=== PATIENT | female | born 1970 | race Caucasian/White ===

== ENCOUNTER 2019-09-09 09:57 | Outpatient (CLI) | payer OTHER, SELFPAY ==
--- NOTE | 2019-09-09 10:08 | MM_ITS ---
WS: [id number] Bilateral screening digital mammogram, 09/09/2019 Clinical Data: SCREENING Comparison: None. Findings: The breast parenchymal pattern shows fibroglandular tissue No spiculated masses or clustered calcific ations are seen. There are no secondary signs of carcinoma. MM/[id number] Impression: 1. Negative bilateral mammogram with no prior exam for review. 2. Recommend annual screening mammograms. BIRADS: 1-Negative FOLLOW UP: 1 Year Follow-up The CAD film tests checker was used.
== END 2019-09-09 09:58 | disposition home or self-care (01) ==
LOC: RADSHAW 10:06
PROVIDERS: Visit Provider Nurse Practitioner Family
DX: Z12.31 Encounter for screening mammogram for malignant neoplasm of breast (principal)
CPT/HCPCS: 77067

== ENCOUNTER 2020-10-02 08:54 | Emergency (ER) | payer MEDICAID, SELFPAY ==
[2020-10-02 09:00] VITALS: BP 153/94; PULSE 93; RESP 20; TEMP 37.2; O2SAT 91; BMI 36.0
--- NOTE | 2020-10-02 09:09 | W.ED.COVID ---
HPI - COVID General: Chief Complaint: COVID symptoms Stated Complaint: COVID +/SOB/BACK PAIN/HEADACHES Source: patient, family (son) and color paste mixer (son) Mode of arrival: ambulatory Limitations: language barrier Triage information: Has fever, cough or shortness of breath. Exposure to COVID + person last 14 days History of Present Illness: HPI Narrative: Patient is a 50-year-old female who presents to ED today along with her who is also being seen and her son who is providing color paste mixer services here for complaints of positive COVID exposure and symptoms. Patient states her tested positive for COVID at [facility] last week. She states shortly after she became symptomatic complaining of a cough, shortness of breath, fatigue, and a headache. Son states they did a home rapid antigen test that came back positive. Son states she has a history of HTN and diabetes. MD complaint: reported COVID exposure and has COVID symptoms Prior covid testing: no COVID 19 common symptoms: positive non-productive cough, dyspnea, fatigue, body aches and headache(s); negative fever(s), chills, throat pain, nasal congestion, nausea, vomiting or diarrhea COVID 19 other sytmptoms: negative chest pain Onset (ago): day(s) Severity: moderate Treatment prior to arrival: none COVID Results: SARS-CoV-2 Antigen (Rapid) Positive (Negative) H 10/02/20 09:37 10/02/20 Review of Systems Const: Reports: body aches, fatigue and malaise; Denies: fever(s) or chills Eyes: Denies: change in vision ENMT: Denies: throat pain, odynophagia, nasal discharge or nasal congestion Card: Reports: dyspnea on exertion; Denies: chest pain, palpitations, irregular heart rhythm, edema, lightheadedness, syncope or pre-syncope Resp: Reports: dyspnea and non-productive cough; Denies: wheezing or hemoptysis GI: Denies: abdominal pain, nausea, vomiting or diarrhea Musc: Denies: neck pain or back pain Skin/Breast: Denies: rash Neuro: Reports: headache(s); Denies: numbness in extremities, weakness in extremities, sensory changes, difficulty walking, frequent falls or dizziness Physical Exam Const: COMMON NORMALS: no acute distress, patient oriented x3, no limitations and alert GENERAL APPEARANCE: cooperative NUTRITIONAL APPEARANCE: overweight ORIENTATION/CONSCIOUSNESS: Yes awake, Yes oriented to person, Yes oriented to place and Yes oriented to time HENMT: COMMON NORMALS: normocephalic and atraumatic HEAD & SCALP: normal to inspection, normocephalic and atraumatic Resp: COMMON NORMALS: normal respiratory effort and clear to auscultation bilaterally AUSCULTATION: clear to auscultation bilaterally Cardio: COMMON NORMALS: regular rate and regular rhythm RATE: regular rate RHYTHM: regular rhythm Extremity: COMMON NORMALS: no calf tenderness and no pedal edema Neuro: SHERINE COMA SCALE: document GCS findings [place] coma scale eye opening: Spontaneous [place] coma scale verbal response: Orientated Sherine coma scale motor response: Obey commands [place] coma scale total score: 15 COMMON NORMALS: patient oriented x3 SENSORIUM/ORIENTATION: Yes alert, Yes oriented to person, Yes oriented to place and Yes oriented to time Skin: COMMON NORMALS: no rashes or lesions noted GENERAL SKIN EXAM: no rashes or lesions noted Course Vital Signs: Vital signs: Vital Signs Temperature 99.0 F 10/02/20 11:19 Pulse Rate 93 10/02/20 09:00 Respiratory Rate 20 H 10/02/20 11:19 Blood Pressure 153/94 10/02/20 09:00 Pulse Oximetry 95 10/02/20 11:19 MDM - COVID MDM Narrative: Medical decision making narrative: Patient is a very nice woman here with COVID-19 symptoms and positive exposure. Her rapid is positive today. Patient upon arrival is in no acute distress. She is not tachycardic or febrile. Patient is satting at 92% at rest on RA. During her home O2 evaluation by RT she did drop to 88% which qualifies her for home O2. CXR does show bilateral pneumonia. She certainly has risk factors for disease progression but does not qualify for [facility] based on oxygen requirement. At this time patient does not warrant emergent hospitalization. She was given strict instructions to return to ED if symptoms worsen. We will have set her up with a telehealth COVID re-check visit so someone can re-assess in 24-48 hours. Lab Data: Labs: Lab Results 10/02/20 Range/Units 09:37 SARS-CoV-2 Ag (Rap id) Positive H (Negative) Imaging Data: CXR: Radiologist's impression: [address] [place] [address] XRay Report Signed Patient: Opal Rain Unit #: [id number] : 1970 Age/Sex: 50 / F ADM Date: 10/02/20 Loc: ER Room/Bed: Attending Dr: Ordering Provider/Ordering MD: Pam Osuna Date of Service: 10/02/20 Procedure(s): XR chest 1V portable [id number] Accession Number(s): [id number] Report Number: [id number] PROCEDURE INFORMATION: Exam: XR Chest Exam date and time: 10/02/2020 9:09 AM Age: 50 years old Clinical indication: Shortness of breath; Additional info: Covid exposure, symptomatic, SOB TECHNIQUE: Imaging protocol: XR of the chest. Views: 1 view. COMPARISON: No relevant prior studies available. FINDINGS: Lungs: Bilateral ground-glass and airspace opacities are noted in the lungs especially in the periphery of the left lower lobe compatible with pneumonic infiltrates including COVID-19 pneumonia. The pulmonary vascularity is within normal limits. Pleural spaces: Unremarkable. No pleural effusion. No pneumothorax. Heart/Mediastinum: There is borderline cardiomegaly. Bones/joints: No acute abnormality. XR/XR chest 1V portable [id number] IMPRESSION: Bilateral ground-glass and airspace opacities are noted in the lungs especially in the periphery of the left lower lobe compatible with pneumonic infiltrates including COVID-19 pneumonia. Dictated By: Shannan Haddad Signed By: Shannan Haddad Signed Date/Time: 10/02/20 1208 DD/ 1206 COVID Results: SARS-CoV-2 Antigen (Rapid) Positive (Negative) H 10/02/20 09:37 10/02/20 Monoclonal Antibody - ED Inclusion/Exclusion Criteria age >/= 12 years, weight >/= 40kg /88lbs, symptom onset less than 10 days ago and + direct Sars-Cov-2 test less than 7-10 days ago obesity (BMI >25 or 85%til for age) not requiring hospitalization and no increase oxygen requirement (if chronically on oxygen) Plan for treatment Does not meet criteria (DO NOT GIVE) Discharge Plan Discharge Patient Disposition: Home Clinical Impression: Pneumonia due to COVID-19 virus Condition: Stable Prescriptions: New dexamethasone 6 mg tablet 6 mg PO DAILY Qty: 6 RF: 0 Zofran 4 mg tablet 4 mg PO Q6H PRN (Reason: nausea and vomiting) Qty: 14 RF: 0 Discharge Orders: Discharge ED (Routine); Ordered 10/02/20 Ordered By: Pam Osuna Other Ambulatory Orders: DME: Oxygen (Order) Location: None Selected Ordered By: Pam Osuna Activity Restrictions/Additional Instructions: As we discussed you did not qualify for the monoclonal antibody infusion given the fact that you were requiring oxygen. Your vital signs are stable at this time-oxygen increased to appropriate levels with 2L home O2. Your chest x-ray does show pneumonia. This is secondary to the COVID-19 virus. Antibiotics are not indicated at this time. You need to continue to watch symptoms closely and return to the emergency department for severe shortness of breath or difficulty breathing. I will try to have case management set you up with a telehealth visit in the next 1 to 2 days so somebody can reevaluate you. Coding Level of Care Code ED Speech Language Pathologist Assistant for Sal Lozano Exam Detailed
[2020-10-02 09:41] VITALS: RESP 20; TEMP 37.2; O2SAT 95
[2020-10-02 09:46] VITALS: O2SAT 88; O2SAT 92; O2SAT 95
[2020-10-02 10:16] LABS: SARS Covid-2 Antigen Positive (Negative)
[2020-10-02 11:19] VITALS: RESP 20; TEMP 37.2; O2SAT 95
[2020-10-02] MEDS: ondansetron 4 MG Tablet PO (11:19)
--- NOTE | 2020-10-03 14:26 | DCPLANNER ---
assessment services manager had message to schedule a tele health visit with primary care physician. assessment services manager called [facility], gave clinic patients information. A follow up appointment was scheduled for Sunday, October 04, 2020 at 1:[address] Hrading. assessment services manager called patients daughter, and gave her the appointment information.
--- NOTE | 2020-10-14 14:46 | DCPLANNER ---
Patient had a follow up appointment scheduled for 10.04.20 with primary care, patient did attend.
== END 2020-10-02 11:20 | disposition home or self-care (01) ==
PROVIDERS: Emergency Provider Physician Assistant
DX: U07.1 COVID-19 (principal); J12.82 Pneumonia due to coronavirus disease 2019
CPT/HCPCS: 71045; 87426; 99283; Q0162

== ENCOUNTER 2020-10-05 11:56 | Inpatient (IN) | payer MEDICAID, SELFPAY ==
[2020-10-05] VITALS (9 sets, daily range): BP systolic 134–161; BP diastolic 78–93; PULSE 75–82; RESP 16–29; TEMP 36.7–37.1; O2SAT 89–96; BMI 34.9; BMI 35.7
--- NOTE | 2020-10-05 13:20 | XR_ITS ---
WS: [id number] Portable AP upright chest, 10/05/2020 Clinical Data: dyspnea Comparison: Portable chest, 10/02/2020. Findings: Patchy bilateral pulmonary opacities are seen throughout the lungs with slight improvement. No nodules or masses are seen. The heart is normal. The aortic arch is tortuous. XR/XR chest 1V portable [id number] Impression: Slight improvement in patchy bilateral pulmonary opacities consistent with pneu monia.
[2020-10-05 13:44] LABS: ABG PCO2 33.4 mmHg (35-45); ABG PH Result 7.46 (7.35-7.45); Arterial Blood Gas Hematocrit 37.8 % (37-47); Base Excess ABG 0.3 mmol/L (-2.0-2.0); Blood Gas Sample Type Arterial; Carboxyhemoglobin 1.3 %THgb (0.4-20.1); HCO3 ABG 23.7 mmol/L (22-26); HGB O2 Sat 90.6 % (95-100); Ionized Calcium Level - ABG 1.2 mmol/L (1.1-1.4); Methemoglobin 0.7 % (0.4-1.5); Oxygen Saturation ABG 92.5; Potassium Level - ABG 4.3 mmol/L (3.5-5.0); Total Hemoglobin 12.3 g/dL (12-16)
[2020-10-05 13:45] LABS: Alveolar-Arterial Oxygen Gradi 27.8 mmHg (5-10); Blood Gas Operator Identificat ED; Blood Gas Sample Site Radial, left; Oxygen Device NC
[2020-10-05 14:00] LABS: Basophils % 0.1 %; Hematocrit 35.4 % (37.0-47.0); Hemoglobin 11.8 g/dL (11.5-15.3); Lymphocytes # 0.6 10^3/uL (0.8-4.8); Lymphocytes % 6.8 %; Mean Corpuscular HGB Conc 33.3 g/dL (30.0-36.0); Mean Corpuscular Hemoglobin 26.6 pg (28.0-34.0); Mean Corpuscular Volume 79.7 fL (81-99); Mean Platelet Volume 8.5 fL (7.4-10.4); Monocytes # 0.6 10^3/uL (0.2-0.9); Monocytes % 7.9 %; Neutrophils # 6.85 10^3/uL (1.8-7.7); Neutrophils % 84.6 %; Nucleated Red Blood Cells % 0 %; Platelet Count 322 10^3/cmm (130-400); Red Blood Count 4.44 10^6/uL (4.1-5.3); Red Cell Distribution Width 13.4 % (12.1-15.1); White Blood Count 8.1 10^3/uL (4.0-10.0)
[2020-10-05 14:15] LABS: D Dimer 0.87 ug/mIFEU (0-0.59)
[2020-10-05 14:17] LABS: Alanine Aminotransferase 12 U/L (0-33); Albumin Level 3.5 g/dL (3.5-5.2); Alkaline Phosphatase 125 IU/L (35-105); Anion Gap 16.4 (5-19); Aspartate Amino Transferase 14 U/L (0-32); Blood Urea Nitrogen 17 mg/dL (6-20); C Reactive Protein 97.2 mg/L (0.0-4.9); Carbon Dioxide 23 mmol/L (22-29); Chloride 95 mmol/L (98-107); Creatinine Clr Calc Pharmacy 143.3668; Globulin 2.9 g/dL (1.3-4.6); Glomerular Filtration Rate 106.3 mL/min (90-130); Glucose 380 mg/dL (65-115); Osmolality Calculated 287 mOsm/kg (285-295); Potassium 4.4 mmol/L (3.5-5.1); Sodium 130 mmol/L (136-145); Total Bilirubin 0.6 mg/dL (0.15-1.2); Total Protein 6.4 g/dL (6.6-8.7)
[2020-10-05 14:18] LABS: Lactic Sepsis W/Reflex 1.7 mmol/L (0.5-2.2)
--- NOTE | 2020-10-05 14:44 | W.ED.COVID ---
HPI - COVID General: Chief Complaint: COVID symptoms Stated Complaint: Low O2, covid + Time Seen by Provider: 10/05/20 13:20 Triage information: Exposure to COVID + person last 14 days History of Present Illness: HPI Narrative: 50-year-old female who presents to the emergency room with complaints of shortness of breath. Patient is diabetic moderately obese. She tested positive for Covid on 10/02 she had symptoms since 09/28. She was on oxygen at home at 5 L/min and was getting increasingly short of breath on arrival here she is 86% on 5 L at rest on 6 L she will maintain in the mid to low 90s. She continues to have myalgias low-grade fever. MD complaint: known COVID positive Prior covid testing: yes, results known Prior testing date: 10/02/20 COVID 19 common symptoms: positive fever(s), chills, cough, non-productive cough, dyspnea, fatigue, body aches, headache(s), nasal congestion and nausea; negative vomiting or diarrhea COVID 19 other sytmptoms: positive requiring oxygen, requiring more oxygen and respiratory distress; negative chest pain Onset (ago): week(s) (1) Severity: severe Pertinent comorbid conditions: diabetes, hypertension and obesity Treatment prior to arrival: steroids and oxygen COVID Results: SARS-CoV-2 Antigen (Rapid) Positive (Negative) H 10/02/20 09:37 10/02/20 Review of Systems Const: Reports: fever(s), chills, body aches and fatigue ENMT: Reports: nasal congestion Card: Reports: dyspnea on exertion; Denies: chest pain, edema or orthopnea Resp: Reports: dyspnea and non-productive cough GI: Reports: nausea; Denies: abdominal pain, vomiting or diarrhea : Denies: flank pain, difficulty voiding, dysuria, urinary frequency or urinary urgency Skin/Breast: Denies: rash or pruritus Neuro: Reports: headache(s) Physical Exam Const: GENERAL APPEARANCE: cooperative ORIENTATION/CONSCIOUSNESS: Yes awake HENMT: COMMON NORMALS: normocephalic, atraumatic and hearing grossly normal bilaterally HEAD & SCALP: normocephalic and atraumatic Eye: COMMON NORMALS: Equal, round and reactive pupils present, EOMs intact bilaterally, conjunctivae normal and no scleral icterus CONJUNCTIVA: Yes conjunctivae normal PUPIL: Yes Equal, round and reactive pupils present Neck/C-Spine: COMMON NORMALS: full ROM, no lymphadenopathy, supple and no JVD Lymph: LYMPHATIC: no lymphadenopathy noted and no lymphedema noted Resp: AUSCULTATION: crackles, wheezes and diminished lung sounds Cardio: COMMON NORMALS: no JVD, regular rate, regular rhythm and No murmurs present (Cardio) RATE: regular rate RHYTHM: regular rhythm GI: COMMON NORMALS: Soft to palpation and No hepatosplenomegaly present AUSCULTATION: Yes normoactive bowel sounds PALPATION: Yes Soft to palpation, No Tenderness to palpation present (GI), No Guarding due to palpation present (GI) and Yes No hepatosplenomegaly present Extremity: COMMON NORMALS: normal to inspection, capillary refill normal, no clubbing, cyanosis or edema, no calf tenderness and no pedal edema Skin: COMMON NORMALS: no rashes or lesions noted GENERAL SKIN EXAM: no rashes or lesions noted Course Vital Signs: Vital signs: Vital Signs Temperature 98.0 F 10/05/20 12:52 Pulse Rate 75 10/05/20 16:38 Respiratory Rate 20 H 10/05/20 16:38 Blood Pressure 161/89 10/05/20 16:38 Pulse Oximetry 96 10/05/20 16:38 MDM - COVID MDM Narrative: Medical decision making narrative: Covid pneumonitis with failure of outpatient therapy. Will start on remdesivir dexamethasone. Discussed Dr. Vieira she concurs patient is a candidate for Actemra her procalcitonin is low normal. That was ordered as well. Discussed Dr. Gonzalez orders are written patient to be admitted to the to a unit. Lab Data: Labs: Lab Results 10/05/20 10/05/20 10/05/20 Range/Units 13:35 13:45 13:45 WBC 8.1 (4.0-10.0) 10^3/ uL RBC 4.44 (4.1-5.3) 10^6/u L Hgb 11.8 (11.5-15.3) g/dL Hct 35.4 L (37.0-47.0) % MCV 79.7 L (81-99) fL MCH 26.6 L (28.0-34.0) pg MCHC 33.3 (30.0-36.0) g/dL RDW 13.4 (12.1-15.1) % Plt Count 322 (130-400) 10^3/c mm MPV 8.5 (7.4-10.4) fL Neut % (Auto) 84.6 % Lymph % (Auto) 6.8 % [place] % (Auto) 7.9 % Eos % (Auto) 0.0 % Baso % (Auto) 0.1 % Neut # (Auto) 6.85 (1.8-7.7) 10^3/u L Lymph # (Auto) 0.6 L (0.8-4.8) 10^3/u L [place] # (Auto) 0.6 (0.2-0.9) 10^3/u L Eos # (Auto) 0.0 (0.0-0.8) 10^3/u L Baso # (Auto) 0.0 (0.0-0.1) 10^3/u L Nucleated RBC % (a uto) 0 % Nucleated RBCs # 0.0 /100WBC D-Dimer 0.87 H (0-0.59) ug/mIFE U Specimen Type Arterial Sample Site Radial, left ABG pH 7.46 H (7.35-7.45) ABG pCO2 33.4 L (35-45) mmHg ABG pO2 58.0 L (80.0-100.0) mmH g ABG HCO3 23.7 (22-26) mmol/L ABG O2 Saturation 92.5 ABG Base Excess 0.3 (-2.0-2.0) mmol/ L Ben Test N/a A-a O2 Gradient 27.8 H (5-10) mmHg Hematocrit 37.8 (37-47) % Hgb O2 Saturation 90.6 L (95-100) % Carboxyhemoglobin 1.3 (0.4-20.1) %THgb Methemoglobin 0.7 (0.4-1.5) % Total Hemoglobin 12.3 (12-16) g/dL Sodium 131.0 (131-143) mmol/L Potassium 4.3 (3.5-5.0) mmol/L Glucose 386.0 H (70-115) mg/dL Ionized Calcium 1.2 (1.1-1.4) mmol/L O2 Delivery Device Nc O2 Liters/Min 6.0 % FiO2 44.0 % Cloth Weigher ID Ed Chloride (98-107) mmol/L Carbon Dioxide (22-29) mmol/L Anion Gap (5-19) BUN (6-20) mg/dL Creatinine (0.5-0.9) mg/dL GFR Calculation (90-130) mL/min Calculated Osmolal ity (285-295) mOsm/k g Lactic Acid (0.5-2.2) mmol/L Calcium (8.5-10.5) mg/dL Total Bilirubin (0.15-1.2) mg/dL AST (0-32) U/L ALT (0-33) U/L Alkaline Phosphata se (35-105) IU/L C-Reactive Protein (0.0-4.9) mg/L Total Protein (6.6-8.7) g/dL Albumin (3.5-5.2) g/dL Globulin (1.3-4.6) g/dL Procalcitonin (0-0.5) ng/mL 10/05/20 10/05/20 10/05/20 Range/Units 13:45 13:45 13:45 WBC (4.0-10.0) 10^3/ uL RBC (4.1-5.3) 10^6/u L Hgb (11.5-15.3) g/dL Hct (37.0-47.0) % MCV (81-99) fL MCH (28.0-34.0) pg MCHC (30.0-36.0) g/dL RDW (12.1-15.1) % Plt Count (130-400) 10^3/c mm MPV (7.4-10.4) fL Neut % (Auto) % Lymph % (Auto) % [place] % (Auto) % Eos % (Auto) % Baso % (Auto) % Neut # (Auto) (1.8-7.7) 10^3/u L Lymph # (Auto) (0.8-4.8) 10^3/u L [place] # (Auto) (0.2-0.9) 10^3/u L Eos # (Auto) (0.0-0.8) 10^3/u L Baso # (Auto) (0.0-0.1) 10^3/u L Nucleated RBC % (a uto) % Nucleated RBCs # /100WBC D-Dimer (0-0.59) ug/mIFE U Specimen Type Sample Site ABG pH (7.35-7.45) ABG pCO2 (35-45) mmHg ABG pO2 (80.0-100.0) mmH g ABG HCO3 (22-26) mmol/L ABG O2 Saturation ABG Base Excess (-2.0-2.0) mmol/ L Ben Test A-a O2 Gradient (5-10) mmHg Hematocrit (37-47) % Hgb O2 Saturation (95-100) % Carboxyhemoglobin (0.4-20.1) %THgb Methemoglobin (0.4-1.5) % Total Hemoglobin (12-16) g/dL Sodium 130 L (131-143) mmol/L Potassium 4.4 (3.5-5.0) mmol/L Glucose 380 H (70-115) mg/dL Ionized Calcium (1.1-1.4) mmol/L O2 Delivery Device O2 Liters/Min % FiO2 % Cloth Weigher ID Chloride 95 L (98-107) mmol/L Carbon Dioxide 23 (22-29) mmol/L Anion Gap 16.4 (5-19) BUN 17 (6-20) mg/dL Creatinine 0.6 (0.5-0.9) mg/dL GFR Calculation 106.3 (90-130) mL/min Calculated Osmolal ity 287 (285-295) mOsm/k g Lactic Acid 1.7 (0.5-2.2) mmol/L Calcium 8.0 L (8.5-10.5) mg/dL Total Bilirubin 0.6 (0.15-1.2) mg/dL AST 14 (0-32) U/L ALT 12 (0-33) U/L Alkaline Phosphata se 125 H (35-105) IU/L C-Reactive Protein 97.2 H (0.0-4.9) mg/L Total Protein 6.4 L (6.6-8.7) g/dL Albumin 3.5 (3.5-5.2) g/dL Globulin 2.9 (1.3-4.6) g/dL Procalcitonin 0.28 (0-0.5) ng/mL COVID Results: SARS-CoV-2 Antigen (Rapid) Positive (Negative) H 10/02/20 09:37 10/02/20 Discharge Plan Discharge Patient Disposition: Admitted As Inpatient Admit Provider: Norman Castro Clinical Impression: Pneumonia due to COVID-19 virus, Acute exacerbation of chronic obstructive pulmonary disease Condition: Stable Coding Level of Care Code ED Server Systems Administrator for [facility] Fwd Exam Comprehensive
[2020-10-05] MEDS: dexamethasone 10 mg/mL INJ 6 MG IVP ×2 (15:04→19:26)
[2020-10-05] MEDS: remdesivir 200 MG in sodium chloride 0.9% (100 ml) 100 ML 100 MG IV (15:04)
[2020-10-05 17:06] LABS: Procalcitonin 0.28 ng/mL (0-0.5)
--- NOTE | 2020-10-05 17:23 | P.HP_ITS ---
Providers/Chief Complaint Admitting Physician: Norman Castro MD Primary Care Provider: Marcel Gardiner MD Chief Complaint: Low O2, covid + History of Present Illness Opal Rain is a 50 year old female with past medical history of morbid obesity,hypertension presented to the ER today because of worsening shortness of breath. She tested positive for Covid on 10/02 she had symptoms since 09/28. She was on oxygen at home at 5 L/min and was getting increasingly short of breath on arrival here she is 86% on 5 L at rest on 6 L she will maintain in the mid to low 90s. Patient continued to have myalgias, low-grade fever and cough with expectoration for last 2 days. As her shortness of breath was worsening she presented to the ER via EMS. Patient was placed on high flow and then to heated high flow to maintain his saturations over 88% in the ER. Patient denies any vaccination and states her and son are also sick though son is not having any symptoms. Patient takes lisinopril for blood pressure. Review of Systems General: Reports: 10 or more systems reviewed and unremarkable except in HPI and below Const: Denies: fever(s), chills, body aches, change in appetite, change in weight, malaise, night sweats, diaphoresis, change in sleep pattern, daytime sleepiness or snoring Eyes: Denies: change in vision, blurry vision, photophobia, eye discomfort or eye discharge ENMT: Denies: throat pain, enlarged tonsils, hoarseness, mouth pain, oral sores, dry mouth, tinnitus, nasal congestion or post nasal drip Card: Denies: chest pain, palpitations, irregular heart rhythm, edema, swelling of feet/ankles, lightheadedness, syncope, pre-syncope, dyspnea on exertion, orthopnea, leg pain with exertion or acrocyanosis Resp: Denies: dyspnea, productive cough, non-productive cough, wheezing, stridor, pain on inspiration, change in phlegm color, hemoptysis or chest congestion GI: Denies: abdominal pain, nausea, vomiting, hematemesis, coffee ground emesis, dysphagia, heartburn, diarrhea, constipation, bloating, GI cramping, change in bowel habits, pain on defecation, hematochezia or melena : Denies: flank pain, dysuria, urinary frequency, urinary urgency, urinary hesitancy, nocturia or hematuria Musc: Denies: neck pain, back pain, extremity pain, joint pain, joint swelling, joint redness, joint stiffness or limited range of motion Neuro: Denies: headache(s), numbness in extremities, weakness in extremities, sensory changes, lack of coordination, difficulty walking, frequent falls, dizziness, vertigo, confusion, Slurred speech present, difficulty communicating thoughts or seizure-like activity Psych: Denies: anxiety, depression, mood swings, panic attacks, hopelessness or irritability Endo: Denies: polyuria, polydipsia, tired all the time, cold intolerance, excessive sweating, flushing or heat intolerance Juma/Lymph: Denies: easy bruising or easy bleeding All/Imm: Denies: tongue swelling, facial swelling or acute wheezing Medications/Allergies Home Medications Medication Instructions Recorded Confirmed Last Taken Type dexamethasone 6 mg PO DAILY #6 tab 10/02/20 10/05/20 10/05/20 Rx ondansetron HCl [Zofran] 4 mg PO Q6H PRN #14 tab 10/02/20 10/05/20 Unknown Rx Allergies Allergy/AdvReac Type Severity Reaction Status Date / Time No Known Allergies Allergy Verified 10/05/20 12:57 PFSH Acute PFSH: Medical History (Updated 10/06/20 @ 17:09 by Norman Castro MD) Diabetes mellitus HTN (hypertension) Family History (Updated 10/06/20 @ 17:11 by Norman Castro MD) Denies family history of CAD (coronary artery disease) Cancer Social History (Updated 10/06/20 @ 17:12 by Norman Castro MD) Smoking and tobacco status: never smoked Alcohol intake: never Substance/Drug Use: never Adopted: No Caregiver/support person: Yes Lives independently: Yes Household members: family Housing: House Vitals/I&O/Wt Last Vital Signs Temp 98.0 F 10/05/20 12:52 Pulse 75 10/05/20 16:38 Resp 20 H 10/05/20 16:38 BP 161/89 10/05/20 16:38 Pulse Ox 96 10/05/20 16:38 Weight last 48 hrs Weight 104.326 kg Physical Exam Narrative: EXAM NARRATIVE: General: No acute distress, AO x3 HEENT: PERRLA, pupils bilaterally equal and reactive Chest: Bilateral bronchial breath sounds all over lung hinson, rhonchi present all over lung hinson, equal good air entry bilaterally CVS: S1-S2 regular, no murmurs, no tachycardia, no gallops, no rubs Abdomen: Soft, nontender, no organomegaly, bowel sounds present Neuro: No focal deficits, no facial deformity, AO x3, power 5/5 in all limbs Data : 10/06/20 06:03 10/06/20 06:03 A&P Assessment and plan (1) ARDS (adult respiratory distress syndrome): Status: Acute (2) Pneumonia due to COVID-19 virus: Status: Acute (3) COVID-19 vaccine dose declined: Status: Acute (4) Diabetes mellitus: Status: Acute (5) HTN (hypertension): Status: Acute Additional A&P Information ARDS secondary to COVID-19 pneumonia: Severe disease Oxygen supplementation keeping saturation over 88%. PF ratio less than 100. Dexamethasone 6 mg daily. Remdesivir to finish a 5-day course. Vitamin C, zinc. Advair, Spiriva. Pulmonary toilet with incentive spirometry flutter valve. We will monitor inflammatory markers including ferritin, ESR, CRP, D-dimer, fibrinogen. As patient has been on oral steroids and oxygen supplementation for last 4 days but has been worsening we will go ahead and give Actemra. D-dimer elevated. Check CTA. For now we will start patient on full dose anticoagulation as patient requiring high oxygen supplementation. Will monitor for anemia or blood loss. Check sputum culture, procalcitonin, urine Legionella, bacterial antigen, blood culture. Procalcitonin negative. Low suspicion of bacterial infection for now. For now hold off on antibiotics. Given hypoxia will try to keep patient as negative as possible. Patient clinically dehydrated for now. For now continue with gentle hydration. Monitor for fluid overload. Strict input output charting, daily weights. We will change treatment as per indications. Check HbA1c, lipid panel. Hypertension: Goal blood pressure less than 140/90 mmHg. Full code. Full dose Lovenox will help with DVT prophylaxis. Mechanical soft diet. Famotidine for PUD prophylaxis. Attestations Medical Necessity Statement*: Admission for more than 2 midnights for ARDS secondary to COVID-19 pneumonia Time Spent in Patient Care: Greater than 35 minutes (>than 50% of time spent in counselling and/or direct pt care on unit) . Coding Level of Care Code Acute Safety Deposit Boxes Custodian for Chg Fwd Diagnoses ARDS (adult respiratory distress syndrome) J80 Pneumonia due to COVID-19 virus U07.1; J12.82 COVID-19 vaccine dose declined Z28.21 Diabetes mellitus E11.9 HTN (hypertension) I10
[2020-10-05 18:13] LABS: Creatine Phosphokinase 28 U/L (26-192); Thyroid Stimulating Hormone 1.29 uIU/mL (0.27-4.20)
--- NOTE | 2020-10-05 18:14 | CTR_ITS ---
PROCEDURE INFORMATION: Exam: CTA Chest With Contrast Exam date and time: 10/05/2020 6:14 PM Age: 50 years old Clinical indication: Shortness of breath; Patient HX: Hypoxia/elevated ddimer. Covid +. Unable to obtain further history due to language barrier. Non spinner frame present. ; Additional info: High d-dimer, covid TECHNIQUE: Imaging protocol: Computed tomographic angiography of the chest with contrast. 3D rendering (Not supervised by radiologist): MIP and/or 3D reconstructed images were created by the technologist. Radiation optimization: All CT scans at this facility use at least one of these dose optimization techniques: automated exposure control; mA and/or kV adjustment per patient size (includes targeted exams where dose is matched to clinical indication); or iterative reconstruction. Contrast material: OMNI 350; Contrast volume: 70 ml; Contrast route: INTRAVENOUS (IV); COMPARISON: CR XR chest 1V portable [id number] 10/05/2020 1:28 PM RADIATION DOSE METRICS: Total DLP (mGy-cm): 529.23 FINDINGS: Pulmonary arteries: No pulmonary emboli identified (sensitivity is lower than typical due to breathing motion artifact). Aorta: No thoracic aortic aneurysm identified. Lungs: Extensive groundglass opacification throughout all lobes of both lungs. Mild patchy alveolar opacities in the right lower lobe and left lower lobe. In the provided clinical context, these findings likely represent multifocal pneumonia. Pulmonary edema and hypersensitivity pneumonitis are alternate possibilities. Pleural spaces: No pneumothorax or pleural effusion. Heart: Heart size within normal limits. Lymph nodes: No enlarged or abnormal appearing mediastinal/hilar lymph nodes identified. Bones/joints: Unremarkable. No acute fracture. Soft tissues: Unremarkable. Other findings: Images of the upper abdomen were reviewed. Status post cholecystectomy. A few small calcified granulomata are noted in the spleen. CT/CT angio chest PE protcl [id number] IMPRESSION: 1. No pulmonary emboli identified (sensitivity is lower than typical due to breathing motion artifact). 2. Extensive groundglass opacification throughout all lobes of both lungs. Mild patchy alveolar opacities in the right lower lobe and left lower lobe. In the provided clinical context, these findings likely represent multifocal pneumonia. Pulmonary edema and hypersensitivity pneumonitis are alternate possibilities. Radiation Dose CTDIVOL = (mGy): DLP = 529.23 (mGy-cm)
[2020-10-05] MEDS: sodium chloride 0.9% 1,000 ML 50 ML IV (19:24)
[2020-10-05] MEDS: famotidine 20 mg/2 mL INJ IVP (19:26)
[2020-10-05] MEDS: ferrous gluconate 324 mg Tablet PO (19:27)
[2020-10-05] MEDS: ascorbic acid 500 mg Tablet 1000 MG PO (19:27)
[2020-10-05] MEDS: tocilizumab 800 MG in sodium chloride 0.9% (100 ml) 100 ML 100 MG IV (20:31)
[2020-10-05] MEDS: benzonatate 100 mg Capsule PO (21:19)
[2020-10-05] MEDS: apixaban 5 mg Tablet PO (21:19)
[2020-10-05] MEDS: iohexol 350 mg/mL 100 mL Btl IV (21:27)
[2020-10-05 21:29] LABS: Iron 12 ug/dL (37-145); Total Iron Binding Capacity 297 mcg/dl; Unsaturated Iron Binding 285 ug/dL (112-347)
[2020-10-06] VITALS (18 sets, daily range): BP systolic 127–157; BP diastolic 80–102; PULSE 67–87; RESP 17–30; TEMP 36.7–36.9; O2SAT 89–94
[2020-10-06] MEDS: ipratropium-albuterol 3 mL Neb INHALATION ×4 (03:30→20:45)
[2020-10-06] MEDS: famotidine 20 mg/2 mL INJ IVP ×2 (05:33→17:56)
--- NOTE | 2020-10-06 06:00 | XR_ITS ---
WS: [id number] Portable AP upright chest, 10/06/2020 Clinical Data: covid Comparison: Portable chest, 10/05/2020 Findings: The bilateral pulmonary opacities have not changed. The heart remains normal. The aortic ar ch is minimally tortuous. Monitor leads are on the chest wall. XR/XR chest 1V portable [id number] Impression: No change in bilateral pulmonary opacities consistent with pneumonia.
[2020-10-06 07:15] LABS: Basophils % 0.2 %; Hematocrit 36.3 % (37.0-47.0); Hemoglobin 11.8 g/dL (11.5-15.3); Lymphocytes # 0.6 10^3/uL (0.8-4.8); Lymphocytes % 13.4 %; Mean Corpuscular HGB Conc 32.5 g/dL (30.0-36.0); Mean Corpuscular Hemoglobin 26.6 pg (28.0-34.0); Mean Corpuscular Volume 81.8 fL (81-99); Mean Platelet Volume 8.6 fL (7.4-10.4); Monocytes # 0.5 10^3/uL (0.2-0.9); Monocytes % 10.3 %; Neutrophils # 3.41 10^3/uL (1.8-7.7); Nucleated Red Blood Cells % 0 %; Platelet Count 335 10^3/cmm (130-400); Red Blood Count 4.44 10^6/uL (4.1-5.3); Red Cell Distribution Width 13.7 % (12.1-15.1); White Blood Count 4.6 10^3/uL (4.0-10.0)
[2020-10-06 07:17] LABS: D Dimer 1.24 ug/mIFEU (0-0.59)
[2020-10-06 07:24] LABS: Alanine Aminotransferase 9 U/L (0-33); Albumin Level 3.3 g/dL (3.5-5.2); Alkaline Phosphatase 123 IU/L (35-105); Anion Gap 18.4 (5-19); Aspartate Amino Transferase 8 U/L (0-32); Blood Urea Nitrogen 20 mg/dL (6-20); Calcium 8.3 mg/dL (8.5-10.5); Carbon Dioxide 21 mmol/L (22-29); Chloride 100 mmol/L (98-107); Globulin 3.4 g/dL (1.3-4.6); Glomerular Filtration Rate 106.3 mL/min (90-130); Glucose 337 mg/dL (65-115); Magnesium 2.8 mg/dL (1.7-2.3); Osmolality Calculated 296 mOsm/kg (285-295); Phosphorus 3.6 mg/dL (2.5-4.5); Potassium 4.4 mmol/L (3.5-5.1); Sodium 135 mmol/L (136-145); Total Bilirubin 0.5 mg/dL (0.15-1.2); Total Protein 6.7 g/dL (6.6-8.7)
[2020-10-06 07:27] LABS: C Reactive Protein 151.1 mg/L (0.0-4.9); Chol HDL Ratio 4.37 mg/dL (0.0-4.40); Cholesterol 179 mg/dL (0-200); Creatine Phosphokinase 19 U/L (26-192); Ferritin 297 ng/mL (15-150); HDL Cholesterol 41 mg/dL (60-100); LDL Cholesterol Calculated 111 mg/dL (50-129); Triglycerides 133 mg/dL (0-150); VLDL Cholestrol Calculation 27 mg/dL (0-30)
[2020-10-06 07:29] LABS: Estmated Average Glucose 171; Hemoglobin A1C 7.6 % (4.0-6.0)
[2020-10-06 07:48] LABS: NT Pro B Type Natriuretic Pept 359 pg/mL (0-125)
[2020-10-06] MEDS: ferrous gluconate 324 mg Tablet PO ×2 (08:52→17:55)
[2020-10-06] MEDS: zinc gluconate 50 mg Tablet PO (08:52)
[2020-10-06] MEDS: benzonatate 100 mg Capsule PO ×3 (08:52→21:17)
[2020-10-06] MEDS: ascorbic acid 500 mg Tablet 1000 MG PO ×2 (08:52→17:56)
[2020-10-06] MEDS: apixaban 5 mg Tablet PO (08:52)
[2020-10-06 08:59] LABS: Erythrocyte Sedimentation Rate 94 mm/hr (0-15)
[2020-10-06] MEDS: budesonide 0.5 mg/2 mL Neb INHALATION ×2 (09:31→20:45)
[2020-10-06] MEDS: amlodipine 5 mg Tablet PO (09:39)
--- NOTE | 2020-10-06 10:44 | PC.NUTR ---
Nutrition note: Nurse requesting Glucerna be added with meals. Have entered in diet information. Further RD assessment pending.
[2020-10-06 11:36] LABS: Glucose Point of Care 404 mg/dL (70-110)
[2020-10-06 17:06] LABS: Glucose Point of Care 387 mg/dL (70-110)
--- NOTE | 2020-10-06 17:13 | PM.PN ---
Subjective Subjective: Interval history: On examination patient lying comfortably in bed on 45 L 60% saturating 94. Today morning she states she is feeling little better. Spoke with her through school resource officer over the phone. Her daughter is translating for her. Patient states she is not aware of her being diabetic but does take lisinopril for blood pressures. Asking when can she go home. We did discuss for need to be in hospital right now and as she continues to remain on heated high flow. Discussed the need for incentive spirometer and flutter valve. Also discussed the need for semiproning when possible. All the questions were answered. During examination oxygen supplementation was turned down to 35 L 40 % while she continued to saturate overnight 2%. Vitals/I&O/Wt Last Vital Signs Temp 98.4 F 10/06/20 16:00 Pulse 85 10/06/20 16:00 Resp 30 H 10/06/20 16:00 BP 148/80 10/06/20 16:00 Pulse Ox 90 10/06/20 16:00 10/06/20 10/06/20 10/06/20 06:59 14:59 22:59 Intake Total 140 / 240 440 / 440 Output Total 1150 / 1150 Balance -1010 / -910 440 / 440 Weight last 48 hrs Weight 105.914 kg Weight 106.594 kg Weight 104.326 kg Physical Exam Narrative: EXAM NARRATIVE: General: No acute distress, AO x3 HEENT: PERRLA, pupils bilaterally equal and reactive Chest: Bilateral bronchial breath sounds all over lung hinson, rhonchi present all over lung hinson, equal good air entry bilaterally CVS: S1-S2 regular, no murmurs, no tachycardia, no gallops, no rubs Abdomen: Soft, nontender, no organomegaly, bowel sounds present Neuro: No focal deficits, no facial deformity, AO x3, power 5/5 in all limbs Urinary Catheter Management^: Sahu: Cath Placed During This Visit: yes Urinary Catheter Date of Insertion: 10/05/20 Urinary Catheter Time of Insertion: 20:00 Data : 10/06/20 06:03 10/06/20 06:03 Micro: Microbiology 10/05/20 20:50 MRSA Culture - Final Nose 10/05/20 20:50 Bacterial Antigens - Final Urine Kidney 10/05/20 20:50 Legionella Urinary Antigen - Final Urine Catheterized 10/05/20 19:40 Blood Culture - Preliminary Blood SPECIMEN COLLECTED 10/05/20 19:40 Blood Culture - Preliminary Blood SPECIMEN COLLECTED A&P Assessment and plan (1) ARDS (adult respiratory distress syndrome): Status: Acute (2) Pneumonia due to COVID-19 virus: Status: Acute (3) COVID-19 vaccine dose declined: Status: Acute (4) Diabetes mellitus: Status: Acute (5) HTN (hypertension): Status: Acute Additional A&P Information ARDS secondary to COVID-19 pneumonia: Severe disease Oxygen supplementation keeping saturation over 88%. PF ratio less than 100. Post Actemra on October 05, 2020. Dexamethasone 6 mg daily. Remdesivir to finish a 5-day course. Vitamin C, zinc. DuoNebs every 4 hour, budesonide twice daily. Pulmonary toilet with incentive spirometry flutter valve. We will try to prone versus semiprone when possible. We will monitor inflammatory markers including ferritin, ESR, CRP, D-dimer, fibrinogen. As patient has been on oral steroids and oxygen supplementation for last 4 days but has been worsening we will go ahead and give Actemra. D-dimer elevated. CTA negative for PE though it is not a good study given breathing motion artifact. For now we will start patient on full dose anticoagulation as patient requiring high oxygen supplementation. We will switch from Eliquis to full dose Lovenox for now. Will monitor for anemia or blood loss. Sputum culture pending, blood culture preliminary negative. Urine Legionella, bacterial antigen, MRSA swab negative. Low suspicion of bacterial infection for now. For now hold off on antibiotics. Given hypoxia will try to keep patient as negative as possible. Patient appears euvolemic. We will continue to monitor fluid status. Strict input output charting, daily weights. Type 2 diabetes mellitus: No past history. HbA1c 7.6. Insulin sliding scale at mild dose protocol. Hypertension: Goal blood pressure less than 140/90 mmHg. Start patient on amlodipine 5 mg daily. If creatinine remains stable for next 24 hours switch on to home dose of lisinopril. Full code. Full dose Lovenox will help with DVT prophylaxis. Mechanical soft diet. Famotidine for PUD prophylaxis. Attestations Medical Necessity Statement*: Requires further hospitalization for management of ARDS secondary to COVID-19 pneumonia. Time Spent in Patient Care: Greater than 35 minutes (>than 50% of time spent in counselling and/or direct pt care on unit). Coding Level of Care Code Acute Explosive Ordnance Technician for Chg Fwd Diagnoses ARDS (adult respiratory distress syndrome) J80 Pneumonia due to COVID-19 virus U07.1; J12.82 COVID-19 vaccine dose declined Z28.21 Diabetes mellitus E11.9 HTN (hypertension) I10
[2020-10-06] MEDS: remdesivir 100 MG in sodium chloride 0.9% (100 ml) 100 ML IV (17:55)
[2020-10-06] MEDS: dexamethasone 10 mg/mL INJ 6 MG IVP (17:56)
[2020-10-06] MEDS: acetaminophen 325 mg Tablet 650 MG PO (20:11)
[2020-10-06] MEDS: enoxaparin 100 mg/mL Syringe SUBCUT (21:17)
[2020-10-06 21:25] LABS: Glucose Point of Care 413 mg/dL (70-110)
[2020-10-06 21:25] LABS: Glucose Point of Care 431 mg/dL (70-110)
[2020-10-07] VITALS (17 sets, daily range): BP systolic 114–160; BP diastolic 68–96; PULSE 67–88; RESP 18–30; TEMP 36.6–36.8; O2SAT 91–97
[2020-10-07] MEDS: ipratropium-albuterol 3 mL Neb INHALATION ×5 (04:30→23:29)
--- NOTE | 2020-10-07 04:35 | PC.PHAR ---
Pharmacokinetic dosing service Date: 10/07/20 Time: 429 Objective: Patient: Opal Rain Floor: 205-2 Age: 50 yo Serum creatinine: 0.6 mg/dL Height: 68.0 Inches Weight (kg): 105.914 Diagnosis: Relevant medical/social history: Cultures and sensitivities: Other labs: Assessment: IBW (kg): 63.90 Dosing wt(kg): 105.914 Estimated Creatinine clearance (ml/min): 114.4 CRCL method: Cockcroft and Gault using ibw(default). Drug selected: Vancomycin Loading dose (mg): 0 Vd (liters): 95.3 (factor used: 0.9 L/kg) [place] (hr-1): 0.099 Half life (hrs): 7.00 Recommended dose: 1500 mg Interval: 8 hrs Infusion time (hrs): 1.5 Predicted peak (mcg/mL): 26.7 Predicted trough (mcg/mL): 14.03 Total body weight is being used for vancomycin dosing. Renal function is stable [ ] /unstable [ ] Recommendations: Give Vancomycin 1500 mg q 8 hrs with an expected Cpeak of 26.7 mcg/ml and an expected Ctrough of 14.03 mcg/ml Renal dosing of other antibiotics (review renal dosing of other medications and list guidelines here): Thank you for the consult, will continue to follow. Signature: Dia Cortez [facility]
[2020-10-07] MEDS: vancomycin 1,500 MG/300 ML PIGGYBACK 200 MG IV ×3 (04:44→22:03)
[2020-10-07] MEDS: famotidine 20 mg/2 mL INJ IVP ×2 (05:24→18:31)
[2020-10-07 06:39] LABS: Glucose Point of Care 391 mg/dL (70-110)
[2020-10-07 06:48] LABS: D Dimer 0.95 ug/mIFEU (0-0.59)
[2020-10-07 07:14] LABS: C Reactive Protein 68.6 mg/L (0.0-4.9); Creatine Phosphokinase 150 U/L (26-192); Ferritin 270 ng/mL (15-150); NT Pro B Type Natriuretic Pept 172 pg/mL (0-125)
[2020-10-07] MEDS: budesonide 0.5 mg/2 mL Neb INHALATION ×2 (08:43→19:42)
[2020-10-07] MEDS: ferrous gluconate 324 mg Tablet PO ×2 (09:03→18:00)
[2020-10-07] MEDS: benzonatate 100 mg Capsule PO ×3 (09:03→21:00)
[2020-10-07] MEDS: ascorbic acid 500 mg Tablet 1000 MG PO ×2 (09:03→18:00)
[2020-10-07] MEDS: zinc gluconate 50 mg Tablet PO (09:03)
[2020-10-07] MEDS: enoxaparin 100 mg/mL Syringe SUBCUT ×2 (09:03→20:59)
[2020-10-07] MEDS: lisinopril 10 mg Tablet PO (09:04)
--- NOTE | 2020-10-07 09:26 | ECG_ITS ---
[facility] Test Date: 2020-10-07 Pat Name: Opal Rain Department: Room: 205 Gender: Female Covered Button Maker: : 1970 Requested By: Norman Castro Order Number: [id number] Reading MD: DAMASO TURNER Measurements Intervals Bim Rate: 91 P: 44 NJ: 149 QRS: 3 QRSD: 97 T: 10 QT: 366 QTc: 452 Interpretive Statements SINUS RHYTHM No previous ECG available for comparison Electronically Signed On 10-07-2020 19:27:09 CDT by DAMASO TURNER [email or web address]
[2020-10-07] MEDS: ALPRAZolam 0.5 mg Tablet PO (09:59)
[2020-10-07 10:13] LABS: Basophils % 0.2 %; Hematocrit 34.3 % (37.0-47.0); Hemoglobin 11.4 g/dL (11.5-15.3); Lymphocytes # 0.7 10^3/uL (0.8-4.8); Lymphocytes % 11.5 %; Mean Corpuscular HGB Conc 33.2 g/dL (30.0-36.0); Mean Corpuscular Hemoglobin 26.7 pg (28.0-34.0); Mean Corpuscular Volume 80.3 fl (81-99); Mean Platelet Volume 8.4 fL (7.4-10.4); Monocytes # 0.4 10^3/uL (0.2-0.9); Monocytes % 7.4 %; Neutrophils # 4.49 10^3/uL (1.8-7.7); Neutrophils % 79.5 %; Nucleated Red Blood Cells % 0 %; Platelet Count 349 10^3/cmm (130-400); Red Blood Count 4.27 10^6/uL (4.1-5.3); Red Cell Distribution Width 13.9 % (12.1-15.1); White Blood Count 5.7 10^3/uL (4.0-10.0)
[2020-10-07 11:15] LABS: Glucose Point of Care 394 mg/dL (70-110)
--- NOTE | 2020-10-07 15:43 | PM.PN ---
Subjective Subjective: Interval history: No current overnight. Patient has remained hemodynamically stable, afebrile. Requiring 45 L 53% oxygen supplementation with heated high flow to maintain saturation over 90%. We discussed in detail regarding need to do incentive spirometry and flutter valve. Also discussed to see if she can do proning versus semiproning. For now she would want to try proning. Patient is a little anxious today as her is also admitted to the hospital as per the daughter. We did discuss need for patient to consider her health for now so that she can become stronger. Vitals/I&O/Wt Last Vital Signs Temp 98.1 F 10/07/20 12:00 Pulse 70 10/07/20 15:10 Resp 24 H 10/07/20 15:10 BP 136/68 10/07/20 12:00 Pulse Ox 95 10/07/20 15:10 10/07/20 10/07/20 10/07/20 06:59 14:59 22:59 Intake Total 500 / 1640 540.000 / 540.000 Output Total 700 / 1850 600 / 600 Balance -200 / -210 -60.000 / -60.000 Weight last 48 hrs Weight 106.685 kg Weight 105.914 kg Weight 106.594 kg Physical Exam Narrative: EXAM NARRATIVE: General: No acute distress, AO x3 HEENT: PERRLA, pupils bilaterally equal and reactive Chest: Bilateral bronchial breath sounds all over lung hinson, rhonchi present all over lung hinson, equal good air entry bilaterally CVS: S1-S2 regular, no murmurs, no tachycardia, no gallops, no rubs Abdomen: Soft, nontender, no organomegaly, bowel sounds present Neuro: No focal deficits, no facial deformity, AO x3, power 5/5 in all limbs Urinary Catheter Management^: Sahu: Cath Placed During This Visit: yes Reason for Continuing Indwelling Catheter: Acute Urinary Retention or Obstruction Urinary Catheter Date of Insertion: 10/05/20 Urinary Catheter Time of Insertion: 20:00 Data : 10/07/20 09:58 10/06/20 06:03 Micro: Microbiology 10/07/20 10:04 Blood Culture - Preliminary Blood SPECIMEN COLLECTED 10/07/20 09:58 Blood Culture - Preliminary Blood SPECIMEN COLLECTED 10/05/20 19:40 Blood Culture - Preliminary Blood 10/05/20 19:40 Blood Culture - Preliminary Blood NEGATIVE TO DATE 10/05/20 20:50 MRSA Culture - Final Nose A&P Assessment and plan (1) ARDS (adult respiratory distress syndrome): Status: Acute (2) Pneumonia due to COVID-19 virus: Status: Acute (3) COVID-19 vaccine dose declined: Status: Acute (4) Diabetes mellitus: Status: Acute (5) HTN (hypertension): Status: Acute Additional A&P Information ARDS secondary to COVID-19 pneumonia: Severe disease Oxygen supplementation keeping saturation over 88%. PF ratio less than 100. Post Actemra on October 05, 2020. Dexamethasone 6 mg daily. Remdesivir to finish a 5-day course. Vitamin C, zinc. DuoNebs every 4 hour, budesonide twice daily. Pulmonary toilet with incentive spirometry flutter valve. We will try to prone versus semiprone when possible. We will monitor inflammatory markers including ferritin, ESR, CRP, D-dimer, fibrinogen. Inflammatory markers for now trending down. CRP 151>>97. For now we will continue to monitor and if needed can dose 1 more Actemra. D-dimer elevated. CTA negative for PE though it is not a good study given breathing motion artifact. Continue with full dose of anticoagulation with Lovenox 1 mg/kg body weight every 12 hourly. Will monitor for blood loss anemia. Sputum culture preliminary negative. Urine Legionella, bacterial antigen, MRSA swab negative. Overnight blood cultures from admission 1 out of 4 bottles positive for GPC. For now start patient on vancomycin. Repeat blood cultures. Given hypoxia will try to keep patient as negative as possible. Patient appears euvolemic. We will continue to monitor fluid status. Net 1 L negative since admission. Strict input output charting, daily weights. Type 2 diabetes mellitus: No past history. HbA1c 7.6. Blood sugars elevated. Increase insulin sliding scale to high-dose protocol. Start on Lantus 10 units twice daily. Hypertension: Goal blood pressure less than 140/90 mmHg. Continue lisinopril 10 mg daily. Full code. Full dose Lovenox will help with DVT prophylaxis. Mechanical soft diet. Famotidine for PUD prophylaxis. Attestations Medical Necessity Statement*: Patient requires further hospitalization for management of ARDS secondary to COVID-19 pneumonia requiring heated high flow oxygen supplementation. Time Spent in Patient Care: Greater than 35 minutes (>than 50% of time spent in counselling and/or direct pt care on unit). Coding Level of Care Code Acute Financial Adviser for Chg Fwd Diagnoses ARDS (adult respiratory distress syndrome) J80 Pneumonia due to COVID-19 virus U07.1; J12.82 COVID-19 vaccine dose declined Z28.21 Diabetes mellitus E11.9 HTN (hypertension) I10
[2020-10-07 17:07] LABS: Glucose Point of Care 339 mg/dL (70-110)
[2020-10-07] MEDS: insulin glargine 100 units/1 mL 10 UNIT SUBCUT (18:00)
[2020-10-07] MEDS: remdesivir 100 MG in sodium chloride 0.9% (100 ml) 100 ML IV (18:01)
[2020-10-07] MEDS: acetaminophen 325 mg Tablet 650 MG PO (18:27)
[2020-10-07] MEDS: dexamethasone 10 mg/mL INJ 6 MG IVP (18:31)
[2020-10-07 21:05] LABS: Vancomycin Trough 17.3 ug/mL (10-15)
[2020-10-07 21:07] LABS: Blood Urine 2+ (Negative); Glucose Urine UA 2+ (Normal); Ketones Urine 1+ (Negative); Protein Urine 1+ (Negative); Urine Color Yellow (Yellow); pH Urine 5 (5-7)
[2020-10-07 21:08] LABS: Add Urine Microscopic? YES; Bilirubin Urine Neg (Negative); Leukocyte Esterase Urine 2+ (Negative); Nitrate Urine Positive (Negative); Urobilinogen Urine Norm (Negative)
[2020-10-07 21:15] LABS: Add Urine Culture? Yes; Bacteria Urine 2+ /hpf; WBC Urine >100 /hpf (0-5)
[2020-10-07 21:31] LABS: Glucose Point of Care 389 mg/dL (70-110)
--- NOTE | 2020-10-07 21:58 | PC.NURSE ---
pharmacy notified that vanc through was 17.3, instruction received to give vanc as previously ordered. no change in dose
[2020-10-08] VITALS (16 sets, daily range): BP systolic 111–134; BP diastolic 66–89; PULSE 66–115; RESP 17–32; TEMP 36.6–36.9; O2SAT 88–96
[2020-10-08] MEDS: ipratropium-albuterol 3 mL Neb INHALATION ×6 (03:56→23:18)
[2020-10-08] MEDS: vancomycin 1,500 MG/300 ML PIGGYBACK 200 MG IV ×2 (04:49→14:42)
[2020-10-08] MEDS: famotidine 20 mg/2 mL INJ IVP ×2 (04:57→19:17)
[2020-10-08 05:54] LABS: ABG PCO2 32.4 mmHg (35-45); ABG PH Result 7.41 (7.35-7.45); Alveolar-Arterial Oxygen Gradi 30.5 mmHg (5-10); Arterial Blood Gas Hematocrit 32.6 % (37-47); Base Excess ABG -3.2 mmol/L (-2.0-2.0); Blood Gas Allen Test Pos; Blood Gas Operator Identificat HARKR; Blood Gas Sample Site Radial, right; Blood Gas Sample Type Arterial; Carboxyhemoglobin 0.8 %THgb (0.4-20.1); HCO3 ABG 20.7 mmol/L (22-26); HGB O2 Sat 95.9 % (95-100); Ionized Calcium Level - ABG 1.2 mmol/L (1.1-1.4); Methemoglobin 0.3 % (0.4-1.5); Oxygen Device HAG; Oxygen Saturation ABG 96.8; Potassium Level - ABG 4.6 mmol/L (3.5-5.0); Total Hemoglobin 10.6 g/dL (12-16)
--- NOTE | 2020-10-08 06:00 | XRR_ITS ---
PROCEDURE INFORMATION: Exam: XR Chest Exam date and time: 10/08/2020 6:00 AM Age: 50 years old Clinical indication: Shortness of breath; Additional info: Covid TECHNIQUE: Imaging protocol: XR of the chest. Views: 1 view. Total images: 1 COMPARISON: CR XR chest 1V portable [id number] 10/06/2020 6:57 AM FINDINGS: Lungs: Bilateral pulmonary opacities are again noted with the left-sided opacities showing interval worsening. Pleural spaces: Unremarkable. No pleural effusion. No pneumothorax. Heart/Mediastinum: Heart size is stable when compared to the prior exam. Bones/joints: Osseous structures are unchanged from the prior exam. XR/XR chest 1V portable [id number] IMPRESSION: Bilateral pulmonary opacities are again noted with the left-sided opacities showing interval worsening.
[2020-10-08 06:19] LABS: D Dimer 0.65 ug/mIFEU (0-0.59)
[2020-10-08 06:22] LABS: Alanine Aminotransferase 8 U/L (0-33); Albumin Level 3.3 g/dL (3.5-5.2); Alkaline Phosphatase 101 IU/L (35-105); Anion Gap 15.8 (5-19); Aspartate Amino Transferase 10 U/L (0-32); Blood Urea Nitrogen 29 mg/dL (6-20); Calcium 8.4 mg/dL (8.5-10.5); Carbon Dioxide 21 mmol/L (22-29); Chloride 102 mmol/L (98-107); Globulin 2.9 g/dL (1.3-4.6); Glomerular Filtration Rate 106.3 mL/min (90-130); Glucose 355 mg/dL (65-115); Osmolality Calculated 298 mOsm/kg (285-295); Potassium 4.8 mmol/L (3.5-5.1); Sodium 134 mmol/L (136-145); Total Bilirubin 0.4 mg/dL (0.15-1.2); Total Protein 6.2 g/dL (6.6-8.7)
[2020-10-08 06:30] LABS: Basophils % 0.1 %; Hematocrit 35.3 % (37.0-47.0); Hemoglobin 11.5 g/dL (11.5-15.3); Lymphocytes # 0.5 10^3/uL (0.8-4.8); Lymphocytes % 7.2 %; Mean Corpuscular HGB Conc 32.6 g/dL (30.0-36.0); Mean Corpuscular Hemoglobin 26.4 pg (28.0-34.0); Mean Platelet Volume 8.7 fL (7.4-10.4); Monocytes # 0.3 10^3/uL (0.2-0.9); Monocytes % 4.5 %; Neutrophils # 6.43 10^3/uL (1.8-7.7); Neutrophils % 86.8 %; Nucleated Red Blood Cells % 0 %; Platelet Count 387 10^3/cmm (130-400); Red Blood Count 4.36 10^6/uL (4.1-5.3); Red Cell Distribution Width 13.8 % (12.1-15.1); White Blood Count 7.4 10^3/uL (4.0-10.0)
[2020-10-08 06:56] LABS: Glucose Point of Care 358 mg/dL (70-110)
[2020-10-08 07:08] LABS: C Reactive Protein 33.2 mg/L (0.0-4.9); Creatine Phosphokinase 232 U/L (26-192); Ferritin 223 ng/mL (15-150); NT Pro B Type Natriuretic Pept 48 pg/mL (0-125)
[2020-10-08] MEDS: budesonide 0.5 mg/2 mL Neb INHALATION ×2 (07:50→20:20)
[2020-10-08 08:16] LABS: Erythrocyte Sedimentation Rate 56 mm/hr (0-15)
[2020-10-08] MEDS: lisinopril 10 mg Tablet PO (10:15)
[2020-10-08] MEDS: zinc gluconate 50 mg Tablet PO (10:15)
[2020-10-08] MEDS: ferrous gluconate 324 mg Tablet PO ×2 (10:15→19:17)
[2020-10-08] MEDS: benzonatate 100 mg Capsule PO ×3 (10:16→21:09)
[2020-10-08] MEDS: enoxaparin 100 mg/mL Syringe SUBCUT ×2 (10:16→21:08)
[2020-10-08] MEDS: ascorbic acid 500 mg Tablet 1000 MG PO ×2 (10:16→19:17)
[2020-10-08] MEDS: insulin glargine 100 units/1 mL 10 UNIT SUBCUT (10:19)
[2020-10-08 11:32] LABS: Glucose Point of Care 405 mg/dL (70-110)
[2020-10-08 12:44] LABS: Procalcitonin 0.16 ng/mL (0-0.5)
--- NOTE | 2020-10-08 12:50 | PM.PN ---
Subjective Subjective: Interval history: No acute events overnight. She has remained hemodynamically stable and afebrile. Currently on examination she is on 45 L 50% and came down to 45 L 40% during my examination. She maintained saturation 90%. She is working well with incentive spirometry but not able to Acapella for now. Plan for today will be to start doing incentive spirometer Acapella every 2 hours, sit in the chair for as long as possible. Patient verbalized understanding. Documented urine output last 24 hours 1800 cc. Vitals/I&O/Wt Last Vital Signs Temp 98 F 10/08/20 08:00 Pulse 67 10/08/20 11:34 Resp 22 H 10/08/20 11:34 BP 124/73 10/08/20 08:00 Pulse Ox 90 10/08/20 11:34 10/07/20 10/08/20 10/08/20 22:59 06:59 14:59 Intake Total 340 / 880.000 720 / 1600.000 400 / 400 Output Total 1200 / 1800 Balance 340 / 280.000 -480 / -200.000 400 / 400 Weight last 48 hrs Weight 107.728 kg Weight 106.685 kg Physical Exam Narrative: EXAM NARRATIVE: General: No acute distress, AO x3 HEENT: PERRLA, pupils bilaterally equal and reactive Chest: Bilateral bronchial breath sounds all over lung hinson, rhonchi present all over lung hinson, equal good air entry bilaterally CVS: S1-S2 regular, no murmurs, no tachycardia, no gallops, no rubs Abdomen: Soft, nontender, no organomegaly, bowel sounds present Neuro: No focal deficits, no facial deformity, AO x3, power 5/5 in all limbs Urinary Catheter Management^: Sahu: Cath Placed During This Visit: yes Reason for Continuing Indwelling Catheter: Acute Urinary Retention or Obstruction Urinary Catheter Date of Insertion: 10/05/20 Urinary Catheter Time of Insertion: 20:00 Data : 10/08/20 04:45 10/08/20 04:45 Micro: Microbiology 10/07/20 09:58 Blood Culture - Preliminary Blood NEGATIVE TO DATE 10/07/20 10:04 Blood Culture - Preliminary Blood NEGATIVE TO DATE 10/05/20 20:05 Urine Culture - Preliminary Urine Catheterized A&P Assessment and plan (1) ARDS (adult respiratory distress syndrome): Status: Acute (2) Pneumonia due to COVID-19 virus: Status: Acute (3) COVID-19 vaccine dose declined: Status: Acute (4) Diabetes mellitus: Status: Acute (5) HTN (hypertension): Status: Acute Additional A&P Information ARDS secondary to COVID-19 pneumonia: Severe disease Wean oxygen supplementation keeping saturation over 88%. PF ratio less than 100. Post Actemra on October 05, 2020. Dexamethasone 6 mg daily. Remdesivir to finish a 5-day course. Vitamin C, zinc. DuoNebs every 4 hour, budesonide twice daily. Pulmonary toilet with incentive spirometry flutter valve. We will try to prone versus semiprone when possible. We will monitor inflammatory markers including ferritin, ESR, CRP, D-dimer, fibrinogen. Inflammatory markers for now trending down. CRP 151>>97. For now we will continue to monitor and if needed can dose 1 more Actemra. D-dimer elevated. CTA negative for PE though it is not a good study given breathing motion artifact. Continue with full dose of anticoagulation with Lovenox 1 mg/kg body weight every 12 hourly. Will monitor for blood loss anemia. Sputum culture preliminary negative. Urine Legionella, bacterial antigen, MRSA swab negative. Overnight blood cultures from admission 1 out of 4 bottles positive for GPC. For now start patient on vancomycin. Repeat blood cultures be negative for now. Given hypoxia will try to keep patient as negative as possible. Patient appears euvolemic. We will continue to monitor fluid status. Net 1 L negative since admission. Strict input output charting, daily weights. Type 2 diabetes mellitus: No past history. HbA1c 7.6. Blood sugars elevated. Continue with insulin sliding scale to high-dose protocol. Start on Lantus 15 units twice daily. Hypertension: Goal blood pressure less than 140/90 mmHg. Continue lisinopril 10 mg daily. Full code. Full dose Lovenox will help with DVT prophylaxis. Mechanical soft diet. Famotidine for PUD prophylaxis. Attestations Medical Necessity Statement*: Requires further hospitalization for management of severe hypoxic respiratory failure/ARDS secondary to COVID-19 pneumonia still requiring heated high flow oxygen supplementation. Time Spent in Patient Care: Greater than 35 minutes (>than 50% of time spent in counselling and/or direct pt care on unit). Coding Level of Care Code Acute Maintenance Foreman for [facility] Fwd Diagnoses ARDS (adult respiratory distress syndrome) J80 Pneumonia due to COVID-19 virus U07.1; J12.82 COVID-19 vaccine dose declined Z28.21 Diabetes mellitus E11.9 HTN (hypertension) I10
[2020-10-08 17:41] LABS: Glucose Point of Care 290 mg/dL (70-110)
[2020-10-08] MEDS: remdesivir 100 MG in sodium chloride 0.9% (100 ml) 100 ML IV (19:15)
[2020-10-08] MEDS: dexamethasone 10 mg/mL INJ 6 MG IVP (19:17)
[2020-10-08 20:36] LABS: Vancomycin Trough 26.5 ug/mL (10-15)
[2020-10-08 23:19] LABS: Glucose Point of Care 344 mg/dL (70-110)
[2020-10-08 23:19] LABS: Glucose Point of Care 303 mg/dL (70-110)
[2020-10-08] MEDS: insulin glargine 100 units/1 mL 20 UNIT SUBCUT (23:27)
[2020-10-09] VITALS (18 sets, daily range): BP systolic 103–141; BP diastolic 66–91; PULSE 74–101; RESP 17–25; TEMP 36.6–37.2; O2SAT 89–94
[2020-10-09] MEDS: vancomycin 1,500 MG/300 ML PIGGYBACK 200 MG IV (00:58)
[2020-10-09] MEDS: ipratropium-albuterol 3 mL Neb INHALATION ×6 (03:44→23:41)
[2020-10-09] MEDS: famotidine 20 mg/2 mL INJ IVP ×2 (05:19→17:56)
[2020-10-09 06:29] LABS: Basophils % 0.2 %; Eosinophils % 0.2 %; Hematocrit 36.8 % (37.0-47.0); Hemoglobin 11.7 g/dL (11.5-15.3); Lymphocytes # 0.7 10^3/uL (0.8-4.8); Lymphocytes % 8.2 %; Mean Corpuscular HGB Conc 31.8 g/dL (30.0-36.0); Mean Corpuscular Hemoglobin 26.5 pg (28.0-34.0); Mean Corpuscular Volume 83.3 fl (81-99); Mean Platelet Volume 8.8 fL (7.4-10.4); Monocytes # 0.5 10^3/uL (0.2-0.9); Monocytes % 6.7 %; Neutrophils # 6.66 10^3/uL (1.8-7.7); Neutrophils % 82.5 %; Nucleated Red Blood Cells % 0 %; Platelet Count 366 10^3/cmm (130-400); Red Blood Count 4.42 10^6/uL (4.1-5.3); Red Cell Distribution Width 13.9 % (12.1-15.1); White Blood Count 8.1 10^3/uL (4.0-10.0)
[2020-10-09 06:46] LABS: Glucose Point of Care 284 mg/dL (70-110)
[2020-10-09 07:17] LABS: Alanine Aminotransferase 9 U/L (0-33); Albumin Level 3.3 g/dL (3.5-5.2); Alkaline Phosphatase 111 IU/L (35-105); Anion Gap 14.6 (5-19); Aspartate Amino Transferase 8 U/L (0-32); Blood Urea Nitrogen 24 mg/dL (6-20); Calcium 8.4 mg/dL (8.5-10.5); Carbon Dioxide 21 mmol/L (22-29); Chloride 101 mmol/L (98-107); Globulin 2.9 g/dL (1.3-4.6); Glomerular Filtration Rate 131.1 mL/min (90-130); Glucose 287 mg/dL (65-115); Osmolality Calculated 289 mOsm/kg (285-295); Potassium 4.6 mmol/L (3.5-5.1); Sodium 132 mmol/L (136-145); Total Bilirubin 0.6 mg/dL (0.15-1.2); Total Protein 6.2 g/dL (6.6-8.7)
[2020-10-09 08:16] LABS: C Reactive Protein 14.7 mg/L (0.0-4.9); NT Pro B Type Natriuretic Pept 32 pg/mL (0-125)
[2020-10-09 08:27] LABS: Erythrocyte Sedimentation Rate 41 mm/hr (0-15)
[2020-10-09] MEDS: budesonide 0.5 mg/2 mL Neb INHALATION ×2 (08:47→19:41)
--- NOTE | 2020-10-09 09:05 | P.PN_ITS ---
Subjective Subjective: Interval history: No acute events overnight. Examination today patient sitting in chair. Working well with incentive spirometer Acapella. Still requiring 45 L 45% to maintain saturations in the low 90s. Denies any nausea, vomiting, headache. States she is finally difficult to breathe today. Eating well. Discussed that her blood sugars running on the higher side. P atyonatan's daughter and now updated over the phone. Have permitted daughter to visit today when possible. Vitals/I&O/Wt Last Vital Signs Temp 97.9 F 10/09/20 03:31 Pulse 88 10/09/20 08:50 Resp 24 H 10/09/20 08:50 BP 136/74 10/09/20 03:31 Pulse Ox 90 10/09/20 08:50 10/08/20 10/09/20 10/09/20 22:59 06:59 14:59 Intake Total 300 / 700 300 / 1000 100 / 100 Output Total 500 / 1200 450 / 1650 Balance -200 / -500 -150 / -650 100 / 100 Weight last 48 hrs Weight 103.192 kg Weight 107.728 kg Physical Exam Narrative: EXAM NARRATIVE: General: No acute distress, AO x3 HEENT: PERRLA, pupils bilaterally equal and reactive Chest: Bilateral bronchial breath sounds all over lung hinson, rhonchi present all over lung hinson, equal good air entry bilaterally CVS: S1-S2 regular, no murmurs, no tachycardia, no gallops, no rubs Abdomen: Soft, nontender, no organomegaly, bowel sounds present Neuro: No focal deficits, no facial deformity, AO x3, power 5/5 in all limbs Urinary Catheter Management^: Sahu: Cath Placed During This Visit: yes Reason for Continuing Indwelling Catheter: Other Urinary Catheter Date of Insertion: 10/05/20 Urinary Catheter Time of Insertion: 20:00 Data : 10/09/20 05:34 10/09/20 05:34 Micro: Microbiology 10/05/20 20:05 Urine Culture - Preliminary Urine Catheterized Gram Negative Rods 10/05/20 19:40 Blood Culture - Preliminary Blood Staphylococcus sp coag neg 10/07/20 09:58 Blood Culture - Preliminary Blood NEGATIVE TO DATE 10/07/20 10:04 Blood Culture - Preliminary Blood NEGATIVE TO DATE A&P Assessment and plan (1) ARDS (adult respiratory distress syndrome): Status: Acute (2) Pneumonia due to COVID-19 virus: Status: Acute (3) COVID-19 vaccine dose declined: Status: Acute (4) Diabetes mellitus: Status: Acute (5) HTN (hypertension): Status: Acute (6) UTI (urinary tract infection): Status: Acute Additional A&P Information ARDS secondary to COVID-19 pneumonia: Severe disease Wean oxygen supplementation keeping saturation over 88%. PF ratio less than 100. Post Actemra on October 05, 2020. Dexamethasone 6 mg daily. Remdesivir to finish a 5-day course. Vitamin C, zinc. DuoNebs every 4 hour, budesonide twice daily. Pulmonary toilet with incentive spirometry flutter valve. We will try to prone versus semiprone when possible. We will monitor inflammatory markers including ferritin, ESR, CRP, D-dimer, fibrinogen. Inflammatory markers for now trending down. CRP 151>>97. For now we will continue to monitor and if needed can dose 1 more Actemra. D-dimer elevated. CTA negative for PE though it is not a good study given breathing motion artifact. Continue with full dose of anticoagulation with L ovenox 1 mg/kg body weight every 12 hourly. Will monitor for blood loss anemia. Sputum culture preliminary negative. Urine Legionella, bacterial antigen, MRSA swab negative. Overnight blood cultures from admission 1 out of 4 bottles positive for GPC. Most likely contaminant. Repeat blood cultures have so far been negative. Urine cultures growing gram-negative rods. Switch vancomycin to ceftriaxone. Given hypoxia will try to keep patient as negative as possible. Patient appears euvolemic. We will continue to monitor fluid status. Net 1 L negative since admission. Lasix 40 mg oral once. Check echocardiogram. Strict input output charting, daily weights. UTI: Urine culture growing gram-negative rods. Will await culture results. Switch to ceftriaxone. Type 2 diabetes mellitus: No past history. HbA1c 7.6. Blood sugars elevated. Continue with insulin sliding scale to high-dose protocol. Start on Lantus 15 units twice daily. Hypertension: Goal blood pressure less than 140/90 mmHg. Continue lisinopril 10 mg daily. Full code. Full dose Lovenox will help with DVT prophylaxis. Mechanical soft diet. Famotidine for PUD prophylaxis. Attestations Medical Necessity Statement*: Patient for management of severe ARDS secondary COVID-19 pneumonia while patient is still on heated high flow, UTI Coding Level of Care Code Acute Career Coach for [facility] Fwd Diagnoses ARDS (adult respiratory distress syndrome) J80 Pneumonia due to COVID-19 virus U07.1; J12.82 COVID-19 vaccine dose declined Z28.21 Diabetes mellitus E11.9 HTN (hypertension) I10 UTI (urinary tract infection) N39.0
[2020-10-09] MEDS: enoxaparin 100 mg/mL Syringe SUBCUT ×2 (11:16→21:02)
[2020-10-09] MEDS: cefTRIAXone 1,000 MG in sodium chloride 0.9% (plus) 50 ML 100 MG IV (11:17)
[2020-10-09] MEDS: ferrous gluconate 324 mg Tablet PO ×2 (11:17→17:56)
[2020-10-09] MEDS: ascorbic acid 500 mg Tablet PO ×2 (11:17→17:56)
[2020-10-09] MEDS: benzonatate 100 mg Capsule PO ×3 (11:18→21:02)
[2020-10-09] MEDS: lisinopril 10 mg Tablet PO (11:18)
[2020-10-09] MEDS: insulin glargine 100 units/1 mL 30 UNIT SUBCUT ×2 (11:18→22:58)
[2020-10-09] MEDS: zinc gluconate 50 mg Tablet PO (11:18)
[2020-10-09 13:17] LABS: Glucose Point of Care 319 mg/dL (70-110)
[2020-10-09] MEDS: FUROsemide 40 mg Tablet PO (14:02)
[2020-10-09 17:31] LABS: Glucose Point of Care 210 mg/dL (70-110)
[2020-10-09] MEDS: remdesivir 100 MG in sodium chloride 0.9% (100 ml) 100 ML IV (17:57)
[2020-10-09] MEDS: dexamethasone 10 mg/mL INJ 6 MG IVP (17:57)
--- NOTE | 2020-10-09 19:22 | PC.NURSE ---
While in room pt's daughter asked if we could give pt a small piece of tape to help pt to remember not to breath out of mouth. Pts's daughter said it would be like a physiological reminder to not breath through her mouth but through her nose instead. Informed pt's daughter that I would let her nurse know of the request.
[2020-10-09 20:16] LABS: Glucose Point of Care 196 mg/dL (70-110)
[2020-10-10] VITALS (15 sets, daily range): BP systolic 98–142; BP diastolic 56–88; PULSE 78–111; RESP 16–26; TEMP 36.4–36.9; O2SAT 88–95
[2020-10-10] MEDS: ipratropium-albuterol 3 mL Neb INHALATION ×4 (03:16→20:00)
[2020-10-10] MEDS: famotidine 20 mg/2 mL INJ IVP ×2 (05:32→18:54)
--- NOTE | 2020-10-10 06:00 | USCV_ITS ---
Opal Rain Age: 50 Gender: F : 1970 Exam Date: 10/10/2020 06:20 Ordering Phys: Norman Castro MD Technologist: MICHAEL Exam Location: [facility] – [place] Indication: LO 02 COVID BP: 142 / 80 HR: 89 Rhythm: Sinus Technical Quality: Good MEASUREMENTS (Male / Female) Normal Values 2D ECHO LV Diastolic Diameter PLAX 4.8 cm 4.2 - 5.9 / 3.9 - 5.3 cm LV Systolic Diameter PLAX 3.4 cm IVS Diastolic Thickness 1.2 cm 0.6 - 1.0 / 0.6 - 0.9 cm IVS Systolic Thickness 1.6 cm LVPW Diastolic Thickness 1.1 cm 0.6 - 1.0 / 0.6 - 0.9 cm LVPW Systolic Thickness 1.5 cm LVOT Diameter 2.4 cm LV Ejection Fraction 2D Teich 41.2 % LV Ejection Fraction MOD 2C 68.7 % LV Ejection Fraction 2C AL 70.6 % LA Diameter 2.5 cm LA Width 3.9 cm LA Height 4.5 cm RA Width 3.2 cm RA Height 4.8 cm Aorta at Sinotubular Diameter 2.6 cm DOPPLER AV Peak Velocity 136.0 cm/s LVOT Peak Velocity 101.0 cm/s AV Area Cont Eq vti 4.1 cm squared AV Area Cont Eq pk 3.4 cm squared MV Area PHT 5.0 cm squared Mitral E to A Ratio 0.8 MV E' Velocity 40.0 cm/s Mitral E to MV E' Ratio 11.5 Mitral E to LV E' Lateral Ratio 10.1 Mitral E to LV E' Septal Ratio 13.4 TR Peak Velocity 105.0 cm/s TR Peak Gradient 4.4 mmHg TV Peak E Velocity 99.0 cm/s Right Atrial Pressure 3.0 mmHg Pulmonary Artery Systolic Pressu 7.4 mmHg PV Peak Velocity 115.0 cm/s FINDINGS Left Ventricle Normal left ventricular cavity size and systolic function. Upper normal left ventricle wall thickness. Left ventricular ejection fraction is estimated at 65 %. No regional wall motion abnormalities. Normal diastolic function. Right Ventricle Normal right ventricular size and systolic function. Right ventricular systolic pressure 7.4 mmHg. Right Atrium Normal right atrial size. Left Atrium Normal left atrial size. Mitral Valve Structurally normal mitral valve. No mitral valve stenosis. No mitral valve regurgitation. Aortic Valve Structurally normal trileaflet aortic valve. No aortic valve stenosis. No aortic valve regurgitation. Tricuspid Valve Structurally normal tricuspid valve. Trace tricuspid valve regurgitation. Pulmonic Valve Structurally normal pulmonic valve. No pulmonary valve stenosis. Trace pulmonary valve regurgitation. Pericardium No pericardial effusion. Aorta Normal size aortic root and proximal ascending aorta. CONCLUSIONS 1. Normal left ventricular cavity size and systolic function. Upper normal left ventricle wall thickness. Left ventricular ejection fraction is estimated at 65 %. No regional wall motion abnormalities. Normal diastolic function. 2. Normal right ventricular size and systolic function. 3. No significant valvular abnormality. 4. No prior similar studies to compare. Norma Treviño MD (Electronically Signed) Final Date: 10 October 2020 12:33 S
--- NOTE | 2020-10-10 06:00 | XRR_ITS ---
PROCEDURE INFORMATION: Exam: XR Chest Exam date and time: 10/10/2020 6:00 AM Age: 50 years old Clinical indication: Condition or disease; Other: Covid TECHNIQUE: Imaging protocol: XR of the chest. Views: 1 view. COMPARISON: CR (CHEST, ) 10/08/2020 7:39 AM FINDINGS: Lungs: Low lung volumes. Persistent bilateral airspace opacities. No large pleural effusion or pneumothorax. Pleural spaces: See Lungs finding. Heart/Mediastinum: Stable cardiomediastinal silhouette. Bones/joints: No acute osseous injury identified. XR/XR chest 1V portable [id number] IMPRESSION: Persistent bilateral airspace opacities.
[2020-10-10 07:03] LABS: Basophils % 0.2 %; Eosinophils # 0.1 10^3/uL (0.0-0.8); Eosinophils % 0.8 %; Hematocrit 38.7 % (37.0-47.0); Hemoglobin 12.4 g/dL (11.5-15.3); Lymphocytes # 0.7 10^3/uL (0.8-4.8); Lymphocytes % 7.9 %; Mean Corpuscular Hemoglobin 26.2 pg (28.0-34.0); Mean Corpuscular Volume 81.8 fl (81-99); Mean Platelet Volume 8.9 fL (7.4-10.4); Monocytes # 0.5 10^3/uL (0.2-0.9); Monocytes % 5.2 %; Neutrophils # 7.14 10^3/uL (1.8-7.7); Neutrophils % 81.8 %; Nucleated Red Blood Cells % 0 %; Platelet Count 354 10^3/cmm (130-400); Red Blood Count 4.73 10^6/uL (4.1-5.3); Red Cell Distribution Width 13.9 % (12.1-15.1); White Blood Count 8.7 10^3/uL (4.0-10.0)
[2020-10-10 07:15] LABS: Glucose Point of Care 291 mg/dL (70-110)
[2020-10-10] MEDS: budesonide 0.5 mg/2 mL Neb INHALATION ×2 (07:26→20:00)
[2020-10-10 07:39] LABS: Alanine Aminotransferase 9 U/L (0-33); Albumin Level 3.2 g/dL (3.5-5.2); Alkaline Phosphatase 100 IU/L (35-105); Anion Gap 14.2 (5-19); Aspartate Amino Transferase 10 U/L (0-32); Blood Urea Nitrogen 21 mg/dL (6-20); C Reactive Protein 8.6 mg/L (0.0-4.9); Calcium 8.3 mg/dL (8.5-10.5); Carbon Dioxide 21 mmol/L (22-29); Chloride 103 mmol/L (98-107); Glomerular Filtration Rate 106.3 mL/min (90-130); Glucose 288 mg/dL (65-115); Osmolality Calculated 292 mOsm/kg (285-295); Potassium 4.2 mmol/L (3.5-5.1); Sodium 134 mmol/L (136-145); Total Bilirubin 0.5 mg/dL (0.15-1.2); Total Protein 6.2 g/dL (6.6-8.7)
--- NOTE | 2020-10-10 09:02 | PC.CHAP ---
Pastoral Care Encounter/Spiritual Assessment Type of Contact [] Declined poem writer visit [] Patient/Family/Request visit [] Outpatient visit [] Follow-up visit [] Physician referral [] Code/Alert [x] Routine visit [] Staff referral [] Actively dying [x] Patient sleeping [] Family support [] [] Out of room [] Palliative care [] [] Receiving care in room [] Pre-surgical visit [] Trauma [] Long length of stay [] ICU visit [x] Other: 2a Relational/Emotional Strength [] Patient feels connected with others/family/visitors/staff [] Distress [] Loneliness/isolation [] Abandonment Spirituality of Patient [] Person of Mallory [] Attends Judaism of their Mallory [] Believes in Prayer [] Reads Bible or Gnosticist materials [] There are Spiritual issues to be addressed [place] Interventions [x] Prayer [] Active listening [] Non-anxious presence [] Spiritual/emotional support [] Crisis/trauma care [] Spiritual counseling [] Bereavement support [] Provided bereavement packet [] Provided Bible/devotional materials [] Provided toy/stuffed animal, coloring book to patient or family member [] Provided Communion [] Anointing/[place] [] Salvation [x] Completed spiritual assessment [] Other: Impact on Illness or Injury [] Angry [] Fearful [] Anxious [] Often cries [] Exhaustion [] Unable to work [] Unable to attend mormonism [] Unable to walk/stand [] Unable to read [] Unable to drive [] Unable to eat/drink [] Unable to sleep [] Unable to be with family [] Patient intubated [] Other: Summary Time spent with patient
[2020-10-10] MEDS: insulin glargine 100 units/1 mL 30 UNIT SUBCUT ×2 (09:25→22:10)
[2020-10-10] MEDS: zinc gluconate 50 mg Tablet PO (09:26)
[2020-10-10] MEDS: benzonatate 100 mg Capsule PO ×3 (09:26→22:09)
[2020-10-10] MEDS: lisinopril 10 mg Tablet PO (09:26)
[2020-10-10] MEDS: ascorbic acid 500 mg Tablet PO ×2 (09:26→18:35)
[2020-10-10] MEDS: ferrous gluconate 324 mg Tablet PO ×2 (09:26→18:35)
[2020-10-10] MEDS: enoxaparin 100 mg/mL Syringe SUBCUT ×2 (09:26→22:08)
[2020-10-10] MEDS: cefTRIAXone 1,000 MG in sodium chloride 0.9% (plus) 50 ML 100 MG IV (09:27)
[2020-10-10] MEDS: acetaminophen 325 mg Tablet 650 MG PO (10:42)
[2020-10-10 11:44] LABS: Glucose Point of Care 217 mg/dL (70-110)
--- NOTE | 2020-10-10 11:58 | PM.PN ---
Subjective Subjective: Interval history: She is having a headache. She is coughing up some phlegm, but mostly swallows it. Encouraged her to provide a sample for microbiology testing. She otherwise denies chest pain or pressure. No longer having any nausea or vomiting. No diarrhea. No abdominal discomfort. No chest pain. I noticed that she breathes through her mouth intermittently, encouraged her to breathe through the nose while the nasal cannula is in place since that is where the oxygen is flowing through. She verbalized understanding. Her nose does get congested, and she does have appointment ordered. Discussed we will add some saline spray as well as needed. Discussed with her regarding somewhat worsening oxygenation today, requiring increase in FiO2. Discussed also with her daughter. Discussed with her regarding suspected atelectasis at bilateral lower lungs on exam. Encouraged her to use incentive spirometer. Discussed flutter valve use. Discussed extending remdesivir course, continuation of Decadron and other current treatments. Vitals/I&O/Wt Last Vital Signs Temp 97.6 F 10/10/20 11:50 Pulse 85 10/10/20 11:50 Resp 23 H 10/10/20 11:50 BP 127/81 10/10/20 11:50 Pulse Ox 95 10/10/20 11:50 10/09/20 10/10/20 10/10/20 22:59 06:59 14:59 Intake Total 700 / 850 410 / 410 Output Total 825 / 825 975 / 1800 200 / 200 Balance -125 / 25 -975 / -950 210 / 210 Weight last 48 hrs Weight 104.734 kg Weight 103.192 kg Physical Exam Const: COMMON NORMALS: no acute distress and patient oriented x3 GENERAL APPEARANCE: ill appearing HENMT: COMMON NORMALS: oropharynx normal Neck/C-Spine: COMMON NORMALS: no JVD Resp: COMMON NORMALS: normal respiratory effort and clear to auscultation bilaterally AUSCULTATION: clear to auscultation bilaterally and crackles Laterality: bilateral (Bases) Cardio: COMMON NORMALS: no JVD, regular rhythm, S1 normal heart sound present, S2 normal heart sound present and No murmurs present (Cardio) RHYTHM: regular rhythm HEART SOUNDS: S1 normal heart sound present and S2 normal heart sound present GI: COMMON NORMALS: Normal to inspection, nondistended, normoactive bowel sounds present, Soft to palpation and non-tender PALPATION: Yes Soft to palpation Extremity: COMMON NORMALS: no joint enlargement and no pedal edema Neuro: COMMON NORMALS: patient oriented x3 and moves all extremities Skin: COMMON NORMALS: no rashes or lesions noted GENERAL SKIN EXAM: no rashes or lesions noted Urinary Catheter Management^: Sahu: Cath Placed During This Visit: yes Reason for Continuing Indwelling Catheter: Acute Urinary Retention or Obstruction Urinary Catheter Date of Insertion: 10/05/20 Urinary Catheter Time of Insertion: 20:00 Data : 10/10/20 06:28 10/10/20 06:28 Micro: Microbiology 10/05/20 19:40 Blood Culture - Final Blood Staphylococcus sp coag neg 10/05/20 20:05 Urine Culture - Preliminary Urine Catheterized Gram Negative Rods A&P Assessment and plan (1) ARDS (adult respiratory distress syndrome): Hypoxic respiratory failure secondary to severe COVID-19. As per discussion we will extend remdesivir course. Continue Decadron. She is on therapeutic Lovenox it appears currently. Will recheck D-dimer, if without significant elevation decrease to prophylactic dosing unless we see evidence of VTE. Continue budesonide, DuoNeb. Is also on ceftriaxone for urinary tract infection. Terrence Sapp. Discussed with her a little bit regarding goals of care and in case of progressive worsening of oxygenation regarding consideration of intubation and mechanical ventilatory support. She states she has not yet considered any advanced goals of care. Status: Acute (2) Pneumonia due to COVID-19 virus: Status: Acute (3) COVID-19 vaccine dose declined: Status: Acute (4) Diabetes mellitus: Continue SSI. Monitor glucose. Consistent carb diet. Status: Acute (5) HTN (hypertension): Continue lisinopril. Status: Acute (6) UTI (urinary tract infection): Gram-negative rods. Follow-up culture results. Continue ceftriaxone. Status: Acute Attestations Medical Necessity Statement*: Continue admission for hypoxic respiratory failure with severe COVID-19. 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
[2020-10-10] MEDS: ondansetron 2 mg/ML SDV 2 mL 4 MG IVP (12:09)
[2020-10-10 17:24] LABS: Glucose Point of Care 134 mg/dL (70-110)
--- NOTE | 2020-10-10 18:11 | PC.RESP ---
RT Shift Note Frequent safety and respiratory rounds continue. Orders completed as indicated. Patient monitored pre and post treatments throughout shift. Patient tolerated treatments appropriately. Condition did not change. Patient and/or payable representative educated on respiratory treatment and medications. Patient and/or payable representative verbalized understanding. Will continue to monitor patient progress.
[2020-10-10] MEDS: remdesivir 100 MG in sodium chloride 0.9% (100 ml) 100 ML IV (18:35)
[2020-10-10] MEDS: dexamethasone 10 mg/mL INJ 6 MG IVP (18:54)
[2020-10-10 21:17] LABS: Glucose Point of Care 245 mg/dL (70-110)
--- NOTE | 2020-10-10 22:45 | PC.RESP ---
RT Shift Note Frequent safety and respiratory rounds continue. Orders completed as indicated. Patient monitored pre and post treatments throughout shift. Patient [Did.] tolerate treatments appropriately. Condition .DidNotChange]. Patient and/or care support representative educated on respiratory treatment and medications. Patient and/or care support representative [ResponseToTeaching]. Will continue to monitor patient progress.
[2020-10-11] VITALS (16 sets, daily range): BP systolic 102–130; BP diastolic 56–70; PULSE 81–119; RESP 18–24; TEMP 36.6–37; O2SAT 88–97
[2020-10-11] MEDS: ipratropium-albuterol 3 mL Neb INHALATION ×7 (00:45→20:30)
[2020-10-11] MEDS: famotidine 20 mg/2 mL INJ IVP ×2 (04:48→17:38)
[2020-10-11 06:02] LABS: Basophils % 0.2 %; Eosinophils # 0.1 10^3/uL (0.0-0.8); Eosinophils % 1.4 %; Hematocrit 35.9 % (37.0-47.0); Hemoglobin 11.9 g/dL (11.5-15.3); Lymphocytes # 0.6 10^3/uL (0.8-4.8); Lymphocytes % 6.2 %; Mean Corpuscular HGB Conc 33.1 g/dL (30.0-36.0); Mean Corpuscular Hemoglobin 26.9 pg (28.0-34.0); Mean Platelet Volume 9.3 fL (7.4-10.4); Monocytes # 0.4 10^3/uL (0.2-0.9); Neutrophils # 7.83 10^3/uL (1.8-7.7); Neutrophils % 85.4 %; Nucleated Red Blood Cells % 0 %; Platelet Count 310 10^3/cmm (130-400); Red Blood Count 4.43 10^6/uL (4.1-5.3); Red Cell Distribution Width 13.9 % (12.1-15.1); White Blood Count 9.2 10^3/uL (4.0-10.0)
[2020-10-11 06:24] LABS: D Dimer 0.65 ug/mIFEU (0-0.59)
[2020-10-11 06:30] LABS: Alanine Aminotransferase 14 U/L (0-33); Albumin Level 3.2 g/dL (3.5-5.2); Alkaline Phosphatase 92 IU/L (35-105); Anion Gap 17.8 (5-19); Aspartate Amino Transferase 16 U/L (0-32); Blood Urea Nitrogen 21 mg/dL (6-20); Calcium 8.2 mg/dL (8.5-10.5); Carbon Dioxide 19 mmol/L (22-29); Chloride 103 mmol/L (98-107); Globulin 2.5 g/dL (1.3-4.6); Glomerular Filtration Rate 131.1 mL/min (90-130); Glucose 268 mg/dL (65-115); Osmolality Calculated 294 mOsm/kg (285-295); Potassium 3.8 mmol/L (3.5-5.1); Sodium 136 mmol/L (136-145); Total Bilirubin 0.5 mg/dL (0.15-1.2); Total Protein 5.7 g/dL (6.6-8.7)
[2020-10-11 06:42] LABS: C Reactive Protein 5.5 mg/L (0.0-4.9); NT Pro B Type Natriuretic Pept 17 pg/mL (0-125)
[2020-10-11 06:50] LABS: Erythrocyte Sedimentation Rate 33 mm/hr (0-15)
[2020-10-11 07:52] LABS: Glucose Point of Care 220 mg/dL (70-110)
[2020-10-11] MEDS: budesonide 0.5 mg/2 mL Neb INHALATION ×2 (08:26→20:30)
[2020-10-11] MEDS: ferrous gluconate 324 mg Tablet PO ×2 (08:42→17:53)
[2020-10-11] MEDS: zinc gluconate 50 mg Tablet PO (08:42)
[2020-10-11] MEDS: benzonatate 100 mg Capsule PO ×3 (08:42→20:30)
[2020-10-11] MEDS: enoxaparin 100 mg/mL Syringe SUBCUT (08:42)
[2020-10-11] MEDS: lisinopril 10 mg Tablet PO (08:42)
[2020-10-11] MEDS: ascorbic acid 500 mg Tablet PO ×2 (08:42→17:53)
[2020-10-11] MEDS: cefTRIAXone 1,000 MG in sodium chloride 0.9% (plus) 50 ML 100 MG IV (08:43)
[2020-10-11] MEDS: insulin glargine 100 units/1 mL 30 UNIT SUBCUT ×2 (08:43→21:11)
--- NOTE | 2020-10-11 09:24 | PC.CHAP ---
Pastoral Care Encounter/Spiritual Assessment Type of Contact [] Declined complementary health therapists visit [] Patient/Family/Request visit [] Outpatient visit [] Follow-up visit [] Physician referral [] Code/Alert [x] Routine visit [] Staff referral [] Actively dying [] Patient sleeping [] Family support [] [] Out of room [] Palliative care [] [] Receiving care in room [] Pre-surgical visit [] Trauma [] Long length of stay [] ICU visit [x] Other: 2a Relational/Emotional Strength [] Patient feels connected with others/family/visitors/staff [] Distress [] Loneliness/isolation [] Abandonment Spirituality of Patient [] Person of Mallory [] Attends Holiness of their [place]ory [] Believes in Prayer [] Reads Bible or Buddhism materials [] There are Spiritual issues to be addressed Director Of Rehabilitation And Wellness Interventions [x] Prayer [] Active listening [] Non-anxious presence [] Spiritual/emotional support [] Crisis/trauma care [] Spiritual counseling [] Bereavement support [] Provided bereavement packet [] Provided Bible/devotional materials [] Provided toy/stuffed animal, coloring book to patient or family member [] Provided Communion [] Anointing/[place] [] Salvation [x] Completed spiritual assessment [] Other: Impact on Illness or Injury [] Angry [] Fearful [] Anxious [] Often cries [] Exhaustion [] Unable to work [] Unable to attend rastafarian [] Unable to walk/stand [] Unable to read [] Unable to drive [] Unable to eat/drink [] Unable to sleep [] Unable to be with family [] Patient intubated [] Other: Summary Time spent with patient
[2020-10-11 10:58] LABS: Glucose Point of Care 237 mg/dL (70-110)
--- NOTE | 2020-10-11 15:07 | PM.PN ---
Subjective Subjective: Interval history: She is feeling slightly better today. Headache is better. Still coughing. No nausea vomiting or diarrhea. Denies chest pain. She would like to try an alternative modality due to nasal soreness, even despite lanolin cream. Discussed with her we will also order some nasal saline spray. She is asking about possibly trying a mask. Discussed with her that with trying to switch to her breather the flow that can be chewed by high flow cannula could not be maintained, and FiO2 had to be likely increased which may increase risk of oxygen toxicity as well. Will discuss with therapy guarding possibility perhaps of loosening CPAP with full facemask to change up to high flow cannula. If not alternatively possibly temporary Venturi or NRB. Vitals/I&O/Wt Last Vital Signs Temp 98.2 F 10/11/20 12:00 Pulse 119 H 10/11/20 12:00 Resp 23 H 10/11/20 12:00 BP 130/69 10/11/20 12:00 Pulse Ox 88 L 10/11/20 12:00 10/11/20 10/11/20 10/11/20 06:59 14:59 22:59 Intake Total 410 / 410 Output Total 750 / 950 Balance -750 / 40 410 / 410 Weight last 48 hrs Weight 100.652 kg Weight 104.734 kg Physical Exam Const: COMMON NORMALS: no acute distress and patient oriented x3 GENERAL APPEARANCE: ill appearing HENMT: COMMON NORMALS: oropharynx normal Neck/C-Spine: COMMON NORMALS: no JVD Resp: COMMON NORMALS: normal respiratory effort and clear to auscultation bilaterally AUSCULTATION: clear to auscultation bilaterally and crackles Laterality: bilateral (Bases. Milder.) Cardio: COMMON NORMALS: no JVD, regular rhythm, S1 normal heart sound present, S2 normal heart sound present and No murmurs present (Cardio) RHYTHM: regular rhythm HEART SOUNDS: S1 normal heart sound present and S2 normal heart sound present GI: COMMON NORMALS: Normal to inspection, nondistended, normoactive bowel sounds present, Soft to palpation and non-tender PALPATION: Yes Soft to palpation Extremity: COMMON NORMALS: no joint enlargement and no pedal edema Neuro: COMMON NORMALS: patient oriented x3 and moves all extremities Skin: COMMON NORMALS: no rashes or lesions noted GENERAL SKIN EXAM: no rashes or lesions noted Urinary Catheter Management^: Sahu: Cath Placed During This Visit: yes Reason for Continuing Indwelling Catheter: Acute Urinary Retention or Obstruction Urinary Catheter Date of Insertion: 10/05/20 Urinary Catheter Time of Insertion: 20:00 Data : 10/11/20 05:30 10/11/20 05:30 Micro: Microbiology 10/05/20 19:40 Blood Culture - Final Blood Staphylococcus sp coag neg 10/05/20 19:40 Blood Culture - Final Blood NO GROWTH AFTER 5 DAYS 10/05/20 20:05 Urine Culture - Final Urine Catheterized Escherichia coli A&P Assessment and plan (1) ARDS (adult respiratory distress syndrome): FiO2 transiently worsened overnight, up to 70%, but now little bit better with requirement of 45 L, 65% on heated high flow cannula. States she is being somewhat bothered by the HHF cannula. Discussing with the respiratory therapy possible temporary alternative options. Continue Decadron, continue extended remdesivir course. Continue Lovenox, D-dimer continues to decrease. Decrease to prophylactic dosing. Hypoxic respiratory failure secondary to severe COVID-19. Continue budesonide, DuoNeb. Is also on ceftriaxone for urinary tract infection. Terrence Sapp. Status: Acute (2) Pneumonia due to COVID-19 virus: Status: Acute (3) COVID-19 vaccine dose declined: Status: Acute (4) Diabetes mellitus: Continue SSI. Monitor glucose. Consistent carb diet. Status: Acute (5) HTN (hypertension): Continue lisinopril. Status: Acute (6) UTI (urinary tract infection): Pansensitive E. coli. Continue ceftriaxone. Status: Acute Attestations Medical Necessity Statement*: Continue admission for assessment management of hypoxic respiratory failure with severe COVID-19. 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
--- NOTE | 2020-10-11 16:57 | PC.NURSE ---
Shift Note Frequent safety and comfort rounds continue. Orders and/or nursing care completed as indicated. Patient monitored for response to intervention and treatment(s). Education provided includes medications and treatment plan. Patient and/or hardware supplies sales representative verbalizes understanding but may need reinforcement due to language barrier. Will continue to monitor.
[2020-10-11 16:59] LABS: Glucose Point of Care 141 mg/dL (70-110)
[2020-10-11] MEDS: dexamethasone 10 mg/mL INJ 6 MG IVP (17:39)
--- NOTE | 2020-10-11 17:51 | PC.RESP ---
RT Shift Note Frequent safety and respiratory rounds continue. Orders completed as indicated. Patient monitored pre and post treatments throughout shift. Patient tolerated treatments appropriately. Condition did not change. Patient and/or employer relations representative educated on respiratory treatment and medications. Patient and/or employer relations representative verbalized understanding. Will continue to monitor patient progress.
[2020-10-11] MEDS: remdesivir 100 MG in sodium chloride 0.9% (100 ml) 100 ML IV (17:53)
[2020-10-11 20:57] LABS: Glucose Point of Care 170 mg/dL (70-110)
[2020-10-11] MEDS: acetaminophen 325 mg Tablet 650 MG PO (21:15)
--- NOTE | 2020-10-11 23:17 | PC.RESP ---
RT Shift Note Frequent safety and respiratory rounds continue. Orders completed as indicated. Patient monitored pre and post treatments throughout shift. Patient [Did.] tolerate treatments appropriately. Condition [.DidNotChange]. Patient and/or retention representative educated on respiratory treatment and medications. Patient and/or retention representative [ResponseToTeaching]. Will continue to monitor patient progress.
[2020-10-12] VITALS (18 sets, daily range): BP systolic 104–114; BP diastolic 57–65; PULSE 73–102; RESP 16–26; TEMP 36.4–36.9; O2SAT 88–96
[2020-10-12] MEDS: ipratropium-albuterol 3 mL Neb INHALATION ×6 (00:45→19:41)
[2020-10-12 05:14] LABS: Basophils % 0.3 %; Eosinophils # 0.2 10^3/uL (0.0-0.8); Hematocrit 36.8 % (37.0-47.0); Hemoglobin 11.8 g/dL (11.5-15.3); Lymphocytes # 0.7 10^3/uL (0.8-4.8); Lymphocytes % 6.4 %; Mean Corpuscular HGB Conc 32.1 g/dL (30.0-36.0); Mean Corpuscular Hemoglobin 26.6 pg (28.0-34.0); Mean Corpuscular Volume 82.9 fl (81-99); Mean Platelet Volume 9.2 fL (7.4-10.4); Monocytes # 0.5 10^3/uL (0.2-0.9); Monocytes % 4.5 %; Neutrophils # 8.39 10^3/uL (1.8-7.7); Neutrophils % 82.5 %; Nucleated Red Blood Cells % 0 %; Platelet Count 302 10^3/cmm (130-400); Red Blood Count 4.44 10^6/uL (4.1-5.3); Red Cell Distribution Width 14.2 % (12.1-15.1); White Blood Count 10.2 10^3/uL (4.0-10.0)
[2020-10-12 05:30] LABS: Alanine Aminotransferase 28 U/L (0-33); Albumin Level 3.1 g/dL (3.5-5.2); Alkaline Phosphatase 92 IU/L (35-105); Aspartate Amino Transferase 27 U/L (0-32); Blood Urea Nitrogen 20 mg/dL (6-20); Calcium 8.4 mg/dL (8.5-10.5); Carbon Dioxide 21 mmol/L (22-29); Chloride 106 mmol/L (98-107); Globulin 2.1 g/dL (1.3-4.6); Glomerular Filtration Rate 106.3 mL/min (90-130); Glucose 171 mg/dL (65-115); Osmolality Calculated 291 mOsm/kg (285-295); Sodium 137 mmol/L (136-145); Total Bilirubin 0.5 mg/dL (0.15-1.2); Total Protein 5.2 g/dL (6.6-8.7)
[2020-10-12 05:31] LABS: Anion Gap 14.4 (5-19); Potassium 4.4 mmol/L (3.5-5.1)
[2020-10-12 05:36] LABS: Glucose Point of Care 175 mg/dL (70-110)
[2020-10-12] MEDS: budesonide 0.5 mg/2 mL Neb INHALATION ×2 (08:00→19:41)
[2020-10-12 08:08] LABS: Glucose Point of Care 163 mg/dL (70-110)
[2020-10-12] MEDS: ferrous gluconate 324 mg Tablet PO ×2 (09:49→17:57)
[2020-10-12] MEDS: benzonatate 100 mg Capsule PO ×3 (09:49→21:48)
[2020-10-12] MEDS: ascorbic acid 500 mg Tablet PO ×2 (09:49→17:57)
[2020-10-12] MEDS: lisinopril 10 mg Tablet PO (09:49)
[2020-10-12] MEDS: zinc gluconate 50 mg Tablet PO (09:49)
[2020-10-12] MEDS: enoxaparin 40 mg/0.4 mL Syringe SUBCUT (09:50)
[2020-10-12] MEDS: cefTRIAXone 1,000 MG in sodium chloride 0.9% (plus) 50 ML 100 MG IV (09:50)
[2020-10-12] MEDS: insulin glargine 100 units/1 mL 30 UNIT SUBCUT ×2 (09:51→21:52)
[2020-10-12] MEDS: lanolin oint 7 gm 1 APPLIC TOPICAL (10:28)
[2020-10-12] MEDS: saline nasal spray 44mL Btl 1 SPRAY NASAL (10:28)
[2020-10-12 11:44] LABS: Glucose Point of Care 143 mg/dL (70-110)
--- NOTE | 2020-10-12 14:53 | PM.PN ---
Subjective Subjective: Interval history: Currently doing perhaps slightly better, earlier got very fatigued try to transfer to sit up in the chair. Became very weak. Became easily hypoxic. Saturation did decrease down to 80%, slowly trended up. FiO2 had to be increased to 70%. Vitals/I&O/Wt Last Vital Signs Temp 97.7 F 10/12/20 11:53 Pulse 84 10/12/20 12:00 Resp 18 10/12/20 12:00 BP 114/65 10/12/20 11:53 Pulse Ox 90 10/12/20 12:00 10/11/20 10/12/20 10/12/20 22:59 06:59 14:59 Intake Total 400 / 810 60 / 870 290 / 290 Output Total 200 / 200 Balance 400 / 810 -140 / 670 290 / 290 Weight last 48 hrs Weight 104.071 kg Weight 100.652 kg Physical Exam Const: COMMON NORMALS: no acute distress and patient oriented x3 GENERAL APPEARANCE: ill appearing HENMT: COMMON NORMALS: oropharynx normal Neck/C-Spine: COMMON NORMALS: no JVD Resp: COMMON NORMALS: normal respiratory effort and clear to auscultation bilaterally AUSCULTATION: clear to auscultation bilaterally and crackles (Mild persistent.) Laterality: bilateral (Bases. ) Cardio: COMMON NORMALS: no JVD, regular rhythm, S1 normal heart sound present, S2 normal heart sound present and No murmurs present (Cardio) RHYTHM: regular rhythm HEART SOUNDS: S1 normal heart sound present and S2 normal heart sound present GI: COMMON NORMALS: Normal to inspection, nondistended, normoactive bowel sounds present, Soft to palpation and non-tender PALPATION: Yes Soft to palpation Extremity: COMMON NORMALS: no joint enlargement and no pedal edema Neuro: COMMON NORMALS: patient oriented x3 and moves all extremities Skin: COMMON NORMALS: no rashes or lesions noted GENERAL SKIN EXAM: no rashes or lesions noted Urinary Catheter Management^: Sahu: Cath Placed During This Visit: yes Reason for Continuing Indwelling Catheter: Other Urinary Catheter Date of Insertion: 10/05/20 Urinary Catheter Time of Insertion: 20:00 Data : 10/12/20 04:24 10/12/20 04:24 Micro: Microbiology 10/07/20 09:58 Blood Culture - Final Blood NO GROWTH AFTER 5 DAYS 10/07/20 10:04 Blood Culture - Final Blood NO GROWTH AFTER 5 DAYS 10/05/20 19:40 Blood Culture - Final Blood Staphylococcus sp coag neg A&P Assessment and plan (1) ARDS (adult respiratory distress syndrome): Overall foot was doing a bit better today. However, became very easily hypoxic with exertion. Continue NG tube support. Wean down as tolerating. Continue Decadron, continue extended remdesivir course. Check D-dimer. Hypoxic respiratory failure secondary to severe COVID-19. Continue budesonide, DuoNeb. Is also on ceftriaxone for urinary tract infection. Terrence Sapp. Status: Acute (2) Pneumonia due to COVID-19 virus: Status: Acute (3) COVID-19 vaccine dose declined: Status: Acute (4) Diabetes mellitus: Continue SSI. Monitor glucose. Consistent carb diet. Status: Acute (5) HTN (hypertension): Continue lisinopril. Status: Acute (6) UTI (urinary tract infection): Pansensitive E. coli. Continue ceftriaxone. Status: Acute Attestations Medical Necessity Statement*: Continue admission for assessment management of hypoxic respiratory failure with severe COVID-19 infection. 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
[2020-10-12 16:32] LABS: Glucose Point of Care 85 mg/dL (70-110)
--- NOTE | 2020-10-12 17:50 | PC.RESP ---
RT Shift Note Frequent safety and respiratory rounds continue. Orders completed as indicated. Patient monitored pre and post treatments throughout shift. Patient tolerated treatments appropriately. Condition did not change. Patient and/or patient access representative educated on respiratory treatment and medications. Patient and/or patient access representative verbalized understanding. Will continue to monitor patient progress.
[2020-10-12] MEDS: famotidine 20 mg/2 mL INJ IVP (17:54)
[2020-10-12] MEDS: dexamethasone 10 mg/mL INJ 6 MG IVP (17:54)
[2020-10-12] MEDS: remdesivir 100 MG in sodium chloride 0.9% (100 ml) 100 ML IV (17:58)
[2020-10-12 20:24] LABS: Glucose Point of Care 220 mg/dL (70-110)
[2020-10-13] VITALS (17 sets, daily range): BP systolic 118–140; BP diastolic 73–92; PULSE 72–104; RESP 16–28; TEMP 36.6–36.8; O2SAT 87–100
[2020-10-13] MEDS: ipratropium-albuterol 3 mL Neb INHALATION ×5 (03:01→20:27)
[2020-10-13 05:14] LABS: Basophils % 0.3 %; Eosinophils # 0.1 10^3/uL (0.0-0.8); Eosinophils % 0.9 %; Hematocrit 36.4 % (37.0-47.0); Hemoglobin 11.9 g/dL (11.5-15.3); Lymphocytes # 0.5 10^3/uL (0.8-4.8); Lymphocytes % 4.9 %; Mean Corpuscular HGB Conc 32.7 g/dL (30.0-36.0); Mean Corpuscular Volume 82.5 fl (81-99); Mean Platelet Volume 9.6 fL (7.4-10.4); Monocytes # 0.3 10^3/uL (0.2-0.9); Monocytes % 3.2 %; Nucleated Red Blood Cells % 0 %; Platelet Count 313 10^3/cmm (130-400); Red Blood Count 4.41 10^6/uL (4.1-5.3); Red Cell Distribution Width 14.1 % (12.1-15.1); White Blood Count 10.7 10^3/uL (4.0-10.0)
[2020-10-13 05:35] LABS: Alanine Aminotransferase 44 U/L (0-33); Albumin Level 3.1 g/dL (3.5-5.2); Alkaline Phosphatase 116 IU/L (35-105); Anion Gap 15.6 (5-19); Aspartate Amino Transferase 27 U/L (0-32); Blood Urea Nitrogen 20 mg/dL (6-20); Calcium 8.9 mg/dL (8.5-10.5); Carbon Dioxide 21 mmol/L (22-29); Chloride 101 mmol/L (98-107); D Dimer 1.69 ug/mIFEU (0-0.59); Globulin 2.8 g/dL (1.3-4.6); Glomerular Filtration Rate 131.1 mL/min (90-130); Glucose 306 mg/dL (65-115); Osmolality Calculated 290 mOsm/kg (285-295); Potassium 4.6 mmol/L (3.5-5.1); Sodium 133 mmol/L (136-145); Total Bilirubin 0.5 mg/dL (0.15-1.2); Total Protein 5.9 g/dL (6.6-8.7)
[2020-10-13] MEDS: famotidine 20 mg/2 mL INJ IVP ×2 (06:17→17:37)
[2020-10-13 07:08] LABS: Glucose Point of Care 291 mg/dL (70-110)
[2020-10-13] MEDS: budesonide 0.5 mg/2 mL Neb INHALATION ×2 (08:41→20:27)
[2020-10-13] MEDS: ascorbic acid 500 mg Tablet PO ×2 (08:59→17:37)
[2020-10-13] MEDS: zinc gluconate 50 mg Tablet PO (08:59)
[2020-10-13] MEDS: benzonatate 100 mg Capsule PO ×3 (08:59→21:25)
[2020-10-13] MEDS: acetaminophen 325 mg Tablet 650 MG PO ×2 (08:59→17:50)
[2020-10-13] MEDS: lisinopril 10 mg Tablet PO (08:59)
[2020-10-13] MEDS: ferrous gluconate 324 mg Tablet PO ×2 (08:59→17:37)
[2020-10-13] MEDS: enoxaparin 40 mg/0.4 mL Syringe SUBCUT (08:59)
[2020-10-13] MEDS: cefTRIAXone 1,000 MG in sodium chloride 0.9% (plus) 50 ML 100 MG IV (09:00)
[2020-10-13] MEDS: insulin glargine 100 units/1 mL 30 UNIT SUBCUT (09:00)
[2020-10-13 11:02] LABS: Glucose Point of Care 252 mg/dL (70-110)
--- NOTE | 2020-10-13 14:46 | P.PN_ITS ---
Subjective Subjective: Interval history: This morning she was having quite a bit of a headache. Last night her cannula was changed, and she was having some nasal congestion. Overnight oxygen flow was increased. This morning still having a headache at the back of her head. Received a Tylenol. At the same time we have been coming down on her oxygen flow and FiO2, with improvement in headache as soon as this was decreased. Saturations this morning very good, 96-97%. Was able to come down from 70% FiO2 down to 45% and possibly may wean further. Less cough. Vitals/I&O/Wt Last Vital Signs Temp 98.3 F 10/13/20 12:00 Pulse 96 10/13/20 14:00 Resp 17 10/13/20 12:00 BP 140/92 10/13/20 12:00 Pulse Ox 96 10/13/20 12:00 10/12/20 10/13/20 10/13/20 22:59 06:59 14:59 Intake Total 460 / 750 290 / 290 Output Total 650 / 650 500 / 1150 600 / 600 Balance -190 / 100 -500 / -400 -310 / -310 Weight last 48 hrs Weight 104.462 kg Weight 104.071 kg Physical Exam Const: COMMON NORMALS: no acute distress and patient oriented x3 GENERAL APPEARANCE: ill appearing HENMT: COMMON NORMALS: oropharynx normal Neck/C-Spine: COMMON NORMALS: no JVD Resp: COMMON NORMALS: normal respiratory effort and clear to auscultation bilaterally AUSCULTATION: clear to auscultation bilaterally and crackles (Mild persistent.) Laterality: bilateral (Bases. ) Cardio: COMMON NORMALS: no JVD, regular rhythm, S1 normal heart sound present, S2 normal heart sound present and No murmurs present (Cardio) RHYTHM: regular rhythm HEART SOUNDS: S1 normal heart sound present and S2 normal heart sound present GI: COMMON NORMALS: Normal to inspection, nondistended, normoactive bowel sounds present, Soft to palpation and non-tender PALPATION: Yes Soft to palpation Extremity: COMMON NORMALS: no joint enlargement and no pedal edema Neuro: COMMON NORMALS: patient oriented x3 and moves all extremities Skin: COMMON NORMALS: no rashes or lesions noted GENERAL SKIN EXAM: no rashes or lesions noted Urinary Catheter Management^: Sahu: Cath Placed During This Visit: yes Reason for Continuing Indwelling Catheter: Accurate Measurement of Urinary O utput in Critically Ill Patients Urinary Catheter Date of Insertion: 10/05/20 Urinary Catheter Time of Insertion: 20:00 Data : 10/13/20 04:13 10/13/20 04:13 Micro: Microbiology 10/07/20 09:58 Blood Culture - Final Blood NO GROWTH AFTER 5 DAYS 10/07/20 10:04 Blood Culture - Final Blood NO GROWTH AFTER 5 DAYS A&P Assessment and plan (1) ARDS (adult respiratory distress syndrome): This morning with improvement in FiO2 requirement. So far been able to wean down from 70% to 45%, down from 60 L to 45. May be able to wean further. Continue to wean as tolerated. Continue Decadron, continue extended remdesivir course. Prophylactic Lovenox. Hypoxic respiratory failure secondary to severe COVID-19. Continue budesonide, DuoNeb. Completed course of ceftriaxone for urinary tract infection. Terrence aleman. Status: Acute (2) Pneumonia due to COVID-19 virus: Status: Acute (3) COVID-19 vaccine dose declined: Status: Acute (4) Diabetes mellitus: Continue SSI. Increase Lantus dose to 33 units. Monitor glucose. Consistent carb diet. Status: Acute (5) HTN (hypertension): Continue lisinopril. Status: Acute (6) UTI (urinary tract infection): Pansensitive E. coli. Completed course of ceftriaxone. Status: Acute Attestations Medical Necessity Statement*: Continue admission for assessment management of hypoxic respite failure with severe COVID-19. 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
[2020-10-13 16:52] LABS: Glucose Point of Care 95 mg/dL (70-110)
[2020-10-13] MEDS: remdesivir 100 MG in sodium chloride 0.9% (100 ml) 100 ML IV (17:36)
[2020-10-13] MEDS: dexamethasone 10 mg/mL INJ 6 MG IVP (17:37)
[2020-10-13 20:41] LABS: Glucose Point of Care 228 mg/dL (70-110)
[2020-10-13] MEDS: insulin glargine 100 units/1 mL 33 UNIT SUBCUT (21:25)
[2020-10-14] VITALS (17 sets, daily range): BP systolic 104–137; BP diastolic 64–87; PULSE 85–109; RESP 16–28; TEMP 36.5–36.8; O2SAT 90–93
[2020-10-14] MEDS: ipratropium-albuterol 3 mL Neb INHALATION ×4 (01:13→11:26)
[2020-10-14 06:02] LABS: Alanine Aminotransferase 40 U/L (0-33); Alkaline Phosphatase 113 IU/L (35-105); Anion Gap 14.3 (5-19); Aspartate Amino Transferase 19 U/L (0-32); Blood Urea Nitrogen 16 mg/dL (6-20); Calcium 8.8 mg/dL (8.5-10.5); Carbon Dioxide 23 mmol/L (22-29); Chloride 104 mmol/L (98-107); Globulin 2.8 g/dL (1.3-4.6); Glomerular Filtration Rate 131.1 mL/min (90-130); Glucose 171 mg/dL (65-115); Osmolality Calculated 289 mOsm/kg (285-295); Potassium 4.3 mmol/L (3.5-5.1); Sodium 137 mmol/L (136-145); Total Bilirubin 0.5 mg/dL (0.15-1.2); Total Protein 5.8 g/dL (6.6-8.7)
[2020-10-14] MEDS: famotidine 20 mg/2 mL INJ IVP ×2 (06:15→17:44)
[2020-10-14 06:52] LABS: Glucose Point of Care 161 mg/dL (70-110)
[2020-10-14] MEDS: ferrous gluconate 324 mg Tablet PO ×2 (08:02→17:44)
[2020-10-14] MEDS: ascorbic acid 500 mg Tablet PO ×2 (08:02→17:44)
[2020-10-14] MEDS: insulin glargine 100 units/1 mL 33 UNIT SUBCUT ×2 (08:02→21:29)
[2020-10-14] MEDS: lisinopril 10 mg Tablet PO (08:02)
[2020-10-14] MEDS: zinc gluconate 50 mg Tablet PO (08:02)
[2020-10-14] MEDS: benzonatate 100 mg Capsule PO ×3 (08:02→20:30)
[2020-10-14] MEDS: enoxaparin 40 mg/0.4 mL Syringe SUBCUT (08:03)
[2020-10-14] MEDS: budesonide 0.5 mg/2 mL Neb INHALATION (08:20)
[2020-10-14 11:14] LABS: Glucose Point of Care 130 mg/dL (70-110)
[2020-10-14] MEDS: acetaminophen 325 mg Tablet 650 MG PO ×2 (15:30→20:28)
[2020-10-14 17:07] LABS: Glucose Point of Care 176 mg/dL (70-110)
--- NOTE | 2020-10-14 17:42 | P.PN_ITS ---
Subjective Subjective: Interval history: She is gradually feeling better. Had a headache overnight, but currently resolved. Coughing much less. Feels much better on high flow cannula. Vitals/I&O/Wt Last Vital Signs Temp 98.0 F 10/14/20 16:00 Pulse 101 H 10/14/20 17:24 Resp 20 H 10/14/20 17:24 BP 115/73 10/14/20 16:00 Pulse Ox 93 10/14/20 17:24 10/14/20 10/14/20 10/14/20 06:59 14:59 22:59 Intake Total 120 / 750 180 / 180 Output Total 999 Balance -880 / -1275 180 / 180 Weight last 48 hrs Weight 103.011 kg Weight 104.462 kg Physical Exam Const: COMMON NORMALS: no acute distress and patient oriented x3 GENERAL APPEARANCE: ill appearing HENMT: COMMON NORMALS: oropharynx normal Neck/C-Spine: COMMON NORMALS: no JVD Resp: COMMON NORMALS: normal respiratory effort and clear to auscultation bilaterally AUSCULTATION: clear to auscultation bilaterally and crackles (Improving) Laterality: bilateral (Bases. ) Cardio: COMMON NORMALS: no JVD, regular rhythm, S1 normal heart sound present, S2 normal heart sound present and No murmurs present (Cardio) RHYTHM: regular rhythm HEART SOUNDS: S1 normal heart sound present and S2 normal heart sound present GI: COMMON NORMALS: Normal to inspection, nondistended, normoactive bowel sounds present, Soft to palpation and non-tender PALPATION: Yes Soft to palpation Extremity: COMMON NORMALS: no joint enlargement and no pedal edema Neuro: COMMON NORMALS: patient oriented x3 and moves all extremities Skin: COMMON NORMALS: no rashes or lesions noted GENERAL SKIN EXAM: no rashes or lesions noted Urinary Catheter Management^: Sahu: Cath Placed During This Visit: yes Reason for Continuing Indwelling Catheter: Acute Urinary Retention or Obstruction Urinary Catheter Date of Insertion: 10/05/20 Urinary Catheter Time of Insertion: 20:00 Data : 10/13/20 04:13 10/14/20 04:15 A&P Assessment and plan (1) ARDS (adult respiratory distress syndrome): She is now showing good progress. Weaning of oxygen support. Down to 40% FiO2, down to 12 L on high flow cannula. Maintaining saturations in the low 90s. Feels much better. Continue to wean off as tolerated. Today completes extended course of remdesivir. Continue Decadron. Prophylactic Lovenox. Hypoxic respiratory failure secondary to severe COVID-19. Continue budesonide, DuoNeb. Completed course of ceftriaxone for urinary tract infection. Terrence aleman. Status: Acute (2) Pneumonia due to COVID-19 virus: Status: Acute (3) COVID-19 vaccine dose declined: Status: Acute (4) Diabetes mellitus: Continue SSI. Continue Lantus dose to 33 units. Monitor glucose. Consistent carb diet. Status: Acute (5) HTN (hypertension): Continue lisinopril. Status: Acute (6) UTI (urinary tract infection): Pansensitive E. coli. Completed course of ceftriaxone. Status: Acute Attestations Medical Necessity Statement*: Continue admission for hypoxic respite failure secondary to severe COVID-19, disposition planning. 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
[2020-10-14] MEDS: dexamethasone 10 mg/mL INJ 6 MG IVP (17:44)
[2020-10-14] MEDS: remdesivir 100 MG in sodium chloride 0.9% (100 ml) 100 ML IV (17:45)
--- NOTE | 2020-10-14 19:15 | PC.NURSE ---
pt remdesivir complete at this time. flushed line with 30cc normal saline. no other needs at this time.
[2020-10-14 21:57] LABS: Glucose Point of Care 201 mg/dL (70-110)
[2020-10-15] VITALS (13 sets, daily range): BP systolic 122–143; BP diastolic 72–82; PULSE 72–111; RESP 18–30; TEMP 36.4–36.7; O2SAT 86–94
[2020-10-15] MEDS: famotidine 20 mg/2 mL INJ IVP ×2 (05:48→17:19)
[2020-10-15 06:54] LABS: Glucose Point of Care 148 mg/dL (70-110)
[2020-10-15] MEDS: acetaminophen 325 mg Tablet 650 MG PO (10:22)
[2020-10-15] MEDS: lisinopril 10 mg Tablet PO (10:23)
[2020-10-15] MEDS: benzonatate 100 mg Capsule PO ×2 (10:23→14:41)
[2020-10-15] MEDS: zinc gluconate 50 mg Tablet PO (10:23)
[2020-10-15] MEDS: ascorbic acid 500 mg Tablet PO ×2 (10:23→17:19)
[2020-10-15] MEDS: ferrous gluconate 324 mg Tablet PO ×2 (10:23→17:20)
[2020-10-15] MEDS: enoxaparin 40 mg/0.4 mL Syringe SUBCUT (10:23)
[2020-10-15 11:36] LABS: Glucose Point of Care 205 mg/dL (70-110)
--- NOTE | 2020-10-15 15:23 | P.PN_ITS ---
Subjective Subjective: Interval history: Got quite fatigued and became hypoxic after having a bowel movement. States has not had 1 in several days, transferred to the commode, came back, saturation was in the low 80s. Came up with initially high flow cannula and oxygen mask on top, subsequently oxygen was discontinued, continues on high flow cannula 15 L. Vitals/I&O/Wt Last Vital Signs Temp 97.8 F 10/15/20 04:00 Pulse 103 H 10/15/20 14:50 Resp 20 H 10/15/20 14:50 BP 124/77 10/15/20 12:16 Pulse Ox 90 10/15/20 14:50 10/15/20 10/15/20 10/15/20 06:59 14:59 22:59 Intake Total 480 / 480 Output Total 1100 / 1100 Balance -1100 / -580 480 / 480 Weight last 48 hrs Weight 104.009 kg Weight 103.011 kg Physical Exam Const: COMMON NORMALS: no acute distress and patient oriented x3 GENERAL APPEARANCE: ill appearing HENMT: COMMON NORMALS: oropharynx normal Neck/C-Spine: COMMON NORMALS: no JVD Resp: COMMON NORMALS: normal respiratory effort and clear to auscultation bilaterally AUSCULTATION: clear to auscultation bilaterally and crackles (Resolving) Laterality: bilateral (Bases. ) Cardio: COMMON NORMALS: no JVD, regular rhythm, S1 normal heart sound present, S2 normal heart sound present and No murmurs present (Cardio) RHYTHM: regular rhythm HEART SOUNDS: S1 normal heart sound present and S2 normal heart sound present GI: COMMON NORMALS: Normal to inspection, nondistended, normoactive bowel sounds present, Soft to palpation and non-tender PALPATION: Yes Soft to palpation Extremity: COMMON NORMALS: no joint enlargement and no pedal edema Neuro: COMMON NORMALS: patient oriented x3 and moves all extremities Skin: COMMON NORMALS: no rashes or lesions noted GENERAL SKIN EXAM: no r ashes or lesions noted Urinary Catheter Management^: Sahu: Cath Placed During This Visit: yes Reason for Continuing Indwelling Catheter: Accurate Measurement of Urinary Output in Critically Ill Patients Urinary Catheter Date of Insertion: 10/05/20 Urinary Catheter Time of Insertion: 20:00 Data : 10/13/20 04:13 10/14/20 04:15 A&P Assessment and plan (1) ARDS (adult respiratory distress syndrome): Became quite hypoxic with short exertion. Discussed with her in case needing to move even short distances would need to increase oxygen temporarily until she is back at rest. Continue weaning off oxygen as tolerating. Continue Decadron. Completed remdesivir. Prophylactic Lovenox. Hypoxic respiratory failure secondary to severe COVID-19. Continue budesonide, DuoNeb. Completed course of ceftriaxone for urinary tract infection. Cough has improved. As needed Tessalon pearls. Status: Acute (2) Pneumonia due to COVID-19 virus: Status: Acute (3) COVID-19 vaccine dose declined: Status: Acute (4) Diabetes mellitus: Continue SSI. Continue Lantus dose to 33 units. Monitor glucose. Consistent carb diet. Status: Acute (5) HTN (hypertension): Continue lisinopril. Status: Acute (6) UTI (urinary tract infection): Pansensitive E. coli. Completed course of ceftriaxone. Status: Acute Attestations Medical Necessity Statement*: Continue admission for hypoxic respite failure with severe COVID-19. 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
[2020-10-15 17:10] LABS: Glucose Point of Care 182 mg/dL (70-110)
[2020-10-15] MEDS: dexamethasone 10 mg/mL INJ 6 MG IVP (17:19)
[2020-10-15 21:23] LABS: Glucose Point of Care 266 mg/dL (70-110)
--- NOTE | 2020-10-15 21:29 | PC.RESP ---
RT Shift Note Frequent safety and respiratory rounds continue. Orders completed as indicated. Patient monitored pre and post treatments throughout shift. Patient [Did] tolerate treatments appropriately. Condition DidNotChange]. Patient and/or route service representative educated on respiratory treatment and medications. Patient and/or route service representative [ResponseToTeaching]. Will continue to monitor patient progress.
[2020-10-15] MEDS: insulin glargine 100 units/1 mL 33 UNIT SUBCUT (21:57)
[2020-10-16] VITALS (13 sets, daily range): BP systolic 101–164; BP diastolic 66–103; PULSE 71–117; RESP 13–24; TEMP 36.4–36.8; O2SAT 88–96
[2020-10-16] MEDS: famotidine 20 mg/2 mL INJ IVP ×2 (05:52→17:37)
[2020-10-16 06:54] LABS: Glucose Point of Care 226 mg/dL (70-110)
[2020-10-16] MEDS: lisinopril 10 mg Tablet PO (09:53)
[2020-10-16] MEDS: zinc gluconate 50 mg Tablet PO (09:53)
[2020-10-16] MEDS: ascorbic acid 500 mg Tablet PO ×2 (09:53→17:35)
[2020-10-16] MEDS: insulin glargine 100 units/1 mL 33 UNIT SUBCUT ×2 (09:53→21:34)
[2020-10-16] MEDS: enoxaparin 40 mg/0.4 mL Syringe SUBCUT (09:53)
[2020-10-16] MEDS: ferrous gluconate 324 mg Tablet PO ×2 (09:53→17:35)
--- NOTE | 2020-10-16 10:01 | P.PN_ITS ---
Subjective Subjective: Interval history: She is very sad today as she got the news that her is not doing well. She has been speaking with her children, and got to see her by FaceTime. She has been having on and off mild headache. She otherwise denies any chest pain or pressure. No nausea vomiting or diarrhea. Vitals/I&O/Wt Last Vital Signs Temp 97.7 F 10/16/20 07:55 Pulse 103 H 10/16/20 08:59 Resp 24 H 10/16/20 08:59 BP 164/94 10/16/20 07:55 Pulse Ox 93 10/16/20 08:59 10/15/20 10/16/20 10/16/20 22:59 06:59 14:59 Output Total 1350 / 1350 1250 / 2600 Balance -1350 / -870 -1250 / -2120 Weight last 48 hrs Weight 100.062 kg Weight 104.009 kg Physical Exam Const: COMMON NORMALS: no acute distress and patient oriented x3 HENMT: COMMON NORMALS: oropharynx normal Neck/C-Spine: COMMON NORMALS: no JVD Resp: COMMON NORMALS: normal respiratory effort AUSCULTATION: crackles (mild) Laterality: bilateral (Bases. ) Cardio: COMMON NORMALS: no JVD, regular rhythm, S1 normal heart sound present, S2 normal heart sound present and No murmurs present (Cardio) RHYTHM: regular rhythm HEART SOUNDS: S1 normal heart sound present and S2 normal heart sound present GI: COMMON NORMALS: Normal to inspection, nondistended, normoactive bowel sounds present, Soft to palpation and non-tender PALPATION: Yes Soft to palpation Extremity: COMMON NORMALS: no joint enlargement and no pedal edema Neuro: COMMON NORMALS: patient oriented x3 and moves all extremities Skin: COMMON NORMALS: no rashes or lesions noted GENERAL SKIN EXAM: no rashes or lesions noted Urinary Catheter Management^: Sahu: Cath Placed During This Visit: yes Reason for Continuing Indwelling Catheter: Other Urinary Catheter Date of Insertion: 10/05/20 Urinary Catheter Time of Insertion: 20:00 Data : 10/13/20 04:13 10/14/20 04:15 A&P Assessment and plan (1) ARDS (adult respiratory distress syndrome): Today progress seems to be somewhat hindered by emotional distress of recent news of worsening condition of her . Continuing to require 15 L on high flow cannula. Seems to have done better on heated high flow. Discussed with RT will switch her over back to HHF. Symptomatically otherwise do not appear changed. Will repeat labs in the morning including D-dimer. Continue Decadron. Continue prophylactic Lovenox. Completed extended course of remdesivir. Supportive care. Hypoxic respiratory failure secondary to severe COVID-19. Completed course of ceftriaxone for urinary tract infection. Status: Acute (2) Pneumonia due to COVID-19 virus: Status: Acute (3) COVID-19 vaccine dose declined: Status: Acute (4) Diabetes mellitus: Continue SSI. Continue Lantus dose to 33 units. Monitor glucose. Consistent carb diet. Status: Acute (5) HTN (hypertension): Continue lisinopril. Status: Acute (6) UTI (urinary tract infection): Pansensitive E. coli. Completed course of ceftriaxone. Status: Acute Attestations Medical Necessity Statement*: Continue admission for hypoxic respiratory failure secondary to severe COVID-19. Coding Level of Care Code Acute Animal Daycare Provider for [facility] Fwd Diagnoses ARDS (adult respiratory distress syndrome) J80 Pneumonia due to COVID-19 virus U07.1; J12.82 COVID-19 vaccine dose declined Z28.21 Diabetes mellitus E11.9 HTN (hypertension) I10 UTI (urinary tract infection) N39.0
[2020-10-16 11:55] LABS: Glucose Point of Care 244 mg/dL (70-110)
[2020-10-16 17:16] LABS: Glucose Point of Care 159 mg/dL (70-110)
[2020-10-16] MEDS: benzonatate 100 mg Capsule PO (17:35)
[2020-10-16] MEDS: dexamethasone 10 mg/mL INJ 6 MG IVP (17:37)
[2020-10-16] MEDS: acetaminophen 325 mg Tablet 650 MG PO (18:18)
[2020-10-16 21:03] LABS: Glucose Point of Care 216 mg/dL (70-110)
[2020-10-16] MEDS: nystatin 100,000 unit/mL UDC 5 mL 400000 UNIT PO (21:34)
[2020-10-17] VITALS (19 sets, daily range): BP systolic 97–132; BP diastolic 55–84; PULSE 82–119; RESP 16–24; TEMP 36.5–36.7; O2SAT 87–95
[2020-10-17] MEDS: famotidine 20 mg/2 mL INJ IVP ×2 (06:14→17:41)
[2020-10-17 06:16] LABS: Basophils % 0.2 %; Eosinophils % 0.1 %; Hematocrit 38.9 % (37.0-47.0); Hemoglobin 12.7 g/dL (11.5-15.3); Lymphocytes # 0.9 10^3/uL (0.8-4.8); Lymphocytes % 7.2 %; Mean Corpuscular HGB Conc 32.6 g/dL (30.0-36.0); Mean Corpuscular Hemoglobin 26.9 pg (28.0-34.0); Mean Corpuscular Volume 82.4 fl (81-99); Mean Platelet Volume 9.9 fL (7.4-10.4); Monocytes # 0.6 10^3/uL (0.2-0.9); Monocytes % 4.6 %; Neutrophils # 10.73 10^3/uL (1.8-7.7); Neutrophils % 86.8 %; Nucleated Red Blood Cells % 0 %; Platelet Count 249 10^3/cmm (130-400); Red Blood Count 4.72 10^6/uL (4.1-5.3); White Blood Count 12.4 10^3/uL (4.0-10.0)
[2020-10-17 06:38] LABS: D Dimer 6.67 ug/mIFEU (0-0.59)
[2020-10-17 06:40] LABS: Alanine Aminotransferase 26 U/L (0-33); Albumin Level 3.1 g/dL (3.5-5.2); Alkaline Phosphatase 102 IU/L (35-105); Anion Gap 14.7 (5-19); Aspartate Amino Transferase 12 U/L (0-32); Blood Urea Nitrogen 19 mg/dL (6-20); Calcium 9.1 mg/dL (8.5-10.5); Carbon Dioxide 25 mmol/L (22-29); Chloride 102 mmol/L (98-107); Globulin 2.7 g/dL (1.3-4.6); Glomerular Filtration Rate 169.7 mL/min (90-130); Glucose 163 mg/dL (65-115); Osmolality Calculated 290 mOsm/kg (285-295); Potassium 4.7 mmol/L (3.5-5.1); Sodium 137 mmol/L (136-145); Total Bilirubin 0.6 mg/dL (0.15-1.2); Total Protein 5.8 g/dL (6.6-8.7)
[2020-10-17 06:47] LABS: Glucose Point of Care 159 mg/dL (70-110)
--- NOTE | 2020-10-17 08:45 | PC.CHAP ---
Pastoral Care Encounter/Spiritual Assessment Type of Contact [] Declined preflight inspector visit [] Patient/Family/Request visit [] Outpatient visit [] Follow-up visit [] Physician referral [] Code/Alert [x] Routine visit [] Staff referral [] Actively dying [] Patient sleeping [] Family support [] [] Out of room [] Palliative care [] [] Receiving care in room [] Pre-surgical visit [] Trauma [] Long length of stay [] ICU visit [x] Other: 2a Relational/Emotional Strength [] Patient feels connected with others/family/visitors/staff [] Distress [] Loneliness/isolation [] Abandonment Spirituality of Patient [] Person of Mallory [] Attends Roman Catholic of their Mallory [] Believes in Prayer [] Reads Bible or Adventism materials [] There are Spiritual issues to be addressed Conditioner Tender Interventions [x] Prayer [] Active listening [] Non-anxious presence [] Spiritual/emotional support [] Crisis/trauma care [] Spiritual counseling [] Bereavement support [] Provided bereavement packet [] Provided Bible/devotional materials [] Provided toy/stuffed animal, coloring book to patient or family member [] Provided Communion [] Anointing/[place] [] Salvation [x] Completed spiritual assessment [] Other: Impact on Illness or Injury [] Angry [] Fearful [] Anxious [] Often cries [] Exhaustion [] Unable to work [] Unable to attend orthodoxy [] Unable to walk/stand [] Unable to read [] Unable to drive [] Unable to eat/drink [] Unable to sleep [] Unable to be with family [] Patient intubated [] Other: Summary resting well. expressed our condolences regarding her .... served breakfast Time spent with patient 5 min
[2020-10-17] MEDS: acetaminophen 325 mg Tablet 650 MG PO (09:40)
[2020-10-17] MEDS: zinc gluconate 50 mg Tablet PO (09:40)
[2020-10-17] MEDS: ascorbic acid 500 mg Tablet PO ×2 (09:40→17:41)
[2020-10-17] MEDS: ferrous gluconate 324 mg Tablet PO ×2 (09:40→17:41)
[2020-10-17] MEDS: lisinopril 10 mg Tablet PO (09:40)
[2020-10-17] MEDS: nystatin 100,000 unit/mL UDC 5 mL 400000 UNIT PO ×4 (09:40→21:10)
[2020-10-17] MEDS: enoxaparin 40 mg/0.4 mL Syringe SUBCUT (09:41)
[2020-10-17] MEDS: insulin glargine 100 units/1 mL 33 UNIT SUBCUT (09:42)
[2020-10-17] MEDS: ipratropium-albuterol 3 mL Neb INHALATION ×2 (09:43→15:13)
[2020-10-17 12:04] LABS: Glucose Point of Care 257 mg/dL (70-110)
--- NOTE | 2020-10-17 13:59 | PM.PN ---
Subjective Subjective: Interval history: Patient was seen and examined, her daughter and I was on the phone during my encounter Patient is denying chest pain, shortness of breath No active diarrhea She was happy with the progress that she got out of bed and sit in a chair without worsening of her exhaustion She failed high flow nasal cannula and today she was on heated high flow 40 L 50% She is emotional because of an unfortunate event, her in the hospital is on hold for at least 1 week in anticipation of her faster recovery and discharge from the hospital, I have talked with the family and conveyed my clinical assessment today, their questions were answered, daughter was asking regarding monoclonal antibody CRP today is around 5 white count, 12 she has been afebrile Not a candidate of antibodies or interleukin-6 inhibitor Vitals/I&O/Wt Last Vital Signs Temp 98.0 F 10/17/20 04:00 Pulse 119 H 10/17/20 12:04 Resp 20 H 10/17/20 12:04 BP 97/59 10/17/20 12:00 Pulse Ox 91 10/17/20 12:04 10/16/20 10/17/20 10/17/20 22:59 06:59 14:59 Intake Total 240 / 240 480 / 480 Output Total 900 / 900 425 / 1325 225 / 225 Balance -900 / -900 -185 / -1085 255 / 255 Weight last 48 hrs Weight 102.875 kg Weight 100.062 kg Physical Exam Narrative: EXAM NARRATIVE: Patient was seen and examined she was in semi-Gillespie position saturating 89 to 90% on 40 L, 50% heated high flow S1, S2 no signs of heart failure Crepitation noted on inspiration Abdomen soft Lower extremity no edema Patient emotionally labile No neurological deficits Urinary Catheter Management^: Sahu: Cath Placed During This Visit: yes Reason for Continuing Indwelling Catheter: Other Urinary Catheter Date of Insertion: 10/05/20 Urinary Catheter Time of Insertion: 20:00 Data : 10/17/20 05:50 10/17/20 05:50 A&P Assessment and plan (1) UTI (urinary tract infection): Status: Acute (2) Diabetes mellitus: Status: Acute (3) HTN (hypertension): Status: Acute (4) COVID-19 vaccine dose declined: Status: Acute (5) ARDS (adult respiratory distress syndrome): Status: Acute (6) Pneumonia due to COVID-19 virus: Status: Acute (7) Acute exacerbation of chronic obstructive pulmonary disease: Status: Acute Additional A&P Information Acute hypoxia related to COVID-19 ARDS Status post remdesivir Not a candidate of antibiotics or interleukin-6 inhibitor CRP less than 6 today Heated high flow 40 L 50% I would reduce Decadron to 3 mg from 6 mg this is her 12th day in the hospital She got out of bed and sat in a chair without worsening of her exhaustion Type 2 diabetes: Steroid-induced hyperglycemia I will increase her Lantus to 35 units Anticipating provement with decrease of steroids and increasing Lantus dose today She is on sliding scale as well Hypertension: Reduce lisinopril dose, hypotensive today UTI status post ceftriaxone course Full code Soft mechanical closure diet DVT prophylaxis Lovenox Attestations Medical Necessity Statement*: Continue clinical management for hypoxia related to COVID-19 Time Spent in Patient Care: 16 - 35 minutes Coding Level of Care Code 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
--- NOTE | 2020-10-17 14:06 | USCV_ITS ---
Opal Rain Age: 50 Gender: F : 1970 Exam Date: 10/17/2020 16:01 Ordering Phys: Brittany Frankel MD Technologist: Sophia Pickens [place] [facility] [place]O D[place] HISTORY: Lower extremity swelling. PROCEDURES: Venous duplex imaging was performed in bilateral lower extremities. The following venous structures were evaluated: common femoral vein, profunda vein, proximal portion of the greater saphenous vein, superficial femoral vein, and the popliteal vein. In addition, the posterior tibial and peroneal trunk were evaluated. FINDINGS: Normal 2-D Doppler and augmentation and compressibility throughout the lower extremity venous structures. Additional imaging through the proximal calf veins also reveals no thrombus. Limited evaluation of the greater saphenous vein is patent with no thrombus.. CONCLUSIONS No evidence of right lower extremity DVT. No evidence of left lower extremity DVT. Michael Acuna MD (Electronically Signed) Final Date: 17 October 2020 17:14 S
--- NOTE | 2020-10-17 15:16 | PC.RESP ---
RT Shift Note Frequent safety and respiratory rounds continue. Orders completed as indicated. Patient monitored pre and post treatments throughout shift. Patient [Did.] tolerate treatments appropriately. Condition [.DidNotChange]. Patient and/or communications representative educated on respiratory treatment and medications. Patient and/or communications representative [verbalized understanding]. Will continue to monitor patient progress.
[2020-10-17] MEDS: dexamethasone 10 mg/mL INJ 3 MG IVP (15:18)
[2020-10-17 16:46] LABS: Glucose Point of Care 210 mg/dL (70-110)
[2020-10-17 20:41] LABS: Glucose Point of Care 259 mg/dL (70-110)
[2020-10-17] MEDS: insulin glargine 100 units/1 mL 35 UNIT SUBCUT (21:13)
[2020-10-18] VITALS (17 sets, daily range): BP systolic 100–130; BP diastolic 63–81; PULSE 68–103; RESP 12–23; TEMP 36.3–37; O2SAT 88–96
[2020-10-18] MEDS: famotidine 20 mg/2 mL INJ IVP ×2 (05:21→18:03)
[2020-10-18 05:43] LABS: Basophils % 0.2 %; Eosinophils % 0.1 %; Hematocrit 39.7 % (37.0-47.0); Hemoglobin 12.8 g/dL (11.5-15.3); Lymphocytes % 8.5 %; Mean Corpuscular HGB Conc 32.2 g/dL (30.0-36.0); Mean Corpuscular Hemoglobin 26.9 pg (28.0-34.0); Mean Corpuscular Volume 83.4 fl (81-99); Mean Platelet Volume 9.6 fL (7.4-10.4); Monocytes # 0.8 10^3/uL (0.2-0.9); Monocytes % 6.6 %; Neutrophils # 9.49 10^3/uL (1.8-7.7); Neutrophils % 83.9 %; Nucleated Red Blood Cells % 0 %; Platelet Count 280 10^3/cmm (130-400); Red Blood Count 4.76 10^6/uL (4.1-5.3); Red Cell Distribution Width 14.2 % (12.1-15.1); White Blood Count 11.3 10^3/uL (4.0-10.0)
[2020-10-18 06:06] LABS: Anion Gap 15.4 (5-19); Blood Urea Nitrogen 23 mg/dL (6-20); C Reactive Protein 6.5 mg/L (0.0-4.9); Calcium 9.4 mg/dL (8.5-10.5); Carbon Dioxide 24 mmol/L (22-29); Chloride 103 mmol/L (98-107); Glomerular Filtration Rate 169.7 mL/min (90-130); Glucose 170 mg/dL (65-115); Osmolality Calculated 294 mOsm/kg (285-295); Potassium 4.4 mmol/L (3.5-5.1); Sodium 138 mmol/L (136-145)
[2020-10-18 06:38] LABS: Glucose Point of Care 160 mg/dL (70-110)
[2020-10-18] MEDS: nystatin 100,000 unit/mL UDC 5 mL 400000 UNIT PO ×4 (08:21→21:03)
[2020-10-18] MEDS: insulin glargine 100 units/1 mL 35 UNIT SUBCUT (08:22)
[2020-10-18] MEDS: ascorbic acid 500 mg Tablet PO ×2 (08:22→17:30)
[2020-10-18] MEDS: lisinopril 10 mg Tablet PO (08:22)
[2020-10-18] MEDS: zinc gluconate 50 mg Tablet PO (08:22)
[2020-10-18] MEDS: ferrous gluconate 324 mg Tablet PO (08:22)
[2020-10-18] MEDS: enoxaparin 40 mg/0.4 mL Syringe SUBCUT (08:26)
[2020-10-18] MEDS: iohexol 350 mg/mL 100 mL Btl IV (08:37)
--- NOTE | 2020-10-18 08:39 | PC.CHAP ---
Pastoral Care Encounter/Spiritual Assessment Type of Contact [] Declined can sterilizer visit [] Patient/Family/Request visit [] Outpatient visit [] Follow-up visit [] Physician referral [] Code/Alert [x] Routine visit [] Staff referral [] Actively dying [] Patient sleeping [] Family support [] [] Out of room [] Palliative care [] [] Receiving care in room [] Pre-surgical visit [] Trauma [] Long length of stay [] ICU visit [x] Other:2a patient feeling much stronger.. setting up.. service breakfast Relational/Emotional Strength [] Patient feels connected with others/family/visitors/staff [] Distress [] Loneliness/isolation [] Abandonment Spirituality of Patient [] Person of Mallory [] Attends Holiness of their Mallory [] Believes in Prayer [] Reads Bible or Gnosticism materials [] There are Spiritual issues to be addressed Pocket Maker Interventions [x] Prayer [] Active listening [] Non-anxious presence [] Spiritual/emotional support [] Crisis/trauma care [] Spiritual counseling [] Bereavement support [] Provided bereavement packet [] Provided Bible/devotional materials [] Provided toy/stuffed animal, coloring book to patient or family member [] Provided Communion [] Anointing/[place] [] Salvation [x] Completed spiritual assessment [] Other: Impact on Illness or Injury [] Angry [] Fearful [] Anxious [] Often cries [] Exhaustion [] Unable to work [] Unable to attend yazidism [] Unable to walk/stand [] Unable to read [] Unable to drive [] Unable to eat/drink [] Unable to sleep [] Unable to be with family [] Patient intubated [] Other: Summary Time spent with patient
[2020-10-18 10:47] LABS: Glucose Point of Care 129 mg/dL (70-110)
[2020-10-18] MEDS: enoxaparin 60 mg/0.6 mL Syringe SUBCUT (11:51)
--- NOTE | 2020-10-18 13:18 | P.PN_ITS ---
Subjective Subjective: Interval history: Patient is stating that her energy is slightly better than yesterday, she had 1 bowel movement yesterday, she has been try to get out of bed and sit in a chair, her CTA today showed right-sided pulmonary embolism, started her on therapeutic dose of Lovenox, no lower extremity DVT Daughter, Nandini, updated Patient was complaining of nasal congestion and pain around her nares Asked respiratory therapist to switch her to facemask and see if she would tolerate and keep her O2 saturation above 89% CT does show slight worsening in bilateral lower lobes I have allowed family to bring chicken soup from home Family meeting done yesterday for about 30 to 40 minutes, we discussed current treatment plan, clinical status, what to expect in the next few days, prognosis, step up plan, cure of the disease and not been able to give ivermectin, family did have some question regarding animal fat which [facility] is currently try, we do not have any data would not use at this point Vitals/I&O/Wt Last Vital Signs Temp 97.8 F 10/18/20 11:38 Pulse 87 10/18/20 11:57 Resp 22 H 10/18/20 11:57 BP 103/70 10/18/20 11:38 Pulse Ox 88 L 10/18/20 11:57 10/17/20 10/18/20 10/18/20 22:59 06:59 14:59 Intake Total 360 / 360 Output Total 1000 / 1225 Balance -1000 / -745 360 / 360 Weight last 48 hrs Weight 106.277 kg Weight 102.875 kg Physical Exam Narrative: EXAM NARRATIVE: Patient was sitting in semi-Gillespie position O2 saturation 89 to 92% her heated high flow was turned down to 50 %, 35 L, reque sted nurse to try facemask S1, S2 sinus rhythm Clinically looks euvolemic Abdomen soft Inspiratory crackles noted on lung auscultation No neurological deficits No lower extremity edema Appropriate mood and affect Patient does seem to be in good spirits Urinary Catheter Management^: Sahu: Cath Placed During This Visit: yes Reason for Continuing Indwelling Catheter: Other Urinary Catheter Date of Insertion: 10/05/20 Urinary Catheter Time of Insertion: 20:00 Data : 10/18/20 04:28 10/18/20 04:28 A&P Assessment and plan (1) UTI (urinary tract infection): Status: Acute (2) Diabetes mellitus: Status: Acute (3) HTN (hypertension): Status: Acute (4) ARDS (adult respiratory distress syndrome): Status: Acute (5) Pneumonia due to COVID-19 virus: Status: Acute Additional A&P Information Acute hypoxic restaurant failure ARDS CT revealed PE No right heart strain Heated high flow O2 requirement 50%, patient to try facemask, out of bed to chair Encouraged proning, incentive spirometer Stop steroids she has received 13 days of steroids, getting nystatin for oral thrush as well Not a candidate of interleukin-6 inhibitor considering low CRP We will start therapeutic dose of Lovenox No signs of DVT Family updated regarding current PE and bilateral lower lobe worsening infiltrates Continue multivitamins UTI: Status post antibiotics, afebrile urine culture growing E. coli Type 2 diabetes: Fasting blood sugar within normal range with increase of Lantus to 35 units, twice daily She is getting moderate dose sliding scale as well Hypertension: Currently normotensive Iron deficiency anemia continue iron supplementation Full code Family updated DVT prophylaxis currently on therapeutic Lovenox Kosher soft mechanical diet, allowed family members to bring chicken broth Attestations Medical Necessity Statement*: Wean off oxygen continue Covid unit monitoring Time Spent in Patient Care: 16 - 35 minutes Coding Level of Care Code Acute Lokie Engineer for g Fwd Diagnoses UTI (urinary tract infection) N39.0 Diabetes mellitus E11.9 HTN (hypertension) I10 ARDS (adult respiratory distress syndrome) J80 Pneumonia due to COVID-19 virus U07.1; J12.82
--- NOTE | 2020-10-18 14:06 | CT_ITS ---
WS: [id number] CTA OF THE CHEST WITH PULMONARY EMBOLISM PROTOCOL TECHNIQUE: High-resolution contrast enhanced CTA of the chest with coronal and sagittal reformatted i mages with pulmonary embolism protocol. MIP images are also reviewed. CLINICAL INFORMATION: Hypoxia high D-dimer COMPARISON: CT October 05, 2020 DLP: 476.[address] scans at [facility] use at least one of these dose optimization techniques: automat ed exposure control; mA and/or kV adjustment per patient size (includes targeted exams where dose is matched to clinical indication); or iterative reconstruction. FINDINGS: Shallow inspiration. Breathing motion artifact. Proximal main pulmonary arteries are normal. Focal fi lling defects in the distal segmental pulmonary arteries more prominent right upper lobe and right mi ddle lobe extending into the subsegmental pulmonary arteries compatible with pulmonary embolus. Diffuse bilateral airspace infiltrates compatible with covid19 pneumonia. Compressive atelectasis wit h some airspace consolidation in the lung bases. This is new from previous. This is worse in the left lower lobe. No mediastinal or hilar lymphadenopathy. No axillary lymphadenopathy. Cholecystectomy clips. Normal l eft adrenal gland. Normal GE junction. CT/CT angio chest PE protcl [id number] IMPRESSION: 1. Small pulmonary emboli in the distal segmental extending to the subsegmenta l pulmonary arteries more prominent in the right upper lobe and right middle lo be with focal filling defects. 2. Diffuse bilateral pulmonary infiltrates compatible with COVID 19 Pneumonia. Some airspace consolidation has developed in the lower lobes since the prior e xamination. Groundglass infiltrates are otherwise not significantly changed fro m previous. 3. Low lung volumes bilaterally. 4. No mediastinal or hilar lymphadenopathy. 5. Prior cholecystectomy. Notified Brittany Frankel MD at 10/18/2020 8:47 AM.
[2020-10-18 16:49] LABS: Glucose Point of Care 196 mg/dL (70-110)
--- NOTE | 2020-10-18 19:30 | PC.NURSE ---
Shift Note Frequent safety and comfort rounds continue. Orders and/or nursing care completed as indicated. Patient monitored for response to intervention and treatment(s). Education provided includes treatment plan, oxygen safety, activity level. Patient and/or hospital insurance representative verbalizes and demonstrates understanding. Will continue to monitor.
[2020-10-18] MEDS: enoxaparin 100 mg/mL Syringe SUBCUT (23:17)
[2020-10-19] VITALS (15 sets, daily range): BP systolic 99–122; BP diastolic 63–75; PULSE 90–108; RESP 16–28; TEMP 36.8–37.2; O2SAT 81–96; BMI 35.6
[2020-10-19] MEDS: famotidine 20 mg/2 mL INJ IVP (05:42)
[2020-10-19 07:04] LABS: Basophils # 0.1 10^3/uL (0.0-0.1); Basophils % 0.5 %; Eosinophils # 0.3 10^3/uL (0.0-0.8); Eosinophils % 2.7 %; Hematocrit 37.9 % (37.0-47.0); Lymphocytes # 1.3 10^3/uL (0.8-4.8); Lymphocytes % 13.2 %; Mean Corpuscular HGB Conc 31.7 g/dL (30.0-36.0); Mean Corpuscular Hemoglobin 27.5 pg (28.0-34.0); Mean Corpuscular Volume 86.7 fl (81-99); Mean Platelet Volume 9.4 fL (7.4-10.4); Monocytes % 10.1 %; Neutrophils # 6.91 10^3/uL (1.8-7.7); Neutrophils % 72.7 %; Nucleated Red Blood Cells % 0 %; Platelet Count 226 10^3/cmm (130-400); Red Blood Count 4.37 10^6/uL (4.1-5.3); Red Cell Distribution Width 14.5 % (12.1-15.1); White Blood Count 9.5 10^3/uL (4.0-10.0)
[2020-10-19] MEDS: ipratropium-albuterol 3 mL Neb INHALATION ×2 (07:40→22:02)
[2020-10-19 07:46] LABS: Blood Urea Nitrogen 18 mg/dL (6-20); C Reactive Protein 25.5 mg/L (0.0-4.9); Calcium 8.6 mg/dL (8.5-10.5); Carbon Dioxide 23 mmol/L (22-29); Chloride 104 mmol/L (98-107); Glomerular Filtration Rate 169.7 mL/min (90-130); Glucose 70 mg/dL (65-115); Osmolality Calculated 284 mOsm/kg (285-295); Sodium 137 mmol/L (136-145)
[2020-10-19 07:52] LABS: Procalcitonin 0.08 ng/mL (0-0.5)
[2020-10-19] MEDS: insulin glargine 100 units/1 mL 35 UNIT SUBCUT (08:14)
[2020-10-19] MEDS: nystatin 100,000 unit/mL UDC 5 mL 400000 UNIT PO ×4 (08:14→21:11)
[2020-10-19] MEDS: ferrous gluconate 324 mg Tablet PO (08:14)
[2020-10-19] MEDS: zinc gluconate 50 mg Tablet PO (08:15)
[2020-10-19] MEDS: predniSONE 10 mg Tablet PO (08:15)
[2020-10-19] MEDS: ascorbic acid 500 mg Tablet PO ×2 (08:15→17:34)
[2020-10-19] MEDS: enoxaparin 100 mg/mL Syringe SUBCUT ×2 (10:37→21:09)
[2020-10-19] MEDS: fluconazole 100 mg Tablet PO (10:37)
[2020-10-19 11:23] LABS: Glucose Point of Care 84 mg/dL (70-110)
[2020-10-19 11:23] LABS: Glucose Point of Care 232 mg/dL (70-110)
[2020-10-19 11:49] LABS: Glucose Point of Care 88 mg/dL (70-110)
--- NOTE | 2020-10-19 12:41 | PM.PN ---
Subjective Subjective: Interval history: Patient was complaining of mouth sores, Cetacaine spray and Diflucan added She has been getting the statin She was complaining of constipation as well She stayed on 12 L facemask, at rest her O2 saturation stays between 88-90 however on ambulation she drops quickly in low 80s, today she was saturating well on 35 L 45% FiO2 heated high flow Daughter at the bedside We did discuss swelling in the suprasternal notch her TSH is normal no mass or pneumothorax seen Daughter was asking if a satellite installer would be allowed to come in, unfortunately I had to decline because if satellite installer gets exposure to Covid he might spread the infection in the whole community I have asked the family to bring in the oil and rub it or do massage if they want to Family also had a question regarding multivitamins she is already getting vitamin C zinc, added vitamin D Vitals/I&O/Wt Last Vital Signs Temp 98.4 F 10/19/20 04:00 Pulse 107 H 10/19/20 11:28 Resp 22 H 10/19/20 11:28 BP 100/63 10/19/20 04:00 Pulse Ox 95 10/19/20 11:28 10/18/20 10/19/20 10/19/20 22:59 06:59 14:59 Intake Total 360 / 1080 Output Total 1200 / 1200 600 / 600 Balance 360 / 1080 -1200 / -120 -600 / -600 Weight last 48 hrs Weight 106.277 kg Weight 106.277 kg Physical Exam Narrative: EXAM NARRATIVE: Patient desaturates quickly on ambulation currently on heated high flow Awake alert oriented x3 S1, S2 sinus rhythm Crepitation on inspiration noted bilaterally No acute respite distress Clinically does look slightly dehydrated Abdomen soft Awake alert oriented x3 GCS 15 no neurological deficits No lower extremity swelling Urinary Catheter Management^: Sahu: Cath Placed During This Visit: yes Reason for Continuing Indwelling Catheter: Acute Urinary Retention or Obstruction Urinary Catheter Date of Insertion: 10/05/20 Urinary Catheter Time of Insertion: 20:00 Data : 10/19/20 06:20 10/19/20 06:20 A&P Assessment and plan (1) ARDS (adult respiratory distress syndrome): Status: Acute (2) Pneumonia due to COVID-19 virus: Status: Acute (3) Diabetes mellitus: Status: Acute (4) UTI (urinary tract infection): Status: Acute (5) HTN (hypertension): Status: Acute (6) Acute exacerbation of chronic obstructive pulmonary disease: Status: Acute (7) Oral ulceration: Status: Acute (8) Constipation: Status: Acute Additional A&P Information Persistent hypoxia related to COVID-19 currently on heated high flow 35 L, 45%, she did well with 12 L facemask at rest however quickly desaturates on ambulation Currently her steroids have been de-escalating to prednisone 10 mg daily maintenance Status post remdesivir Not a candidate of interleukin-6 inhibitor Patient is very motivated to get her strength back, she has been able to eat most of her meals, complaining of constipation and mouth sores Krystin ulcer of mouth started fluconazole along nystatin and requested Cetacaine spray For constipation would add MiraLAX, she also had lactulose and Dulcolax as needed usage UTI: Resolved status post antibiotics Hypertension: Currently soft blood pressure, discontinue lisinopril Daughter at the bedside I have refused pastoral visit because of concern of spread of virus in the community, I did apologize to the family and offered filbert grower services [facility], family preferred to have Bahamian-speaking filbert grower I would discontinue iron supplementation for now because of worsening constipation Full code Currently on therapeutic Lovenox dose for her pulmonary embolism For her hyperglycemia will increase her Lantus dosage Attestations Medical Necessity Statement*: Continue medical management for persistent hypoxia Time Spent in Patient Care: 16 - 35 minutes Coding Level of Care Code Acute Tool Builder for g Fwd Diagnoses ARDS (adult respiratory distress syndrome) J80 Pneumonia due to COVID-19 virus U07.1; J12.82 Diabetes mellitus E11.9 UTI (urinary tract infection) N39.0 HTN (hypertension) I10 Acute exacerbation of chronic obstructive pulmonary disease J44.1 Oral ulceration K12.1 Constipation K59.00
[2020-10-19 17:14] LABS: Glucose Point of Care 135 mg/dL (70-110)
--- NOTE | 2020-10-19 18:35 | PC.NURSE ---
Physician allowed pt to have daughter and son come visit today at separate times. Patient has had an uneventful day and has been in good spirits. Pt was able to transition to oximask at 10L and has saturated well with that in the low 90's. Pt had minor episode of epistaxis but resolved quickly
--- NOTE | 2020-10-19 18:37 | PC.NURSE ---
Shift Note Frequent safety and comfort rounds continue. Orders and/or nursing care completed as indicated. Patient monitored for response to intervention and treatment(s). Education provided includes treatment plan, oxygen safety, activity level, IS and flutter valve use. Patient and/or player services representative verbalizes understanding. Will continue to monitor.
[2020-10-19 20:03] LABS: Glucose Point of Care 126 mg/dL (70-110)
[2020-10-19] MEDS: insulin glargine 100 units/1 mL 37 UNIT SUBCUT (21:10)
[2020-10-19] MEDS: acetaminophen 325 mg Tablet 650 MG PO (21:36)
[2020-10-20] VITALS (7 sets, daily range): BP systolic 106–134; BP diastolic 70–82; PULSE 90–103; RESP 18–23; TEMP 36.9; O2SAT 92–98
[2020-10-20 06:44] LABS: Basophils % 0.5 %; Eosinophils # 0.3 10^3/uL (0.0-0.8); Eosinophils % 3.2 %; Hematocrit 35.8 % (37.0-47.0); Hemoglobin 11.4 g/dL (11.5-15.3); Lymphocytes # 1.2 10^3/uL (0.8-4.8); Lymphocytes % 13.8 %; Mean Corpuscular HGB Conc 31.8 g/dL (30.0-36.0); Mean Corpuscular Hemoglobin 27.4 pg (28.0-34.0); Mean Corpuscular Volume 86.1 fl (81-99); Mean Platelet Volume 9.4 fL (7.4-10.4); Monocytes # 0.7 10^3/uL (0.2-0.9); Monocytes % 8.5 %; Neutrophils # 6.37 10^3/uL (1.8-7.7); Neutrophils % 73.3 %; Nucleated Red Blood Cells % 0 %; Platelet Count 228 10^3/cmm (130-400); Red Blood Count 4.16 10^6/uL (4.1-5.3); Red Cell Distribution Width 14.2 % (12.1-15.1); White Blood Count 8.7 10^3/uL (4.0-10.0)
[2020-10-20 07:07] LABS: Anion Gap 12.9 (5-19); Blood Urea Nitrogen 11 mg/dL (6-20); Calcium 8.5 mg/dL (8.5-10.5); Carbon Dioxide 24 mmol/L (22-29); Chloride 103 mmol/L (98-107); Glomerular Filtration Rate 169.7 mL/min (90-130); Glucose 73 mg/dL (65-115); Osmolality Calculated 280 mOsm/kg (285-295); Potassium 3.9 mmol/L (3.5-5.1); Sodium 136 mmol/L (136-145)
[2020-10-20] MEDS: acetaminophen 325 mg Tablet 650 MG PO (07:16)
[2020-10-20 07:26] LABS: Glucose Point of Care 83 mg/dL (70-110)
[2020-10-20] MEDS: ipratropium-albuterol 3 mL Neb INHALATION (08:47)
[2020-10-20] MEDS: ondansetron 2 mg/ML SDV 2 mL 4 MG IVP (09:16)
[2020-10-20] MEDS: nystatin 100,000 unit/mL UDC 5 mL 400000 UNIT PO ×4 (09:17→20:38)
[2020-10-20] MEDS: predniSONE 10 mg Tablet PO (09:17)
[2020-10-20] MEDS: ascorbic acid 500 mg Tablet PO ×2 (09:17→17:25)
[2020-10-20] MEDS: fluconazole 100 mg Tablet PO (09:17)
[2020-10-20] MEDS: cholecalciferol (vitamin D3) 1,000 unit Tablet 1000 UNIT PO (09:17)
[2020-10-20] MEDS: zinc gluconate 50 mg Tablet PO (09:17)
[2020-10-20] MEDS: polyethylene glycol 3350 Pkt 17 gm PO (09:17)
--- NOTE | 2020-10-20 09:23 | PM.PN ---
Subjective Subjective: Interval history: Patient was seen and examined this morning, she was on 6 L oxygen mask, this was switched to nasal cannula to help her to eat breakfast, her constipation has improved, she is still complaining of headache, she is still complaining of burning sensation around her oral ulcers Updated daughter Nandini, respiratory therapist was in the room I have asked her to gauge her O2 saturation on ambulation Vitals/I&O/Wt Last Vital Signs Temp 98.4 F 10/20/20 00:00 Pulse 103 H 10/20/20 08:56 Resp 20 H 10/20/20 08:49 BP 106/70 10/20/20 00:00 Pulse Ox 92 10/20/20 08:49 10/19/20 10/20/20 10/20/20 22:59 06:59 14:59 Intake Total 480 / 480 Output Total 750 / 1350 Balance -270 / -870 Weight last 48 hrs Weight 106.277 kg Physical Exam Narrative: EXAM NARRATIVE: Patient in good spirits Awake alert No neurological deficit Multiple white mucosal ulcers No dental or dysphagia S1, S2 sinus rhythm Clinically looks euvolemic Soft abdomen Lower extremity no edema Currently saturating well on 6 L oxygen mask Urinary Catheter Management^: Sahu: Cath Placed During This Visit: yes Reason for Continuing Indwelling Catheter: Other Urinary Catheter Date of Insertion: 10/05/20 Urinary Catheter Time of Insertion: 20:00 Data : 10/20/20 06:18 10/20/20 06:18 A&P Assessment and plan (1) Constipation: Status: Acute (2) Oral ulceration: Status: Acute (3) UTI (urinary tract infection): Status: Acute (4) Diabetes mellitus: Status: Acute (5) HTN (hypertension): Status: Acute (6) ARDS (adult respiratory distress syndrome): Status: Acute (7) Pneumonia due to COVID-19 virus: Status: Acute Additional A&P Information Persistent hypoxia related to COVID-19 We were able to wean her oxygen down to 6 L oxygen mask today, will check her O2 saturation on ambulation She has stayed afebrile Able to get out of bed stay in the chair In good spirits and hopeful to return home Continue multivitamins, wean off steroids, Krystin mucosal ulcers Continue nystatin and fluconazole cetacaine oral spray as needed use Acute pulmonary embolism during hospitalization secondary to COVID-19 hypercoagulable state Currently on therapeutic Lovenox UTI: Resolved Diabetes: Related to steroids Weaning steroids, continue sliding scale with Lantus Constipation: Resolved Full code Consistent carb diet Kosher DVT prophylaxis lovenox therapeutic regimen [facility] high flow if she declines Attestations Medical Necessity Statement*: Continue management for management of persistent hypoxia, Time Spent in Patient Care: less than 15 minutes Coding Level of Care Code Acute 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
[2020-10-20] MEDS: insulin glargine 100 units/1 mL 37 UNIT SUBCUT (10:54)
[2020-10-20] MEDS: enoxaparin 100 mg/mL Syringe SUBCUT ×2 (11:28→20:39)
[2020-10-20 11:59] LABS: Glucose Point of Care 218 mg/dL (70-110)
--- NOTE | 2020-10-20 13:10 | PC.NURSE ---
Spoke with Dr banks he okayed more than one visitor at this time and stop isolation precautions
[2020-10-20 16:40] LABS: Glucose Point of Care 204 mg/dL (70-110)
[2020-10-20 16:40] LABS: Glucose Point of Care 201 mg/dL (70-110)
[2020-10-20 20:25] LABS: Glucose Point of Care 83 mg/dL (70-110)
[2020-10-20] MEDS: insulin glargine 100 units/1 mL 35 UNIT SUBCUT (20:39)
[2020-10-21] VITALS (10 sets, daily range): BP systolic 102–126; BP diastolic 62–93; PULSE 76–100; RESP 16–21; TEMP 36.8; O2SAT 91–97
[2020-10-21 05:24] LABS: C Reactive Protein 72.6 mg/L (0.0-4.9)
[2020-10-21 06:54] LABS: Glucose Point of Care 88 mg/dL (70-110)
--- NOTE | 2020-10-21 09:45 | P.PN_ITS ---
Subjective Subjective: Interval history: Patient was seen and examined this morning, patient is stating that she has not received Cetacaine spray in her mouth ulcer burning sensation has not improved which is hindering her p.o. intake Otherwise no other complaints she is doing well on 6 L nasal cannula she was able to work with respiratory test yesterday and her O2 saturation dropped to 83% on 6 L, which improved on resting Patient is complaining of reproducible chest pain on the right side Vitals/I&O/Wt Last Vital Signs Temp 98.2 F 10/21/20 07:58 Pulse 98 10/21/20 08:44 Resp 18 10/21/20 08:44 BP 119/93 10/21/20 07:58 Pulse Ox 95 10/21/20 08:44 10/20/20 10/21/20 10/21/20 22:59 06:59 14:59 Output Total 1300 / 1600 875 / 2475 Balance -1300 / -1600 -875 / -2475 Weight last 48 hrs Weight 104.825 kg Weight 106.05 kg Physical Exam Narrative: EXAM NARRATIVE: Patient in semi-Gillespie position doing well on 6 L nasal cannula EMR, PERRLA Reproducible chest pain S1, S2 no signs of heart failure Inspiratory crepitation noted bilaterally Abdomen soft Lower extremity no edema EOMI, PERRLA Urinary Catheter Management^: Sahu: Cath Placed During This Visit: yes Reason for Continuing Indwelling Catheter: Other Urinary Catheter Date of Insertion: 10/05/20 Urinary Catheter Time of Insertion: 20:00 Data : 10/20/20 06:18 10/20/20 06:18 A&P Assessment and plan (1) Constipation: Status: Acute (2) Oral ulceration: Status: Acute (3) UTI (urinary tract infection): Status: Acute (4) Diabetes mellitus: Status: Acute (5) HTN (hypertension): Status: Acute (6) COVID-19 vaccine dose declined: Status: Acute (7) ARDS (adult respiratory distress syndrome): Status: Acute (8) Pneumonia due to COVID-19 virus: Status: Acute (9) Pulmonary embolism: Status: Acute Additional A&P Information Persistent hypoxia 2/2to COVID-19 Currently on 6 L nasal cannula Develop PE during hospitalization Currently on therapeutic dose of Lovenox I have asked respiratory therapist to continue efforts to wean her oxygen down and monitor her O2 saturation on ambulation I am tapering her prednisone down, plan to discontinue in next 3 days Mouth sores continue voriconazole and fluconazole, I have followed up with the romaine louise to give her Cetacaine spray and reinforced the importance as well UTI: Status post antibiotics no active symptoms Type 2 diabetes: Currently euglycemic Full code Consistent carb diet DVT prophylaxis she is currently on therapeutic dose of Lovenox for PE We will plan to discharge her home with 4 to 6 L nasal cannula oxygen tank once her O2 saturation stays above 89% on ambulation Continue PT Attestations Medical Necessity Statement*: Continue medical management for hypoxia Time Spent in Patient Care: less than 15 minutes Coding Level of Care Code Acute Soft Water Mechanic for Chg Fwd Diagnoses Constipation K59.00 Oral ulceration K12.1 UTI (urinary tract infection) N39.0 Diabetes mellitus E11.9 HTN (hypertension) I10 COVID-19 vaccine dose declined Z28.21 ARDS (adult respiratory distress syndrome) J80 Pneumonia due to COVID-19 virus U07.1; J12.82 Pulmonary embolism I26.99
[2020-10-21] MEDS: zinc gluconate 50 mg Tablet PO (09:51)
[2020-10-21] MEDS: cholecalciferol (vitamin D3) 1,000 unit Tablet 1000 UNIT PO (09:51)
[2020-10-21] MEDS: sennosides-docusate Tablet 1 TAB PO (09:51)
[2020-10-21] MEDS: cetylpyridinium Lozenge 1 EACH MUCOUS MEM (09:51)
[2020-10-21] MEDS: predniSONE 10 mg Tablet PO (09:52)
[2020-10-21] MEDS: polyethylene glycol 3350 Pkt 17 gm PO (09:53)
[2020-10-21] MEDS: ascorbic acid 500 mg Tablet PO ×2 (09:53→18:31)
[2020-10-21] MEDS: insulin glargine 100 units/1 mL 35 UNIT SUBCUT ×2 (09:53→20:41)
[2020-10-21] MEDS: fluconazole 100 mg Tablet PO (09:53)
[2020-10-21] MEDS: nystatin 100,000 unit/mL UDC 5 mL 400000 UNIT PO ×4 (09:54→20:05)
[2020-10-21] MEDS: enoxaparin 100 mg/mL Syringe SUBCUT ×2 (13:13→20:42)
--- NOTE | 2020-10-21 13:37 | PC.CHAP ---
Pastoral Care Encounter/Spiritual Assessment Type of Contact [] Declined retail coordinator visit [] Patient/Family/Request visit [] Outpatient visit [] Follow-up visit [] Physician referral [] Code/Alert [] Routine visit [] Staff referral [] Actively dying [] Patient sleeping [] Family support [] [] Out of room [] Palliative care [] [] Receiving care in room [] Pre-surgical visit [] Trauma [] Long length of stay [] ICU visit [xx] Other: Patient in isolation Relational/Emotional Strength [] Patient feels connected with others/family/visitors/staff [] Distress [] Loneliness/isolation [] Abandonment Spirituality of Patient [] Person of Mallory [] Attends Jain of their [place] [] Believes in Prayer [] Reads Bible or Orthodox materials [] There are Spiritual issues to be addressed Ctc Operator Interventions [] Prayer [] Active listening [] Non-anxious presence [] Spiritual/emotional support [] Crisis/trauma care [] Spiritual counseling [] Bereavement support [] Provided bereavement packet [] Provided Bible/devotional materials [] Provided toy/stuffed animal, coloring book to patient or family member [] Provided Communion [] Anointing/[place] [] Salvation [] Completed spiritual assessment [] Other: Impact on Illness or Injury [] Angry [] Fearful [] Anxious [] Often cries [] Exhaustion [] Unable to work [] Unable to attend islam [] Unable to walk/stand [] Unable to read [] Unable to drive [] Unable to eat/drink [] Unable to sleep [] Unable to be with family [] Patient intubated [] Other: Summary Time spent with patient
[2020-10-21 17:35] LABS: Glucose Point of Care 284 mg/dL (70-110)
[2020-10-21] MEDS: benzonatate 100 mg Capsule PO (20:06)
[2020-10-21] MEDS: acetaminophen 325 mg Tablet 650 MG PO (20:10)
--- NOTE | 2020-10-21 20:19 | PC.NURSE ---
Stage two decube noticed to coccyx/sacrum 4 small dime sized areas two on either side. skin cream applied at this time was able to stand patient two times and get her to the chair to do bed change patient tolerated very well.
[2020-10-21 20:35] LABS: Glucose Point of Care 184 mg/dL (70-110)
[2020-10-22] VITALS (12 sets, daily range): BP systolic 129–154; BP diastolic 81–97; PULSE 69–105; RESP 16–26; TEMP 36.4–36.7; O2SAT 84–99
--- NOTE | 2020-10-22 05:18 | PC.NURSE ---
patient up to chair for bed change, patient tolerated activity well.
[2020-10-22 07:07] LABS: Glucose Point of Care 95 mg/dL (70-110)
--- NOTE | 2020-10-22 07:37 | PC.NURSE ---
Report received from Zenaida MARIN. Patient is resting in bed, A & O, has no C/O of pain or other needs at this time.
[2020-10-22] MEDS: acetaminophen 325 mg Tablet 650 MG PO (09:28)
[2020-10-22] MEDS: zinc gluconate 50 mg Tablet PO (09:29)
[2020-10-22] MEDS: predniSONE 10 mg Tablet PO (09:29)
[2020-10-22] MEDS: nystatin 100,000 unit/mL UDC 5 mL 400000 UNIT PO ×4 (09:29→20:05)
[2020-10-22] MEDS: cholecalciferol (vitamin D3) 1,000 unit Tablet 1000 UNIT PO (09:29)
[2020-10-22] MEDS: ascorbic acid 500 mg Tablet PO ×2 (09:29→17:42)
[2020-10-22] MEDS: fluconazole 100 mg Tablet PO (09:29)
[2020-10-22] MEDS: insulin glargine 100 units/1 mL 35 UNIT SUBCUT ×2 (09:30→20:45)
--- NOTE | 2020-10-22 10:17 | P.PN_ITS ---
Subjective Subjective: Interval history: Patient is doing well with 4 to 6 L nasal cannula, still endorsing exhaustion on exertion, she is happy with her Cetacaine spray that has improved her p.o. intake, requested nurse to have her walk down the gutierrez and check her O2 sats Vitals/I&O/Wt Last Vital Signs Temp 98 F 10/22/20 07:17 Pulse 88 10/22/20 08:30 Resp 18 10/22/20 08:30 BP 129/83 10/22/20 07:17 Pulse Ox 96 10/22/20 08:30 10/21/20 10/22/20 10/22/20 22:59 06:59 14:59 Output Total 1250 / 1250 375 / 1625 Balance -1250 / -1250 -375 / -1625 Weight last 48 hrs Weight 104.825 kg Weight 106.05 kg Physical Exam Narrative: EXAM NARRATIVE: Patient lying comfortably in her bed Saturating well on 4 L nasal cannula Bilateral rhonchi with crepitation Abdomen soft Dose-limiting no edema eomi, PERRLA no neurological deficit Sahu catheter draining clear urine Urinary Catheter Management^: Sahu: Cath Placed During This Visit: yes Reason for Continuing Indwelling Catheter: Other Urinary Catheter Date of Insertion: 10/05/20 Urinary Catheter Time of Insertion: 20:00 Data : 10/20/20 06:18 10/20/20 06:18 A&P Assessment and plan (1) Pulmonary embolism: Status: Acute (2) Constipation: Status: Acute (3) Oral ulceration: Status: Acute (4) UTI (urinary tract infection): Status: Acute (5) Diabetes mellitus: Status: Acute (6) HTN (hypertension): Status: Acute (7) ARDS (adult respiratory distress syndrome): Status: Acute (8) Pneumonia due to COVID-19 virus: Status: Acute Additional A&P Information COVID-19 related persistent hypoxia Oxygen requirement has been weaned down to 4 to 6 L, it is a matter of maintaining O2 saturation on ambulation so we could plan to discharge home patient is still complaining of exhaustion on exertion I will have her walk down the gutierrez and check her O2 saturation on ambulation Remove Sahu catheter so she could use bedside commode Oral ulcers not getting worse continue fluconazole and nystatin and Cetacaine spray Constipation: Resolved UTI: Resolved Diabetes: Blood sugar under control with tapering down steroid regimen Hypertension: Normotensive PE currently on therapeutic Lovenox, will switch to Eliquis Att[place] Medical Necessity Statement*: Plan her discharge once she is able to maintain O2 saturation on ambulation Time Spent in Patient Care: less than 15 minutes Coding Level of Care Code Acute 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
[2020-10-22 11:08] LABS: Glucose Point of Care 311 mg/dL (70-110)
[2020-10-22 11:08] LABS: Glucose Point of Care 295 mg/dL (70-110)
[2020-10-22] MEDS: methylphenidate 10 mg Tablet 5 MG PO ×2 (11:26→17:41)
[2020-10-22 16:53] LABS: Glucose Point of Care 241 mg/dL (70-110)
--- NOTE | 2020-10-22 19:21 | PC.NURSE ---
RT Shift Note Frequent safety and respiratory rounds continue. Orders completed as indicated. Patient monitored pre and post treatments throughout shift. Patient did not tolerate treatments appropriately. O2 dropped in the 80's on RA, Condition [DidNotChange]. Patient and/or renewals representative educated on respiratory treatment and medications. Patient and/or renewals representative verbalize understanding. Will continue to monitor patient progress.
[2020-10-22] MEDS: apixaban 5 mg Tablet PO (20:04)
[2020-10-22 20:58] LABS: Glucose Point of Care 274 mg/dL (70-110)
[2020-10-23] VITALS (11 sets, daily range): BP systolic 108–131; BP diastolic 72–82; PULSE 85–104; RESP 16–20; TEMP 36.6–36.8; O2SAT 88–97
[2020-10-23] MEDS: acetaminophen 325 mg Tablet 650 MG PO (01:49)
[2020-10-23 02:01] LABS: Glucose Point of Care 108 mg/dL (70-110)
[2020-10-23 02:01] LABS: Glucose Point of Care 50 mg/dL (70-110)
[2020-10-23 05:00] LABS: C Reactive Protein 35.6 mg/L (0.0-4.9)
[2020-10-23 06:47] LABS: Glucose Point of Care 84 mg/dL (70-110)
[2020-10-23] MEDS: zinc gluconate 50 mg Tablet PO (08:56)
[2020-10-23] MEDS: nystatin 100,000 unit/mL UDC 5 mL 400000 UNIT PO ×4 (08:56→20:08)
[2020-10-23] MEDS: cholecalciferol (vitamin D3) 1,000 unit Tablet 1000 UNIT PO (08:56)
[2020-10-23] MEDS: fluconazole 100 mg Tablet PO (08:56)
[2020-10-23] MEDS: insulin glargine 100 units/1 mL 35 UNIT SUBCUT (08:57)
[2020-10-23] MEDS: methylphenidate 10 mg Tablet 5 MG PO (08:57)
[2020-10-23] MEDS: ascorbic acid 500 mg Tablet PO ×2 (08:57→17:59)
--- NOTE | 2020-10-23 11:01 | P.PN_ITS ---
Subjective Subjective: Interval history: Patient was seen and examined this morning, patient is stating that she is doing better since removal of her Sahu catheter, she is motivated to go home, she did well with ambulation on 6 L, her O2 saturation dropped to 88%, she is hopeful that at home she will be able to use oxygen with concentrator Has stayed afebrile Was started on Eliquis yesterday Able to eat better with Cetacaine spray Ritalin added yesterday Vitals/I&O/Wt Last Vital Signs Temp 97.9 F 10/23/20 08:00 Pulse 100 10/23/20 08:00 Resp 18 10/23/20 08:00 BP 115/76 10/23/20 08:00 Pulse Ox 90 10/23/20 08:00 10/22/20 10/23/20 10/23/20 22:59 06:59 14:59 Intake Total 240 / 480 Output Total 710 / 710 750 / 1460 Balance -470 / -230 -750 / -980 Physical Exam Narrative: EXAM NARRATIVE: Patient in semi-Gillespie position saturating well on 65 L saturating 94% S1, S2 Clinically euvolemic EOMI, PERRLA Bilateral breath sounds however today crepitation intensity seems to be reduced however noted bilaterally No acute respiratory distress Lower extremity no edema Urinary Catheter Management^: Sahu: Cath Placed During This Visit: yes Reason for Continuing Indwelling Catheter: Accurate Measurement of Urinary Output in Critically Ill Patients Urinary Catheter Date of Insertion: 10/05/20 Urinary Catheter Time of Insertion: 20:00 Data : 10/20/20 06:18 10/20/20 06:18 A&P Assessment and plan (1) Pulmonary embolism: Status: Acute (2) Constipation: Status: Acute (3) Oral ulceration: Status: Acute (4) UTI (urinary tract infection): Status: Acute (5) Diabetes mellitus: Status: Acute (6) HTN (hypertension): Status: Acute (7) ARDS (adult respiratory distress syndrome): Status: Acute (8) Pneumonia due to COVID-19 virus: Status: Acute Additional A&P Information Hypoxia related to COVID-19 Doing well on this 5 to 6 L nasal cannula Able to maintain her O2 saturation around 88 to 89% on 6 L Steroids discontinued, Acute pulmonary embolism currently on Eliquis covid related weakness I have started her on Ritalin which seems to be impro ving her energy to some extent Diarrhea: Improved UTI: Treated Oral ulcers continue fluconazole and nystatin with Cetacaine spray I am planning to discharge her on Saturday Daughter is a bit concerned about her weakness and persistent hypoxia, she is self-pay and home health services will be [id number], I have asked watch case polisher to touch base with her daughter and go from there Attestations Medical Necessity Statement*: Continue management for hypoxia related to COVID-19 Time Spent in Patient Care: less than 15 minutes Coding Level of Care Code Acute Library Clerk Talking Books for g Fwd Diagnoses Pulmonary embolism I26.99 Constipation K59.00 Oral ulceration K12.1 UTI (urinary tract infection) N39.0 Diabetes mellitus E11.9 HTN (hypertension) I10 ARDS (adult respiratory distress syndrome) J80 Pneumonia due to COVID-19 virus U07.1; J12.82
[2020-10-23] MEDS: apixaban 5 mg Tablet PO ×2 (11:06→20:08)
[2020-10-23 11:58] LABS: Glucose Point of Care 154 mg/dL (70-110)
[2020-10-23 17:02] LABS: Glucose Point of Care 140 mg/dL (70-110)
[2020-10-23 19:47] LABS: Glucose Point of Care 193 mg/dL (70-110)
[2020-10-23] MEDS: saline nasal spray 44mL Btl 1 SPRAY NASAL (20:08)
[2020-10-23] MEDS: insulin glargine 100 units/1 mL 10 UNIT SUBCUT (20:09)
[2020-10-24] VITALS (7 sets, daily range): BP systolic 104–114; BP diastolic 72–81; PULSE 90–109; RESP 17–18; TEMP 36.4–36.8; O2SAT 90–97; BMI 35.1
[2020-10-24 04:58] LABS: Basophils # 0.1 10^3/uL (0.0-0.1); Basophils % 0.6 %; Eosinophils # 0.7 10^3/uL (0.0-0.8); Eosinophils % 8.9 %; Hematocrit 35.1 % (37.0-47.0); Hemoglobin 11.6 g/dL (11.5-15.3); Lymphocytes # 1.7 10^3/uL (0.8-4.8); Lymphocytes % 20.9 %; Mean Corpuscular Volume 81.8 fl (81-99); Mean Platelet Volume 9.1 fL (7.4-10.4); Monocytes # 0.8 10^3/uL (0.2-0.9); Monocytes % 10.1 %; Neutrophils # 4.84 10^3/uL (1.8-7.7); Neutrophils % 59.1 %; Nucleated Red Blood Cells % 0 %; Platelet Count 264 10^3/cmm (130-400); Red Blood Count 4.29 10^6/uL (4.1-5.3); Red Cell Distribution Width 13.7 % (12.1-15.1); White Blood Count 8.2 10^3/uL (4.0-10.0)
[2020-10-24 05:29] LABS: Anion Gap 13.7 (5-19); Blood Urea Nitrogen 10 mg/dL (6-20); C Reactive Protein 34.1 mg/L (0.0-4.9); Calcium 8.6 mg/dL (8.5-10.5); Carbon Dioxide 26 mmol/L (22-29); Chloride 99 mmol/L (98-107); Glomerular Filtration Rate 169.7 mL/min (90-130); Glucose 65 mg/dL (65-115); Osmolality Calculated 277 mOsm/kg (285-295); Potassium 3.7 mmol/L (3.5-5.1); Sodium 135 mmol/L (136-145)
[2020-10-24 06:30] LABS: Glucose Point of Care 68 mg/dL (70-110)
[2020-10-24] MEDS: sennosides-docusate Tablet 1 TAB PO (08:40)
[2020-10-24] MEDS: ascorbic acid 500 mg Tablet PO (08:40)
[2020-10-24] MEDS: fluconazole 100 mg Tablet PO (08:40)
[2020-10-24] MEDS: cholecalciferol (vitamin D3) 1,000 unit Tablet 1000 UNIT PO (08:40)
[2020-10-24] MEDS: zinc gluconate 50 mg Tablet PO (08:40)
[2020-10-24] MEDS: nystatin 100,000 unit/mL UDC 5 mL 400000 UNIT PO ×2 (08:41→12:33)
[2020-10-24] MEDS: methylphenidate 10 mg Tablet 5 MG PO (08:41)
[2020-10-24] MEDS: apixaban 5 mg Tablet PO (08:45)
[2020-10-24 11:11] LABS: Glucose Point of Care 284 mg/dL (70-110)
[2020-10-24] MEDS: acetaminophen 325 mg Tablet 650 MG PO (11:42)
--- NOTE | 2020-10-24 14:47 | PC.NURSE ---
PT HAS DONE WELL FOR ME TODAY. PT HAS MINIMAL COMPLAINTS OF HEADACHE BUT IS TREATED WITH ORDERED PO TYLENOL. PT IS DOING DECENT GETTING UP AND GETTING TO BSC. PT WILL DISCHARGE TODAY. PT HAS OXYGEN AND UNDERSTANDS HOW TO USE IT. DISCHARGE PAPERWORK GONE OVER WITH PT. SON WAS IN THE ROOM AND HELPED WITH TRANSLATION. ALL QUESTIONS ANSWERED. IV REMOVED. PT SAFELY WHEELED OUT BY THIS NURSE.
--- NOTE | 2020-10-24 15:33 | PM.DCS ---
Discharge Providers Date of Admission: 10/05/20 16:31 Date of Discharge: October 24, 2020 Attending Provider at Admission: Norman Castro MD Attending Provider at Discharge: Brittany Frankel MD Primary Care Provider: Marcel Gardiner MD Diagnoses at Discharge Discharge Diagnosis (1) Pulmonary embolism: Status: Acute (2) Constipation: Status: Acute (3) Oral ulceration: Status: Acute (4) UTI (urinary tract infection): Status: Acute (5) Diabetes mellitus: Status: Acute (6) HTN (hypertension): Status: Acute (7) ARDS (adult respiratory distress syndrome): Status: Acute (8) Pneumonia due to COVID-19 virus: Status: Acute Reason for Visit Reason for Visit: Low O2, covid + Hospital Course Hospital Course HPI done by Dr. Ann Memoclaudinemiguel angel is a 50 year old female with past medical history of morbid obesity,hypertension presented to the ER today because of worsening shortness of breath. She tested positive for Covid on 10/02 she had symptoms since 09/28. She was on oxygen at home at 5 L/min and was getting increasingly short of breath on arrival here she is 86% on 5 L at rest on 6 L she will maintain in the mid to low 90s. Patient continued to have myalgias, low-grade fever and cough with expectoration for last 2 days. As her shortness of breath was worsening she presented to the ER via EMS. Patient was placed on high flow and then to heated high flow to maintain his saturations over 88% in the ER. Patient denies any vaccination and states her and son are also sick though son is not having any symptoms. Patient takes lisinopril for blood pressure. Hospital course Patient was admitted for management of hypoxia related to COVID-19. She is being discharged today after spending 19 days in the hospital. She was requiring heated high flow for about 2 weeks and then gradually her oxygen requirement was weaned down to nasal cannula and on discharge she was requiring 6 L on ambulation. Her hospitalization was notable for development of acute pulmonary embolism for which she was started on Lovenox and at the time of discharge it was transitioned to Eliquis. She finished remdesivir and Decadron and developed candidal rash around buccal mucosa for which she required nystatin and fluconazole. She was also put on antibiotics empirically which were discontinued. Her cultures remain negative. Urine cultures are positive for E. coli. She did well with physical therapy, she was put on Ritalin in last 72 hours which improved her energy to some extent. It was not continued at the time of discharge. Family was updated on daily basis and I was in touch with her daughter Nandini. Patient was very thankful, family questions were answered to their satisfaction, they were happy with the progress. Physical Exam Narrative: EXAM NARRATIVE: Patient in semi-Gillespie position saturating well on 6 L saturating 94% S1, S2 Clinically euvolemic EOMI, PERRLA Bilateral breath sounds however today crepitation intensity seems to be reduced however noted bilaterally No acute respiratory distress Lower extremity no edema Oral candidal ulcers Urinary Catheter Management^: Sahu: Cath Placed During This Visit: yes Reason for Continuing Indwelling Catheter: Accurate Measurement of Urinary Output in Critically Ill Patients Urinary Catheter Date of Insertion: 10/05/20 Urinary Catheter Time of Insertion: 20:00 Discharge Data Data Completed and Pending: Completed Studies During Hospitalization Category Date Time Status CT angio chest PE protcl [id number] Rout ine Cat Scan 10/05/20 18:[address] angio chest PE protcl [id number] Rout ine Cat Scan 10/18/20 14:06 Completed XR chest 1V lacho ble [id number] Q48H Exams 10/06/20 06:00 Completed XR chest 1V lacho ble [id number] Q48H Exams 10/08/20 06:00 Completed XR chest 1V lacho ble [id number] Q48H Exams 10/10/20 06:00 Completed XR chest 1V lacho ble [id number] Stat Exams 10/05/20 13:20 [place] [id number] Routin e Ultrasound 10/17/20 14:06 Completed CV. echo complete * [id number] Routine Ultrasound 10/10/20 06:00 Completed Labs from last 24 hours 10/24/20 10/24/20 10/24/20 10:53 06:17 04:38 WBC RBC Hgb Hct MCV MCH MCHC RDW Plt Count MPV Neut % (Auto) Lymph % (Auto) [place] % (Auto) Eos % (Auto) Baso % (Auto) Neut # (Auto) Lymph # (Auto) [place] # (Auto) Eos # (Auto) Baso # (Auto) Nucleated RBC % (a uto) Nucleated RBCs # Sodium 135 L Potassium 3.7 Chloride 99 Carbon Dioxide 26 Anion Gap 13.7 BUN 10 Creatinine 0.4 L GFR Calculation 169.7 H Glucose 65 POC Glucose 284 H 68 L Calculated Osmolal ity 277 L Calcium 8.6 C-Reactive Protein 34.1 H 10/24/20 10/23/20 10/23/20 04:38 19:08 16:58 WBC 8.2 RBC 4.29 Hgb 11.6 Hct 35.1 L MCV 81.8 MCH 27.0 L MCHC 33.0 RDW 13.7 Plt Count 264 MPV 9.1 Neut % (Auto) 59.1 Lymph % (Auto) 20.9 [place] % (Auto) 10.1 Eos % (Auto) 8.9 Baso % (Auto) 0.6 Neut # (Auto) 4.84 Lymph # (Auto) 1.7 [place] # (Auto) 0.8 Eos # (Auto) 0.7 Baso # (Auto) 0.1 Nucleated RBC % (a uto) 0 Nucleated RBCs # 0.0 Sodium Potassium Chloride Carbon Dioxide Anion Gap BUN Creatinine GFR Calculation Glucose POC Glucose 193 H 140 H Calculated Osmolal ity Calcium C-Reactive Protein Vitals: Last Vital Signs Temp 97.6 F 10/24/20 14:53 Pulse 100 10/24/20 14:53 Resp 17 10/24/20 14:53 BP 104/72 10/24/20 14:53 Pulse Ox 96 10/24/20 14:53 Discharge Plan Discharge Patient Disposition: Home Condition: Stable Prescriptions: New fluconazole 100 mg Tablet 100 mg PO DAILY 7 Days Qty: 7 RF: 0 nystatin 100,000 unit/mL Suspension 400,000 unit PO QID 5 Days Qty: 80 RF: 0 Stool Softener-Laxative 8.6-50 mg Tablet 1 tab PO DAILY 5 Days Qty: 5 RF: 0 Cetacaine 2 %-2 %-14 % (200 mg/sec) Aerosol,Ames 1 spray topical Q4H PRN (Reason: mouth sores) 30 Days Qty: 2 RF: 0 Vitamin C 500 mg Tablet 500 mg PO BID 30 Days Qty: 60 RF: 1 benzonatate 100 mg Capsule 100 mg PO TID PRN (Reason: Cough) 30 Days Qty: 60 RF: 0 zinc gluconate 50 mg Tablet 50 mg PO DAILY 30 Days Qty: 30 RF: 0 Eliquis 5 mg Tablet 5 mg PO BID@0900,2100 30 Days Qty: 60 RF: 3 metformin 500 mg tablet 500 mg PO BID 30 Days Qty: 60 RF: 2 Lantus Solostar U-100 Insulin 100 unit/mL (3 mL) insulin pen 10 unit SUBCUT DAILY Qty: 15 RF: 3 (DME) Accu-Chek Angy Plus Meter Misc See Rx Instructions .Route Qty: 1 RF: 0 (DME) lancets-blood glucose strips 30 gauge combo pack See Rx Instructions .Route Qty: 200 RF: 0 (DME) Accu-Chek Angy Plus test strp Strip See Rx Instructions .Route Qty: 100 RF: 0 Continued Zofran 4 mg tablet 4 mg PO Q6H PRN (Reason: nausea and vomiting) 1 Days Qty: 14 RF: 0 Discontinued dexamethasone 6 mg tablet 6 mg PO DAILY Qty: 6 RF: 0 Discharge Orders: Discharge Order (Routine); Ordered 10/24/20 Ordered By: Brittany Frankel Other Ambulatory Orders: DME: Oxygen (Order) Location: None Selected Ordered By: Brittany Frankel DME: Walker (Order) Location: None Selected Ordered By: Brittany Frankel Referrals: Marcel Gardiner MD [Primary Care Provider] - 11/08/20 1:30 pm (Post discharge follow-up) Discharge Diet: Diabetic Discharge Activity: Increase activity as tolerated, Use walker/crutches as instructed and As per PT/OT instructions Patient Instructions: Type 2 Diabetes, Diabetes and Diet, Benzonatate (By mouth), Nystatin (By mouth), Zinc Sulfate (By mouth), Fluconazole (By mouth), Laxative, Stool Softeners (By mouth), Ascorbic Acid (Vitamin C) (By mouth), Metformin (By mouth), Apixaban (By mouth), Viral Pneumonia (DC), How to Check Your Blood Sugar (GEN), Opioid Safety, Pneumonia Stoplight, Using Oxygen at Home Activity Restrictions/Additional Instructions: You will use 6 to 8 L of oxygen as needed If you want to get vaccinated do it after 90 days of your day of symptoms You can use antifungal for next 1 week You have been given Cetacaine spray to keep your oral ulcers numb while you are eating Take Lantus 10 units a day and check your sugar fasting state in the morning Please start taking Metformin your hemoglobin A1c level7.6 Keep yourself active to avoid further progression of clots, for your lung clot you will be getting Eliquis 5 mg twice a day You can take multivitamins Take diabetic diet Discharge Attestations Time Spent in Discharge Care*: less than 30 min Quality Metrics Clinical Quality Measures During this hospital stay, did patient experience: None Coding Level of Care Code Acute Chg FW DC note Diagnoses Pulmonary embolism I26.99 Constipation K59.00 Oral ulceration K12.1 UTI (urinary tract infection) N39.0 Diabetes mellitus E11.9 HTN (hypertension) I10 ARDS (adult respiratory distress syndrome) J80 Pneumonia due to COVID-19 virus U07.1; J12.82
--- NOTE | 2020-10-26 09:56 | PC.SOCIAL ---
discharge follow up call made to patient. spoke to patients son due to language barrier. patient is feeling better but still very weak. continues to use home o2 at 6l using walker for ambulation. patient picked up all new medications from pharmacy and she is taking as prescribed. has follow up appointment scheduled with dr. clemens.
== END 2020-10-24 14:54 | disposition home or self-care (01) | DRG 177 ==
LOC: ER 13:20 → MS 2A 16:51 → CSU 10-20 06:45 → MEDSURG 10-24 00:15
PROVIDERS: Internal Medicine; Student in an Organized Health Care Education/Training Program; Admitting Provider Student in an Organized Health Care Education/Training Program; Emergency Provider Family Medicine; PCP Family Medicine; Visit Provider Internal Medicine
DX: U07.1 COVID-19 (principal); J12.82 Pneumonia due to coronavirus disease 2019; J80 Acute respiratory distress syndrome; I26.99 Other pulmonary embolism without acute cor pulmonale; J44.1 Chronic obstructive pulmonary disease with (acute) exacerbation; N39.0 Urinary tract infection, site not specified; E66.9 Obesity, unspecified; Z68.35 Body mass index [BMI] 35.0-35.9, adult; I10 Essential (primary) hypertension; E86.0 Dehydration; E11.9 Type 2 diabetes mellitus without complications; B96.20 Unspecified Escherichia coli [E. coli] as the cause of diseases classified elsewhere; K59.00 Constipation, unspecified; K12.1 Other forms of stomatitis; R19.7 Diarrhea, unspecified; Z79.4 Long term (current) use of insulin; Z79.01 Long term (current) use of anticoagulants
CPT/HCPCS: 36415; 36416; 36600; 51702; 71045; 71275; 80048; 80051; 80053; 80061; 80202; 81001; 82330; 82550; 82728; 82805; 82962; 83036; 83540; 83550; 83605; 83735; 83880; 84100; 84145; 84443; 85025; 85378; 85651; 86140; 86403; 87040; 87077; 87086; 87186; 87449; 87641; 93005; 93306; 93970; 94640; 96365; 96372; 96375; 97110; 97161; 97530; 99285; J0696; J1100; J1650; J1815 ×2; J2405; J3262; J3370; J3490; J7030; J7512; J7626; Q9967

== ENCOUNTER 2020-10-29 13:17 | Inpatient (IN) | payer MEDICAID, SELFPAY ==
[2020-10-29] VITALS (11 sets, daily range): BP systolic 114–155; BP diastolic 80–97; PULSE 94–111; RESP 18–38; TEMP 36.8–37.6; O2SAT 90–100; BMI 33.4
--- NOTE | 2020-10-29 03:22 | XRR_ITS ---
PROCEDURE INFORMATION: Exam: XR Chest Exam date and time: 10/29/2020 3:22 AM Age: 50 years old Clinical indication: Shortness of breath; Additional info: SOB TECHNIQUE: Imaging protocol: XR of the chest. Views: 1 view. COMPARISON: CT angio chest PE prot [id number] 10/29/2020 2:44 PM FINDINGS: Lungs: Redemonstrated patulous opacities throughout both lungs. Pleural spaces: Unremarkable. No pleural effusion. No pneumothorax. Heart/Mediastinum: Unremarkable. No cardiomegaly. Bones/joints: Unremarkable. XR/XR chest 1V portable [id number] IMPRESSION: Redemonstrated patulous opacities throughout both lungs consistent with multifocal pneumonia.
--- NOTE | 2020-10-29 14:06 | CTR_ITS ---
PROCEDURE INFORMATION: Exam: CTA Chest With Contrast Exam date and time: 10/29/2020 2:06 PM Age: 50 years old Clinical indication: Cough and shortness of breath; Additional info: Hypoxia TECHNIQUE: Imaging protocol: Computed tomographic angiography of the chest with contrast. 3D rendering (Not supervised by radiologist): MIP and/or 3D reconstructed images were created by the technologist. Radiation optimization: All CT scans at this facility use at least one of these dose optimization techniques: automated exposure control; mA and/or kV adjustment per patient size (includes targeted exams where dose is matched to clinical indication); or iterative reconstruction. Contrast material: OMNI 350; Contrast volume: 65 ml; Contrast route: INTRAVENOUS (IV); COMPARISON: CT angio chest PE protcl [id number] 10/18/2020 8:02 AM RADIATION DOSE METRICS: Total DLP (mGy-cm): 469.46 FINDINGS: Pulmonary arteries: No pulmonary emboli. Aorta: Unremarkable. No aortic aneurysm. No aortic dissection. Lungs: Unremarkable. No consolidation. No masses. Pleural spaces: Unremarkable. No pneumothorax. No pleural effusion. Heart: Unremarkable. No cardiomegaly. No pericardial effusion. Lymph nodes: Prominent mediastinal and hilar lymph nodes are likely reactive. Bones/joints: No acute fracture. Soft tissues: Unremarkable. CT/CT angio chest PE protcl [id number] IMPRESSION: 1. Negative for pulmonary embolism. 2. Similar diffuse patulous consolidations throughout both lungs consist with COVID pneumonia. Radiation Dose CTDIVOL = (mGy): DLP = 469.46 (mGy-cm)
--- NOTE | 2020-10-29 14:06 | XRR_ITS ---
PROCEDURE INFORMATION: Exam: XR Chest Exam date and time: 10/29/2020 2:06 PM Age: 50 years old Clinical indication: Cough and dyspnea; Additional info: Dyspnea/cough TECHNIQUE: Imaging protocol: XR of the chest. Views: 1 view. COMPARISON: CT angio chest PE protcl [id number] 10/29/2020 2:44 PM, chest radiograph 10/10/2020. FINDINGS: Lungs: Diffuse patulous opacities throughout both lungs. Pleural spaces: Unremarkable. No pleural effusion. No pneumothorax. Heart/Mediastinum: Unremarkable. No cardiomegaly. Bones/joints: Unremarkable. XR/XR chest 1V portable [id number] IMPRESSION: Diffuse patulous opacities throughout both lungs, worsening compared to most recent radiographic comparison 10/10/2020.
--- NOTE | 2020-10-29 14:07 | ECG_ITS ---
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
[2020-10-29 14:31] LABS: Basophils # 0.1 10^3/uL (0.0-0.1); Basophils % 0.6 %; Eosinophils # 0.8 10^3/uL (0.0-0.8); Eosinophils % 9.5 %; Hematocrit 31.8 % (37.0-47.0); Hemoglobin 10.5 g/dL (11.5-15.3); Lymphocytes # 1.5 10^3/uL (0.8-4.8); Lymphocytes % 18.9 %; Mean Corpuscular Hemoglobin 27.1 pg (28.0-34.0); Monocytes # 0.8 10^3/uL (0.2-0.9); Monocytes % 9.2 %; Neutrophils # 4.98 10^3/uL (1.8-7.7); Neutrophils % 61.4 %; Nucleated Red Blood Cells % 0 %; Platelet Count 314 10^3/cmm (130-400); Red Blood Count 3.88 10^6/uL (4.1-5.3); Red Cell Distribution Width 14.2 % (12.1-15.1); White Blood Count 8.1 10^3/uL (4.0-10.0)
--- NOTE | 2020-10-29 14:34 | CTR_ITS ---
PROCEDURE INFORMATION: Exam: CT Head Without Contrast Exam date and time: 10/29/2020 2:34 PM Age: 50 years old Clinical indication: Pain; Headache not specified; Patient HX: Headache - on eliquis TECHNIQUE: Imaging protocol: Computed tomography of the head without contrast. Radiation optimization: All CT scans at this facility use at least one of these dose optimization techniques: automated exposure control; mA and/or kV adjustment per patient size (includes targeted exams where dose is matched to clinical indication); or iterative reconstruction. COMPARISON: No relevant prior studies available. RADIATION DOSE METRICS: Total DLP (mGy-cm): 823.85 FINDINGS: Brain: Normal. No hemorrhage. Unremarkable white matter. No mass effect. Cerebral ventricles: No ventriculomegaly. Paranasal sinuses: Mucosal thickening of the left ethmoid air cells and partially visualized maxillary sinus. No fluid levels. Mastoid air cells: Visualized mastoid air cells are well aerated. Bones/joints: Unremarkable. No acute fracture. Soft tissues: Unremarkable. CT/CT head wo con* [id number] IMPRESSION: 1. No acute intracranial abnormality. 2. Left ethmoid/maxillary sinusitis. Radiation Dose CTDIVOL = (mGy): DLP = 823.85 (mGy-cm)
--- NOTE | 2020-10-29 14:37 | W.ED.FEVER ---
HPI - Fever General: Chief Complaint: ER Hold Stated Complaint: SOB; COVID+ 5 weeks ago/recent admit Time Seen by Provider: 10/29/20 14:06 History of Present Illness: HPI Narrative: 50-year-old female presents to the emergency room complaining of shortness of breath. 5 weeks ago. Patient tested positive for Covid she had a prolonged hospital stay and was actually just discharged about 5 days ago. She comes in today complaining of shortness of breath and headache. She did have some PEs while she is in the hospital and discharged home on low-dose Eliquis. She is also had a little bit of a fever she denies any vomiting or diarrhea. She has had some mild chest discomfort in addition to the headache. MD elicited complaint: fever Onset (ago): hour(s) Context: sick contacts Exacerbating factors: exertion Relieving factors: nothing Associated symptoms: Reports chills, chest pain, cough and nasal congestion; Deny abdominal pain, flank pain, confusion, diarrhea, dysuria, extremity pain, headache(s), myalgias, nausea, night sweats, rash, rhinorrhea, short of breath, sinus pain, stiffness, sore throat, vaginal discharge, vomiting or weight loss Treatments prior to arrival fever: none Review of Systems Const: Reports: chills; Denies: night sweats ENMT: Reports: nasal congestion; Denies: sinus pain Card: Reports: chest pain Resp: Denies: dyspnea, productive cough or non-productive cough GI: Denies: abdominal pain, nausea, vomiting or diarrhea : Denies: flank pain, dysuria or vaginal discharge Musc: Denies: extremity pain Skin/Breast: Denies: rash or pruritus Neuro: Denies: headache(s) or confusion PFSH ED PFSH: Medical History Acute exacerbation of chronic obstructive pulmonary disease ARDS (adult respiratory distress syndrome) Constipation COVID-19 vaccine dose declined Diabetes mellitus HTN (hypertension) Oral ulceration Pneumonia due to COVID-19 virus Pulmonary embolism UTI (urinary tract infection) Family History Denies family history of CAD (coronary artery disease) Cancer Social History Smoking and tobacco status: never smoked Alcohol intake: never Adopted: No Caregiver/support person: Yes Lives independently: Yes Household members: family Housing: House Physical Exam Const: COMMON NORMALS: no acute distress GENERAL APPEARANCE: cooperative and comfortable ORIENTATION/CONSCIOUSNESS: Yes oriented to person, Yes oriented to place and Yes oriented to time HENMT: COMMON NORMALS: normocephalic, atraumatic and hearing grossly normal bilaterally HEAD & SCALP: normocephalic and atraumatic Neck/C-Spine: COMMON NORMALS: no JVD Resp: AUSCULTATION: rhonchi and wheezes Cardio: COMMON NORMALS: no JVD, regular rate, regular rhythm and No murmurs present (Cardio) RATE: regular rate RHYTHM: regular rhythm GI: COMMON NORMALS: Soft to palpation and No hepatosplenomegaly present AUSCULTATION: Yes normoactive bowel sounds PALPATION: Yes Soft to palpation, No Tenderness to palpation present (GI), No Guarding due to palpation present (GI) and Yes No hepatosplenomegaly present Extremity: COMMON NORMALS: normal to inspection, capillary refill normal, no clubbing, cyanosis or edema, no calf tenderness and no pedal edema Neuro: SENSORIUM/ORIENTATION: Yes oriented to person, Yes oriented to place and Yes oriented to time Skin: COMMON NORMALS: no rashes or lesions noted GENERAL SKIN EXAM: no rashes or lesions noted Course Vital Signs: Vital signs: Vital Signs Temperature 98.0 F 11/05/20 04:00 Pulse Rate 88 11/05/20 04:00 Respiratory Rate 17 11/05/20 04:00 Blood Pressure 123/90 11/05/20 04:00 Pulse Oximetry 98 11/05/20 04:00 MDM - Fever MDM Narrative: Medical decision making narrative: Patient presents with pneumonia he recently was hospitalized for COVID-19 and was known to have a PE. She is having increased oxygen requirements. She was going to be admitted for bacterial pneumonia and was started on antibiotics Dr. Dave had arrived in the department to see the patient and patient had a sudden change in status became profoundly more tachycardic and hypoxic. CTA of the chest to be repeated to reevaluate her PE. Discussed with Dr. Dave at the bedside he is assuming care. Lab Data: Labs: Lab Results 10/29/20 10/29/20 10/29/20 Range/Units 14:20 14:20 14:20 WBC 8.1 (4.0-10.0) 10^3/ uL RBC 3.88 L (4.1-5.3) 10^6/u L Hgb 10.5 L (11.5-15.3) g/dL Hct 31.8 L (37.0-47.0) % MCV 82.0 (81-99) fl MCH 27.1 L (28.0-34.0) pg MCHC 33.0 (30.0-36.0) g/dL RDW 14.2 (12.1-15.1) % Plt Count 314 (130-400) 10^3/c mm MPV 9.0 (7.4-10.4) fL Neut % (Auto) 61.4 % Lymph % (Auto) 18.9 % [place] % (Auto) 9.2 % Eos % (Auto) 9.5 % Baso % (Auto) 0.6 % Neut # (Auto) 4.98 (1.8-7.7) 10^3/u L Lymph # (Auto) 1.5 (0.8-4.8) 10^3/u L [place] # (Auto) 0.8 (0.2-0.9) 10^3/u L Eos # (Auto) 0.8 (0.0-0.8) 10^3/u L Baso # (Auto) 0.1 (0.0-0.1) 10^3/u L Nucleated RBC % (a uto) 0 % Nucleated RBCs # 0.0 /100WBC Sodium 136 (136-145) mmol/L Potassium 4.1 (3.5-5.1) mmol/L Chloride 98 (98-107) mmol/L Carbon Dioxide 25 (22-29) mmol/L Anion Gap 17.1 (5-19) BUN 4 L (6-20) mg/dL Creatinine 0.4 L (0.5-0.9) mg/dL GFR Calculation 169.7 H (90-130) mL/min Glucose 227 H (65-115) mg/dL Calculated Osmolal ity 286 (285-295) mOsm/k g Calcium 8.6 (8.5-10.5) mg/dL Total Bilirubin 0.5 (0.15-1.2) mg/dL AST 12 (0-32) U/L ALT 18 (0-33) U/L Alkaline Phosphata se 161 H (35-105) IU/L Creatine Kinase 23 L (26-192) U/L Troponin T Baselin e 11 H (0-10) ng/L Troponin T 120 Min case (0-10) ng/L Delta Troponin T (0-10) ABS# Total Protein 6.4 L (6.6-8.7) g/dL Albumin 3.4 L (3.5-5.2) g/dL Globulin 3.0 (1.3-4.6) g/dL 10/29/20 Range/Units 16:27 WBC (4.0-10.0) 10^3/ uL RBC (4.1-5.3) 10^6/u L Hgb (11.5-15.3) g/dL Hct (37.0-47.0) % MCV (81-99) fl MCH (28.0-34.0) pg MCHC (30.0-36.0) g/dL RDW (12.1-15.1) % Plt Count (130-400) 10^3/c mm MPV (7.4-10.4) fL Neut % (Auto) % Lymph % (Auto) % [place] % (Auto) % Eos % (Auto) % Baso % (Auto) % Neut # (Auto) (1.8-7.7) 10^3/u L Lymph # (Auto) (0.8-4.8) 10^3/u L [place] # (Auto) (0.2-0.9) 10^3/u L Eos # (Auto) (0.0-0.8) 10^3/u L Baso # (Auto) (0.0-0.1) 10^3/u L Nucleated RBC % (a uto) % Nucleated RBCs # /100WBC Sodium (136-145) mmol/L Potassium (3.5-5.1) mmol/L Chloride (98-107) mmol/L Carbon Dioxide (22-29) mmol/L Anion Gap (5-19) BUN (6-20) mg/dL Creatinine (0.5-0.9) mg/dL GFR Calculation (90-130) mL/min Glucose (65-115) mg/dL Calculated Osmolal ity (285-295) mOsm/k g Calcium (8.5-10.5) mg/dL Total Bilirubin (0.15-1.2) mg/dL AST (0-32) U/L ALT (0-33) U/L Alkaline Phosphata se (35-105) IU/L Creatine Kinase (26-192) U/L Troponin T Baselin e (0-10) ng/L Troponin T 120 Min case 9.03 (0-10) ng/L Delta Troponin T -1.97 L (0-10) ABS# Total Protein (6.6-8.7) g/dL Albumin (3.5-5.2) g/dL Globulin (1.3-4.6) g/dL Discharge Plan Discharge Patient Disposition: Admitted As Inpatient Admit Provider: Elias Dave Clinical Impression: Pneumonia, Pulmonary embolism, COPD (chronic obstructive pulmonary disease), Hypoxia Condition: Stable Coding Level of Care Code ED Air Route Traffic Controller for Sal Lozano
[2020-10-29] MEDS: iohexol 350 mg/mL 100 mL Btl IV (14:49)
[2020-10-29 15:09] LABS: Troponin(5th) Baseline 11 ng/L (0-10)
[2020-10-29 15:13] LABS: Alanine Aminotransferase 18 U/L (0-33); Albumin Level 3.4 g/dL (3.5-5.2); Alkaline Phosphatase 161 IU/L (35-105); Blood Urea Nitrogen 4 mg/dL (6-20); Calcium 8.6 mg/dL (8.5-10.5); Carbon Dioxide 25 mmol/L (22-29); Chloride 98 mmol/L (98-107); Creatine Phosphokinase 23 U/L (26-192); Glomerular Filtration Rate 169.7 mL/min (90-130); Glucose 227 mg/dL (65-115); Osmolality Calculated 286 mOsm/kg (285-295); Sodium 136 mmol/L (136-145); Total Bilirubin 0.5 mg/dL (0.15-1.2); Total Protein 6.4 g/dL (6.6-8.7)
[2020-10-29 15:25] LABS: Anion Gap 17.1 (5-19); Aspartate Amino Transferase 12 U/L (0-32); Potassium 4.1 mmol/L (3.5-5.1)
--- NOTE | 2020-10-29 16:07 | ECG_ITS ---
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
[2020-10-29] MEDS: morphine 4 mg/mL SDV 1 mL IVP (16:27)
[2020-10-29 17:07] LABS: Troponin 5 2HR 9.03 ng/L (0-10)
[2020-10-29 17:17] LABS: Troponin 5 2HR Delta -1.97 ABS# (0-10)
[2020-10-29] MEDS: levofloxacin-dextrose 5 % 750 MG/150 ML PREMIX 100 MG IV (17:24)
[2020-10-29] MEDS: piperacillin-tazobactam 3.375 GM in sodium chloride 0.9% (plus) 50 ML IV (17:24)
--- NOTE | 2020-10-29 18:26 | PC.NURSE ---
pt began to have a decrease in oxygenation while hospitalist in room. pt gave positional change. pt changed to NRB at 15 L. pt placed on bipap.
--- NOTE | 2020-10-29 18:37 | P.HP_ITS ---
Providers/Chief Complaint Admitting Physician: Elias Dave MD Primary Care Provider: Marcel Gardiner MD Chief Complaint: SOB; COVID+ 5 weeks ago/recent admit History of Present Illness Opal Rain is a 50 year old female with past medical history of hypertension diabetes COPD, recent pulmonary embolism and Covid pneumonia, she was recently admitted in the hospital for management of severe Covid pneumonia, she had a complicated hospital course, diagnosed with acute PE during the last admission, completed Covid protocol (remdesivir dexamethasone broad-spectrum antibiotic) she was discharged on 6 L oxygen on 10/24, came today with chief complaint of worsening shortness of breath, worsening cough, desaturation on minimal exertion at home, fever. Upon arrival in the ER she was worked up for above-mentioned complaint. Imaging studies: CTA chest: Severe diffuse bilateral extensive pulmonary infiltrates, no pulmonary embolism. xRay chest : Diffuse patulous opacities throughout both lungs. EKG : NSR CT head wo con: No acute intracranial abnormality Labs: WBC:8.1, H&H;10.5/31.8 PLT : 314 Serum sodium:136, serum potassium:4.1, BUN serum creatinine: 4/0.4 , troponin T baseline;11, 2-hour troponin:9, 2-hour delta:- 1.97 Review of Systems Card: Denies: palpitations, edema, swelling of feet/ankles or orthopnea Resp: Denies: wheezing or pain on inspiration GI: Denies: abdominal pain, nausea, vomiting, diarrhea or constipation : Denies: flank pain Musc: Denies: back pain, extremity pain or extremity swelling Neuro: Denies: headache(s), difficulty walking or confusion Medications/Allergies Home Medications Medication Instructions Recorded Confirmed Last Taken Type apixaban [Eliquis] 5 mg PO BID@0900,2100 30 Days #60 10/24/20 10/29/20 10/29/20 Rx tab ascorbic acid (vitamin C) [Vitamin 500 mg PO BID 30 Days #60 tab 10/24/20 10/29/20 10/29/20 Rx C] benzonatate 100 mg PO TID PRN 30 Days #60 cap 10/24/20 10/29/20 Unknown Rx blood sugar diagnostic [Accu-Chek #100 ea 10/24/20 10/29/20 Unknown Rx Angy Plus test strp] blood-glucose meter [Accu-Chek #1 ea 10/24/20 10/29/20 Unknown Rx Angy Plus Meter] prwzphgl-ddvfdybccg-yjfyiboptn 1 spray TOPICAL Q4H PRN 30 Days #2 10/24/20 0 10/29/20 Unknown Rx [Cetacaine] device fluconazole 100 mg PO DAILY 7 Days #7 tab 10/24/20 10/29/20 10/29/20 Rx insulin glargine [Lantus Solostar 10 unit SUBCUT DAILY #15 ml 10/24/20 10/29/20 10/29/20 Rx U-100 Insulin] lancets-blood glucose strips #200 ea 10/24/20 10/29/20 Unknown Rx metformin 500 mg PO BID 30 Days #60 tab 10/24/20 10/29/20 10/29/20 Rx ondansetron HCl [Zofran] 4 mg PO Q6H PRN 1 Days #14 tab 10/24/20 10/29/20 Unknown Rx zinc gluconate 50 mg PO DAILY 30 Days #30 tab 10/24/20 10/29/20 10/29/20 Rx Allergies Allergy/AdvReac Type Severity Reaction Status Date / Time No Known Allergies Allergy Verified 10/29/20 13:36 PFSH Acute PFSH: Medical History (Updated 10/29/20 @ 20:16 by Elias Dave MD) Acute exacerbation of chronic obstructive pulmonary disease ARDS (adult respiratory distress syndrome) Constipation COVID-19 vaccine dose declined Diabetes mellitus HTN (hypertension) Oral ulceration Pneumonia due to COVID-19 virus Pulmonary embolism UTI (urinary tract infection) Family History (Updated 10/06/20 @ 17:11 by Norman Castro MD) Denies family history of CAD (coronary artery disease) Cancer Social History (Updated 10/06/20 @ 17:12 by Norman Castro MD) Smoking and tobacco status: never smoked Alcohol intake: never Adopted: No Caregiver/support person: Yes Lives independently: Yes Household members: family Housing: House Vitals/I&O/Wt Last Vital Signs Temp 98.3 F 10/29/20 13:31 Pulse 102 H 10/29/20 18:35 Resp 25 H 10/29/20 14:25 BP 114/85 10/29/20 17:30 Pulse Ox 100 10/29/20 18:35 Weight last 48 hrs Weight 99.79 kg Physical Exam Const: COMMON NORMALS: patient oriented x3 HENMT: COMMON NORMALS: normocephalic and atraumatic HEAD & SCALP: normocephalic and atraumatic Resp: OTHER: Diminished air entry bilaterally Cardio: COMMON NORMALS: regular rate, regular rhythm, S1 normal heart sound present, S2 normal heart sound present, No gallops present (Cardio), No murmurs present (Cardio), No rub (Cardio) and Peripheral pulses 2+ throughout RATE: regular rate RHYTHM: regular rhythm HEART SOUNDS: S1 normal heart sound present and S2 normal heart sound present PERIPHERAL PULSES: Peripheral pulses 2+ throughout GI: COMMON NORMALS: Normal to inspection, nondistended, normoactive bowel sounds present, Soft to palpation, non-tender, No hepatosplenomegaly present and no masses AUSCULTATION: Yes normoactive bowel sounds PALPATION: Yes Soft to palpation and Yes No hepatosplenomegaly present RECTAL EXAM: deferred Extremity: COMMON NORMALS: no clubbing, cyanosis or edema and no pedal edema Neuro: COMMON NORMALS: patient oriented x3 Data : 10/29/20 14:20 10/29/20 14:20 A&P Assessment and plan (1) Pneumonia: HCAP: Patient presented with worsening shortness of breath cough fever. Imaging studies is consistent with: Pneumonia Blood culture: Sputum culture: ABG: Monitor x-ray chest MRSA PCR: Vancomycin Zosyn Status: Acute (2) COPD (chronic obstructive pulmonary disease): Duo nebs: Advair inhaler Supplemental oxygen Currently on BiPAP Status: Acute (3) Diabetes mellitus: LDSSI Monitor FSG Carbohydrate consistent diet Status: Acute (4) Pulmonary embolism: Continue Eliquis 5 mg every 12 hours daily Status: Acute (5) HTN (hypertension): Status: Acute Attestations Medical Necessity Statement*: Patient needs to be in hospital for management of pneumonia. Anticipated length of stay greater than 2 midnights. Coding Level of Care Code Acute Quahogger for [facility] Fwd Exam Detailed Diagnoses Pneumonia J18.9 COPD (chronic obstructive pulmonary disease) J44.9 Diabetes mellitus E11.9 Pulmonary embolism I26.99 HTN (hypertension) I10
[2020-10-29 20:00] LABS: Add Urine Microscopic? NO; Charge for UA Resulting for Rev
[2020-10-29 20:05] LABS: Bilirubin Urine Neg (Negative); Blood Urine Neg (Negative); Glucose Urine UA Norm (Normal); Ketones Urine Negative (Negative); Leukocyte Esterase Urine Negative (Negative); Nitrate Urine Negative (Negative); Protein Urine Neg (Negative); Urine Appearance Clear (CLEAR); Urine Color Yellow (Yellow); Urobilinogen Urine Norm (Negative); pH Urine 7 (5-7)
--- NOTE | 2020-10-29 20:07 | ECG_ITS ---
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
[2020-10-29 20:37] LABS: Troponin 5 6HR 11.61 ng/L (0-10); Troponin 5 6HR Delta 0.61 ng/L (0-12)
--- NOTE | 2020-10-29 20:47 | PC.PHAR ---
Vancomycin is dosed at 1500mg IVPB every 8 hours to produce a predicted trough level of 15.66 (population based pharmacokinetic analysis). A trough level has been ordered from the lab to be obtained before the fourth dose to confirm and adjust if needed.
[2020-10-29] MEDS: vancomycin 1,500 MG/300 ML PIGGYBACK 150 MG IV (22:10)
[2020-10-29] MEDS: benzonatate 100 mg Capsule PO (23:14)
[2020-10-29] MEDS: apixaban 5 mg Tablet PO (23:14)
[2020-10-29] MEDS: guaiFENesin-dextromethorphan UDC 10 mL PO (23:14)
[2020-10-30] VITALS (9 sets, daily range): BP systolic 101–136; BP diastolic 75–95; PULSE 97–108; RESP 16–30; TEMP 36.9–37.1; O2SAT 85–97
[2020-10-30] MEDS: piperacillin-tazobactam 3.375 GM in sodium chloride 0.9% (plus) 50 ML IV ×3 (04:03→17:21)
[2020-10-30] MEDS: guaiFENesin-dextromethorphan UDC 10 mL PO ×5 (05:12→20:48)
[2020-10-30 05:58] LABS: Basophils % 0.4 %; Eosinophils # 0.9 10^3/uL (0.0-0.8); Eosinophils % 11.8 %; Hematocrit 27.4 % (37.0-47.0); Hemoglobin 8.8 g/dL (11.5-15.3); Lymphocytes # 0.7 10^3/uL (0.8-4.8); Lymphocytes % 8.7 %; Mean Corpuscular HGB Conc 32.1 g/dL (30.0-36.0); Mean Corpuscular Hemoglobin 26.7 pg (28.0-34.0); Mean Platelet Volume 8.9 fL (7.4-10.4); Monocytes # 0.7 10^3/uL (0.2-0.9); Monocytes % 9.2 %; Neutrophils # 5.37 10^3/uL (1.8-7.7); Neutrophils % 69.4 %; Nucleated Red Blood Cells % 0 %; Platelet Count 287 10^3/cmm (130-400); Red Cell Distribution Width 14.3 % (12.1-15.1); White Blood Count 7.7 10^3/uL (4.0-10.0)
[2020-10-30 06:43] LABS: Alanine Aminotransferase 26 U/L (0-33); Albumin Level 2.7 g/dL (3.5-5.2); Alkaline Phosphatase 199 IU/L (35-105); Anion Gap 13.8 (5-19); Aspartate Amino Transferase 24 U/L (0-32); Blood Urea Nitrogen 5 mg/dL (6-20); Calcium 8.2 mg/dL (8.5-10.5); Carbon Dioxide 23 mmol/L (22-29); Chloride 98 mmol/L (98-107); Globulin 3.3 g/dL (1.3-4.6); Glomerular Filtration Rate 169.7 mL/min (90-130); Glucose 196 mg/dL (65-115); Osmolality Calculated 275 mOsm/kg (285-295); Potassium 3.8 mmol/L (3.5-5.1); Sodium 131 mmol/L (136-145); Total Bilirubin 0.6 mg/dL (0.15-1.2)
[2020-10-30] MEDS: vancomycin 1,500 MG/300 ML PIGGYBACK 150 MG IV ×2 (07:35→13:22)
[2020-10-30 08:23] LABS: Glucose Point of Care 242 mg/dL (70-110)
[2020-10-30 08:23] LABS: Glucose Point of Care 253 mg/dL (70-110)
[2020-10-30 08:23] LABS: Glucose Point of Care 210 mg/dL (70-110)
[2020-10-30] MEDS: benzonatate 100 mg Capsule PO ×3 (09:03→20:48)
[2020-10-30] MEDS: ascorbic acid 500 mg Tablet PO ×2 (09:04→17:22)
[2020-10-30] MEDS: apixaban 5 mg Tablet PO ×2 (09:04→20:48)
[2020-10-30 09:47] LABS: NT Pro B Type Natriuretic Pept 255 pg/mL (0-125)
--- NOTE | 2020-10-30 11:41 | PM.PN ---
Subjective Subjective: Interval history: Patient was seen and examined this morning, she was much comfortable today, shortness of breath has improved, coughing has improved, has remained afebrile. Medications: Reviewed: Yes Vitals/I&O/Wt Last Vital Signs Temp 98.3 F 10/29/20 21:44 Pulse 103 H 10/30/20 11:00 Resp 24 H 10/30/20 11:00 BP 101/75 10/30/20 07:36 Pulse Ox 97 10/30/20 11:00 10/29/20 10/30/20 10/30/20 22:59 06:59 14:59 Intake Total 680 / 680 300 / 980 350.000 / 350.000 Output Total 1600 / 1600 Balance -920 / -920 300 / -620 350.000 / 350.000 Weight last 48 hrs Weight 99.79 kg Physical Exam Const: COMMON NORMALS: patient oriented x3 HENMT: COMMON NORMALS: normocephalic and atraumatic HEAD & SCALP: normocephalic and atraumatic Resp: OTHER: Diminished air entry bilaterally Cardio: COMMON NORMALS: regular rate, regular rhythm, S1 normal heart sound present, S2 normal heart sound present, No gallops present (Cardio), No murmurs present (Cardio), No rub (Cardio) and Peripheral pulses 2+ throughout RATE: regular rate RHYTHM: regular rhythm HEART SOUNDS: S1 normal heart sound present and S2 normal heart sound present PERIPHERAL PULSES: Peripheral pulses 2+ throughout GI: COMMON NORMALS: Normal to inspection, nondistended, normoactive bowel sounds present, Soft to palpation, non-tender, No hepatosplenomegaly present and no masses AUSCULTATION: Yes normoactive bowel sounds PALPATION: Yes Soft to palpation and Yes No hepatosplenomegaly present RECTAL EXAM: deferred Extremity: COMMON NORMALS: no clubbing, cyanosis or edema and no pedal edema Neuro: COMMON NORMALS: patient oriented x3 Urinary Catheter Management^: Sahu: Cath Placed During This Visit: yes Reason for Continuing Indwelling Catheter: Other Urinary Catheter Date of Insertion: 10/29/20 Urinary Catheter Time of Insertion: 19:45 Data : 10/30/20 05:06 10/30/20 05:06 A&P Assessment and plan (1) Pneumonia: HCAP: Patient presented with worsening shortness of breath cough fever. Imaging studies is consistent with: Pneumonia Blood culture: Sputum culture: ABG: Monitor x-ray chest: Bilateral extensive infiltrates MRSA PCR: Negative Will discontinue vancomycin Continue Zosyn Status: Acute (2) COPD (chronic obstructive pulmonary disease): Duo nebs: Advair inhaler Supplemental oxygen Currently on 6 L oxygen. Status: Acute (3) Diabetes mellitus: LDSSI Monitor FSG Carbohydrate consistent diet Status: Acute (4) Pulmonary embolism: Continue Eliquis 5 mg every 12 hours daily. Bilateral lower extremity Doppler vein negative for PE Status: Acute (5) HTN (hypertension): Status: Acute Attestations Medical Necessity Statement*: Patient needs to be in hospital for management of pneumonia Coding Level of Care Code Acute Diamond Die Maker for [facility] Fw Diagnoses Pneumonia J18.9 COPD (chronic obstructive pulmonary disease) J44.9 Diabetes mellitus E11.9 Pulmonary embolism I26.99 HTN (hypertension) I10
[2020-10-30 12:24] LABS: Glucose Point of Care 210 mg/dL (70-110)
[2020-10-30] MEDS: acetaminophen 325 mg Tablet 650 MG PO (15:00)
[2020-10-30 16:56] LABS: Glucose Point of Care 270 mg/dL (70-110)
--- NOTE | 2020-10-30 17:11 | PC.CHAP ---
Pastoral Care Encounter/Spiritual Assessment Type of Contact [] Declined pet trainer visit [] Patient/Family/Request visit [] Outpatient visit [] Follow-up visit [] Physician referral [] Code/Alert [XX] Routine visit [] Staff referral [] Actively dying [] Patient sleeping [] Family support [] [] Out of room [] Palliative care [] [] Receiving care in room [] Pre-surgical visit [] Trauma [] Long length of stay [] ICU visit [XX] Other: Pt's son was present and interpreted for his mother. Relational/Emotional Strength [XX] Patient feels connected with others/family/visitors/staff [] Distress [] Loneliness/isolation [] Abandonment Spirituality of Patient [XX] Person of Mallory [] Attends Islam of their Mallory [XX] Believes in Prayer [] Reads Bible or Synagogue materials [] There are Spiritual issues to be addressed Rock Worker Interventions [XX] Prayer [XX] Active listening [XX] Non-anxious presence [] Spiritual/emotional support [] Crisis/trauma care [] Spiritual counseling [] Bereavement support [XX] Provided bereavement packet [] Provided Bible/devotional materials [] Provided toy/stuffed animal, coloring book to patient or family member [] Provided Communion [] Anointing/[place] [] Salvation [XX] Completed spiritual assessment [XX] Other: explored need for drug abuse social worker re: determining what services pt and children may be eligible for Impact on Illness or Injury [] Angry [] Fearful [] Anxious [] Often cries [] Exhaustion [] Unable to work [] Unable to attend oriental orthodox [] Unable to walk/stand [] Unable to read [] Unable to drive [] Unable to eat/drink [] Unable to sleep [] Unable to be with family [] Patient intubated [] Other: Summary: Pt was hospitalized for 3 weeks with COVID; discharged; home for a week; returned to hospital (current admission) due to pneumonia. Pt's from COVID a couple of weeks ago. Although family is receiving food and support with costs, this has been overwhelming. They are interested in receiving bereavement packet. Time spent with patient: 20 mins
--- NOTE | 2020-10-30 20:21 | USR_ITS ---
PROCEDURE INFORMATION: Exam: US Duplex Lower Extremity Veins, Bilateral Exam date and time: 10/30/2020 8:21 PM Age: 50 years old Clinical indication: Other: Shortness of breath, h/o pe, covid, ? dvt; Additional info: R/O dvt TECHNIQUE: Imaging protocol: Real-time duplex ultrasound of the extremities with 2-D molina scale, color Doppler flow and spectral waveform analysis with image documentation. Complete exam focused on the bilateral lower extremity veins. Total images: 62 COMPARISON: US BPP w/o NST [id number] 09/14/2015 3:40 PM FINDINGS: Right deep veins: Unremarkable. The common femoral, femoral, proximal profunda femoral and popliteal veins are patent without thrombus. Normal Doppler waveforms. Normal compressibility and/or augmentation response. Right superficial veins: Saphenofemoral junction is patent without thrombus. Left deep veins: Unremarkable. The common femoral, femoral, proximal profunda femoral and popliteal veins are patent without thrombus. Normal Doppler waveforms. Normal compressibility and/or augmentation response. Left superficial veins: Saphenofemoral junction is patent without thrombus. Soft tissues: Unremarkable. US/[place] [id number] IMPRESSION: No evidence of deep vein thrombosis.
[2020-10-30 20:57] LABS: Glucose Point of Care 243 mg/dL (70-110)
[2020-10-31] VITALS (14 sets, daily range): BP systolic 100–130; BP diastolic 64–81; PULSE 97–122; RESP 16–38; TEMP 36.3–38.2; O2SAT 86–99
[2020-10-31] MEDS: morphine 4 mg/mL SDV 1 mL 2 MG IVP ×3 (01:21→21:44)
[2020-10-31] MEDS: ondansetron 2 mg/ML SDV 2 mL 4 MG IVP ×4 (01:21→21:44)
[2020-10-31] MEDS: guaiFENesin-dextromethorphan UDC 10 mL PO ×6 (01:50→20:12)
[2020-10-31] MEDS: piperacillin-tazobactam 3.375 GM in sodium chloride 0.9% (plus) 50 ML IV ×3 (01:57→18:14)
[2020-10-31] MEDS: acetaminophen 325 mg Tablet 650 MG PO (04:51)
[2020-10-31 06:43] LABS: Glucose Point of Care 295 mg/dL (70-110)
[2020-10-31] MEDS: benzonatate 100 mg Capsule PO ×3 (07:59→20:12)
[2020-10-31] MEDS: apixaban 5 mg Tablet PO ×2 (07:59→20:12)
[2020-10-31] MEDS: ascorbic acid 500 mg Tablet PO ×2 (07:59→18:14)
[2020-10-31 08:10] LABS: Basophils % 0.3 %; Eosinophils # 0.8 10^3/uL (0.0-0.8); Hematocrit 26.5 % (37.0-47.0); Hemoglobin 8.6 g/dL (11.5-15.3); Lymphocytes # 0.9 10^3/uL (0.8-4.8); Lymphocytes % 12.7 %; Mean Corpuscular HGB Conc 32.5 g/dL (30.0-36.0); Mean Corpuscular Hemoglobin 27.2 pg (28.0-34.0); Mean Corpuscular Volume 83.9 fl (81-99); Mean Platelet Volume 9.1 fL (7.4-10.4); Monocytes # 0.8 10^3/uL (0.2-0.9); Neutrophils # 4.63 10^3/uL (1.8-7.7); Neutrophils % 64.4 %; Nucleated Red Blood Cells % 0 %; Platelet Count 278 10^3/cmm (130-400); Red Blood Count 3.16 10^6/uL (4.1-5.3); Red Cell Distribution Width 14.1 % (12.1-15.1); White Blood Count 7.2 10^3/uL (4.0-10.0)
[2020-10-31 08:22] LABS: Alanine Aminotransferase 31 U/L (0-33); Albumin Level 2.6 g/dL (3.5-5.2); Alkaline Phosphatase 247 IU/L (35-105); Anion Gap 13.9 (5-19); Aspartate Amino Transferase 28 U/L (0-32); Blood Urea Nitrogen 5 mg/dL (6-20); Calcium 8.2 mg/dL (8.5-10.5); Carbon Dioxide 24 mmol/L (22-29); Chloride 99 mmol/L (98-107); Globulin 3.4 g/dL (1.3-4.6); Glomerular Filtration Rate 169.7 mL/min (90-130); Glucose 265 mg/dL (65-115); Osmolality Calculated 283 mOsm/kg (285-295); Potassium 3.9 mmol/L (3.5-5.1); Sodium 133 mmol/L (136-145); Total Bilirubin 0.5 mg/dL (0.15-1.2)
--- NOTE | 2020-10-31 09:19 | ECG_ITS ---
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
[2020-10-31] MEDS: acetaminophen-codeine 300-30mg Tablet PO (09:44)
[2020-10-31 11:59] LABS: Glucose Point of Care 309 mg/dL (70-110)
--- NOTE | 2020-10-31 14:39 | PM.PN ---
Subjective Subjective: Interval history: Low-grade fever overnight patient was complaining of nausea and chest pain, EKG was requested which is showing sinus rhythm, son was at the bedside We did discuss prognosis, severe ARDS, fibrotic lung, guarded prognosis, risk of deterioration for prolonged hospitalization, all of the questions were answered to their satisfaction Vitals/I&O/Wt Last Vital Signs Temp 97.7 F 10/31/20 11:55 Pulse 106 H 10/31/20 11:55 Resp 20 H 10/31/20 11:55 BP 123/80 10/31/20 11:55 Pulse Ox 91 10/31/20 11:55 10/30/20 10/31/20 10/31/20 22:59 06:59 14:59 Intake Total 350 / 750.000 100 / 100 Output Total 550 / 2000 Balance -200 / -1250.000 100 / 100 Physical Exam Narrative: EXAM NARRATIVE: Patient was in semi-Gillespie position saturating well on oxygen mask 15 L Desaturates quickly on minimal exertion Crepitation with rhonchi bilaterally Abdomen soft Chest pain is not reproducible EKG is unremarkable sinus rhythm Awake alert oriented x3 GCS 15 EOMI, PERRLA Does not have conversational dyspnea Lower extremity no edema gangrene ulcer Urinary Catheter Management^: Sahu: Cath Placed During This Visit: yes Reason for Continuing Indwelling Catheter: Acute Urinary Retention or Obstruction Urinary Catheter Date of Insertion: 10/29/20 Urinary Catheter Time of Insertion: 19:45 Data : 10/31/20 07:11 10/31/20 07:11 Micro: Microbiology 10/29/20 17:23 Blood Culture - Preliminary Blood SPECIMEN COLLECTED 10/29/20 17:18 Blood Culture - Preliminary Blood SPECIMEN COLLECTED 10/30/20 07:34 MRSA Culture - Final Nose A&P Assessment and plan (1) Pneumonia due to COVID-19 virus: Status: Acute (2) COPD (chronic obstructive pulmonary disease): Status: Acute (3) Pulmonary embolism: Status: Acute (4) HTN (hypertension): Status: Acute (5) Diabetes mellitus: Status: Acute (6) Pneumonia: Status: Acute Additional A&P Information Persistent hypoxia related to COVID-19 ARDS Patient has been requiring oxygen for last 6 weeks Oxygen requirement increased to 15 L with oxygen mask, she becomes hypoxic quickly on minimal exertion Low-grade fever noted Chest CTA ruled out PE venous Doppler without any DVT however he was diagnosed with PE on last admission, I would continue her anticoagulation for now She has finished remdesivir and Decadron regimen during previous hospitalization when she was discharged after 19 days of hospitalization For now I would continue multivitamins along with antibiotics Will request nares MRSA Overall candidal ulcer improved she was discharged on nystatin and fluconazole Her oral ulcers have improved significantly as compared to previous exam Diabetes: I will keep her on consistent carb diet with moderate dose sliding scale and Lantus encounter regular diet Normocytic anemia hemoglobin 8.6 We will check fecal occult blood test and continue Eliquis for now Full code Consistent carb diet DVT prophylaxis Eliquis Attestations Medical Necessity Statement*: Continue medical management of persistent hypoxia Time Spent in Patient Care: 16 - 35 minutes Coding Level of Care Code Acute Industrial Energy Engineer for Sal Lozano Diagnoses Pneumonia due to COVID-19 virus U07.1; J12.82 COPD (chronic obstructive pulmonary disease) J44.9 Pulmonary embolism I26.99 HTN (hypertension) I10 Diabetes mellitus E11.9 Pneumonia J18.9
[2020-10-31] MEDS: FUROsemide 20 mg Tablet PO (15:38)
--- NOTE | 2020-10-31 16:19 | PC.RESP ---
RT Shift Note Frequent safety and respiratory rounds continue. Orders completed as indicated. Patient monitored pre and post treatments throughout shift. Patient did tolerate treatments appropriately. Condition did not change. Patient and two sons educated on respiratory treatment and medications. Patient and sons verbalized understanding. Will continue to monitor patient progress.
[2020-10-31 17:05] LABS: Glucose Point of Care 265 mg/dL (70-110)
[2020-10-31 20:31] LABS: Glucose Point of Care 241 mg/dL (70-110)
[2020-10-31] MEDS: insulin glargine 100 units/1 mL 10 UNIT SUBCUT (21:19)
[2020-11-01] VITALS (15 sets, daily range): BP systolic 102–131; BP diastolic 71–79; PULSE 88–127; RESP 18–40; TEMP 36.6–37.4; O2SAT 88–99
[2020-11-01] MEDS: piperacillin-tazobactam 3.375 GM in sodium chloride 0.9% (plus) 50 ML IV ×2 (01:43→08:54)
[2020-11-01 03:52] LABS: Basophils % 0.5 %; Eosinophils # 0.5 10^3/uL (0.0-0.8); Eosinophils % 5.4 %; Hematocrit 27.7 % (37.0-47.0); Lymphocytes # 1.3 10^3/uL (0.8-4.8); Lymphocytes % 14.8 %; Mean Corpuscular HGB Conc 32.5 g/dL (30.0-36.0); Mean Corpuscular Volume 83.2 fl (81-99); Mean Platelet Volume 8.9 fL (7.4-10.4); Monocytes # 0.9 10^3/uL (0.2-0.9); Monocytes % 10.2 %; Neutrophils # 5.96 10^3/uL (1.8-7.7); Neutrophils % 68.5 %; Nucleated Red Blood Cells % 0 %; Platelet Count 302 10^3/cmm (130-400); Red Blood Count 3.33 10^6/uL (4.1-5.3); White Blood Count 8.7 10^3/uL (4.0-10.0)
[2020-11-01 04:14] LABS: Alanine Aminotransferase 45 U/L (0-33); Albumin Level 2.5 g/dL (3.5-5.2); Alkaline Phosphatase 342 IU/L (35-105); Anion Gap 14.1 (5-19); Aspartate Amino Transferase 39 U/L (0-32); Blood Urea Nitrogen 5 mg/dL (6-20); C Reactive Protein 273.5 mg/L (0.0-4.9); Calcium 8.3 mg/dL (8.5-10.5); Carbon Dioxide 25 mmol/L (22-29); Chloride 97 mmol/L (98-107); Globulin 3.7 g/dL (1.3-4.6); Glomerular Filtration Rate 131.1 mL/min (90-130); Glucose 250 mg/dL (65-115); Osmolality Calculated 280 mOsm/kg (285-295); Potassium 4.1 mmol/L (3.5-5.1); Sodium 132 mmol/L (136-145); Total Bilirubin 0.5 mg/dL (0.15-1.2); Total Protein 6.2 g/dL (6.6-8.7)
[2020-11-01] MEDS: acetylcysteine 200 mg/mL SDV 4 mL 100 MG INHALATION ×2 (04:45→09:08)
[2020-11-01] MEDS: guaiFENesin-dextromethorphan UDC 10 mL PO ×6 (05:08→20:34)
[2020-11-01] MEDS: acetaminophen 325 mg Tablet 650 MG PO ×2 (05:17→21:38)
[2020-11-01 06:33] LABS: Glucose Point of Care 287 mg/dL (70-110)
[2020-11-01] MEDS: ascorbic acid 500 mg Tablet PO ×2 (08:54→17:45)
[2020-11-01] MEDS: benzonatate 100 mg Capsule PO ×3 (08:54→20:34)
[2020-11-01] MEDS: zinc gluconate 50 mg Tablet PO (08:54)
[2020-11-01] MEDS: apixaban 5 mg Tablet PO ×2 (08:54→20:34)
[2020-11-01] MEDS: predniSONE 5 mg Tablet PO (08:54)
[2020-11-01] MEDS: insulin glargine 100 units/1 mL 10 UNIT SUBCUT (08:58)
[2020-11-01] MEDS: ipratropium-albuterol 3 mL Neb INHALATION (09:08)
--- NOTE | 2020-11-01 10:19 | PC.CHAP ---
Pastoral Care Encounter/Spiritual Assessment Type of Contact [] Declined rolled gold plater visit [] Patient/Family/Request visit [] Outpatient visit [] Follow-up visit [] Physician referral [] Code/Alert [] Routine visit [] Staff referral [] Actively dying [] Patient sleeping [] Family support [] [] Out of room [] Palliative care [] [] Receiving care in room [] Pre-surgical visit [] Trauma [] Long length of stay [] ICU visit [x] Other: Relational/Emotional Strength [] Patient feels connected with others/family/visitors/staff [] Distress [] Loneliness/isolation [] Abandonment Spirituality of Patient [x] Person of Mallory [] Attends Yarsanism of their Mallory [] Believes in Prayer [] Reads Bible or Mu-Ism materials [] There are Spiritual issues to be addressed Strategic Marketing Associate Interventions [] Prayer [] Active listening [] Non-anxious presence [] Spiritual/emotional support [] Crisis/trauma care [] Spiritual counseling [] Bereavement support [] Provided bereavement packet [] Provided Bible/devotional materials [] Provided toy/stuffed animal, coloring book to patient or family member [] Provided Communion [] Anointing/[place] [] Salvation [] Completed spiritual assessment [] Other: Impact on Illness or Injury [] Angry [] Fearful [] Anxious [] Often cries [] Exhaustion [] Unable to work [] Unable to attend sabianist [] Unable to walk/stand [] Unable to read [] Unable to drive [] Unable to eat/drink [] Unable to sleep [] Unable to be with family [] Patient intubated [] Other: Summary Strategic Marketing Associate paged to admissions. Pt had a boat wrapper who had came to visit patient. Volunteer assisted him in locating Pt's room Time spent with patient
[2020-11-01 12:09] LABS: Glucose Point of Care 335 mg/dL (70-110)
[2020-11-01] MEDS: acetaminophen-codeine 300-30mg Tablet PO (12:55)
[2020-11-01] MEDS: ondansetron 2 mg/ML SDV 2 mL 4 MG IVP ×2 (12:57→20:41)
--- NOTE | 2020-11-01 14:52 | PM.PN ---
Subjective Subjective: Interval history: Patient was seen and examined this morning, she was on oxymask of 15 L Patient is endorsing feeling better, there was a dietetic assistant in the room when I entered Son at the bedside Patient endorsing that she is able to eat without any difficulty now however endorsing fatigue, lethargy and anorexia She did require BiPAP yesterday for increased work of breathing Vitals/I&O/Wt Last Vital Signs Temp 98.9 F 11/01/20 12:00 Pulse 127 H 11/01/20 12:00 Resp 18 11/01/20 12:00 BP 113/75 11/01/20 12:00 Pulse Ox 90 11/01/20 12:00 10/31/20 11/01/20 11/01/20 22:59 06:59 14:59 Intake Total 150 / 250 340 / 340 Output Total 2400 / 2400 Balance -2250 / -2150 340 / 340 Physical Exam Narrative: EXAM NARRATIVE: Patient is semi-Gillespie position saturating 86% on 15 L oxygen mask Awake alert Appropriate mood and affect Son and dietetic assistant at the bedside No murmur or signs of heart failure Abdomen soft Lower extremity no edema No neurological deficits Urinary Catheter Management^: Sahu: Cath Placed During This Visit: yes Reason for Continuing Indwelling Catheter: Acute Urinary Retention or Obstruction Urinary Catheter Date of Insertion: 10/29/20 Urinary Catheter Time of Insertion: 19:45 Data : 11/01/20 03:30 11/01/20 03:30 Micro: Microbiology 10/31/20 16:00 MRSA Culture - Final Nose 10/29/20 17:23 Blood Culture - Preliminary Blood NEGATIVE TO DATE 10/29/20 17:18 Blood Culture - Preliminary Blood NEGATIVE TO DATE A&P Assessment and plan (1) Pneumonia due to COVID-19 virus: Status: Acute (2) Diabetes mellitus: Status: Acute (3) Pneumonia: Status: Acute (4) Pulmonary embolism: Status: Acute (5) HTN (hypertension): Status: Acute Additional A&P Information Persistent hypoxia related to COVID-19 ARDS 86% saturation on 15 L oxygen mask Requires BiPAP on and off to decrease work of breathing Status post remdesivir and Decadron regimen Hesitant to add steroids at this point because of previous history of candidal fungal rash As rash has improved, patient endorsing anorexia fatigue and lethargy, I would add Reglan 5 mg to be taken in the morning History of pulmonary embolism continue Eliquis however recent DVT and CTA imaging ruled out clot Hypertension: Currently normotensive Type 2 diabetes with hyperglycemia, I will increase her Lantus to twice a day Will remove her Sahu catheter Full code Consistent carb diet Encourage proning incentive spirometry, added Mucomyst, continue multivitamin discontinue, she is on low-dose of prednisone 5 mg daily Patient does not want to go to any halfway, LTAC, Attestations Medical Necessity Statement*: Continue medical management for hypoxia Time Spent in Patient Care: 16 - 35 minutes Coding Level of Care Code Acute Cotton Seed Culler for g Fwd Diagnoses Pneumonia due to COVID-19 virus U07.1; J12.82 Diabetes mellitus E11.9 Pneumonia J18.9 Pulmonary embolism I26.99 HTN (hypertension) I10
[2020-11-01] MEDS: lanolin oint 7 gm 1 APPLIC TOPICAL (16:23)
[2020-11-01 17:08] LABS: Glucose Point of Care 396 mg/dL (70-110)
[2020-11-01 20:56] LABS: Glucose Point of Care 263 mg/dL (70-110)
[2020-11-01] MEDS: insulin glargine 100 units/1 mL 20 UNIT SUBCUT (21:28)
[2020-11-02] VITALS (15 sets, daily range): BP systolic 102–150; BP diastolic 69–103; PULSE 80–122; RESP 18–23; TEMP 36.3–37; O2SAT 89–115
[2020-11-02 01:53] LABS: Glucose Point of Care 239 mg/dL (70-110)
[2020-11-02] MEDS: guaiFENesin-dextromethorphan UDC 10 mL PO ×5 (05:59→19:28)
[2020-11-02 06:34] LABS: Glucose Point of Care 270 mg/dL (70-110)
[2020-11-02] MEDS: predniSONE 5 mg Tablet PO (09:18)
[2020-11-02] MEDS: ascorbic acid 500 mg Tablet PO ×2 (09:18→18:41)
[2020-11-02] MEDS: zinc gluconate 50 mg Tablet PO (09:18)
[2020-11-02] MEDS: benzonatate 100 mg Capsule PO ×3 (09:18→21:26)
[2020-11-02] MEDS: apixaban 5 mg Tablet PO ×2 (09:23→21:26)
[2020-11-02] MEDS: insulin glargine 100 units/1 mL 25 UNIT SUBCUT (09:40)
[2020-11-02] MEDS: ipratropium-albuterol 3 mL Neb INHALATION ×2 (10:02→13:30)
[2020-11-02] MEDS: acetylcysteine 200 mg/mL SDV 4 mL 100 MG INHALATION ×2 (10:03→13:31)
[2020-11-02 11:27] LABS: Glucose Point of Care 386 mg/dL (70-110)
--- NOTE | 2020-11-02 14:20 | PM.PN ---
Subjective Subjective: Interval history: Patient was seen this morning, son was at the bedside. I also called her daughter to update her about current clinical status and planning to her safest discharge from the hospital as last time she did not do well when she returned home. Did talk with cyanide case hardener to find if she would qualify for LTAC versus SNF if her oxygen requirement stays between 8 to 10 L, For her hyperglycemia will increase Lantus dose Discontinue steroids Continue multivitamin Encourage proning Out of bed to chair Patient is stating that as compared to yesterday her energy and fatigue is slightly better today 15 L oxygen mask, did require BiPAP overnight, then she will transition to nonrebreather mask with 15 L oxygen mask Vitals/I&O/Wt Last Vital Signs Temp 98.4 F 11/02/20 12:00 Pulse 120 H 11/02/20 13:39 Resp 22 H 11/02/20 13:31 BP 150/103 11/02/20 12:00 Pulse Ox 89 L 11/02/20 13:31 11/01/20 11/02/20 11/02/20 22:59 06:59 14:59 Intake Total 200 / 540 240 / 240 Output Total 200 / 200 150 / 350 Balance 0 / 340 -150 / 190 240 / 240 Physical Exam Narrative: EXAM NARRATIVE: Patient saturating 94% on 15 L oxygen mask S1, S2 variable No signs of heart failure Abdomen soft Bilateral crepitation noted biphasic EOMI, PERRLA No use of sensory muscles No neurological deficits Urinary Catheter Management^: Sahu: Cath Placed During This Visit: yes, but has since been removed by the nurse Reason for Continuing Indwelling Catheter: Decision to DC Catheter Urinary Catheter Date of Insertion: 10/29/20 Urinary Catheter Time of Insertion: 19:45 Date Urinary Catheter Removed: 11/01/20 Time Urinary Catheter Discontinued: 15:29 Data : 11/01/20 03:30 11/01/20 03:30 Micro: Microbiology 10/31/20 16:00 MRSA Culture - Final Nose A&P Assessment and plan (1) Pneumonia due to COVID-19 virus: Status: Acute (2) Diabetes mellitus: Status: Acute (3) Pneumonia: Status: Acute Additional A&P Information Persistent hypoxia related to COVID-19 Antibiotics which were started for pneumonia has been discontinued I will discontinue steroids today She has finished remdesivir, Decadron regimen I would not add any other antimicrobial at this time Her mouth sores have improved Started discharge planning involved in cyanide case hardener and the family, LTAC versus SNF Patient carries a guarded prognosis, she has crepitations bilateral diffuse in nature which tell me about the fibrotic stage of ARDS, she will require lifelong oxygen and at high risk of deterioration if she gets superimposed infections this was discussed with the family son and the daughter, their questions were answered to the satisfaction, brand development manager to talk with the family For hyperglycemia I will increase her Lantus dose to 30 units twice a day along sliding scale she is on consistent carb diet, she does get some juices and meals from home as well Full code Consistent carb diet DVT prophylaxis currently on therapeutic dose of Eliquis for PE Attestations Medical Necessity Statement*: Start discharge planning Time Spent in Patient Care: 16 - 35 minutes Coding Level of Care Code Acute Carcass Splitter for Sal Lozano Diagnoses Pneumonia due to COVID-19 virus U07.1; J12.82 Diabetes mellitus E11.9 Pneumonia J18.9
[2020-11-02 18:28] LABS: Glucose Point of Care 294 mg/dL (70-110)
[2020-11-02] MEDS: acetaminophen 325 mg Tablet 650 MG PO (18:41)
[2020-11-02] MEDS: ondansetron 2 mg/ML SDV 2 mL 4 MG IVP (19:27)
[2020-11-02] MEDS: morphine 4 mg/mL SDV 1 mL 2 MG IVP (19:27)
[2020-11-02 20:42] LABS: Glucose Point of Care 239 mg/dL (70-110)
[2020-11-02] MEDS: insulin glargine 100 units/1 mL 30 UNIT SUBCUT (21:27)
[2020-11-02] MEDS: lidocaine 5% Patch 1 PATCH TOPICAL (22:03)
[2020-11-03] VITALS (11 sets, daily range): BP systolic 102–126; BP diastolic 69–86; PULSE 67–118; RESP 19–28; TEMP 36.2–36.9; O2SAT 83–100
[2020-11-03 05:50] LABS: Basophils % 0.4 %; Eosinophils # 0.7 10^3/uL (0.0-0.8); Eosinophils % 7.3 %; Hematocrit 26.5 % (37.0-47.0); Lymphocytes # 1.3 10^3/uL (0.8-4.8); Lymphocytes % 13.5 %; Mean Corpuscular HGB Conc 30.2 g/dL (30.0-36.0); Mean Corpuscular Hemoglobin 26.5 pg (28.0-34.0); Mean Corpuscular Volume 87.7 fl (81-99); Mean Platelet Volume 9.2 fL (7.4-10.4); Monocytes # 0.8 10^3/uL (0.2-0.9); Monocytes % 8.6 %; Neutrophils # 6.44 10^3/uL (1.8-7.7); Neutrophils % 69.3 %; Nucleated Red Blood Cells % 0 %; Platelet Count 308 10^3/cmm (130-400); Red Blood Count 3.02 10^6/uL (4.1-5.3); Red Cell Distribution Width 13.9 % (12.1-15.1); White Blood Count 9.3 10^3/uL (4.0-10.0)
[2020-11-03 06:14] LABS: Anion Gap 15.1 (5-19); Blood Urea Nitrogen 9 mg/dL (6-20); C Reactive Protein 196.3 mg/L (0.0-4.9); Calcium 8.2 mg/dL (8.5-10.5); Carbon Dioxide 26 mmol/L (22-29); Chloride 96 mmol/L (98-107); Glomerular Filtration Rate 169.7 mL/min (90-130); Glucose 186 mg/dL (65-115); Osmolality Calculated 280 mOsm/kg (285-295); Potassium 4.1 mmol/L (3.5-5.1); Sodium 133 mmol/L (136-145)
[2020-11-03 06:27] LABS: Glucose Point of Care 248 mg/dL (70-110)
[2020-11-03] MEDS: ascorbic acid 500 mg Tablet PO ×2 (08:34→18:02)
[2020-11-03] MEDS: zinc gluconate 50 mg Tablet PO (08:34)
[2020-11-03] MEDS: guaiFENesin-dextromethorphan UDC 10 mL PO ×4 (08:34→19:57)
[2020-11-03] MEDS: apixaban 5 mg Tablet PO ×2 (08:34→22:21)
[2020-11-03] MEDS: insulin glargine 100 units/1 mL 30 UNIT SUBCUT ×2 (08:34→22:23)
[2020-11-03] MEDS: benzonatate 100 mg Capsule PO ×3 (08:34→22:21)
--- NOTE | 2020-11-03 08:44 | PC.NURSE ---
i reported low o2 to the nurse 83o2
[2020-11-03] MEDS: bisacodyl 5 mg Tablet 10 MG PO (11:09)
[2020-11-03 12:00] LABS: Glucose Point of Care 240 mg/dL (70-110)
--- NOTE | 2020-11-03 12:00 | PC.NURSE ---
Patient wears highflow cannula and non rebreather mask at times
--- NOTE | 2020-11-03 14:04 | P.PN_ITS ---
Subjective Subjective: Interval history: This morning patient was doing well on 15 L oxygen mask however in addition to that she was requiring nonrebreather mask to keep her O2 saturation above 90% with combination of both she would saturate 97% overnight she did use BiPAP no active worsening of chest pain or abdominal pain patient does try to get out of bed and sit in a chair son at the bedside we did discuss LTAC that would be the best option for her discharge this time, disease case manager rn updated, they will look into financial sales manager documentation that was done on previous visit Vitals/I&O/Wt Last Vital Signs Temp 98.4 F 11/03/20 11:57 Pulse 105 H 11/03/20 11:57 Resp 20 H 11/03/20 11:57 BP 102/69 11/03/20 11:57 Pulse Ox 94 11/03/20 11:57 11/02/20 11/03/20 11/03/20 22:59 06:59 14:59 Intake Total 360 / 360 Output Total 600 / 600 300 / 300 Balance -600 / -360 60 / 60 Physical Exam Narrative: EXAM NARRATIVE: Patient was sitting in a chair out of bed awake alert oriented x3 GCS 15 inspiratory and expiratory crepitation noted no encephalopathy EOMI, PERRLA clinically looks euvolemic she does have multiple fruit juices at the bedside no low extremity edema Urinary Catheter Management^: Sahu: Cath Placed During This Visit: yes, but has since been removed by the nurse Reason for Continuing Indwelling Catheter: Decision to DC Catheter Urinary Catheter Date of Insertion: 10/29/20 Urinary Catheter Time of Insertion: 19:45 Date Urinary Catheter Removed: 11/01/20 Time Urinary Catheter Discontinued: 15:29 Data : 11/03/20 05:25 11/03/20 05:25 A&P Assessment and plan (1) Pneumonia due to COVID-19 virus: Status: Acute (2) Hypoxia: Status: Acute (3) Hyperglycemia: Status: Acute (4) Hyponatremia: Status: Acute Additional A&P Information Persistent hypoxia related to COVID-19 currently on 15 L with oxygen mask does use BiPAP overnight not a suitable candidate for correction placement, I have started conversation regarding LTAC placement, family is reluctant to pursue that route however there are no other safe options for her to go home with such high oxygen requirement and use of BiPAP overnight she has finished her remdesivir and Decadron regimen I would not continue steroids at this time she is getting multivitamins and zinc encouraged proning ambulation out of bed to chair Hyponatremia related to hyperglycemia no work-up needed Type 2 diabetes with hyperglycemia I have increased her Lantus dose to 30 units twice a day asked her son to reduce the amount of fruit juices which I think is contributing to hyperglycemia steroids were discontinued, increase sliding scale to high intensity Full code consistent carb diet DVT prophylaxis currently on Eliquis for PE disposition to IF she gets accepted, we have started looking into financial assistance as patient has no insurance, disease case manager rn is working diligently on it Attestations Medical Necessity Statement*: Continue medical management Time Spent in Patient Care: less than 15 minutes Coding Level of Care Code Acute Cooler Operator for Sal Lozano Diagnoses Pneumonia due to COVID-19 virus U07.1; J12.82 Hypoxia R09.02 Hyperglycemia R73.9 Hyponatremia E87.1
[2020-11-03] MEDS: magnesium hydroxide 30 mL UDC 15 ML PO (15:36)
[2020-11-03 17:01] LABS: Glucose Point of Care 206 mg/dL (70-110)
[2020-11-03] MEDS: sennosides-docusate Tablet 1 TAB PO (18:02)
[2020-11-03] MEDS: acetaminophen 325 mg Tablet 650 MG PO (19:57)
[2020-11-03 20:24] LABS: Glucose Point of Care 256 mg/dL (70-110)
[2020-11-03] MEDS: acetylcysteine 200 mg/mL SDV 4 mL 100 MG INHALATION (23:48)
[2020-11-04] VITALS (13 sets, daily range): BP systolic 110–143; BP diastolic 74–102; PULSE 53–105; RESP 18–30; TEMP 36.2–36.7; O2SAT 91–99
[2020-11-04] MEDS: acetaminophen 325 mg Tablet 650 MG PO ×3 (01:45→23:35)
[2020-11-04] MEDS: ondansetron 2 mg/ML SDV 2 mL 4 MG IVP ×2 (02:18→15:47)
[2020-11-04] MEDS: guaiFENesin-dextromethorphan UDC 10 mL PO ×5 (02:19→23:36)
[2020-11-04] MEDS: acetylcysteine 200 mg/mL SDV 4 mL 100 MG INHALATION ×2 (04:15→08:50)
[2020-11-04 06:30] LABS: Glucose Point of Care 219 mg/dL (70-110)
[2020-11-04] MEDS: apixaban 5 mg Tablet PO ×2 (07:42→22:45)
[2020-11-04] MEDS: ascorbic acid 500 mg Tablet PO ×2 (07:43→15:42)
[2020-11-04] MEDS: zinc gluconate 50 mg Tablet PO (07:43)
[2020-11-04] MEDS: benzonatate 100 mg Capsule PO ×3 (07:44→22:45)
[2020-11-04] MEDS: sennosides-docusate Tablet 1 TAB PO ×2 (07:44→15:42)
[2020-11-04] MEDS: insulin glargine 100 units/1 mL 30 UNIT SUBCUT ×2 (09:00→22:46)
[2020-11-04] MEDS: ipratropium-albuterol 3 mL Neb INHALATION ×2 (09:06→16:25)
[2020-11-04] MEDS: ibuprofen 200 mg Tablet 400 MG PO (11:04)
--- NOTE | 2020-11-04 14:09 | XR_ITS ---
WS: [id number] Portable AP upright chest, 11/04/2020 Clinical Data: hypoxia worsening , crepitation on left shoulder Comparison: Portable chest, 10/29/2020. Findings: The bilateral diffuse pulmonary opacities have not changed. The heart is at the upper limit s of normal. No pneumothorax is seen. No subcutaneous emphysema is present. Monitor leads are on the chest wall. XR/XR chest 1V portable [id number] Impression: No change in diffuse bilateral pulmonary opacities consistent with pneumonia.
--- NOTE | 2020-11-04 14:09 | ECG_ITS ---
[facility] Test Date: 2020-11-04 Pat Name: Opal Rain Department: Room: 279 Gender: Female Cotton Ginner: : 1970 Requested By: Brittany Frankel Order Number: [id number] Rubi MD: Harpreet Solis M.D. Measurements Intervals [place] Rate: 103 P: 57 IN: 149 QRS: -3 QRSD: 101 T: -18 QT: 359 QTc: 471 Interpretive Statements SINUS TACHYCARDIA POSSIBLE INFERIOR MYOCARDIAL INFARCTION , OF INDETERMINATE AGE [30 ms Q WAVE IN II/aVF] MODERATE T-WAVE ABNORMALITY, CONSIDER ANTERIOR ISCHEMIA [-0.1+ mV T-WAVE IN V3/V4] Compared to ECG 10/31/2020 09:24:26 Myocardial infarct finding now present T-wave abnormality now present Possible ischemia now present Sinus rhythm no longer present Electronically Signed On 11-04-2020 20:32:55 CDT by Harpreet Solis M.D. [id number]
[2020-11-04 14:33] LABS: Glucose Point of Care 173 mg/dL (70-110)
[2020-11-04 14:34] LABS: ABG PCO2 43.3 mmHg (35-45); ABG PH Result 7.44 (7.35-7.45); Arterial Blood Gas Hematocrit 26.7 % (37-47); Base Excess ABG 4.4 mmol/L (-2.0-2.0); Blood Gas Operator Identificat AMH; Blood Gas Sample Site Brachial, left; Blood Gas Sample Type Arterial; HCO3 ABG 29.1 mmol/L (22-26); Oxygen Device BIPAP; PO2 ABG 72.8 mmHg (80.0-100.0)
[2020-11-04 15:18] LABS: Troponin T (5th) Once 20 ng/L (0-10)
[2020-11-04] MEDS: morphine 4 mg/mL SDV 1 mL IVP (15:42)
--- NOTE | 2020-11-04 15:55 | PM.PN ---
Subjective Subjective: Interval history: Patient has worsened today was complaining of left-sided shoulder pain, I requested an EKG, troponin chest x-ray She was transitioned from 50 L oxygen mask to BiPAP 65% ABG however has not worsened significantly PaO2 72 Assessment showing diffuse pattern COVID-19 which has worsened as compared to previous x-ray in my interpretation Vitals/I&O/Wt Last Vital Signs Temp 97.7 F 11/04/20 12:00 Pulse 102 H 11/04/20 13:34 Resp 20 H 11/04/20 12:00 BP 141/95 11/04/20 12:00 Pulse Ox 94 11/04/20 13:34 11/04/20 11/04/20 11/04/20 06:59 14:59 22:59 Output Total 200 / 500 Balance -200 / 100 Physical Exam Narrative: EXAM NARRATIVE: Patient is saturating 94% on BiPAP 65% She is tachypneic anxious complaining of left-sided shoulder pain does not complain of any chest pain S1, S2 sinus tachycardia Abdomen soft nontender Lower extremity no edema Awake alert oriented son at the bedside No joint swelling Urinary Catheter Management^: Sahu: Cath Placed During This Visit: yes, but has since been removed by the nurse Reason for Continuing Indwelling Catheter: Decision to DC Catheter Urinary Catheter Date of Insertion: 10/29/20 Urinary Catheter Time of Insertion: 19:45 Date Urinary Catheter Removed: 11/01/20 Time Urinary Catheter Discontinued: 15:29 Data : 11/03/20 05:25 11/03/20 05:25 A&P Assessment and plan (1) Hyperglycemia: Status: Acute (2) Hypoxia: Status: Acute (3) Pneumonia due to COVID-19 virus: Status: Acute (4) Pulmonary embolism: Status: Acute (5) Diabetes mellitus: Status: Acute Additional A&P Information Persistent hypoxia related to COVID-19 ARDS Currently on BiPAP 65% PaO2 72 In case of worsening on BiPAP neck step will be optimization on BiPAP FiO2 100% and if that fails will need intubation, risk of intubation and complications related to use of mechanical ventilator explained to the family who is in agreement Of steroids, status post remdesivir CRP trended down currently being managed with conservative approach and multivitamins Would use Lasix Son also had a meeting with help desk representative from [facility] PE: Currently on Eliquis Recent venous Doppler and CTA though unremarkable Hyperglycemia: Significant amount of Lantus which she is taking twice a day seems to be helping controlling her sugar to some extent Full code Consistent carb diet DVT prophylaxis Eliquis would suffice Attestations Medical Necessity Statement*: High risk for deterioration continue medical management Time Spent in Patient Care: 16 - 35 minutes Coding Level of Care Code Acute Wrecking Crane Engine Operator for Chg Fwd Diagnoses Hyperglycemia R73.9 Hypoxia R09.02 Pneumonia due to COVID-19 virus U07.1; J12.82 Pulmonary embolism I26.99 Diabetes mellitus E11.9
[2020-11-04] MEDS: FUROsemide 10 mg/mL SDV 2mL 20 MG IVP (16:23)
[2020-11-04 17:32] LABS: Glucose Point of Care 168 mg/dL (70-110)
[2020-11-04 21:03] LABS: Glucose Point of Care 310 mg/dL (70-110)
[2020-11-04 22:23] LABS: Troponin T (5th) Once 19 ng/L (0-10)
[2020-11-05] VITALS (14 sets, daily range): BP systolic 111–146; BP diastolic 75–90; PULSE 82–113; RESP 17–28; TEMP 36.4–37.1; O2SAT 74–98
[2020-11-05] MEDS: guaiFENesin-dextromethorphan UDC 10 mL PO ×5 (05:33→22:38)
[2020-11-05 06:08] LABS: Glucose Point of Care 155 mg/dL (70-110)
[2020-11-05 07:11] LABS: Basophils % 0.5 %; Eosinophils # 0.4 10^3/uL (0.0-0.8); Eosinophils % 5.3 %; Hematocrit 25.7 % (37.0-47.0); Hemoglobin 8.3 g/dL (11.5-15.3); Lymphocytes # 1.5 10^3/uL (0.8-4.8); Lymphocytes % 17.6 %; Mean Corpuscular HGB Conc 32.3 g/dL (30.0-36.0); Mean Corpuscular Hemoglobin 26.7 pg (28.0-34.0); Mean Corpuscular Volume 82.6 fl (81-99); Mean Platelet Volume 9.3 fL (7.4-10.4); Monocytes # 0.6 10^3/uL (0.2-0.9); Monocytes % 7.5 %; Neutrophils # 5.61 10^3/uL (1.8-7.7); Neutrophils % 67.5 %; Nucleated Red Blood Cells % 0 %; Platelet Count 325 10^3/cmm (130-400); Red Blood Count 3.11 10^6/uL (4.1-5.3); Red Cell Distribution Width 14.1 % (12.1-15.1); White Blood Count 8.3 10^3/uL (4.0-10.0)
[2020-11-05] MEDS: ipratropium-albuterol 3 mL Neb INHALATION ×2 (07:57→20:15)
[2020-11-05 08:00] LABS: Procalcitonin 0.52 ng/mL (0-0.5)
[2020-11-05 08:11] LABS: Blood Urea Nitrogen 10 mg/dL (6-20); C Reactive Protein 101.1 mg/L (0.0-4.9); Calcium 8.2 mg/dL (8.5-10.5); Carbon Dioxide 27 mmol/L (22-29); Chloride 91 mmol/L (98-107); Glomerular Filtration Rate 169.7 mL/min (90-130); Glucose 119 mg/dL (65-115); Osmolality Calculated 270 mOsm/kg (285-295); Sodium 130 mmol/L (136-145)
[2020-11-05] MEDS: ascorbic acid 500 mg Tablet PO ×2 (08:47→18:09)
[2020-11-05] MEDS: apixaban 5 mg Tablet PO ×2 (08:47→22:39)
[2020-11-05] MEDS: sennosides-docusate Tablet 1 TAB PO ×2 (08:47→18:09)
[2020-11-05] MEDS: zinc gluconate 50 mg Tablet PO (08:47)
[2020-11-05] MEDS: benzonatate 100 mg Capsule PO ×3 (08:47→22:39)
[2020-11-05] MEDS: lidocaine 5% Patch 1 PATCH TOPICAL ×2 (08:57→22:48)
[2020-11-05] MEDS: insulin glargine 100 units/1 mL 30 UNIT SUBCUT ×2 (08:58→22:41)
[2020-11-05 11:39] LABS: Glucose Point of Care 182 mg/dL (70-110)
[2020-11-05] MEDS: FUROsemide 10 mg/mL SDV 2mL 20 MG IVP (16:37)
[2020-11-05 17:03] LABS: Glucose Point of Care 159 mg/dL (70-110)
--- NOTE | 2020-11-05 17:34 | PM.PN ---
Subjective Subjective: Interval history: I did spend a great deal of time explaining chest x-ray findings, I did show chest x-ray to her son did talk with her daughter Nandini They are agreeable with LTAC if she gets accepted Overnight her oxygenation worsened and she required heated high flow currently on 60% 40 L No active diarrhea Complaining of left shoulder pain which improved with lidocaine patch Chest x-ray ABG, troponin unremarkable which was done yesterday when she complained for left shoulder pain Vitals/I&O/Wt Last Vital Signs Temp 98.8 F 11/05/20 16:00 Pulse 112 H 11/05/20 16:00 Resp 28 H 11/05/20 16:00 BP 118/78 11/05/20 16:00 Pulse Ox 91 11/05/20 16:00 11/05/20 11/05/20 11/05/20 06:59 14:59 22:59 Output Total 1000 / 1000 Balance -1000 / -1000 Physical Exam Narrative: EXAM NARRATIVE: Patient sitting in her bed Heated high flow 40 L 60% Son at the bedside WAYLON BRANNON No neurological deficit Left shoulder pain better with lidocaine patch Bilateral crepitations noted diffuse involving mid and lower zones Abdomen soft Lower symmetry no edema Urinary Catheter Management^: Sahu: Cath Placed During This Visit: yes, but has since been removed by the nurse Reason for Continuing Indwelling Catheter: Decision to DC Catheter Urinary Catheter Date of Insertion: 10/29/20 Urinary Catheter Time of Insertion: 19:45 Date Urinary Catheter Removed: 11/01/20 Time Urinary Catheter Discontinued: 15:29 Data : 11/05/20 07:00 11/05/20 07:00 Micro: Microbiology 10/29/20 17:18 Blood Culture - Final Blood NO GROWTH AFTER 5 DAYS 10/29/20 17:23 Blood Culture - Final Blood NO GROWTH AFTER 5 DAYS A&P Assessment and plan (1) Hyponatremia: Status: Acute (2) Hyperglycemia: Status: Acute (3) Hypoxia: Status: Acute (4) Pneumonia due to COVID-19 virus: Status: Acute (5) Pulmonary embolism: Status: Acute Additional A&P Information Persistent hypoxia related to COVID-19 Chest x-ray shows worsening of diffuse bilateral pattern COVID-19 consolidation No superimposed infection procalcitonin slightly high She has been afebrile Continue multivitamins and zinc Avoid steroids because of her history of candidal infection Encouraged proning out of bed to chair Family agreeable with LTAC if she gets accepted financial application has been submitted Hyponatremia related to hyperglycemia Poor p.o. intake as well Blood sugar slightly better with increase of her Lantus and adjustment of sliding scale PE: Continue Eliquis Hemoglobin stable around 8 We will check FOBT Full code Consistent carb diet Attestations Medical Necessity Statement*: Continue medical management Time Spent in Patient Care: Greater than 35 minutes Coding Level of Care Code Acute Structural Iron Worker for Justineg Fwd Diagnoses Hyponatremia E87.1 Hyperglycemia R73.9 Hypoxia R09.02 Pneumonia due to COVID-19 virus U07.1; J12.82 Pulmonary embolism I26.99
--- NOTE | 2020-11-05 18:53 | PC.NURSE ---
Shift Note Frequent safety and comfort rounds continue. Patient has rested well throughout this shift. Patient complained of pain on left shoulder where lidocaine patch was placed; patient removed the lidocaine patch and stated pain decreased. PAtient is currently resting in bed with her son at bedside. Will continue to monitor.
[2020-11-05 20:58] LABS: Glucose Point of Care 151 mg/dL (70-110)
[2020-11-06] VITALS (14 sets, daily range): BP systolic 97–119; BP diastolic 64–85; PULSE 101–120; RESP 18–28; TEMP 36.6–37.1; O2SAT 86–96
[2020-11-06] MEDS: guaiFENesin-dextromethorphan UDC 10 mL PO ×5 (00:40→20:51)
[2020-11-06 05:32] LABS: ABG PCO2 42.5 mmHg (35-45); ABG PH Result 7.49 (7.35-7.45); Arterial Blood Gas Hematocrit 30.4 % (37-47); Blood Gas Sample Type Arterial; HCO3 ABG 32.1 mmol/L (22-26); PO2 ABG 61.8 mmHg (80.0-100.0)
[2020-11-06 05:33] LABS: Blood Gas Sample Site Brachial, left; Oxygen Device HAG
[2020-11-06 06:09] LABS: Glucose Point of Care 146 mg/dL (70-110)
[2020-11-06] MEDS: FUROsemide 20 mg Tablet PO (07:58)
[2020-11-06] MEDS: ascorbic acid 500 mg Tablet PO ×2 (09:14→17:47)
[2020-11-06] MEDS: benzonatate 100 mg Capsule PO ×3 (09:14→20:52)
[2020-11-06] MEDS: zinc gluconate 50 mg Tablet PO (09:15)
[2020-11-06] MEDS: apixaban 5 mg Tablet PO ×2 (09:15→20:52)
[2020-11-06] MEDS: sennosides-docusate Tablet 1 TAB PO ×2 (09:15→17:47)
[2020-11-06] MEDS: insulin glargine 100 units/1 mL 30 UNIT SUBCUT ×2 (09:17→20:57)
[2020-11-06 11:51] LABS: Glucose Point of Care 152 mg/dL (70-110)
--- NOTE | 2020-11-06 12:10 | PM.PN ---
Subjective Subjective: Interval history: Patient is requiring heated high flow, oxygen requirement has worsened, chest x-ray shows diffuse pattern of COVID-19 ARDS pattern manager of global working with the family to get her approved for LTAC Vitals/I&O/Wt Last Vital Signs Temp 98.1 F 11/06/20 11:50 Pulse 104 H 11/06/20 11:50 Resp 18 11/06/20 11:50 BP 107/75 11/06/20 11:50 Pulse Ox 90 11/06/20 11:50 11/05/20 11/06/20 11/06/20 22:59 06:59 14:59 Intake Total 240 / 240 Balance 240 / -760 Physical Exam Narrative: EXAM NARRATIVE: Patient was sitting in a chair EOMI, PERRLA No neurological deficit Bilateral breath sounds are crepitation Abdomen soft S1, S2 sinus tachycardia Clinically euvolemic Urinary Catheter Management^: Sahu: Cath Placed During This Visit: yes, but has since been removed by the nurse Reason for Continuing Indwelling Catheter: Decision to DC Catheter Urinary Catheter Date of Insertion: 10/29/20 Urinary Catheter Time of Insertion: 19:45 Date Urinary Catheter Removed: 11/01/20 Time Urinary Catheter Discontinued: 15:29 Data : 11/05/20 07:00 11/07/20 06:55 A&P Additional A&P Information COVID-19 related ARDS Persistent hypoxia Oxygen requirement worsening Currently on heated high flow Awaiting placement to LTAC Continue multivitamins, full dose anticoagulation, she is on Lasix 20 mg daily to keep her net negative balance check BMP tomorrow Attestations Medical Necessity Statement*: Continue medical management Time Spent in Patient Care: less than 15 minutes Coding Level of Care Code Acute Automotive Service Writer for Sal Lozano
[2020-11-06 16:06] LABS: C Reactive Protein 57.2 mg/L (0.0-4.9)
[2020-11-06 17:20] LABS: Glucose Point of Care 96 mg/dL (70-110)
--- NOTE | 2020-11-06 17:53 | PC.NURSE ---
Shift Note Frequent safety and comfort rounds continue. Patient's family at bedside. Patient rested well during this shift. Patient did not want the lidocaine patch on this morning. Patient complained of tingling in her toes; baldev hose were removed and patient states this helped a bit. This nurse educated patient and family on monitoring blood sugars and healthy eating habits. Patient and family verbalized understanding. Patient is currently resting well in bed with family member at bedside. Will continue to monitor.
[2020-11-06 20:35] LABS: Glucose Point of Care 182 mg/dL (70-110)
[2020-11-07] VITALS (10 sets, daily range): BP systolic 114–121; BP diastolic 80–84; PULSE 65–108; RESP 18–27; TEMP 36.6–36.9; O2SAT 85–98
[2020-11-07] MEDS: ondansetron 2 mg/ML SDV 2 mL 4 MG IVP (01:19)
[2020-11-07] MEDS: guaiFENesin-dextromethorphan UDC 10 mL PO ×3 (01:19→12:11)
[2020-11-07] MEDS: morphine 4 mg/mL SDV 1 mL IVP (01:19)
[2020-11-07] MEDS: acetaminophen 325 mg Tablet 650 MG PO (01:27)
[2020-11-07 06:36] LABS: Glucose Point of Care 129 mg/dL (70-110)
[2020-11-07] MEDS: apixaban 5 mg Tablet PO (08:37)
[2020-11-07] MEDS: zinc gluconate 50 mg Tablet PO (08:37)
[2020-11-07] MEDS: insulin glargine 100 units/1 mL 30 UNIT SUBCUT (08:37)
[2020-11-07] MEDS: benzonatate 100 mg Capsule PO (08:37)
[2020-11-07] MEDS: ascorbic acid 500 mg Tablet PO (08:37)
[2020-11-07] MEDS: sennosides-docusate Tablet 1 TAB PO (08:37)
[2020-11-07] MEDS: FUROsemide 20 mg Tablet PO (08:37)
[2020-11-07 10:01] LABS: Blood Urea Nitrogen 6 mg/dL (6-20); C Reactive Protein 62.7 mg/L (0.0-4.9); Calcium 8.4 mg/dL (8.5-10.5); Carbon Dioxide 30 mmol/L (22-29); Chloride 95 mmol/L (98-107); Glomerular Filtration Rate 169.7 mL/min (90-130); Glucose 112 mg/dL (65-115); Osmolality Calculated 274 mOsm/kg (285-295); Sodium 133 mmol/L (136-145)
[2020-11-07 10:02] LABS: Anion Gap 12.5 (5-19); Potassium 4.5 mmol/L (3.5-5.1)
[2020-11-07 11:34] LABS: Glucose Point of Care 182 mg/dL (70-110)
--- NOTE | 2020-11-07 14:20 | P.DS_ITS ---
Discharge Providers Date of Admission: 10/29/20 17:29 Date of Discharge: November 07, 2020 Attending Provider at Admission: Elias Dave MD Attending Provider at Discharge: Brittany Frankel MD Primary Care Provider: Marcel Gardiner MD Diagnoses at Discharge Discharge Diagnosis (1) Hyponatremia: Status: Acute (2) Hyperglycemia: Status: Acute (3) Hypoxia: Status: Acute (4) Pneumonia due to COVID-19 virus: Status: Acute (5) Pulmonary embolism: Status: Acute Reason for Visit Reason for Visit: SOB; COVID+ 5 weeks ago/recent admit Hospital Course Hospital Course 50-year-old Citizen Of [place]-speaking female who was discharged on 10/24 after 19 days of hospitalization, during that hospitalization she was diagnosed with PE, she was started on therapeutic dose of Eliquis, she was able to go home on 6 L however after 5 days she presented with worsening shortness of breath, required heated high flow and BiPAP spent another 9 days in the hospital, during this visit she required empirical antibiotics initially however cultures were negative antigens were negative , she did not spike any fever, no worsening of leukocytosis. She was kept on low-dose steroids which were discontinued. She was kept on multivitamins and Eliquis therapeutic dose. Her oxygen requirement was fluctuating between 15 L oxygen mask to nonrebreather for 5 to 7 days, however this changed and she required BiPAP alternating with heated high flow in last 72 hours. She has been participating with PT, has been try to get out of bed to chair. She was able to eat adequately, her appetite improved. She was kept on higher dose of Lantus twice a day regimen to keep her blood sugar within normal range. Her energy and lethargy did show mild improvement with Ritalin as well. Because of her high O2 requirement and her 2nd hospitalization decision was made to pursue long-term acute care placement. Family agreed with LTAC placement. She is being transferred today to [facility] on heated high flow 60%, 40 L. Son and the daughter in agreement. Dr. Julian was contacted. Dr. Julian stated that he was given adequate information and does not have any further questions. Physical Exam Narrative: EXAM NARRATIVE: Patient was sitting in a chair EOMI, PERRLA No neurological deficit Bilateral breath sounds are crepitation Abdomen soft S1, S2 sinus tachycardia Clinically euvolemic heated high flow 60% 40 L Urinary Catheter Management^: Sahu: Cath Placed During This Visit: yes, but has since been removed by the nurse Reason for Continuing Indwelling Catheter: Decision to DC Catheter Urinary Catheter Date of Insertion: 10/29/20 Urinary Catheter Time of Insertion: 19:45 Date Urinary Catheter Removed: 11/01/20 Time Urinary Catheter Discontinued: 15:29 Discharge Data Data Completed and Pending: Completed Studies During Hospitalization Category Date Time Status CT angio chest PE protcl [id number] Stat Cat Scan 10/29/20 14:[address] head wo con* 7 0450 Stat Cat Scan 10/29/20 14:34 Completed XR chest 1V lacho ble [id number] Stat Exams 10/29/20 03:22 Completed XR chest 1V lacho ble [id number] Stat Exams 10/29/20 14:06 Completed XR chest 1V lacho ble [id number] Stat Exams 11/04/20 14:09 [place] [id number] Routin e Ultrasound 10/30/20 20:21 Completed Pending at discharge Category Date Time Status Sputum Culture an d Gram Stain Stat Lab 10/29/20 16:56 Uncollected Labs from last 24 hours 11/07/20 11/07/20 11/07/20 10:48 06:55 06:32 Sodium 133 L Potassium 4.5 Chloride 95 L Carbon Dioxide 30 H Anion Gap 12.5 BUN 6 Creatinine 0.4 L GFR Calculation 169.7 H Glucose 112 POC Glucose 182 H 129 H Calculated Osmolal ity 274 L Calcium 8.4 L C-Reactive Protein 62.7 H 11/06/20 11/06/20 11/06/20 20:20 16:54 15:22 Sodium Potassium Chloride Carbon Dioxide Anion Gap BUN Creatinine GFR Calculation Glucose POC Glucose 182 H 96 Calculated Osmolal ity Calcium C-Reactive Protein 57.2 H Vitals: Last Vital Signs Temp 98.4 F 11/07/20 12:00 Pulse 108 H 11/07/20 12:00 Resp 18 11/07/20 12:00 BP 114/80 11/07/20 12:00 Pulse Ox 85 L 11/07/20 12:00 Discharge Plan Discharge Patient Disposition: Xfer [facility] Condition: Stable Prescriptions: Continued Cetacaine 2 %-2 %-14 % (200 mg/sec) Aerosol,[place] 1 spray topical Q4H PRN (Reason: mouth sores) 30 Days Qty: 2 RF: 0 ascorbic acid (vitamin C) [Vitamin C] 500 mg Tablet 500 mg PO BID 30 Days Qty: 60 RF: 1 benzonatate 100 mg Capsule 100 mg PO TID PRN (Reason: Cough) 30 Days Qty: 60 RF: 0 zinc gluconate 50 mg Tablet 50 mg PO DAILY 30 Days Qty: 30 RF: 0 Eliquis 5 mg Tablet 5 mg PO BID@0900,2100 30 Days Qty: 60 RF: 3 ondansetron HCl [Zofran] 4 mg tablet 4 mg PO Q6H PRN (Reason: nausea and vomiting) 1 Days Qty: 14 RF: 0 metformin 500 mg tablet 500 mg PO BID 30 Days Qty: 60 RF: 2 (DME) blood-glucose meter [Accu-Chek Angy Plus Meter] Misc See Rx Instructions .Route Qty: 1 RF: 0 (DME) lancets-blood glucose strips 30 gauge combo pack See Rx Instructions .Route Qty: 200 RF: 0 (DME) Accu-Chek Angy Plus test strp Strip See Rx Instructions .Route Qty: 100 RF: 0 Changed Lantus Solostar U-100 Insulin 100 unit/mL (3 mL) insulin pen 20 unit SUBCUT BID Qty: 15 RF: 3 Discontinued fluconazole 100 mg Tablet 100 mg PO DAILY 7 Days Qty: 7 RF: 0 Discharge Orders: Discharge Order (Routine); Ordered 11/07/20 Ordered By: Brittany Frankel Transfer Out of Facility (Order); Ordered 11/07/20 Ordered By: Brittany Frankel Discharge Diet: Diabetic Discharge Activity: Increase activity as tolerated Discharge Attestations Time Spent in Discharge Care*: less than 30 min Quality Metrics Clinical Quality Measures During this hospital stay, did patient experience: None Coding Level of Care Code Acute g DC note Diagnoses Hyponatremia E87.1 Hyperglycemia R73.9 Hypoxia R09.02 Pneumonia due to COVID-19 virus U07.1; J12.82 Pulmonary embolism I26.99
--- NOTE | 2020-11-07 15:43 | PC.NURSE ---
Tried to call report to [facility] [phone]. Kristi said the nurse will call back for report.
--- NOTE | 2020-11-07 16:44 | PC.NURSE ---
1555 report called to [facility] and given to Agata Brizuela RN.
--- NOTE | 2020-11-07 16:45 | PC.NURSE ---
patient transported to [facility]3] via [facility] by [facility].
--- NOTE | 2020-11-08 13:21 | PC.SOCIAL ---
discharge follow up call made. spoke with Shelbi, social organization professor, at [facility] in [place]. Patient is doing good, facility had all medications. No needs voiced at this time from [facility].
== END 2020-11-07 16:46 | DRG 177 ==
LOC: ER 14:54 → ER IP 22:23 → MEDSURG 10-30 11:23
PROVIDERS: Admitting Provider Internal Medicine; Emergency Provider Family Medicine; PCP Family Medicine; Visit Provider Internal Medicine
DX: U07.1 COVID-19 (principal); I26.99 Other pulmonary embolism without acute cor pulmonale; J12.82 Pneumonia due to coronavirus disease 2019; J80 Acute respiratory distress syndrome; E87.1 Hypo-osmolality and hyponatremia; J44.9 Chronic obstructive pulmonary disease, unspecified; E11.65 Type 2 diabetes mellitus with hyperglycemia; I10 Essential (primary) hypertension; R63.0 Anorexia; R53.83 Other fatigue; Z79.01 Long term (current) use of anticoagulants; Z79.4 Long term (current) use of insulin; Z87.440 Personal history of urinary (tract) infections
CPT/HCPCS: 36415; 36416; 36600; 51702; 70450; 71045; 71275; 80048; 80053; 80202; 81003; 82550; 82803; 82962; 83880; 84145; 84484; 85025; 86140; 87040; 87641; 93005; 93970; 94640; 94660; 96365; 96367; 96372; 96375; 97110; 97161; 99285; J1815 ×2; J1940; J1956; J2270; J2405; J2543; J3370; J7512; J7608; Q9967

== ENCOUNTER → 2022-11-16 15:07 | Outpatient (BNVA) | payer MEDICAID, SELFPAY | PROVIDERS: PCP Family Medicine; Visit Provider Obstetrics & Gynecology | DX: R32 Unspecified urinary incontinence (principal); N39.46 Mixed incontinence; N81.9 Female genital prolapse, unspecified; N81.10 Cystocele, unspecified | CPT/HCPCS: 81000; 84315 ==

== ENCOUNTER → 2024-01-06 09:06 | Outpatient (BNVA) | payer MEDICAID, SELFPAY | PROVIDERS: PCP Family Medicine; Visit Provider Specialist | DX: G56.03 Carpal tunnel syndrome, bilateral upper limbs (principal) | CPT/HCPCS: 73130 ==

== ENCOUNTER → 2024-03-16 13:12 | Outpatient (BNVA) | payer MEDICAID, SELFPAY | PROVIDERS: PCP Family Medicine; Visit Provider Specialist | DX: Z01.818 Encounter for other preprocedural examination (principal); G56.03 Carpal tunnel syndrome, bilateral upper limbs; Z46.89 Encounter for fitting and adjustment of other specified devices | CPT/HCPCS: 36415; 80053; 81001; 85025 ==

== ENCOUNTER → 2024-03-24 09:19 | Outpatient (BNVA) | payer MEDICAID, SELFPAY | PROVIDERS: PCP Family Medicine; Visit Provider Family Medicine | DX: Z01.818 Encounter for other preprocedural examination (principal) | CPT/HCPCS: 93005 ==

== ENCOUNTER 2024-03-26 12:57 | Day surgery (SDC) | payer MEDICAID, SELFPAY ==
[2024-03-26] VITALS (12 sets, daily range): BP systolic 121–156; BP diastolic 81–100; PULSE 77–96; RESP 13–17; TEMP 36.3–36.7; O2SAT 92–97; BMI 39.9
--- NOTE | 2024-03-26 13:42 | W.PM.OPSUD ---
Surgery/Procedure H&P Update DATE OF PROCEDURE: March 26, 2024 DATE H&P PERFORMED: 03/24/24 H&P UPDATE INFORMATION: I have reviewed H&P completed within last 30 days, I have examined patient prior to procedure, No changes to prior documentation and H&P is in [facility] EMR on date indicated PLANNED PROCEDURE: Operation Date: 03/26/24 15:30 Proposed Procedures p Carpal Tunnel Release(Left) - Angela Murray MD Related Problem List Diagnoses (1) Carpal tunnel syndrome, left:
[2024-03-26 13:59] LABS: Glucose Point of Care 113 mg/dL (70-110)
--- NOTE | 2024-03-26 14:00 | P.ANESASSM_ITS ---
Pre-Anesthetic Assessment Height/Weight: Height 1.7 m Weight 115.666 kg Temp Pulse Resp BP Pulse Ox O2 Del Method 97.7 F 83 16 137/100 97 Room Air 03/26/24 13:30 03/26/24 13:30 03/26/24 13:30 03/26/24 13:30 03/26/24 13:30 03/26/24 13:30 Operation Date: 03/26/24 15:30 Proposed Procedures p Carpal Tunnel Release(Left) - Angela Murray MD Familial anesthetic complications: PONV with her eye surgery (was put under general) Was Beta Amaya taken within 24 hours: N/A Was Clonidine taken within 24 hours: N/A Last intake: Intake water at 1000 Last Liquid Date 03/25/24 Last Liquid Time 23:55 Last Solid Date 03/25/24 Last Solid Time 23:00 Social No alcohol and No tobacco Exam alert, oriented x 3, clear to auscultation bilaterally and regular rate & rhythm Airway Mallampati: Class II Dentition: false GI Gastroesophageal Reflux Disease Metabolic Diabetes Mellitus and Morbid Obesity Anesthetic Plan ASA status: 3 Anesthesia: General Risk of > 500 ml blood loss (7ml/kg in children): No Medications/Allergies Home Medications Medication Instructions Recorded Confirmed Last Taken Type ascorbic acid (vitamin C) 500 mg 500 mg PO BID 30 days #60 tabs 10/24/20 03/25/24 03/22/24 Rx tablet (Vitamin C) blood sugar diagnostic (Accu-Chek #100 ea 10/24/20 03/16/24 Unknown Rx Angy Plus test strips) blood-glucose meter (Accu-Chek #1 ea 10/24/20 03/16/24 Unknown Rx Angy Plus Meter) lancets 30 gauge and blood glucose #200 ea 10/24/20 03/16/24 Unknown Rx strips combo pack empagliflozin 10 mg tablet 10 mg PO DAILY 11/16/22 03/25/24 03/24/24 History (Jardiance) famotidine 10 mg tablet 20 mg PO DAILY PRN Heartburn 11/16/22 03/25/24 03/26/24 History fluticasone propionate 50 1 spray intranasal DAILY PRN 11/16/22 03/25/24 03/17/24 History mcg/actuation nasal Allergy Symptoms spray,suspension (Flonase Allergy Relief) diabetic shoes with 3 inserts #1 ea 09/09/23 03/16/24 Unknown Rx cock up wrist splint #1 ea 03/16/24 03/16/24 Unknown Rx insulin glargine 100 unit/mL (3 30 unit (0.3 mL) SUBCUT BID #15 mL 03/24/24 01/11/1903/25/24 12:03 Rx mL) subcutaneous pen (Lantus Solostar U-100 Insulin) Allergies Allergy/AdvReac Type Severity Reaction Status Date / Time No Known Allergies Allergy Verified 03/25/24 12:01 [facility] Anesthesia Medical History Pneumonia Pulmonary embolism Constipation Oral ulceration UTI (urinary tract infection) Diabetes mellitus HTN (hypertension) COVID-19 vaccine dose declined ARDS (adult respiratory distress syndrome) Acute exacerbation of chronic obstructive pulmonary disease Pneumonia due to COVID-19 virus Family History Denies family history of CAD (coronary artery disease) Cancer Social History Smoking and tobacco/nicotine status: never used tobacco/nicotine Alcohol intake: never Substance/Drug Use: never Adopted: No Caregiver/support person: Yes Lives independently: Yes Household members: family Housing: House Data Anesthesia Cardiac Studies: Echocardiogram 10/10/20
[2024-03-26] MEDS: gabapentin 300 mg Capsule PO (14:07)
[2024-03-26] MEDS: acetaminophen 1,000 MG/100 ML PIGGYBACK 400 MG IV (14:08)
[2024-03-26] MEDS: CELEcoxib 200 mg Capsule 400 MG PO (14:08)
[2024-03-26] MEDS: sodium chloride 0.9% 1,000 ML 30 ML IV (14:22)
[2024-03-26] MEDS: ceFAZolin 2,000 mg SDV 2000 MG IVP (14:23)
[2024-03-26] MEDS: BUPivacaine 0.5% INJ 30 mL XX (14:46)
--- NOTE | 2024-03-26 15:27 | P.OP_ITS ---
Operative Report Date of procedure: March 26, 2024 Pre-op diagnosis: Left carpal tunnel syndrome Post-op diagnosis: Left carpal tunnel syndrome Post-op findings: Very tight carpal canal with purplish discoloration of the median nerve and hourglass deformity Procedure done: Left carpal tunnel release Implants: None Specimens removed/disposition: None Pathology: None Surgeon: Angela Murray MD Outdoor Pursuits Instructor: None Anesthesia: General (Per LMA, ASA 3) Estimated blood loss (mL): 1 Tourniquet time (min): 16 (At 250 mmHg) IV fluids (mL): 300 Urine output (mL): 0 Complications: None Findings: Significant findings consistent with carpal tunnel syndrome including hourglass shape to the median nerve and purpleish discoloration as well as a thickened transverse carpal ligament which was quite tight. Condition: stable Disposition: PACU (Then return to same-day surgery for discharge to home) Brief History: This 54-year-old woman presented to the office complaining of symptoms consistent with bilateral carpal tunnel. She rated her pain at 8 of 10. Initially, she was not interested in pursuing any sort of surgical intervention, but she return to the office complaining of significant pain. She had a nerve conduction study which demonstrated severe entrapment of both the right and left median nerves at the wrist with normal ulnar nerves. After discussion, the sirena ent wished to proceed. Consents were signed and questions were answered. Procedure: The patient was brought to the operating theater. The patient had a general anesthetic per LMA, ASA 3. The tourniquet was elevated to 250 mmHg for a total tourniquet time of 16 minutes. The patient was also given Ancef 2 g preoperatively. The arm was then prepped and draped with DuraPrep in usual fashion with the arm draped free. A surgical pause was performed. At the time, the surgical pause, we confirmed the site and side of surgery. We also confirmed the patient's identity, appropriate and timely administration of preoperative antibiotics and preoperative surgical markings. An incision was then made along the thenar crease. The incision crossed the wri st joint in a curvilinear fashion. Dissection continued through skin and soft tissues using a scalpel. The palmaris longus was identified along with the transverse carpal ligament. Each of these was released carefully to avoid injury to the median nerve. We were able to dissect gently into the carpal canal which was noted to be quite tight with significant compression across the median nerve. The nerve was visualized and was an hourglass shape. The canal was subsequently palpated to assure there was no bony encroachment upon the canal. There was a quite thickened fibrous tissue within the canal, and this was opened longitudinally as well. The canal was then palpated distally and proximally to assure that my small finger was passed easily without impingement. Finding this to be so, attention was directed to closure. The wound was irrigated with ropivacaine plain. It was then closed with 3-0 nylon in an interrupted mattress fashion. Sterile dressing was then placed consisting of Dermabond, OpSite, fluffed fluffs, sterile soft roll, and an Brady wrap. The tourniquet was released after 16 minutes. There were no complications. There were no specimens. The procedure was well tolerated. Plan is the patient will be discharged home. Related Problem List Diagnoses (1) Carpal tunnel syndrome, left:
== END 2024-03-26 17:00 | disposition home or self-care (01) ==
PROVIDERS: PCP Family Medicine; Visit Provider Specialist
PROC: (CPT 64721; principal; 2024-03-26 15:20)
DX: G56.03 Carpal tunnel syndrome, bilateral upper limbs (principal); K21.9 Gastro-esophageal reflux disease without esophagitis; E11.9 Type 2 diabetes mellitus without complications; E66.01 Morbid (severe) obesity due to excess calories; Z68.39 Body mass index [BMI] 39.0-39.9, adult; Z79.899 Other long term (current) drug therapy; Z79.4 Long term (current) use of insulin; Z86.711 Personal history of pulmonary embolism; J44.9 Chronic obstructive pulmonary disease, unspecified
CPT/HCPCS: 64721; 36416; 82962; J0131; J0690; J1100; J2405; J2704; J3010; J3490; J7030

== ENCOUNTER → 2024-04-27 14:58 | Outpatient (BNVA) | payer MEDICAID, SELFPAY | PROVIDERS: PCP Family Medicine; Visit Provider Nurse Practitioner | DX: M65.30 Trigger finger, unspecified finger (principal) | CPT/HCPCS: 73130 ==

== ENCOUNTER 2024-06-14 20:48 | Emergency (ER) | payer MEDICAID, SELFPAY ==
--- NOTE | 2024-06-14 20:54 | ECG_ITS ---
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 Measurements Intervals [place] Rate: 81 P: 38 ID: [id number] QRS: 1 QRSD: 94 T: 16 QT: 375 QTc: 437 Interpretive Statements SINUS RHYTHM POSSIBLE ANTERIOR MYOCARDIAL INFARCTION , PROBABLY OLD [30 ms Q WAVE IN V3/V4, OR R < 0.2 mV IN V4] Compared to ECG 03/24/2024 09:44:27 Myocardial infarct finding now present Electronically Signed On 06-15-2024 16:45:48 CDT by Phyllis Chang M.D. [email or web address]
[2024-06-14 20:55] VITALS: BP 162/95; PULSE 82; RESP 14; TEMP 36.8; O2SAT 96; BMI 40.7
--- NOTE | 2024-06-14 20:55 | XRR_ITS ---
PROCEDURE INFORMATION: Exam: XR Chest Exam date and time: 06/14/2024 8:58 PM Age: 54 years old Clinical indication: Chest pressure; Chest pain TECHNIQUE: Imaging protocol: Radiologic exam of the chest. Views: 1 view. COMPARISON: CR XR chest 1V portable [id number] 11/04/2020 2:10 PM FINDINGS: Lungs: No pulmonary consolidation. Mild peripheral interstitial prominence likely areas of atelectasis or scarring. Pleural spaces: No pleural effusion or pneumothorax. Heart/Mediastinum: Heart size is within normal limits. Diaphragm: Stable elevation of the right hemidiaphragm. Bones/joints: No acute osseous abnormalities are seen. XR/XR chest 1V portable [id number] IMPRESSION: No acute cardiopulmonary disease.
--- NOTE | 2024-06-14 21:02 | W.ED.CHESTPA ---
HPI - Chest Pain General: Chief Complaint: Chest Pain Stated Complaint: chest pain Time Seen by Provider: 06/14/24 20:55 Source: patient Mode of arrival: ambulatory Limitations: no limitations History of Present Illness: 54-year-old female who states this morning she started having a pain in her left shoulder states it is a sharp pain going down her left arm she states that since then she has had some intermittent pains it has been a pressure pain. States her pain is currently a 4 out of 10 she denies any shortness of breath. She does have a history of diabetes denies any history of heart disease. Denies any cough or fever Associated symptoms: Deny abdominal pain, dyspnea, fever(s), nausea or vomiting Related Data Home Medications ?Medication ?Instructions ?Recorded ?Confirmed empagliflozin 10 mg tablet 10 mg PO DAILY 11/16/22 06/08/24 (Jardiance) famotidine 10 mg tablet 20 mg PO DAILY PRN Heartburn 11/16/22 06/08/24 fluticasone propionate 50 1 spray intranasal DAILY PRN 11/16/22 06/08/24 mcg/actuation nasal Allergy Symptoms spray,suspension (Flonase Allergy Relief) Previous Rx's ?Medication ?Instructions ?Recorded ascorbic acid (vitamin C) 500 mg 500 mg PO BID 30 days #60 tabs 10/24/20 tablet (Vitamin C) blood sugar diagnostic (Accu-Chek #100 ea 10/24/20 Angy Plus test strips) blood-glucose meter (Accu-Chek #1 ea 10/24/20 Angy Plus Meter) lancets 30 gauge and blood glucose #200 ea 10/24/20 strips combo pack diabetic shoes with 3 inserts #1 ea 09/09/23 cock up wrist splint #1 ea 03/16/24 insulin glargine 100 unit/mL (3 30 unit (0.3 mL) SUBCUT BID #15 mL 03/24/24 mL) subcutaneous pen (Lantus Solostar U-100 Insulin) Allergies Allergy/AdvReac Type Severity Reaction Status Date / Time No Known Allergies Allergy Verified 06/14/24 20:58 Review of Systems Const: Denies: fever(s), chills, body aches or change in appetite ENMT: Denies: throat pain or dental pain Card: Reports: chest pain Resp: Denies: dyspnea GI: Denies: abdominal pain, nausea, vomiting or diarrhea Musc: Denies: neck pain or back pain Skin/Breast: Denies: rash Neuro: Denies: headache(s) PFSH ED PFSH: Medical History Trigger ring finger of right hand Pneumonia Pulmonary embolism Constipation Oral ulceration UTI (urinary tract infection) Diabetes mellitus HTN (hypertension) COVID-19 vaccine dose declined ARDS (adult respiratory distress syndrome) Acute exacerbation of chronic obstructive pulmonary disease Pneumonia due to COVID-19 virus Surgical History S/P carpal tunnel release Date of procedure: March 26, 2024 Pre-op diagnosis: Left carpal tunnel syndrome Procedure done: Left carpal tunnel release Surgeon: Angela Murray MD Family History Denies family history of CAD (coronary artery disease) Cancer Social History Smoking and tobacco/nicotine status: never used tobacco/nicotine Alcohol intake: never Substance/Drug Use: never Adopted: No Caregiver/support person: Yes Lives independently: Yes Household members: family Housing: House Physical Exam Const: COMMON NORMALS: no acute distress, patient oriented x3 and healthy appearing HENMT: COMMON NORMALS: normocephalic and atraumatic HEAD & SCALP: normocephalic and atraumatic Eye: COMMON NORMALS: conjunctivae normal CONJUNCTIVA: Yes conjunctivae normal Neck/C-Spine: COMMON NORMALS: full ROM and supple Chest: COMMONS NORMALS: normal inspection of the chest Resp: COMMON NORMALS: normal respiratory effort, No retractions, No use of accessory muscles and clear to auscultation bilaterally AUSCULTATION: clear to auscultation bilaterally Cardio: COMMON NORMALS: regular rate, regular rhythm and No murmurs present (Cardio) RATE: regular rate RHYTHM: regular rhythm GI: COMMON NORMALS: Normal to inspection, nondistended, normoactive bowel sounds present, Soft to palpation, non-tender and no masses PALPATION: Yes Soft to palpation Extremity: COMMON NORMALS: normal to inspection and full ROM Neuro: COMMON NORMALS: patient oriented x3, moves all extremities and no focal motor deficits Psych: COMMON NORMALS: mental status grossly normal, Normal thought process present and cooperative THOUGHT PROCESS: Normal thought process present Skin: COMMON NORMALS: no rashes or lesions noted and no wounds GENERAL SKIN EXAM: no rashes or lesions noted Course Vital Signs: Vital signs: Vital Signs Temperature 98.2 F 06/14/24 20:55 Pulse Rate 78 06/14/24 23:35 Respiratory Rate 19 H 06/14/24 22:00 Blood Pressure 140/83 06/14/24 23:35 Pulse Oximetry 96 06/14/24 23:35 Oxygen Delivery Me thod Room Air 06/14/24 22:00 MDM - Chest Pain Medical Decision Making Patient presents here with chest pain she has been chest pain-free here initial repeat troponins are negative no signs of ACS she has an appoint with her PCP tomorrow she is to follow-up as scheduled return if worsening she understands agrees to plan. Medical Records I reviewed the patient's medical records. Lab Data I reviewed the patient's lab results. 06/14/24 21:05 06/14/24 21:05 Radiology Impressions Chest X-Ray 06/14/24 20:55 IMPRESSION: No acute cardiopulmonary disease. Laboratory Results WBC 9.09 10^3/uL (3.29-11.43) 06/14/24 21:05 RBC 4.83 10^6/uL (3.85-5.65) 06/14/24 21:05 Hgb 13.80 g/dL (11.27-16.99) 06/14/24 21:05 Hct 42.0 % (36-47) 06/14/24 21:05 MCV 87.0 fl (85-98) 06/14/24 21:05 MCH 28.6 pg (27-33) 06/14/24 21:05 MCHC 32.9 g/dL (30-55) 06/14/24 21:05 RDW 13.2 % (12.1-15.1) 06/14/24 21:05 Plt Count 264 10^3/cmm (157-399) 06/14/24 21:05 MPV 9.0 fL (7.4-10.4) 06/14/24 21:05 Neut % (Auto) 55.6 % 06/14/24 21:05 Lymph % (Auto) 33.0 % 06/14/24 21:05 [place] % (Auto) 6.4 % 06/14/24 21:05 Eos % (Auto) 3.9 % 06/14/24 21:05 Baso % (Auto) 0.8 % 06/14/24 21:05 Neut # (Auto) 5.06 10^3/uL (1.8-7.7) 06/14/24 21:05 Lymph # (Auto) 3.0 10^3/uL (0.8-4.8) 06/14/24 21:05 [place] # (Auto) 0.6 10^3/uL (0.2-0.9) 06/14/24 21:05 Eos # (Auto) 0.4 10^3/uL (0.0-0.8) 06/14/24 21:05 Baso # (Auto) 0.1 10^3/uL (0.0-0.1) 06/14/24 21:05 Nucleated RBC % (auto) 0 % 06/14/24 21:05 Nucleated RBCs # 0.0 /100WBC 06/14/24 21:05 Sodium 143 mmol/L (136-145) 06/14/24 21:05 Potassium 4.0 mmol/L (3.5-5.1) 06/14/24 21:05 Chloride 107 mmol/L (98-107) 06/14/24 21:05 Carbon Dioxide 22 mmol/L (22-29) 06/14/24 21:05 Anion Gap 18.0 (5-19) 06/14/24 21:05 BUN 11 mg/dL (6-20) 06/14/24 21:05 Creatinine 0.6 mg/dL (0.5-0.9) 06/14/24 21:05 GFR Calculation 104.6 mL/min (90-130) 06/14/24 21:05 Glucose 107 mg/dL (65-115) 06/14/24 21:05 Calculated Osmolality 296 mOsm/kg (285-295) H 06/14/24 21:05 Calcium 9.4 mg/dL (8.5-10.5) 06/14/24 21:05 Total Bilirubin 0.4 mg/dL (0.15-1.2) 06/14/24 21:05 AST 16 U/L (0-32) 06/14/24 21:05 ALT 23 U/L (0-33) 06/14/24 21:05 Alkaline Phosphatase 145 U/L (35-105) H 06/14/24 21:05 Troponin T Baseline < 6 ng/L (0-10) 06/14/24 21:05 Troponin T 120 Minute 6.00 ng/L (0-10) 06/14/24 22:55 Delta Troponin T 0.36370 ABS# (0-10) 06/14/24 22:55 Total Protein 7.6 g/dL (6.6-8.7) 06/14/24 21:05 Albumin 4.7 g/dL (3.5-5.2) 06/14/24 21:05 Globulin 2.9 g/dL (1.3-4.6) 06/14/24 21:05 Lipase 43 U/L (13-60) 06/14/24 21:05 All radiology interpretation(s) finalized by discharge EKG Data EKG 1: I personally reviewed and interpreted this EKG as follows: EKG interpretation date: 06/14/24 EKG interpretation time: 20:54 Interpretation: nsr hr [address] elevation qrs 94 qtc 412 Discharge Plan Discharge Patient Disposition: Home Clinical Impression: Chest pain Condition: Stable Prescriptions: No Action Jardiance 10 mg tablet 10 mg PO DAILY famotidine 10 mg tablet 20 mg PO DAILY PRN (Reason: Heartburn) fluticasone propionate [Flonase Allergy Relief] 50 mcg/actuation spray,suspension 1 spray intranasal DAILY PRN (Reason: Allergy Symptoms) Rx Instructions: administer into each nostril (DME) diabetic shoes with 3 inserts See Rx Instructions .Route .MEDSUPPLY Qty: 1 0RF Rx Instructions: As directed to the shoe conrel Camargo Solostar U-100 Insulin 100 unit/mL (3 mL) insulin pen 30 unit SUBCUT BID Qty: 15 3RF (DME) cock up wrist splint See Rx Instructions .Route .MEDSUPPLY Qty: 1 0RF Rx Instructions: As directed ascorbic acid (vitamin C) [Vitamin C] 500 mg Tablet 500 mg PO BID 30 Days Qty: 60 1RF (DME) blood-glucose meter [Accu-Chek Angy Plus Meter] Misc See Rx Instructions .Route Qty: 1 0RF Rx Instructions: As directed (DME) lancets-blood glucose strips 30 gauge combo pack See Rx Instructions .Route Qty: 200 0RF Rx Instructions: As directed (DME) Accu-Chek Angy Plus test strp Strip See Rx Instructions .Route Qty: 100 0RF Rx Instructions: As directed Discharge Orders: Discharge ED (Routine); Ordered 06/14/24 Ordered By: Michell Anthony Referrals: Marcel Gardiner MD [Primary Care Provider] - 4-7 days Discharge Diet: Advance as tolerated Discharge Activity: Resume usual activity Patient Instructions: Chest Pain (ED) Print Language: Monegasque Coding Level of Care Code ED Copier Operator for Sal Lozano
[2024-06-14] MEDS: aspirin 81 mg Chew Tablet 324 MG PO (21:09)
[2024-06-14] MEDS: nitroglycerin 0.4 mg sublingual Tablet SUBLINGUAL (21:09)
[2024-06-14 21:11] VITALS: BP 158/91; PULSE 93; RESP 15; O2SAT 95
[2024-06-14 21:12] LABS: Basophils # 0.1 10^3/uL (0.0-0.1); Basophils % 0.8 %; Eosinophils # 0.4 10^3/uL (0.0-0.8); Eosinophils % 3.9 %; Mean Corpuscular HGB Conc 32.9 g/dL (30-55); Mean Corpuscular Hemoglobin 28.6 pg (27-33); Monocytes # 0.6 10^3/uL (0.2-0.9); Monocytes % 6.4 %; Neutrophils # 5.06 10^3/uL (1.8-7.7); Neutrophils % 55.6 %; Nucleated Red Blood Cells % 0 %; Platelet Count 264 10^3/cmm (157-399); Red Blood Count 4.83 10^6/uL (3.85-5.65); Red Cell Distribution Width 13.2 % (12.1-15.1); White Blood Count 9.09 10^3/uL (3.29-11.43)
[2024-06-14 21:30] VITALS: BP 153/89; PULSE 77; RESP 13; O2SAT 97
[2024-06-14 21:32] LABS: Troponin(5th) Baseline < 6 ng/L (0-10)
[2024-06-14 21:34] LABS: Alanine Aminotransferase 23 U/L (0-33); Albumin Level 4.7 g/dL (3.5-5.2); Alkaline Phosphatase 145 U/L (35-105); Aspartate Amino Transferase 16 U/L (0-32); Blood Urea Nitrogen 11 mg/dL (6-20); Calcium 9.4 mg/dL (8.5-10.5); Carbon Dioxide 22 mmol/L (22-29); Chloride 107 mmol/L (98-107); Creatinine Clr Calc Pharmacy 144.0204; Globulin 2.9 g/dL (1.3-4.6); Glomerular Filtration Rate 104.6 mL/min (90-130); Glucose 107 mg/dL (65-115); Lipase 43 U/L (13-60); Osmolality Calculated 296 mOsm/kg (285-295); Sodium 143 mmol/L (136-145); Total Bilirubin 0.4 mg/dL (0.15-1.2); Total Protein 7.6 g/dL (6.6-8.7)
[2024-06-14 22:00] VITALS: BP 126/89; PULSE 78; RESP 19; O2SAT 96
--- NOTE | 2024-06-14 23:11 | ECG_ITS ---
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 Measurements Intervals [place] Rate: 74 P: 51 AK: 140 QRS: 14 QRSD: 99 T: 37 QT: 393 QTc: 438 Interpretive Statements SINUS RHYTHM Compared to ECG 06/14/2024 20:54:10 Myocardial infarct finding no longer present Electronically Signed On 06-17-2024 20:00:59 CDT by Phyllis Chang M.D. [email or web address]
[2024-06-14 23:14] LABS: Troponin 5 2HR Delta 0.00001 ABS# (0-10)
[2024-06-14 23:35] VITALS: BP 140/83; PULSE 78; O2SAT 96
== END 2024-06-14 23:36 | disposition home or self-care (01) ==
PROVIDERS: Emergency Provider Emergency Medicine; PCP Family Medicine
DX: R07.9 Chest pain, unspecified (principal); E11.9 Type 2 diabetes mellitus without complications; I10 Essential (primary) hypertension
CPT/HCPCS: 36415; 71045; 80053; 83690; 84484; 85025; 93005; 99285; J9999

== ENCOUNTER 2024-07-01 08:16 | Outpatient (CLI) | payer MEDICAID, SELFPAY ==
[2024-07-01 08:36] VITALS: BMI 40.7
--- NOTE | 2024-07-01 08:36 | ECG_ITS ---
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 Interpretive Statements Lung unchanged pre/post procedure; Intraprocedure shortess of breath; Symptoms resoled by discharge PROCEDURE: The baseline electrocardiogram showed normal sinus rhythm with normal ST-Ts. Poor R wave progression. At the baseline, the patient's blood pressure was 133/82 mm Hg with a heart rate of heterogeneous plaques. The patient exercised for 4 minutes and 52 seconds on a standard Oliver protocol. Patient attained a maximum heart rate of 151 beats per minute(90% of the maximum predicted heart rate) with a blood pressure at the peak exercise of 198/76 mm Hg. The EKG at the peak exercise revealed no significant changes. Patient did not have any chest pain or any significant arrhythmis with the exercise Sestamibi was injected 1 minute prior to the peak exercise During the recovery phase, there were no new changes. Blood pressure at the end of the recovery phase was 137/74 mm Hg with a heart rate of 90 per minute. CONCLUSION: 1. No significant EKG changes with the [treadmill exercise 2. No exercise-induced chest pain or cardiac arrhythmia 3. Impaired exercise tolerance, attained a maximum of 7.0 METs 4. Sestamibi/Sestamibi perfusion results pending; see separate report. Electronically Signed On 07-06-2024 14:12:33 CDT by Phyllis Chang M.D. [email or web address]
--- NOTE | 2024-07-01 08:37 | NMCV_ITS ---
NM diego perf SPECT r/s* 93000 Opal Rain Age: 54 Gender: F : 1970 Exam Date: 07/01/2024 09:39 Ordering Phys: Marcel Gardiner MD Technologist: CLEMENT Hawkins Exam Location: [facility] Indications: CP STRESS TEST Please see separate stress test report in [facility] for full findings IMAGE PROTOCOL Rest/Stress 1 Exercise Day Radiopharmaceutical Dose (mCi) Administration Site Administered by Rest: Tc-99m 10.8 IV Venecia Barber, WEB MARKETING INTERN Sestamibi Stress:Tc-99m 32.5 IV Venecia Lovegle, WEB MARKETING INTERN Sestamibi Rest: 01-Jul-2024 60 Discovery 630 Stress: 01-Jul-2024 30 Discovery 630 Radiopharmaceutical was injected at 88% maximum heart rate. . Images obtained in supine and prone position. SPECT RESULTS Technical Quality: Good Raw Data Analysis: Normal Image Corrections: No attenuation or motion correction applied Summed Stress Score: 9 Summed Rest Score: 1 Summed Difference Score: 8 PERFUSION FINDINGS Moderate area of minimal to moderately decreased tracer uptake was noted in the basal and mid inferolateral, mid anterolateral, mid anteroseptal, apical anterior and apical lateral segments. Significant reversibility was noted in these areas with the supine imaging. However with the prone imaging, no significant evaluation abnormalities were noted. FUNCTIONAL RESULTS (calculated via Gated SPECT) Stress Image LV EF (%): 54 Stress EDV (mL):101 TID: 1.03 Stress ESV (mL):46 FUNCTIONAL FINDINGS: Segmental wall motion analysis revealing no gross wall motion abnormalities IMPRESSIONS 1. Myocardial perfusion imaging revealing moderate area of minimal to moderate decrease tracer uptake involving the anteroseptal, anterolateral, inferolateral and apical regions of the significant reversibility suggesting myocardial ischemia distribution of the left and descending artery/circumflex artery. However because of the inconsistency with the supine imaging the reliability is very questionable. Clinical correlation is recommended 2. Normal LV ejection fraction of 54% 3. LV wall motion analysis revealing no gross wall motion abnormalities. 4. Normal LV volume No similar previous studies are available for comparison Dr Phyllis Chang MD [facility] (Electronically Signed) Final Date: 01 Jul 2024 22:13 S
[2024-07-01 10:30] VITALS: BP 137/74; PULSE 88
== END 2024-07-01 08:17 | disposition home or self-care (01) ==
LOC: CDL 08:17
PROVIDERS: PCP Family Medicine; Visit Provider Family Medicine
DX: R07.9 Chest pain, unspecified (principal); R93.1 Abnormal findings on diagnostic imaging of heart and coronary circulation
CPT/HCPCS: 36415; 78452; 93017; A9500

== ENCOUNTER → 2024-09-09 13:59 | Outpatient (BNVA) | payer MEDICAID, SELFPAY | PROVIDERS: PCP Family Medicine; Visit Provider Internal Medicine Cardiovascular Disease | DX: R07.9 Chest pain, unspecified (principal); R94.39 Abnormal result of other cardiovascular function study; R58 Hemorrhage, not elsewhere classified | CPT/HCPCS: 36415; 80048; 85025; 85610; 93005 ==

== ENCOUNTER 2024-10-06 09:09 | Outpatient (CLI) | payer MEDICAID, SELFPAY ==
[2024-10-06] VITALS (29 sets, daily range): BP systolic 112–168; BP diastolic 82–101; PULSE 66–88; RESP 13–23; TEMP 36.6–37; O2SAT 93–96; BMI 39.9
--- NOTE | 2024-10-06 10:18 | W.PM.OPSUD ---
Surgery/Procedure H&P Update DATE OF PROCEDURE: October 06, 2024 DATE H&P PERFORMED: 09/09/24 H&P UPDATE INFORMATION: I have reviewed H&P completed within last 30 days, I have examined patient prior to procedure and No changes to prior documentation CHANGES TO PREVIOUS DOCUMENTATION: Indication: Abnormal stress test, chest pain PREOP DIAGNOSIS: Angina/abnormal stress PLANNED PROCEDURE: Operation Date: 10/06/24 10:00 Proposed Procedures p Cardiac Catheterization - C w/wo LV & Coros(Left) - Brittany Whiteside MD PATIENT REASSESSED PRIOR TO SEDATION, WITH NO CHANGE NOTED: Yes PHYSICAL EXAM: alert, oriented x 3, clear to auscultation bilaterally, regular rate & rhythm and operative site marked AIRWAY EVAL/ANESTHESIA PLAN: normal airway, ASA II, Risks, benefits & alternatives of sedation and/or procedure discussed and Patient agrees to continue as planned ADDITIONAL INFORMATION: Patient was explained 2% risk of stroke major bleed. Patient understand 5% risk of contrast-induced nephropathy pseudoaneurysm urgent emergent vascular or bypass surgery. Patient understand risk of hematoma and infection. She was accompanied by her daughter who speaks fluent [place] and everything was interpreted in the presence of her daughter. She clearly understood and would like to proceed with that.
--- NOTE | 2024-10-06 11:33 | P.PCN_ITS ---
Procedure Note: Date of procedure: 10/06/24 Pre-procedure diagnosis: Angina/abnormal stress Post-procedure diagnosis: same Procedure: Left heart cath was performed Left main: No significant disease LAD: Has proximal to mid high-grade 80% calcified stenosis, there is a distal 40% stenosis Diagonal 1 coming out in the middle of the LAD in the middle of the stenosis at an odd eccentric angle it has mild ostial disease it is a moderate size and caliber vessel Left circumflex is large caliber size vessel without significant stenosis RCA is a dominant vessel with proximal 40% stenosis Patient has tortuosity of the subclavian vessel. iFR was performed of the mid LAD which was 0.84 which is significant, patient also has a positive stress test in that area Provisional stent of mid LAD was performed, diagonal was protected with the b alloon. Mild plaque shift was noted in the ostial diagonal with good flow, due to altered and eccentric takeoff of diagonal branch rewiring was difficult we tried few times since patient has good flow and there is no significant ostial lesion we decided to treated medically and patient does not have any discomfort. Patient has Nonobstructive distal LAD and mid RCA stenosis which will be treated medically Plan: Radial band as per protocol Patient has been loaded with 600 mg of Plavix and 81 mg of aspirin. Continue current management with dual antiplatelet therapy for at least 1 year Continue home medications Advised lifestyle modification IV fluid 100 mL/h for next 5 hours. Further plan will be devised as per progress of the patient. Findings were discussed with the patient and her daughter Coding Level of Care Code Acute Code for Sal Fwtico
--- NOTE | 2024-10-06 12:24 | XACV_ITS ---
Ht: 170 cm Wt: 116 kg BSA: 2.39 m2 Gender: Female : 1970 Any Known Allergies: No known allergies Exam Priority: Routine Procedure(s): Procedure Description: Diagnostic procedure Procedure Description: PCI procedure Procedure Description: Drug Eluting Coronary Stent Procedure Description: PTCA Procedure Description: Miscellaneous Procedure Description: ACT Procedure Description: Coronary Angiography Procedure Description: Pressure Wire Diagnostic Cath Status: Elective Diagnostic Findings * Mid Left Anterior Descending: significant 75% stenosis, ANTELMO: 3 flow, iFR performed: ratio is 0.84. It is the culprit vessel.. * Left Main has no disease. * Circumflex has no disease. * Right Coronary Artery has no disease. * 1st Diagonal: moderate 50% stenosis, ANTELMO: 3 flow. * Coronary angiography shows right dominance. Interventional Findings * Successful PCI to mid LAD. 2 wire technique was performed 1 was crossed into diagonal branch other and LAD. Lesion was prepared with AB trek 2.5 x 20 mm balloon, followed by deployment of MDT Ezio [3.0x 34 mm posted at high MAMADOU 12 mm. Stent was then post-dilated with serial dilatation of noncompliant MDT Euphora 3.5 x 15 at 18 MAMADOU in its entire length to ensure proper approximation. Excellent angiographic result with ANTELMO-3 flow was achieved. There was red-pink was noted in the jailed diagonal branch which comes at an angle. Will try to cross it but was not able to due to angle, since it is patent and there is less than 70% stenosis we left the diagonal branch for medical treatment IFR: After equalizing the distal and proximal pressure of IFR wire proximal to the lesion, mid LAD lesion was crossed with IFR wire. 8 was recorded as 0.84, which is not significant. * Mid Left Anterior Descendin% stenosis treated with a AB TREK 2.50X20 RX BALLOON, NAHUM R EZIO 3.0X34 MANUELA, and MDT NC EUPHORA RX [id number] BALLOON. 0% residual stenosis, ANTELMO: 3 flow. Conclusions 1. Successful PCI to mid LAD. 2 wire technique was performed 1 was crossed into diagonal branch other and LAD. Lesion was prepared with AB trek 2.5 x 20 mm balloon, followed by deployment of MDRosalia [place] [3.0x 34 mm posted at high MAMADOU 12 mm. Stent was then post-dilated with serial dilatation of noncompliant MDT Euphora 3.5 x 15 at 18 MAMADOU in its entire length to ensure proper approximation. Excellent angiographic result with ANTELMO-3 flow was achieved. There was red-pink was noted in the jailed diagonal branch which comes at an angle. Will try to cross it but was not able to due to angle, since it is patent and there is less than 70% stenosis we left the diagonal branch for medical treatment IFR: After equalizing the distal and proximal pressure of IFR wire proximal to the lesion, mid LAD lesion was crossed with IFR wire. 8 was recorded as 0.84, which is not significant. 2. There is significant coronary artery disease with one vessel disease. 3. Mid Left Anterior Descending was treated with a Balloon, Drug Eluting Stent, and Balloon. Recommendations * 1-Return to inpatient for close monitoring and routine cath care 2-Risk factor modification for secondary prevention 3-Statin and aspirin 81 mg life-long, if tolerated 4-Patient was pre-loaded with 600 mg of Plavix, continue Plavix 75mg p.o. daily for at least one year. We will assess at the end of one year again to continue if further or not 5-Continue optimal medical management 6-Follow up with Dr. Whiteside in four weeks and your primary care in 10 days. Diagnostic RX Recommendation: PCI w/o planned CABG Pressures Phase:Rest AO : / ( 0 ) @ 11:32:00 AM 141 / 76 ( 91 ) @ 11:32:00 AM 122 / 89 ( 106 ) @ 11:34:00 AM 123 / 91 ( 107 ) @ 12:02:00 PM 136 / 76 ( 106 ) @ 12:04:00 PM 144 / 88 ( 112 ) @ 12:15:00 PM Clinical Evaluation EBL: 5mL-10mL Procedural Details Procedure Consent Obtained. Admit Source: Out Patient. Current Diagnosis : Chest Pain. Pre-Procedure Time Out. Identified patient by full name and date of as verbalized by the patient/guarantor. Does the consent match the physician's order: Yes. Accurate & Complete Informed Consent: Yes. Inpatient/Outpatient History & Physical on Chart: Yes. If H&P is completed, is and addenduem needed: No; If yes, is the addendum complete: N/A. Visualize and Verify Site with Patient/Guarantor: N/A. Relevant Radiology Images available: N/A. The risks, benefits, and alternatives of sedation and/or procedure were discussed by physician. The patient agrees to continue. Procedure started. [facility] Clinical Fraility Score: 3: Managing Well. Vector Control Assistant Indications: Other. Chest Pain Symptom Assessment: Typical Angina Symptoms. Cardiovascular Instability: No. Correct patient, site and procedure confirmed by cath team. Current diagnosis: Chest Pain; Abnormal Stress Test. PERRLA. 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 Lungs clear x 5 lobes. IV Site on Arrival: 20 gauge in the right anticubital. IV Fluids: 0.9% NaCl at KVO. 0 mL infused prior to construction laborer. Pre Procedural Pulses: bilateral posterior tibial was Doppled. Pre Procedural Pulses: bilateral dorsalis pedis was Doppled. Pre Procedural Pulses: bilateral radial was 3+. Oxygen started at 3liters/min via nasal canula. right groin was prepped with chloroprep then draped in the usual sterile fashion. right radial was prepped with chloroprep then draped in the usual sterile fashion. Physician notified. Physician arrived. Family updated by MD prior to arrival. Physician scrubbed in. Immediate Pre-Procedure Time Out. Correct Patient: Yes; Correct Procedure: Yes; Correct Site: Yes; Correct Patient Position: Yes; Correct Supplies: Yes; Dried Flammable Prep: Yes; Blood Products Available: N/A;. Lidocaine 1% infiltrated to the right radial. Arterial access obtained. A 5 trinidadian Castillo catheter in over wire. Multiple views taken of right coronary artery. Catheter redirected to the LCA. Multiple views taken of left coronary artery. Catheter removed over the exchange wire. Physician review of films. 6 trinidadian CLS 3 guide catheter was inserted over the wire. Guide seated in the LCS. IFR wire inserted. ACT drawn. Results 193 seconds. Therapeutic limits - pre-heparin administration 90-150 seconds and monitoring heparin during a vascular procedure >250 seconds. IFR wire normalized and zeroed proximal to lesion. Wire advanced across lesion in the mid lad. IFR SPOT 0.84 IFR PULLBACK 0.84. IFR wire removed. Runthrough guidewire was advanced through the guide catheter to lesion in the mid LAD. Runthrough guidewire was advanced through the guide catheter to lesion in the diaganol. Guidewire advanced across the lesion in the Mid LAD. Family updated by staff. Runthrough #2 placed in the diagonal as support wire. Inflation number : 1 A AB TREK 2.50X20 RX BALLOON was prepped and advanced across the Mid LAD , then inflated to 14 MAMADOU for 0:13 seconds. Inflation number: 2 The AB TREK 2.50X20 RX BALLOON was reinflated across the Mid LAD, to 14 MAMADOU for 0:13 seconds. Results checked. Balloon out. Inflation Number : 3 A NAHUM Alexander EZIO 3.0X34 MANUELA -Lot Number# [id number] EXP 01/18/27 was prepped and advanced across the Mid LAD. The stent was deployed at 12 MAMADOU for 0:17 seconds. Stent balloon out over wire. Results checked. Runthrough pulled back across the stent struts and replaced back down the diagonal. Runthrough # 2 removed. Inflation number : 4 A MDT WAI EUPHORA RX [id number] BALLOON was prepped and advanced across the Mid LAD , then inflated to 12 MAMADOU for 0:17 seconds. Inflation number: 5 The MDT NC EUPHORA RX [id number] BALLOON was reinflated across the Mid LAD, to 14 MAMADOU for 0:13 seconds. Balloon out. ACT drawn. Results 197 seconds. Therapeutic limits - pre-heparin administration 90-150 seconds and monitoring heparin during a vascular procedure >250 seconds. Results checked. Runthrough wire out to reshape. Runthrough guidewire reinserted through the guide catheter to lesion in the diaganol. Unable to cross lesion, guidewire removed. Wire out. Results checked. Guide catheter out. A TR Band was successful obtaining hemostatsis at the Right Radial artery insertion site. Post Procedure: Pulses reassessed and unchanged. PERRLA. 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 No VTE prophylaxis required. Medication's Wasted: Lidocaine 1% = 18 mL. Medication's Wasted: Nitro = 49.6 mg. Medication's Wasted: Heparin = 3000 unit. Medication's Wasted: Other = Fentanyl 50mcg. Total IV fluids: 75 mL. Post-op diagnosis: Significant mid LAD status with IFR and stress test. Status post PCI placement of 1 MANUELA. Complications: none. Estimated blood loss: 5mL-10mL. Responsiveness - Normal response to verbal stimuli; alert and oriented, PERRLA. Airway - Unaffected, no intervention required; spontaneous ventilation. Circulation: W/N/L, pulses unchanged. Nausea/Vomiting: No. Procedure completed. Patient transferred by wheelchair to 1st floor. Vital chart was stopped. Access Site Site: Right Radial artery Sheath Size: 6 Fr Hemostasis Method: TR Band Hemostasis Success: Successful Procedure Medications Start: 10:21 AM Stop: 10:21 AM Medication: Versed 1 mg and Fentanyl 25 mcg Amount: 1 Route: I.V. Start: 10:27 AM Stop: 10:27 AM Medication: Nitrogylcerin Amount: 200 mcg Route: I.A. Start: 10:28 AM Stop: 10:28 AM Medication: Heparin Amount: 5000 units Route: I.V. Start: 10:49 AM Stop: 10:49 AM Medication: Heparin Amount: 4000 units Route: I.V. Start: 10:53 AM Stop: :53 AM Medication: Versed 1 mg and Fentanyl 25 mcg Amount: 1 Route: I.V. Start: 11: AM Stop: : AM Medication: Nitrogylcerin Amount: 200 mcg Route: I.C. Start: 11:17 AM Stop: 11:17 AM Medication: Heparin Amount: 4000 units Route: I.V. Start: 11:18 AM Stop: 11:18 AM Medication: Plavix Amount: 600 mg Route: P.O. I, the attending physician, have reviewed and verified all procedure medications. Yes, all medications given per verbal order History/Risk Factors Hypertension: Yes Tobacco Use: Former Report Signatures Finalized by Brittany Whiteside MD on 10/26/2024 07:20 PM
[2024-10-07 00:07] VITALS: BP 124/76; PULSE 76; RESP 16; TEMP 36.8; O2SAT 97
[2024-10-07 03:48] VITALS: BP 130/84; PULSE 89; RESP 18; TEMP 37; O2SAT 96
[2024-10-07 04:07] LABS: Hematocrit 38.1 % (36-47); Hemoglobin 12.90 g/dL (11.27-16.99); Mean Corpuscular HGB Conc 33.9 g/dL (30-55); Mean Corpuscular Hemoglobin 28.7 pg (27-33); Mean Corpuscular Volume 84.9 fl (85-98); Nucleated Red Blood Cells % 0 %; Platelet Count 202 10^3/cmm (157-399); Red Blood Count 4.49 10^6/uL (3.85-5.65); White Blood Count 5.07 10^3/uL (3.29-11.43)
[2024-10-07 04:25] LABS: Anion Gap 14.9 (5-19); Blood Urea Nitrogen 11 mg/dL (6-20); Calcium 9.0 mg/dL (8.5-10.5); Carbon Dioxide 23 mmol/L (22-29); Chloride 108 mmol/L (98-107); Creatinine Clr Calc Pharmacy 142.4674; Glucose 148 mg/dL (65-115); Osmolality Calculated 296 mOsm/kg (285-295); Potassium 3.9 mmol/L (3.5-5.1); Sodium 142 mmol/L (136-145)
[2024-10-07 08:00] VITALS: BP 166/98; PULSE 93; RESP 18; TEMP 36.3; O2SAT 95
--- NOTE | 2024-10-07 11:14 | P.DS_ITS ---
<Statement entered by Brittany Whiteside MD - 10/09/24 15:52> Patient was evaluated and cared for in conjunction with an advanced practice practitioner. I personally examined the patient and reviewed the chart and all pertinent data including imaging, telemetry, and laboratory results. I discussed the patient in detail with the advanced practice practitioner. Please see their note for complete H&P testing result and agreed upon plan of care for the patient. Discharge Providers Date of Admission: 10/06/2024 Date of Discharge: October 07, 2024 Attending Provider at Admission: Dr. Whiteside Attending Provider at Discharge: Brittany Whiteside MD Primary Care Provider: Marcel Gardiner MD Reason for Visit Reason for Visit: R94.39 Brief History: The patient is a 54-year-old female presenting with an abnormal stress test in the LAD territory and associated chest pain. The chest pain began two weeks prior to the stress test and occurs both during physical activity and at rest, lasting for varying durations. The patient reports experiencing chest pain approximately three times a week, with episodes lasting all day before the stress test. Hospital Course Hospital Course She was brought in for coronary angiogram due to abnormal stress test and chest pain. Procedure performed 10/06/2024: No significant disease of left main, significant stenosis of the proximal to mid LAD verified by iFR 0.84 treated with stent, while diagonal protected with balloon, mild plaque shift noted in the ostial diagonal good flow noted with plan to treat medically. Also has a distal LAD 40% stenosis and proximal RCA 40% stenosis which we manage medically. She declines statin therapy, we can address alternatives in the office. No chest pain or pressure overnight or this morning, no shortness of breath or lower extremity edema. Will continue aspirin and Plavix, it has been discussed with her via her preferred grout worker not to miss a single dose of medication, which she understands. Will have meds to beds for Plavix so that she can go home with the medication. No complications with right radial cath site. Lifting precautions were discussed as well. Renal function is normal today. Follow-up with cardiology clinic in 7 to 10 days. Physical Exam Const: COMMON NORMALS: no acute distress and patient oriented x3 GENERAL APPEARANCE: cooperative ORIENTATION/CONSCIOUSNESS: Yes awake, Yes oriented to person, Yes oriented to place and Yes oriented to time Chest: COMMONS NORMALS: normal inspection of the chest and normal palpation of entire chest wall CHEST: Yes Symmetrical chest wall rise Resp: COMMON NORMALS: normal respiratory effort, No retractions, No use of accessory muscles and clear to auscultation bilaterally AUSCULTATION: clear to auscultation bilaterally Cardio: COMMON NORMALS: regular rate, regular rhythm, S1 normal heart sound present, S2 normal heart sound present, No gallops present (Cardio), No clicks present (Cardio), No murmurs present (Cardio) and No rub (Cardio) RATE: regular rate RHYTHM: regular rhythm HEART SOUNDS: S1 normal heart sound present and S2 normal heart sound present PERIPHERAL PULSES: radial pulses present positive right 2+ and femoral pulses present positive right 2+ Neuro: COMMON NORMALS: patient oriented x3 and moves all extremities SENSORIUM/ORIENTATION: Yes oriented to person, Yes oriented to place and Yes oriented to time Skin: WOUNDS: Yes surgical site (no hematoma palpable) Details: no odor Discharge Data Studies Completed and Pending Pending at discharge Category Date Time Status PRODUCER request for service Routine Exams 10/06/24 12:24 Taken Laboratory Results WBC 5.07 10^3/uL (3.29-11.43) 10/07/24 03:35 RBC 4.49 10^6/uL (3.85-5.65) 10/07/24 03:35 Hgb 12.90 g/dL (11.27-16.99) 10/07/24 03:35 Hct 38.1 % (36-47) 10/07/24 03:35 MCV 84.9 fl (85-98) L 10/07/24 03:35 MCH 28.7 pg (27-33) 10/07/24 03:35 MCHC 33.9 g/dL (30-55) 10/07/24 03:35 RDW 13.1 % (12.1-15.1) 10/07/24 03:35 Plt Count 202 10^3/cmm (157-399) 10/07/24 03:35 MPV 9.3 fL (7.4-10.4) 10/07/24 03:35 Neut % (Auto) 70.8 % 10/07/24 03:35 Lymph % (Auto) 15.2 % 10/07/24 03:35 [place] % (Auto) 8.9 % 10/07/24 03:35 Eos % (Auto) 4.5 % 10/07/24 03:35 Baso % (Auto) 0.4 % 10/07/24 03:35 Neut # (Auto) 3.59 10^3/uL (1.8-7.7) 10/07/24 03:35 Lymph # (Auto) 0.8 10^3/uL (0.8-4.8) 10/07/24 03:35 [place] # (Auto) 0.5 10^3/uL (0.2-0.9) 10/07/24 03:35 Eos # (Auto) 0.2 10^3/uL (0.0-0.8) 10/07/24 03:35 Baso # (Auto) 0.0 10^3/uL (0.0-0.1) 10/07/24 03:35 Nucleated RBC % (auto) 0 % 10/07/24 03:35 Nucleated RBCs # 0.0 /100WBC 10/07/24 03:35 Sodium 142 mmol/L (136-145) 10/07/24 03:35 Potassium 3.9 mmol/L (3.5-5.1) 10/07/24 03:35 Chloride 108 mmol/L (98-107) H 10/07/24 03:35 Carbon Dioxide 23 mmol/L (22-29) 10/07/24 03:35 Anion Gap 14.9 (5-19) 10/07/24 03:35 BUN 11 mg/dL (6-20) 10/07/24 03:35 Creatinine 0.6 mg/dL (0.5-0.9) 10/07/24 03:35 GFR Calculation 104.6 mL/min (90-130) 10/07/24 03:35 Glucose 148 mg/dL (65-115) H 10/07/24 03:35 Calculated Osmolality 296 mOsm/kg (285-295) H 10/07/24 03:35 Calcium 9.0 mg/dL (8.5-10.5) 10/07/24 03:35 Vitals Last Vital Signs Temp 97.4 F L 10/07/24 08:00 Pulse 93 10/07/24 08:00 Resp 18 10/07/24 08:00 BP 166/98 10/07/24 08:00 Pulse Ox 95 10/07/24 08:00 O2 Del Method Room Air 10/07/24 08:00 Discharge Plan Discharge Patient Disposition: Home Prescriptions: New atorvastatin 40 mg Tablet 80 mg PO BEDTIME Qty: 90 1RF clopidogrel 75 mg Tablet 75 mg PO DAILY Qty: 90 3RF aspirin 81 mg Tablet,Delayed Release (Dr/Ec) 81 mg PO DAILY Qty: 30 0RF Continued Jardiance 10 mg tablet 10 mg PO DAILY famotidine 10 mg tablet 20 mg PO DAILY PRN (Reason: Heartburn) fluticasone propionate [Flonase Allergy Relief] 50 mcg/actuation spray,suspension 1 spray intranasal DAILY PRN (Reason: Allergy Symptoms) Rx Instructions: administer into each nostril (DME) diabetic shoes with 3 inserts See Rx Instructions .Route .MEDSUPPLY Qty: 1 0RF Rx Instructions: As directed to the shoe cornel Simmonsostar U-100 Insulin 100 unit/mL (3 mL) insulin pen 30 unit SUBCUT BID Qty: 15 3RF (DME) cock up wrist splint See Rx Instructions .Route .MEDSUPPLY Qty: 1 0RF Rx Instructions: As directed isosorbide mononitrate 30 mg tablet extended release 24 hr 30 mg PO DAILY Qty: 90 3RF nitroglycerin 0.4 mg tablet, sublingual 0.4 mg sublingual Q5M PRN (Reason: chest pain) Qty: 25 2RF Rx Instructions: do not exceed 3 doses per episode metoprolol succinate 25 mg tablet extended release 24 hr 25 mg PO DAILY Qty: 90 3RF ascorbic acid (vitamin C) [Vitamin C] 500 mg Tablet 500 mg PO BID 30 Days Qty: 60 1RF (DME) blood-glucose meter [Accu-Chek Angy Plus Meter] [facility] See Rx Instructions .Route Qty: 1 0RF Rx Instructions: As directed (DME) lancets-blood glucose strips 30 gauge combo pack See Rx Instructions .Route Qty: 200 0RF Rx Instructions: As directed (DME) Accu-Chek Angy Plus test strp Strip See Rx Instructions .Route Qty: 100 0RF Rx Instructions: As directed Discharge Order = DC NOW: Discharge Order (Routine); Ordered 10/07/24 Ordered By: Loretta Whitman Referrals: Pam Galvez NP [Nurse Practitioner, Cardiology] - 10/15/24 10:15 am Marcel Gardiner MD [Primary Care Provider, [facility]] - 10/16/24 1:00 pm Diet: Cardiac Activity: Increase activity as tolerated Patient Instructions: Coronary Angioplasty (DC), Post Angiogram Home Care Instructions Activity Restrictions/Additional Instructions: No lifting over 5 pounds with right arm for 4 days. Print Language: Ug[place] Discharge Date/Time: 10/07/24 10:45 Discharge Attestations Time Spent in Discharge Care*: less than 30 min Quality Metrics Clinical Quality Measures [ No reported AMI, CVA or VTE this stay] Coding Level of Care Code Acute Code for Chg Fwtico
== END 2024-10-07 10:45 | disposition home or self-care (01) ==
LOC: CCL 09:12 → CSU 11:39
PROVIDERS: PCP Family Medicine; Visit Provider Internal Medicine Cardiovascular Disease
DX: I25.119 Atherosclerotic heart disease of native coronary artery with unspecified angina pectoris (principal); I10 Essential (primary) hypertension; Z87.891 Personal history of nicotine dependence; E11.9 Type 2 diabetes mellitus without complications; J44.1 Chronic obstructive pulmonary disease with (acute) exacerbation; J80 Acute respiratory distress syndrome; Z79.4 Long term (current) use of insulin
CPT/HCPCS: 36415; 80048; 85025; 85347; 93454; 93571; 99152; 99153; C1725; C1769; C1874; C1887; C1894; C9600; J1644; J2250; J3010; J3490; J7030; J9999; Q0163; Q9967

== ENCOUNTER 2024-10-09 09:11 | Emergency (ER) | payer MEDICAID, SELFPAY ==
--- OUTSIDE RECORDS SUMMARY | 2024-10-09 09:20 | XMS_ITS | Encounter Summary ---
Author Organization [facility] Address [address] [place] [address] Care Team Providers Care Cigarette Making Machine Catcher Name Role Phone Unavailable Primary Care Provider Unavailabl e Encounter Details Date Type Department Care Team (Latest Contact Info) Description 12/04/1999 Outpatient Historical [facility] Misha Neal MD [address] [place] [phone] Follow-up examination following surgery (Primary Dx) Social History Tobacco Use Types Packs/Day Years Used Date Smoking Tobacco: Never Assessed Comments Unknown Sex and Gender Information Value Date Recorded Sex Assigned at Not on file 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
--- OUTSIDE RECORDS SUMMARY | 2024-10-09 09:20 | XMS_ITS | Encounter Summary ---
Author Organization [facility] Address 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 Gender Identity Not on file Sexual Orientation Not on file documented as of this encounter Plan of Treatment Upcoming Encounters Date Type Department Care Team (Late st Contact Info) Description 10/29/2024 1:00 PM CDT Office Visit [facility]im[facility] Invasive Gynecology [address] [place] [address] Driss Miller MD [address] [place] [address] documented as of this encounter Procedures Procedure Name Priority Date/Time Associated Diagnosis Comments TROPONIN Routine 11/08/2020 4:45 PM CDT documented in this encounter Results * TROPONIN (11/08/2020 4:45 PM CDT) TROPONIN T, 5TH GEN 10 <=10 ng/L 11/08/2020 8:53 PM CDT [facility] Blood Collection / Unknown 11/08/2020 4:45 PM CDT 11/08/2020 7:37 PM CDT Narrative [facility] - 11/08/2020 8:53 PM CDT Troponin Detectable but normal range. us Erica Julian MD CHEMISTRY ORDERA BLES Final Result [facility] CLIA # [id number] [address] [place] [address] documented in this encounter Visit Diagnoses Not on filedocumented in this encounter
--- OUTSIDE RECORDS SUMMARY | 2024-10-09 09:20 | XMS_ITS | Encounter Summary ---
Author Organization [facility] Address [address] [place] [address] Care Team Providers Care Proposal Editor Name Role Phone Unavailable Primary Care Provider Unavailabl e Encounter Details Date Type Department Care Team (Latest Contact Info) Description 12/18/1999 Outpatient Historical [facility] Misha Neal MD [address] [address] [place] [phone] Follow-up examination following surgery (Primary Dx) Social History Tobacco Use Types Packs/Day Years Used Date Smoking Tobacco: Never Assessed Comments Unknown Sex and Gender Information Value Date Recorded Sex Assigned at Not on file Legal Sex Female 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
--- OUTSIDE RECORDS SUMMARY | 2024-10-09 09:20 | XMS_ITS | Encounter Summary ---
Author Organization [facility] Address 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 Gender Identity Not on file Sexual Orientation Not on file documented as of this encounter Plan of Treatment Upcoming Encounters Date Type Department Care Team (Late st Contact Info) Description 10/29/2024 1:00 PM CDT Office Visit [facility] Minimally Invasive Gynecology [address] [place] [address] Driss Miller MD [address] [place] [address] documented as of this encounter Procedures Procedure Name Priority Date/Time Associated Diagnosis Comments CBC WITH DIFFERENTIAL Routine 11/17/2020 2:40 AM CDT MAGNESIUM LEVEL Routine 11/17/2020 2:40 AM CDT COMPREHENSIVE METABOLIC PANEL Routine 11/17/2020 2:40 AM CDT documented in this encounter Results * (ABNORMAL) CBC WITH DIFFERENTIAL (11/17/2020 2:40 AM CDT) WBC 10.2 4.5 - 11.0 K/uL 11/17/2020 7:22 AM [facility] RBC 3.89(L) 4.20 - 5.40 M/uL 11/17/2020 7:22 AM [facility] HEMOGLOBIN 10.0(L) 12.0 - 16.0 g/dL 11/17/2020 7:22 AM [facility] HEMATOCRIT 34.0(L) 36.0 - 46.0 % 11/17/2020 7:22 AM [facility] MCV 87.4 84.0 - 103.0 fL 11/17/2020 7:22 AM [facility] MCH 25.7(L) 27.0 - 34.0 pg 11/17/2020 7:22 AM [facility] MCHC 29.4(L) 30.0 - 35.0 g/dL 11/17/2020 7:22 AM [facility] RDW 15.7(H) 11.0 - 14.5 % 11/17/2020 7:22 AM [facility] RDW-STDEV 48.4 37.0 - 54.0 fL 11/17/2020 7:22 AM [facility] PLATELETS 396 140 - 440 K/uL 11/17/2020 7:22 AM [facility] MPV 9.2 8.9 - 12.8 fL 11/17/2020 7:22 AM [facility] NEUTROPHILS 73 42 - 75 % 11/17/2020 7:22 AM [facility] LYMPHOCYTES 16(L) 24 - 44 % 11/17/2020 7:22 AM [facility] MONOCYTES 7 2 - 10 % 11/17/2020 7:22 AM [facility] EOSINOPHILS 1 0 - 7 % 11/17/2020 7:22 AM CDT [facility] BASOPHILS 0 0 - 1 % 11/17/2020 7:22 AM CDT [facility] IMMATURE GRANULOCYTES 2 0 - 2 % 11/17/2020 7:22 AM CDT [facility] NEUTROPHIL ABSOLUTE 7.43 2.00 - 8.00 K/uL 11/17/2020 7:22 AM CDT [facility] LYMPHOCYTE ABSOLUTE 1.67 1.20 - 4.00 K/uL 11/17/2020 7:22 AM CDT [facility] MONOCYTE ABSOLUTE 0.74(H) 0.10 - 0.60 K/uL 11/17/2020 7:22 AM CDT [facility] EOSINOPHIL ABSOLUTE 0.13 0.00 - 0.70 K/uL 11/17/2020 7:22 AM CDT [facility] BASOPHILS ABSOLUTE 0.04 0.00 - 0.20 K/uL 11/17/2020 7:22 AM CDT [facility] IMMATURE GRANULOCYTES ABSOLUTE 0.15(H) 0.00 - 0.10 K/uL 11/17/2020 7:22 AM CDT [facility] Blood Collection / Unknown 11/17/2020 2:40 AM CDT 11/17/2020 7:14 AM CDT us Casimiro Bhatti MD HEMATOLOGY ORDERABLES Final Res ult [facility] CLIA # [id number] [address] [place] [address] [place] [address] * MAGNESIUM LEVEL (11/17/2020 2:40 AM CDT) [facility] MAGNESIUM 2.2 1.6 - 2.6 mg/dL 11/17/2020 7:43 AM CDT [facility] Blood Collection / Unknown 11/17/2020 2:40 AM CDT 11/17/2020 7:17 AM CDT us Casimiro Bhatti MD CHEMISTRY ORDERABLES Final Resu lt [facility] CLBETZY # [id number] [address] [place] [address] * (ABNORMAL) COMPREHENSIVE METABOLIC PANEL (11/17/2020 2:40 AM CDT) Pathologist [facility] SODIUM 137 136 - 145 mmol/L 11/17/2020 7:43 AM CDT [facility] POTASSIUM 4.5 3.5 - 5.1 mmol/L 11/17/2020 7:43 AM CDT [facility] CHLORIDE 100 98 - 107 mmol/L 11/17/2020 7:43 AM CDT [facility] CO2 29 22 - 29 mmol/L 11/17/2020 7:43 AM CDT [facility] CALCIUM 9.2 8.6 - 10.0 mg/dL 11/17/2020 7:43 AM T [facility] BUN 22(H) 6 - 20 mg/dL 11/17/2020 7:43 AM CDT [facility] CREATININE 0.56 0.51 - 0.95 mg/dL 11/17/2020 7:43 AM T [facility] GLUCOSE 130(H) 74 - 99 mg/dL 11/17/2020 7:43 AM T [facility] TOTAL PROTEIN 6.1(L) 6.4 - 8.3 g/dL 11/17/2020 7:43 AM T [facility] ALBUMIN 3.5 3.5 - 5.2 g/dL 11/17/2020 7:43 AM CDT [facility] BILIRUBIN TOTAL 0.3 0.2 - 1.0 mg/dL 11/17/2020 7:43 AM CDT [facility] ALKALINE PHOSPHATASE 182(H) 35 - 104 U/L 11/17/2020 7:43 AM CDT [facility] AST 17 10 - 35 U/L 11/17/2020 7:43 AM T [facility] ALT 43(H) <=35 U/L 11/17/2020 7:43 AM T [facility] GFR >60 mL/min/1.7 3 sq meter 11/17/2020 7:43 AM T [facility] Comment: eGFR has not been validated for use in the elderly (> 70 years of age), women, patients with serious co-morbid conditions, or persons with extremes of body size or muscle mass and should also be interpreted with caution in patients with acute kidney failure, dialysis dependent patients, patients reporting exceptional dietary intake (e.g. vegetarian diet, high protein diets, creatine supplementation), and patients with severe liver disease. Based on National Kidney Disease Education Program If patient is , please refer to the GFR result. GFR, >60 mL/min/1.7 3 sq meter 11/17/2020 7:43 AM T [facility] ANION GAP 8(L) 9 - 20 mmol/L 11/17/2020 7:43 AM [facility] Blood Collection / Unknown 11/17/2020 2:40 AM CDT 11/17/2020 7:17 AM CDT us Casimiro Bhatti MD CHEMISTRY ORDERABLES Final Resu lt [facility] CLIA # [id number] [address] [place] [address] documented in this encounter Visit Diagnoses Not on filedocumented in this encounter
--- OUTSIDE RECORDS SUMMARY | 2024-10-09 09:20 | XMS_ITS | Encounter Summary ---
Author Organization [facility] Address 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 Gender Identity Not on file Sexual Orientation Not on file documented as of this encounter Plan of Treatment Upcoming Encounters Date Type Department Care Team (Late st Contact Info) Description 10/29/2024 1:00 PM CDT Office Visit [facility] Minimally Invasive Gynecology [address] [place] [address] Driss Miller MD [address] [place] [address] documented as of this encounter Procedures Procedure Name Priority Date/Time Associated Diagnosis Comments CBC WITH DIFFERENTIAL Routine 11/10/2020 4:30 AM CDT MAGNESIUM LEVEL Routine 11/10/2020 4:30 AM CDT COMPREHENSIVE METABOLIC PANEL Routine 11/10/2020 4:30 AM CDT documented in this encounter Results * MAGNESIUM LEVEL (11/10/2020 4:30 AM CDT) [facility] MAGNESIUM 2.0 1.6 - 2.6 mg/dL 11/10/2020 7:07 AM CDT [facility] Blood Collection / Unknown 11/10/2020 4:30 AM CDT 11/10/2020 6:32 AM CDT us Erica Julian MD CHEMISTRY ORDERA BLES Final Result [facility] CLIA # [id number] [address] [address] [place] [address] * (ABNORMAL) CBC WITH DIFFERENTIAL (11/10/2020 4:30 AM CDT) [facility] WBC 9.6 4.5 - 11.0 K/uL 11/10/2020 6:55 AM CDT [facility] RBC 3.13(L) 4.20 - 5.40 M/uL 11/10/2020 6:55 AM CDT [facility] HEMOGLOBIN 8.3(L) 12.0 - 16.0 g/dL 11/10/2020 6:55 AM CDT [facility] HEMATOCRIT 27.0(L) 36.0 - 46.0 % 11/10/2020 6:55 AM CDT [facility] MCV 86.3 84.0 - 103.0 fL 11/10/2020 6:55 AM CDT [facility] MCH 26.5(L) 27.0 - 34.0 pg 11/10/2020 6:55 AM CDT [facility] MCHC 30.7 30.0 - 35.0 g/dL 11/10/2020 6:55 AM CDT [facility] RDW 15.2(H) 11.0 - 14.5 % 11/10/2020 6:55 AM [facility] RDW-STDEV 47.1 37.0 - 54.0 fL 11/10/2020 6:55 AM T [facility] PLATELETS 342 140 - 440 K/uL 11/10/2020 6:55 AM [facility] MPV 9.4 8.9 - 12.8 fL 11/10/2020 6:55 AM [facility] NEUTROPHILS 83(H) 42 - 75 % 11/10/2020 6:55 AM [facility] LYMPHOCYTES 9(L) 24 - 44 % 11/10/2020 6:55 AM [facility] MONOCYTES 5 2 - 10 % 11/10/2020 6:55 AM [facility] EOSINOPHILS 1 0 - 7 % 11/10/2020 6:55 AM [facility] BASOPHILS 0 0 - 1 % 11/10/2020 6:55 AM [facility] IMMATURE GRANULOCYTES 2 0 - 2 % 11/10/2020 6:55 AM [facility] NEUTROPHIL ABSOLUTE 7.94 2.00 - 8.00 K/uL 11/10/2020 6:55 AM [facility] LYMPHOCYTE ABSOLUTE 0.89(L) 1.20 - 4.00 K/uL 11/10/2020 6:55 AM [facility] MONOCYTE ABSOLUTE 0.48 0.10 - 0.60 K/uL 11/10/2020 6:55 AM [facility] EOSINOPHIL ABSOLUTE 0.09 0.00 - 0.70 K/uL 11/10/2020 6:55 AM [facility] BASOPHILS ABSOLUTE 0.03 0.00 - 0.20 K/uL 11/10/2020 6:55 AM [facility] IMMATURE GRANULOCYTES ABSOLUTE 0.17(H) 0.00 - 0.10 K/uL 11/10/2020 6:55 AM [facility] Blood Collection / Unknown 11/10/2020 4:30 AM CDT 11/10/2020 6:32 AM CDT us Erica Julian MD HEMATOLOGY ORDER SOSA Final Result [facility] CLIA # [id number] [address] [place] [address] * (ABNORMAL) COMPREHENSIVE METABOLIC PANEL (11/10/2020 4:30 AM CDT) Pathologist [facility] SODIUM 136 136 - 145 mmol/L 11/10/2020 7:07 AM CDT [facility] POTASSIUM 4.4 3.5 - 5.1 mmol/L 11/10/2020 7:07 AM CDT [facility] CHLORIDE 100 98 - 107 mmol/L 11/10/2020 7:07 AM T [facility] CO2 26 22 - 29 mmol/L 11/10/2020 7:07 AM T [facility] CALCIUM 8.6 8.6 - 10.0 mg/dL 11/10/2020 7:07 AM T [facility] BUN 11 6 - 20 mg/dL 11/10/2020 7:07 AM T [facility] CREATININE 0.44(L) 0.51 - 0.95 mg/dL 11/10/2020 7:07 AM T [facility] GLUCOSE 203(H) 74 - 99 mg/dL 11/10/2020 7:07 AM T [facility] TOTAL PROTEIN 6.1(L) 6.4 - 8.3 g/dL 11/10/2020 7:07 AM T [facility] ALBUMIN 2.8(L) 3.5 - 5.2 g/dL 11/10/2020 7:07 AM CDT [facility] BILIRUBIN TOTAL 0.3 0.2 - 1.0 mg/dL 11/10/2020 7:07 AM T [facility] ALKALINE PHOSPHATASE 225(H) 35 - 104 U/L 11/10/2020 7:07 AM T [facility] AST 11 10 - 35 U/L 11/10/2020 7:07 AM [facility] ALT 19 <=35 U/L 11/10/2020 7:07 AM [facility] GFR >60 mL/min/1. 73 sq meter 11/10/2020 7:07 AM [facility] Comment: eGFR has not been validated for [...] refer to the GFR result. GFR, >60 mL/min/1. 73 sq meter 11/10/2020 7:07 AM [facility] ANION GAP 10 9 - 20 mmol/L 11/10/2020 7:07 AM [facility] Blood Collection / Unknown 11/10/2020 4:30 AM CDT 11/10/2020 6:32 AM CDT Erica Julian MD CHEMISTRY ORDERA BLES Final Result [facility] CLIA # [id number] [address] [address] documented in this encounter Visit Diagnoses Not on filedocumented in this encounter
--- OUTSIDE RECORDS SUMMARY | 2024-10-09 09:20 | XMS_ITS | Encounter Summary ---
Author Organization [facility] Address [address] [place] [address] Care Team Providers Care Informatics Consultant Name Role Phone Unavailable Primary Care Provider Unavailabl e Encounter Details Date Type Department Care Team (Latest Contact Info) Description 08/30/1999 Outpatient Historical HIS [facility] Misha Neal MD [address] [facility] [address] [place] [address] Calculus of gallbladder without mention of cholecystitis or obstruction (Primary Dx) Social History Tobacco Use Types Packs/Day Years Used Date Smoking Tobacco: Never Assessed Comments Unknown Sex and Gender Information Value Date Recorded Sex Assigned at Not on file Legal Sex Female 5:33 AM SIDER Gender Identity Not on file Sexual Orientation Not on file documented as of this encounter Plan of Treatment Not on file documented as of this encounter Visit Diagnoses Diagnosis Calculus of gallbladder without mention of cholecystitis or obstruction- Primary documented in this encounter
--- OUTSIDE RECORDS SUMMARY | 2024-10-09 09:20 | XMS_ITS | Clinical Summary ---
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
--- OUTSIDE RECORDS SUMMARY | 2024-10-09 09:20 | XMS_ITS | Encounter Summary ---
Author Organization [facility] Address [address] [place] [address] Care Team Providers Care Ring Conductor Name Role Phone Unavailable Primary Care Provider Unavailabl e Encounter Details Date Type Department Care Team (Late st Contact Info) Description 11/08/2020 Lab Requisition [facility] Laboratory Services [address] 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 Gender Identity Not on file Sexual Orientation Not on file documented as of this encounter Plan of Treatment Upcoming Encounters Date Type Department Care Team (Late st Contact Info) Description 10/29/2024 1:00 PM CDT Office Visit [facility] Minimally Invasive Gynecology [address] [place] [address] Driss Miller MD [address] [place] [address] documented as of this encounter Procedures Procedure Name Priority Date/Time Associated Diagnosis Comments CBC WITH DIFFERENTIAL Routine 11/08/2020 3:00 AM CDT PHOSPHORUS Routine 11/08/2020 3:00 AM CDT MAGNESIUM LEVEL Routine 11/08/2020 3:00 AM CDT COMPREHENSIVE METABOLIC PANEL Routine 11/08/2020 3:00 AM CDT documented in this encounter Results * (ABNORMAL) CBC WITH DIFFERENTIAL (11/08/2020 3:00 AM CDT) [facility] WBC 9.5 4.5 - 11.0 K/uL 11/08/2020 5:51 AM CDT [facility] RBC 2.99(L) 4.20 - 5.40 M/uL 11/08/2020 5:51 AM CDT [facility] HEMOGLOBIN 7.8(L) 12.0 - 16.0 g/dL 11/08/2020 5:51 AM CDT [facility] HEMATOCRIT 26.3(L) 36.0 - 46.0 % 11/08/2020 5:51 AM CDT [facility] MCV 88.0 84.0 - 103.0 fL 11/08/2020 5:51 AM CDT [facility] MCH 26.1(L) 27.0 - 34.0 pg 11/08/2020 5:[facility] MCHC 29.7(L) 30.0 - 35.0 g/dL 11/08/2020 5:51 AM CDT [facility] RDW 15.0(H) 11.0 - 14.5 % 11/08/2020 5:51 AM [facility] RDW-STDEV 47.4 37.0 - 54.0 fL 11/08/2020 5:51 AM CDT [facility] PLATELETS 304 140 - 440 K/uL 11/08/2020 5:51 AM CDT [facility] MPV 9.8 8.9 - 12.8 fL 11/08/2020 5:51 AM CDT [facility] NEUTROPHILS 72 42 - 75 % 11/08/2020 5:51 AM CDT [facility] LYMPHOCYTES 14(L) 24 - 44 % 11/08/2020 5:51 AM CDT [facility] [employer] [facility] MONOCYTES 8 2 - 10 % 11/08/2020 5:51 AM CDT [facility] EOSINOPHILS 5 0 - 7 % 11/08/2020 5:51 AM CDT [facility] BASOPHILS 1 0 - 1 % 11/08/2020 5:51 AM CDT [facility] IMMATURE GRANULOCYTES 2 0 - 2 % 11/08/2020 5:51 AM CDT [facility] NEUTROPHIL ABSOLUTE 6.77 2.00 - 8.00 K/uL 11/08/2020 5:51 AM CDT [facility] LYMPHOCYTE ABSOLUTE 1.30 1.20 - 4.00 K/uL 11/08/2020 5:51 AM CDT [facility] MONOCYTE ABSOLUTE 0.71(H) 0.10 - 0.60 K/uL 11/08/2020 5:51 AM CDT [facility] EOSINOPHIL ABSOLUTE 0.44 0.00 - 0.70 K/uL 11/08/2020 5:51 AM CDT [facility] BASOPHILS ABSOLUTE 0.06 0.00 - 0.20 K/uL 11/08/2020 5:51 AM CDT [facility] IMMATURE GRANULOCYTES ABSOLUTE 0.17(H) 0.00 - 0.10 K/uL 11/08/2020 5:51 AM CDT [facility] Blood Collection / Unknown 11/08/2020 3:00 AM CDT 11/08/2020 5:43 AM CDT us Erica Julian MD HEMATOLOGY ORDER SOSA Final Result [facility] CLIA # [id number] [address] [address] [place] [address] * MAGNESIUM LEVEL (11/08/2020 3:00 AM CDT) MAGNESIUM 2.0 1.6 - 2.6 mg/dL 11/08/2020 6:01 AM CDT [facility] Blood Collection / Unknown 11/08/2020 3:00 AM CDT 11/08/2020 5:44 AM CDT Erica Julian MD CHEMISTRY ORDERA BLES Final Result Performing Organization Address [facility]/ZIP Co de Phone Number [facility] CLIA # [id number] [address] [address] * PHOSPHORUS (11/08/2020 3:00 AM CDT) PHOSPHORUS 4.2 2.5 - 4.5 mg/dL 11/08/2020 6:01 AM CDT [facility] Blood Collection / Unknown 11/08/2020 3:00 AM CDT 11/08/2020 5:44 AM CDT Erica Julian MD CHEMISTRY ORDERA BLES Final Result Performing Organization Address [facility] Co de Phone Number [facility] CLIA # [id number] [address] [address] * (ABNORMAL) COMPREHENSIVE METABOLIC PANEL (11/08/2020 3:00 AM CDT) SODIUM 134(L) 136 - 145 mmol/L 11/08/2020 6:01 AM CDT [facility] POTASSIUM 4.1 3.5 - 5.1 mmol/L 11/08/2020 6:01 AM CDT [facility] CHLORIDE 96(L) 98 - 107 mmol/L 11/08/2020 6:01 AM CDT [facility] CO2 29 22 - 29 mmol/L 11/08/2020 6:01 AM CDT [facility] CALCIUM 8.8 8.6 - 10.0 mg/dL 11/08/2020 6:01 AM [facility] BUN 8 6 - 20 mg/dL 11/08/2020 6:01 AM [facility] CREATININE 0.48(L) 0.51 - 0.95 mg/dL 11/08/2020 6:01 AM [facility] GLUCOSE 102(H) 74 - 99 mg/dL 11/08/2020 6:01 AM [facility] TOTAL PROTEIN 5.8(L) 6.4 - 8.3 g/dL 11/08/2020 6:01 AM [facility] ALBUMIN 2.8(L) 3.5 - 5.2 g/dL 11/08/2020 6:01 AM [facility] BILIRUBIN TOTAL 0.3 0.2 - 1.0 mg/dL 11/08/2020 6:01 AM [facility] ALKALINE PHOSPHATASE 226(H) 35 - 104 U/L 11/08/2020 6:01 AM [facility] AST 8(L) 10 - 35 U/L 11/08/2020 6:01 AM [facility] ALT 18 <=35 U/L 11/08/2020 6:01 AM [facility] GFR >60 mL/min/1. 73 sq meter 11/08/2020 6:01 AM [facility] Comment: eGFR has not been validated for [...] result. GFR, >60 mL/min/1. 73 sq meter 11/08/2020 6:01 AM [facility] ANION GAP 9 9 - 20 mmol/L 11/08/2020 6:01 AM [facility] Blood Collection / Unknown 11/08/2020 3:00 AM CDT 11/08/2020 5:44 AM CDT us Erica Julian MD CHEMISTRY ORDERA BLES Final Result [facility] CLIA # [id number] [address] [place] [address] documented in this encounter Visit Diagnoses Not on filedocumented in this encounter
--- OUTSIDE RECORDS SUMMARY | 2024-10-09 09:20 | XMS_ITS | Encounter Summary ---
Author Organization [facility] Address [address] [place] [address] Care Team Providers Care Trading Floor Operator Name Role Phone Unavailable Primary Care Provider Unavailabl e Encounter Details Date Type Department Care Team (Latest Contact Info) Description 11/15/1999 Outpatient Historical HIS [facility] Misha Neal MD [address] [address] [place] [address] Calculus of gallbladder without mention of cholecystitis or obstruction (Primary Dx) Social History Tobacco Use Types Packs/Day Years Used Date Smoking Tobacco: Never Assessed Comments Unknown Sex and Gender Information Value Date Recorded Sex Assigned at Not on file 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
--- OUTSIDE RECORDS SUMMARY | 2024-10-09 09:20 | XMS_ITS | Encounter Summary ---
Author Organization [facility] Address 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 Female 12:23 PM 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 Gender Identity Not on file Sexual Orientation Not on file documented as of this encounter Plan of Treatment Upcoming Encounters Date Type Department Care Team (Late st Contact Info) Description 10/29/2024 1:00 PM CDT Office Visit [facility] Minimally Invasive Gynecology [address] [place] [address] Driss Miller MD [address] [place] [address] documented as of this encounter Procedures Procedure Name Priority Date/Time Associated Diagnosis Comments CBC WITH DIFFERENTIAL Routine 11/14/2020 4:15 AM CDT MAGNESIUM LEVEL Routine 11/14/2020 4:15 AM CDT COMPREHENSIVE METABOLIC PANEL Routine 11/14/2020 4:15 AM CDT documented in this encounter Results * MAGNESIUM LEVEL (11/14/2020 4:15 AM CDT) [facility] MAGNESIUM 1.9 1.6 - 2.6 mg/dL 11/14/2020 6:25 AM CDT [facility] Blood Collection / Unknown 11/14/2020 4:15 AM CDT 11/14/2020 5:54 AM CDT us Erica Julian MD CHEMISTRY ORDERA BLES Final Result [facility] CLIA # [id number] [id number] [place] [address] * (ABNORMAL) CBC WITH DIFFERENTIAL (11/14/2020 4:15 AM CDT) [facility] WBC 10.6 4.5 - 11.0 K/uL 11/14/2020 6:12 AM CDT [facility] RBC 3.56(L) 4.20 - 5.40 M/uL 11/14/2020 6:12 AM CDT [facility] HEMOGLOBIN 9.5(L) 12.0 - 16.0 g/dL 11/14/2020 6:12 AM CDT [facility] HEMATOCRIT 31.0(L) 36.0 - 46.0 % 11/14/2020 6:12 AM CDT [facility] MCV 87.1 84.0 - 103.0 fL 11/14/2020 6:12 AM CDT [facility] MCH 26.7(L) 27.0 - 34.0 pg 11/14/2020 6:12 AM CDT [facility] MCHC 30.6 30.0 - 35.0 g/dL 11/14/2020 6:12 AM CDT [facility] RDW 15.6(H) 11.0 - 14.5 % 11/14/2020 6:12 AM [facility] RDW-STDEV 48.0 37.0 - 54.0 fL 11/14/2020 6:12 AM [facility] PLATELETS 399 140 - 440 K/uL 11/14/2020 6:12 AM [facility] MPV 8.9 8.9 - 12.8 fL 11/14/2020 6:12 AM [facility] NEUTROPHILS 74 42 - 75 % 11/14/2020 6:12 AM [facility] LYMPHOCYTES 14(L) 24 - 44 % 11/14/2020 6:12 AM [facility] MONOCYTES 7 2 - 10 % 11/14/2020 6:12 AM [facility] EOSINOPHILS 2 0 - 7 % 11/14/2020 6:12 AM [facility] BASOPHILS 0 0 - 1 % 11/14/2020 6:12 AM [facility] IMMATURE GRANULOCYTES 3(H) 0 - 2 % 11/14/2020 6:12 AM [facility] NEUTROPHIL ABSOLUTE 7.90 2.00 - 8.00 K/uL 11/14/2020 6:12 AM [facility] LYMPHOCYTE ABSOLUTE 1.49 1.20 - 4.00 K/uL 11/14/2020 6:12 AM [facility] MONOCYTE ABSOLUTE 0.69(H) 0.10 - 0.60 K/uL 11/14/2020 6:12 AM [facility] EOSINOPHIL ABSOLUTE 0.22 0.00 - 0.70 K/uL 11/14/2020 6:12 AM [facility] BASOPHILS ABSOLUTE 0.04 0.00 - 0.20 K/uL 11/14/2020 6:12 AM [facility] IMMATURE GRANULOCYTES ABSOLUTE 0.26(H) 0.00 - 0.10 K/uL 11/14/2020 6:12 AM [facility] Blood Collection / Unknown 11/14/2020 4:15 AM CDT 11/14/2020 5:54 AM CDT us Erica Julian MD HEMATOLOGY ORDER SOSA Final Result [facility] CLIA # [id number] [id number] [place] [address] * (ABNORMAL) COMPREHENSIVE METABOLIC PANEL (11/14/2020 4:15 AM CDT) [facility] SODIUM 140 136 - 145 mmol/L 11/14/2020 6:25 AM CDT [facility] POTASSIUM 4.2 3.5 - 5.1 mmol/L 11/14/2020 6:25 AM CDT [facility] CHLORIDE 102 98 - 107 mmol/L 11/14/2020 6:25 AM CDT [facility] CO2 29 22 - 29 mmol/L 11/14/2020 6:25 AM CDT [facility] CALCIUM 9.2 8.6 - 10.0 mg/dL 11/14/2020 6:25 AM CDT [facility] BUN 19 6 - 20 mg/dL 11/14/2020 6:25 AM CDT [facility] CREATININE 0.52 0.51 - 0.95 mg/dL 11/14/2020 6:25 AM CDT [facility] GLUCOSE 107(H) 74 - 99 mg/dL 11/14/2020 6:25 AM CDT [facility] TOTAL PROTEIN 6.1(L) 6.4 - 8.3 g/dL 11/14/2020 6:25 AM CDT [facility] ALBUMIN 3.2(L) 3.5 - 5.2 g/dL 11/14/2020 6:25 AM CDT [facility] BILIRUBIN TOTAL 0.3 0.2 - 1.0 mg/dL 11/14/2020 6:25 AM CDT [facility] ALKALINE PHOSPHATASE 191(H) 35 - 104 U/L 11/14/2020 6:25 AM CDT [facility] AST 17 10 - 35 U/L 11/14/2020 6:25 AM [facility] ALT 37(H) <=35 U/L 11/14/2020 6:25 AM T [facility] GFR >60 mL/min/1.7 3 sq meter 11/14/2020 6:25 AM T [facility] Comment: eGFR has not been validated [...] result. GFR, >60 mL/min/1.7 3 sq meter 11/14/2020 6:25 AM T [facility] ANION GAP 9 9 - 20 mmol/L 11/14/2020 6:25 AM [facility] Blood Collection / Unknown 11/14/2020 4:15 AM CDT 11/14/2020 5:54 AM CDT Erica Julian MD CHEMISTRY ORDERA BLES Final Result [facility] CLIA # [id number] [address] [address] [place] [address] documented in this encounter Visit Diagnoses Not on filedocumented in this encounter
--- OUTSIDE RECORDS SUMMARY | 2024-10-09 09:20 | XMS_ITS | Clinical Summary ---
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
--- OUTSIDE RECORDS SUMMARY | 2024-10-09 09:20 | XMS_ITS | Encounter Summary ---
Author Organization [facility] Address 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 Gender Identity Not on file Sexual Orientation Not on file documented as of this encounter Plan of Treatment Upcoming Encounters Date Type Department Care Team (Late st Contact Info) Description 10/29/2024 1:00 PM CDT Office Visit [facility] Minimally Invasive Gynecology [address] [place] [address] Driss Miller MD [address] [place] [address] documented as of this encounter Procedures Procedure Name Priority Date/Time Associated Diagnosis Comments TROPONIN Stat 11/08/2020 2:58 PM CDT documented in this encounter Results * TROPONIN (11/08/2020 2:58 PM CDT) TROPONIN T, 5TH GEN 10 <=10 ng/L 11/08/2020 4:33 PM CDT [facility] Blood Collection / Unknown 11/08/2020 2:58 PM CDT 11/08/2020 4:18 PM CDT Narrative [facility] - 11/08/2020 4:33 PM CDT Troponin Detectable but normal range. us Erica Julian MD CHEMISTRY ORDERA BLES Final Result [facility] CLIA # [id number] [facility] [address] documented in this encounter Visit Diagnoses Not on filedocumented in this encounter
[2024-10-09 09:25] VITALS: BP 146/84; PULSE 81; RESP 16; TEMP 36.4; O2SAT 98
--- NOTE | 2024-10-09 09:34 | XR_ITS ---
WS: [id number] Portable AP upright chest, 10/09/2024 Clinical Data: Chest pain Comparison: Portable chest, 06/14/2024 Findings: No nodules, masses or effusions are seen. The heart is normal. The pulmonary vascularity is not increased. No pneumonia or pneumothorax is seen. The aortic arch shows tortuosity. Monitor leads are on the chest wall. The right diaphragm is elevated. XR/XR chest 1V portable [id number] Impression: Atherosclerosis.
--- NOTE | 2024-10-09 09:54 | ECG_ITS ---
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 Measurements Intervals [place] Rate: 76 P: 70 AR: 163 QRS: 46 QRSD: 96 T: 66 QT: 401 QTc: 452 Interpretive Statements SINUS RHYTHM WITH OCCASIONAL VENTRICULAR PREMATURE COMPLEXES Compared to ECG 09/09/2024 14:06:48 Ventricular premature complex(es) now present Electronically Signed On 10-09-2024 14:07:17 CDT by Zach Cheung M.D. [email or web address]
[2024-10-09 10:18] LABS: Alanine Aminotransferase 31 U/L (0-33); Albumin Level 4.2 g/dL (3.5-5.2); Alkaline Phosphatase 133 U/L (35-105); Anion Gap 16.9 (5-19); Aspartate Amino Transferase 21 U/L (0-32); Blood Urea Nitrogen 17 mg/dL (6-20); Calcium 8.9 mg/dL (8.5-10.5); Carbon Dioxide 21 mmol/L (22-29); Chloride 105 mmol/L (98-107); Creatinine Clr Calc Pharmacy 120.7838; Globulin 2.5 g/dL (1.3-4.6); Glucose 106 mg/dL (65-115); Osmolality Calculated 290 mOsm/kg (285-295); Potassium 3.9 mmol/L (3.5-5.1); Sodium 139 mmol/L (136-145); Total Protein 6.7 g/dL (6.6-8.7); Troponin(5th) Baseline 22 ng/L (0-10)
--- NOTE | 2024-10-09 10:50 | W.ED.HA ---
HPI - Headache General: Chief Complaint: Headache Stated Complaint: michaela Hightower Time Seen by Provider: 10/09/24 09:32 History of Present Illness: 54-year-old female presents to the emergency room with a complaint of an occipital headache she had an episode of chest pain yesterday took isosorbide she had a posterior occiput headache since that time she has had headaches in the past usually not this intense this is slightly different character as well she has not having any further chest discomfort she has no focal neurologic deficits she has tried Tylenol and ibuprofen with no relief. No recent head trauma or injury. Associated symptoms: Deny chest pain, fever(s) or rash Related Data Home Medications ?Medication ?Instructions ?Recorded ?Confirmed empagliflozin 10 mg tablet 10 mg PO QAM 11/16/22 10/09/24 (Jardiance) fluticasone propionate 50 1 spray intranasal DAILY PRN 11/16/22 10/09/24 mcg/actuation nasal Allergy Symptoms spray,suspension (Flonase Allergy Relief) atorvastatin 80 mg tablet 80 mg PO BEDTIME 10/09/24 10/09/24 ciclopirox 0.77 % topical cream See Rx Instructions .Route .COMPLEX 10/09/24 10/09/24 clopidogrel 75 mg tablet 75 mg PO QAM 10/09/24 10/09/24 cyclosporine 0.05 % eye drops in a 1 drp ophthalmic (eye) BID 10/09/24 10/09/24 dropperette (Restasis) dulaglutide 3 mg/0.5 mL 3 mg SUBCUT Q7D 10/09/24 10/09/24 subcutaneous pen injector (Trulicity) isosorbide mononitrate 30 mg 30 mg PO QPM 10/09/24 10/09/24 tablet,extended release 24 hr ketoconazole 2 % shampoo See Rx Instructions .Route .COMPLEX 10/09/24 10/09/24 Previous Rx's ?Medication ?Instructions ?Recorded ascorbic acid (vitamin C) 500 mg 500 mg PO BID 30 days #60 tabs 10/24/20 tablet (Vitamin C) blood sugar diagnostic (Accu-Chek #100 ea 10/24/20 Angy Plus test strips) blood-glucose meter (Accu-Chek #1 ea 10/24/20 Angy Plus Meter) lancets 30 gauge and blood glucose #200 ea 10/24/20 strips combo pack diabetic shoes with 3 inserts #1 ea 09/09/23 cock up wrist splint #1 ea 03/16/24 insulin glargine 100 unit/mL (3 30 unit (0.3 mL) SUBCUT BID #15 mL 03/24/24 mL) subcutaneous pen (Lantus Solostar U-100 Insulin) metoprolol succinate 25 mg 25 mg PO DAILY #90 tabs 09/09/24 tablet,extended release 24 hr nitroglycerin 0.4 mg sublingual 0.4 mg sublingual Q5M PRN chest 09/09/24 tablet pain #25 tabs aspirin 81 mg tablet,delayed 81 mg PO DAILY #30 tabs 10/07/24 release Allergies Allergy/AdvReac Type Severity Reaction Status Date / Time No Known Allergies Allergy Verified 09/09/24 14:12 Review of Systems Const: Denies: fever(s) or chills Card: Denies: chest pain Resp: Denies: dyspnea GI: Denies: abdominal pain : Denies: dysuria, urinary frequency or urinary urgency Musc: Denies: neck pain or back pain Skin/Breast: Denies: rash Neuro: Reports: headache(s) PFSH ED PFSH: Medical History Trigger ring finger of right hand Pneumonia Pulmonary embolism Constipation Oral ulceration UTI (urinary tract infection) Diabetes mellitus HTN (hypertension) COVID-19 vaccine dose declined ARDS (adult respiratory distress syndrome) Acute exacerbation of chronic obstructive pulmonary disease Pneumonia due to COVID-19 virus Surgical History S/P carpal tunnel release Date of procedure: March 26, 2024 Pre-op diagnosis: Left carpal tunnel syndrome Procedure done: Left carpal tunnel release Surgeon: Angela Murray MD Family History Denies family history of CAD (coronary artery disease) Cancer Social History Smoking and tobacco/nicotine status: former use of tobacco/nicotine Alcohol intake: never Substance/Drug Use: never Adopted: No Caregiver/support person: Yes Lives independently: Yes Household members: family Housing: House Physical Exam Const: GENERAL APPEARANCE: cooperative ORIENTATION/CONSCIOUSNESS: Yes awake, Yes oriented to person, Yes oriented to place and Yes oriented to time HENMT: COMMON NORMALS: normocephalic, atraumatic and hearing grossly normal bilaterally HEAD & SCALP: normocephalic and atraumatic Resp: COMMON NORMALS: normal respiratory effort, No retractions, No use of accessory muscles and clear to auscultation bilaterally AUSCULTATION: clear to auscultation bilaterally Cardio: COMMON NORMALS: regular rate, regular rhythm and No murmurs present (Cardio) RATE: regular rate RHYTHM: regular rhythm GI: COMMON NORMALS: Soft to palpation and No hepatosplenomegaly present AUSCULTATION: Yes normoactive bowel sounds PALPATION: Yes Soft to palpation, No Tenderness to palpation present (GI), No Guarding due to palpation present (GI) and Yes No hepatosplenomegaly present Extremity: COMMON NORMALS: normal to inspection, capillary refill normal, no clubbing, cyanosis or edema, no calf tenderness and no pedal edema Neuro: SENSORIUM/ORIENTATION: Yes oriented to person, Yes oriented to place and Yes oriented to time Skin: COMMON NORMALS: no rashes or lesions noted GENERAL SKIN EXAM: no rashes or lesions noted Course Vital Signs: Vital signs: Vital Signs Temperature 97.5 F L 10/09/24 09:25 Pulse Rate 73 10/09/24 12:40 Respiratory Rate 16 10/09/24 12:40 Blood Pressure 158/89 10/09/24 12:40 Pulse Oximetry 95 10/09/24 12:40 Oxygen Delivery Me thod Room Air 10/09/24 11:27 MDM - Headache Medical Decision Making Headache improved with pain medications. Suspect it was from his sister we will decrease her to half a tablet nightly have her follow-up with primary care doctor within the next week. Return if she has any further problems. Medical Records I reviewed the patient's medical records. Lab Data I reviewed the patient's lab results. 10/09/24 10:57 10/09/24 09:54 Radiology Impressions Chest X-Ray 10/09/24 09:34 Impression: Atherosclerosis. Laboratory Results WBC 7.46 10^3/uL (3.29-11.43) 10/09/24 10:57 Corrected WBC Cancelled 10/09/24 09:54 RBC 4.66 10^6/uL (3.85-5.65) 10/09/24 10:57 Hgb 13.20 g/dL (11.27-16.99) 10/09/24 10:57 Hct 39.0 % (36-47) 10/09/24 10:57 MCV 83.7 fl (85-98) L 10/09/24 10:57 MCH 28.3 pg (27-33) 10/09/24 10:57 MCHC 33.8 g/dL (30-55) 10/09/24 10:57 RDW 13.2 % (12.1-15.1) 10/09/24 10:57 Plt Count 228 10^3/cmm (157-399) 10/09/24 10:57 MPV 8.9 fL (7.4-10.4) 10/09/24 10:57 Gran % Cancelled 10/09/24 09:54 Neut % (Auto) 68.4 % 10/09/24 10:57 Lymph % (Auto) 19.3 % 10/09/24 10:57 [place] % (Auto) 7.4 % 10/09/24 10:57 Eos % (Auto) 4.3 % 10/09/24 10:57 Baso % (Auto) 0.5 % 10/09/24 10:57 Neut # (Auto) 5.10 10^3/uL (1.8-7.7) 10/09/24 10:57 Lymph # (Auto) 1.4 10^3/uL (0.8-4.8) 10/09/24 10:57 [place] # (Auto) 0.6 10^3/uL (0.2-0.9) 10/09/24 10:57 Eos # (Auto) 0.3 10^3/uL (0.0-0.8) 10/09/24 10:57 Baso # (Auto) 0.0 10^3/uL (0.0-0.1) 10/09/24 10:57 Absolute Gran (auto) Cancelled 10/09/24 09:54 Nucleated RBC % (auto) 0 % 10/09/24 10:57 Nucleated RBCs # 0.0 /100WBC 10/09/24 10:57 Sodium 139 mmol/L (136-145) 10/09/24 09:54 Potassium 3.9 mmol/L (3.5-5.1) 10/09/24 09:54 Chloride 105 mmol/L (98-107) 10/09/24 09:54 Carbon Dioxide 21 mmol/L (22-29) L 10/09/24 09:54 Anion Gap 16.9 (5-19) 10/09/24 09:54 BUN 17 mg/dL (6-20) 10/09/24 09:54 Creatinine 0.7 mg/dL (0.5-0.9) 10/09/24 09:54 GFR Calculation 87.5 mL/min (90-130) L 10/09/24 09:54 Glucose 106 mg/dL (65-115) 10/09/24 09:54 Calculated Osmolality 290 mOsm/kg (285-295) 10/09/24 09:54 Calcium 8.9 mg/dL (8.5-10.5) 10/09/24 09:54 Total Bilirubin 0.8 mg/dL (0.15-1.2) 10/09/24 09:54 AST 21 U/L (0-32) 10/09/24 09:54 ALT 31 U/L (0-33) 10/09/24 09:54 Alkaline Phosphatase 133 U/L (35-105) H 10/09/24 09:54 Troponin T Baseline 22 ng/L (0-10) H 10/09/24 09:54 Troponin T 120 Minute 21.54 ng/L (0-10) H 10/09/24 10:57 Delta Troponin T -0.46 ABS# (0-10) L 10/09/24 10:57 Total Protein 6.7 g/dL (6.6-8.7) 10/09/24 09:54 Albumin 4.2 g/dL (3.5-5.2) 10/09/24 09:54 Globulin 2.5 g/dL (1.3-4.6) 10/09/24 09:54 All radiology interpretation(s) finalized by discharge EKG Data EKG 1: Interpretation: EKG 10/09/2024 9:54 AM sinus rhythm with occasional PVCs no acute ST elevation or abnormality. Rate of 76 [place] interval 163 QTc 452 no significant change from 09/09/2024 Discharge Plan Discharge Patient Disposition: Home Clinical Impression: Headache, Medication side effects Condition: Stable Prescriptions: No Action Jardiance 10 mg tablet 10 mg PO QAM fluticasone propionate [Flonase Allergy Relief] 50 mcg/actuation spray,suspension 1 spray intranasal DAILY PRN (Reason: Allergy Symptoms) Rx Instructions: administer into each nostril (DME) diabetic shoes with 3 inserts See Rx Instructions .Route .MEDSUPPLY Qty: 1 0RF Rx Instructions: As directed to the shoe cornel Simmonsostar U-100 Insulin 100 unit/mL (3 mL) insulin pen 30 unit SUBCUT BID Qty: 15 3RF (DME) cock up wrist splint See Rx Instructions .Route .MEDSUPPLY Qty: 1 0RF Rx Instructions: As directed nitroglycerin 0.4 mg tablet, sublingual 0.4 mg sublingual Q5M PRN (Reason: chest pain) Qty: 25 2RF Rx Instructions: do not exceed 3 doses per episode metoprolol succinate 25 mg tablet extended release 24 hr 25 mg PO DAILY Qty: 90 3RF ascorbic acid (vitamin C) [Vitamin C] 500 mg Tablet 500 mg PO BID 30 Days Qty: 60 1RF (DME) blood-glucose meter [Accu-Chek Angy Plus Meter] [facility] See Rx Instructions .Route Qty: 1 0RF Rx Instructions: As directed (DME) lancets-blood glucose strips 30 gauge combo pack See Rx Instructions .Route Qty: 200 0RF Rx Instructions: As directed (DME) Accu-Chek Angy Plus test strp Strip See Rx Instructions .Route Qty: 100 0RF Rx Instructions: As directed aspirin 81 mg Tablet,Delayed Release (Dr/Ec) 81 mg PO DAILY Qty: 30 0RF atorvastatin 80 mg tablet 80 mg PO BEDTIME ketoconazole 2 % shampoo See Rx Instructions .ROUTE .COMPLEX Rx Instructions: LATHER AND APPLY TO BACK DAILY IN SHOWER. LET SIT FOR 5 MINUTES BEFORE RINSING. USE DAILY FOR 1 MONTH AND THEN USE FOR 1 WEEK OF THE MONTH THEREAFTER FOR PREVENTION. ciclopirox 0.77 % cream See Rx Instructions .ROUTE .COMPLEX Rx Instructions: APPLY TOPICALLY TO RASH ON BACK TWICE DAILY FOR 4 WEEKS, MAY USE NEEDED FOR FLARES. cyclosporine [Restasis] 0.05 % dropperette 1 drp ophthalmic (eye) BID Trulicity 3 mg/0.5 mL pen injector 3 mg SUBCUT Q7D Rx Instructions: Saturday's isosorbide mononitrate 30 mg tablet extended release 24 hr 30 mg PO QPM clopidogrel 75 mg tablet 75 mg PO QAM Discharge Orders: Discharge ED (Routine); Ordered 10/09/24 Ordered By: Aren Resendiz Referrals: Marcel Gardiner MD [Primary Care Provider, Family Practice] Discharge Diet: Usual diet Discharge Activity: Resume usual activity Patient Instructions: Opioid Safety, Pain Management, Patient Portal & Nicolasa Instructions Activity Restrictions/Additional Instructions: [facility]. It is very important that you follow up as instructed or that you return to the Emergency Department should you have concerns or if your condition changes or worsens in any way. You are seen emergency room with a headache likely related to medications particularly isosorbide recommend you decrease the isosorbide to half a tablet at at bedtime and follow-up with your primary care doctor or your roasterman. Print Language: Bruneian Coding Level of Care Code ED Paper Machine Supervisor for Sal Lozano
[2024-10-09 11:10] LABS: Hematocrit 39.0 % (36-47); Hemoglobin 13.20 g/dL (11.27-16.99); Mean Corpuscular HGB Conc 33.8 g/dL (30-55); Mean Corpuscular Hemoglobin 28.3 pg (27-33); Mean Corpuscular Volume 83.7 fl (85-98); Nucleated Red Blood Cells % 0 %; Platelet Count 228 10^3/cmm (157-399); Red Blood Count 4.66 10^6/uL (3.85-5.65); White Blood Count 7.46 10^3/uL (3.29-11.43)
[2024-10-09 11:12] VITALS: PULSE 75; RESP 16; O2SAT 95
[2024-10-09 11:27] VITALS: BP 162/76; PULSE 73; RESP 18; O2SAT 95
[2024-10-09 11:34] LABS: Troponin 5 2HR 21.54 ng/L (0-10)
[2024-10-09 11:37] LABS: Troponin 5 2HR Delta -0.46 ABS# (0-10)
[2024-10-09] MEDS: morphine 4 mg/mL SDV 1 mL 2 MG IVP (11:46)
--- NOTE | 2024-10-09 11:46 | ECG_ITS ---
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 Measurements Intervals [place] Rate: 74 P: 78 [place]: 165 QRS: 61 QRSD: 94 T: 64 QT: 404 QTc: 448 Interpretive Statements SINUS RHYTHM WITH OCCASIONAL VENTRICULAR PREMATURE COMPLEXES Compared to ECG 10/09/2024 09:54:56 No significant changes Electronically Signed On 10-09-2024 14:24:58 CDT by Zach Cheung M.D. [email or web address]
[2024-10-09 12:40] VITALS: BP 158/89; PULSE 73; RESP 16; O2SAT 95
== END 2024-10-09 12:51 | disposition home or self-care (01) ==
PROVIDERS: Emergency Provider Family Medicine; PCP Family Medicine
DX: R51.9 Headache, unspecified (principal); T50.905A Adverse effect of unspecified drugs, medicaments and biological substances, initial encounter; X58.XXXA Exposure to other specified factors, initial encounter; E11.9 Type 2 diabetes mellitus without complications; I10 Essential (primary) hypertension; Z87.891 Personal history of nicotine dependence; Z79.82 Long term (current) use of aspirin; Z79.02 Long term (current) use of antithrombotics/antiplatelets; Z79.85 Long-term (current) use of injectable non-insulin antidiabetic drugs
CPT/HCPCS: 36415; 71045; 80053; 84484; 85025; 93005; 96374; 96375; 99285; J0780; J1885; J2270